=== PATIENT | male | born 1940 | race Caucasian/White ===

== ENCOUNTER → 2016-07-11 | Day surgery (SDC) | payer OTHER, MEDICARE ==
[2016-07-06 10:03] VITALS: BMI 44.0
[~2016-07-11] VITALS: Ht 190.5 cm; Wt 159.1 kg
[~2016-07-11] MED LIST: ASPCH81X PO; BROM0.07; DIFL0.0519; FURO-85 PO; GATI0.5S OP; GEMF600T3 PO; GLIP-197 PO; INSDGI SC; INSU100I2 SC; KETAMINE HCL INJ 50 MG/ML 10 ML VIAL ONE; LEVO50TA PO; LIDOCAINE HCL 2% 2 ML VIAL (20MG/ML) ONE; LISI5TAB PO; METO25TA3 PO; MIDAZOLAM HCL 1 MG/ML 2ML VIAL ONE; MULT1TAB18 PO; PROPOFOL IV EMULSION 10 MG/ML 20 ML VIAL IV ONE; SODIUM CHLORIDE 0.9% 500ML 500 ML IV ONE; TAMS0.4C38 PO
[2016-07-11 08:57] VITALS: Ht 190.5 cm; Wt 159.1 kg
[2016-07-11 09:09] VITALS: TEMP 37.1
--- NOTE | 2016-07-11 09:25 | Endo History and Physical ---
History & Physical Date of Service: July 11, 2016. Chief Complaint: HX OF POLYPS Referring Physician: DR ALANIS History of Present Illness History of multiple polyps (10) Past Medical History Diabetes, Anxiety, High Cholesterol, Hypertension, Thyroid Disease, Depression Past Surgical History Hx Cardiac Surgery: No Hx Internal Defibrillator: No Hx Pacemaker: No Hx Abdominal Surgery: No Hx of Implantable Prosthesis: No Hx Post-Op Nausea and Vomiting: No Hx Cancer Surgery: No Hx Thoracic Surgery: No Hx Orthopedic: No Hx Urinary Tract Surgery: No Family History None Social History Smoking Status: Former Smoker Hx Substance Use: No Hx Alcohol Use: No Allergies Coded Allergies: No Known Allergies (Unverified , 07/11/16) Current Medications Reported Home Medications Medications Dose Route/Sig Max Daily Dose Days Date Category Lantus (Insulin Glargine) 100 Unit/Ml Inj 18 Units SC HS 07/06/16 Reported Toprol-Xl (Metoprolol Succinate) 25 Mg Tabcr 0.5 Tab PO QAM 07/06/16 Reported Glipizide Er (Glipizide) 5 Mg Tab 1 Tab PO QPM 07/06/16 Reported Glipizide Er (Glipizide) 5 Mg Tab 2 Tabs PO QAM 07/06/16 Reported Lasix (Furosemide) 20 Mg Tab 20 Mg PO QAM 07/06/16 Reported Flomax (Tamsulosin Hcl) 0.4 Mg Cap 0.4 Mg PO QPM 07/06/16 Reported Humalog Kwikpen (Insulin Lispro (Human)) 100 Unit/Ml Inj 13 Units SC TIDM 07/06/16 Reported Lopid (Gemfibrozil) 600 Mg Tab 600 Mg PO BID 07/06/16 Reported Prinivil (Lisinopril) 5 Mg Tab 5 Mg PO QAM 07/06/16 Reported One Daily For Men 50+ Adv (Multiple Vitamins W/ Minerals) 1 Tab Tab 1 Tab PO QAM 06/02/13 Reported Synthroid (Levothyroxine Sodium) 50 Mcg Tab 50 Mcg PO QAM 06/02/13 Reported Aspirin Chewable (Aspirin) 81 Mg Chew 81 Mg PO HS 06/02/13 Reported Vital Signs Weight (Kilograms): 159.09 Height (Feet): 6 Height (Inches): 3 Date Time Temp Pulse Resp B/P Pulse Ox O2 Delivery O2 Flow Rate FiO2 07/11/16 09:09 37.1 93 20 202/83 95 Room Air Physical Exam General Appearance: WD/WN, no apparent distress, + obese Respiratory/Chest: Auscultation: breath sounds normal, no wheezing Cardiovascular: Heart Auscultation: RRR, no murmurs Abdomen: Inspection & Palpation: soft, no tenderness, guarding & rebound Assessment and Plan Colonoscopy today.
--- NOTE | 2016-07-11 10:04 | GI REPORT ---
Procedure Date: 07/11/2016 9:23 AM Procedure: Colonoscopy Indications: High risk colon cancer surveillance: Personal history of multiple (10) adenomas Medicines: Monitored Anesthesia Care Complications: No immediate complications. Estimated blood loss: None. Estimated Blood Loss: Estimated blood loss: none. Procedure: Pre-Anesthesia Assessment: - Prior to the procedure, a History and Physical was performed, and patient medications, allergies and sensitivities were reviewed. The patient's tolerance of previous anesthesia was reviewed. - ASA Grade Assessment: III - A patient with severe systemic disease. After I obtained informed consent, the scope was passed under direct vision. Throughout the procedure, the patient's blood pressure, pulse, and oxygen saturations were monitored continuously. The scope was introduced through the anus and advanced to the cecum, identified by appendiceal orifice and ileocecal valve. The colonoscopy was performed with ease. The patient tolerated the procedure well. The quality of the bowel preparation was adequate to identify polyps. The bowel preparation used was split dose MIralax. Findings: A 5 mm polyp was found in the transverse colon. The polyp was sessile. The polyp was removed with a cold snare. Resection and retrieval were complete. A 6 mm polyp was found in the descending colon. The polyp was sessile. The polyp was removed with a hot snare. Resection and retrieval were complete. A 2 mm polyp was found in the sigmoid colon. The polyp was sessile. The polyp was removed with a cold snare. Resection and retrieval were complete. Multiple diverticula were found in the sigmoid colon. Verification of patient identification for the specimens was done by the physician and nurse using the patient's name, date and medical record number. Impression: - One 5 mm polyp in the transverse colon, removed with a cold snare. Resected and retrieved. - One 6 mm polyp in the descending colon, removed with a hot snare. Resected and retrieved. - One 2 mm polyp in the sigmoid colon, removed with a cold snare. Resected and retrieved. - Diverticulosis in the sigmoid colon. Recommendation: - Continue present medications. - Repeat colonoscopy in 3 years for surveillance based on pathology results. - Discharge patient to home (with escort). Chuck Hernandez M.D. Chuck Hernandez MD 07/11/2016 10:04:31 AM This report has been signed electronically. Note Initiated On: 07/11/2016 9:23 AM I attest to the content of the Intraoperative Record and orders documented therein, exceptions below
--- NOTE | 2016-07-11 10:06 | Discharge Instructions ---
Endoscopy Patient Instructions Date / Procedure(s) Performed July 11, 2016. Colonoscopy Allergy Information Coded Allergies: No Known Allergies (Unverified , 07/11/16) Discharge Date / Findings July 11, 2016. Polyps (3), diverticulosis Medication Instructions Restart Stopped Medication(s): Restart all medications today. Provider Instructions Activity Restrictions - No exercising or heavy lifting for 24 hours. - Do not drink alcohol the day of the procedure. - Do not drive a car or operate machinery until the day after the procedure. - Do not make any important decisions or sign important papers in 24 hours after the procedure. Following Day: - Return to full activity which may include returning to work/school. Diet Start your diet with liquids and light foods (jello, soup, juice, toast). Then eat your usual diet if not nauseated. Treatment For Common After Affects For mild abdominal pain, bloating, or excessive gas: - Rest - Eat lightly - Lie on right side Follow-Up Information Follow-up with DR ALANIS as scheduled Anesthesia Information What You Should Know You have had a procedure that required some medicine to reduce anxiety and discomfort. This treatment is called moderate sedation. After receiving the treatment, you may be sleepy, but you will be able to breathe on your own. The effects of the treatment may last for several hours. Follow these instructions along with Activity/Diet recommendations noted above: * Do NOT do anything where dizziness or clumsiness would be dangerous. * Rest quietly at home today, then you can be up and about tomorrow. * Have a responsible person stay with you the rest of today. * You may have had an I.V. today. If so, you may take the dressing off later today. Recommendations Call your doctor if: * Trouble breathing * Continuous vomiting for more than 24 hours * Temperature above 101 degrees * Severe abdominal pain or bloating * Pain not relieved by pain medicine ordered * There is increased drainage or redness from any incision * A large amount of rectal bleeding greater than 2-3 tablespoons. (If you had a polyp/s removed or have hemorrhoids, a small amount of blood - from the rectum is to be expected.) * You have any unanswered questions or concerns. IN THE EVENT OF A SERIOUS EMERGENCY, GO TO THE NEAREST EMERGENCY ROOM Your discharge instructions were prepared by provider Chuck Hernandez. Patient Instructions Signature Page John Harris Patient (or Guardian) Signature/Date: I have read and understand the instructions given to me by my caregivers. Caregiver/RN/Doctor Signature/Date: The above-named patient and/or guardian has received patient instructions on this date. + Original Patient Signature Page (only) stays with chart. Please make copy for patient.
--- NOTE | 2016-07-11 10:19 | Anesthesiology Progress Note ---
Anesthesia Post Op Note Date & Time July 11, 2016 at 10:18 Vital Signs Pain Intensity: 0 Vital Signs Past 12 Hours Date Time Temp Pulse Resp B/P Pulse Ox O2 Delivery O2 Flow Rate FiO2 07/11/16 10:09 78 20 137/62 96 Room Air 07/11/16 09:09 37.1 93 20 202/83 95 Room Air Notes Mental Status: alert / awake / arousable, participated in evaluation Pt Amnestic to Procedure: Yes Nausea / Vomiting: adequately controlled Pain: adequately controlled Airway Patency, RR, SpO2: stable & adequate BP & HR: stable & adequate Hydration State: stable & adequate Anesthetic Complications: no major complications apparent
[2016-07-11 10:39] VITALS: BP 127/73; PULSE 77; O2SAT 96
== END | disposition home or self-care (01) ==
LOC: C.GI 08:47
PROVIDERS: ATTEND Internal Medicine Gastroenterology
DX: Z12.11 Encounter for screening for malignant neoplasm of colon (principal); Z86.010 Personal history of colon polyps; E11.9 Type 2 diabetes mellitus without complications; D12.3 Benign neoplasm of transverse colon; D12.4 Benign neoplasm of descending colon; D12.5 Benign neoplasm of sigmoid colon; K57.30 Diverticulosis of large intestine without perforation or abscess without bleeding; I10 Essential (primary) hypertension; E78.00 Pure hypercholesterolemia, unspecified; F32.9 Major depressive disorder, single episode, unspecified; Z87.891 Personal history of nicotine dependence; Z68.41 Body mass index [BMI] 40.0-44.9, adult; E66.9 Obesity, unspecified; Z90.89 Acquired absence of other organs; Z79.4 Long term (current) use of insulin

== ENCOUNTER → 2016-09-25 | Day surgery (SDC) | payer OTHER, MEDICARE ==
[2016-09-04 15:41] VITALS: Ht 190.5 cm; Wt 159.1 kg
[~2016-09-25] VITALS: Ht 190.5 cm; Wt 159.1 kg
[~2016-09-25] MED LIST changes: +500ML BSS 0.3ML EPI 1:1000PF IRRIG ONE; +ACETAMINOPHEN 325 MG TAB PO PRN; +AMVISC PLAIN 0.8ML SYRINGE INT OCU ONE; +AMVISC PLUS 0.8ML SYRINGE INT OCU ONE; +ATROPINE SULFATE 0.1 MG/ML 5ML SYR IV PRN; +BSS FLUSH ONE; +EpHEDrine SULFATE INJ 50 MG/ML AMP IV PRN; +EpINEphrine INJ 1MG/ML AMP 1 MG/ML AMP ONE; +FENTANYL CITRATE INJ 50 MCG/1 ML 2 ML VIAL IV PRN; +FLUMAZENIL 0.1 MG/1 ML 10 ML VIAL IV PRN; +HYDROmorphone INJ 2 MG/ML SYR/VIAL IV PRN; -KETAMINE HCL INJ 50 MG/ML 10 ML VIAL ONE; +LABETALOL HCL IV 5 MG/ML 20ML IV PRN; +LACTATED RINGER'S 1000ML 500 ML IV SCH; +LIDOCAINE 3.5% OPH GEL PER APPLICATION CHARGE ONE; +LIDOCAINE HCL 1% MPF 2 ML VIAL ONE; -LIDOCAINE HCL 2% 2 ML VIAL (20MG/ML) ONE; +MEPERIDINE HCL 25 MG/ML CARP IV PRN; +NALOXONE HCL 0.4 MG/1 ML VIAL/CARP IV PRN; +OCUCOAT 1 ML SOLN IO ONE; +ONDANSETRON INJ 2 MG/ML 2 ML VIAL IV PRN; +PHENYLEPHRINE 100MCG/ML 5ML SYR IV PRN; +POVIDONE-IODINE OP SOLN 30 ML BTL ONE; +PROPARACAINE 0.5% OP SOLN PER DROP CHARGE OPL SCH; -PROPOFOL IV EMULSION 10 MG/ML 20 ML VIAL IV ONE; -SODIUM CHLORIDE 0.9% 500ML 500 ML IV ONE; +TOBRAMYCIN/DEXAMETHASONE OPH OINT PER APPLN CHARGE ONE
[2016-09-25] MEDS: PHENYLEPHRINE HCL 2.5% OP SOLN PER DROP CHARGE OPL SCH ×2 (06:57→07:07)
[2016-09-25] MEDS: TROPICAMIDE 1% OP SOLN PER DROP CHARGE OPL SCH ×2 (06:58→07:08)
[2016-09-25] MEDS: CYCLOPENTOLATE HCL 1% OP SOLN PER DROP CHARGE OPL SCH ×2 (07:00→07:08)
[2016-09-25] MEDS: KETOROLAC 0.5% OP SOLN PER DROP CHARGE OPL SCH ×2 (07:03→07:09)
--- NOTE | 2016-09-25 07:03 | History & Physical Bridge - SC ---
H&P Re-Evaluation Bridge Note: I have examined the patient, reviewed the History & Physical and in the interval since the performance of the History & Physical I have noted the following changes of clinical significance: No changes noted
[2016-09-25] MEDS: GATIFLOXACIN OP SOLN PER DROP CHARGE OPL SCH ×2 (07:04→07:11)
--- NOTE | 2016-09-25 07:52 | Discharge Instructions-SurgCtr ---
Discharge Instructions Date of Service Sep 25, 2016. Visit Reason for Visit: Left Cataract Discharge Discharge Diagnosis / Problem: cataract Discharge Goals Goal(s): Improve function Activity Recommendations Activity Limitations: per Instructions/Follow-up section Anesthesia . Post Anesthesia Instructions: If you have had General Anesthesia or IV Sedation: * Do not drive today. * Resume driving when surgeon permits. * Do not make important decisions or sign legal documents today. * Call surgeon for: 1. Temperature elevations greater than 101 degrees F. 2. Uncontrollable pain. 3. Excessive bleeding. 4. Persistent nausea and vomiting. 5. Medication intolerance (nausea, vomiting or rash). * For nausea and vomiting use only clear liquids such as: tea, soda, bouillon until nausea subsides, then gradually increase diet as tolerated. * If you have any concerns or questions, call your surgeon's office. If physician is unavailable and it is an emergency, call 911 or go to the nearest emergency room. . Instructions / Follow-Up Instructions / Follow-Up ACTIVITY RECOMMENDATIONS: * No strenuous lifting, jogging or running for 4 days * No swimming or yard work for 1 week. * Limited bending is permitted, such as putting on shoes. RETURN TO SCHOOL/WORK: No work until seen by physician in office. MEDICATIONS: Resume previous medications unless instructed otherwise by your surgeon. This includes eye drops for glaucoma. Zymaxid/Gatifloxacin (roper cap) - one drop every 2 hours until bedtime Nevanac/Ilevro/Prolensa/Ketorolac (trivedi cap) - one drop every 4 hours until bedtime Prednisolone/Durezol (white/pink cap, SHAKE WELL) - one drop every 2 hours until bedtime Starting tomorrow - all 3 drops every 4 hours until seen in the office Optive drops - as needed for discomfort SPECIAL CARE INSTRUCTIONS: * Wear eyeshield when sleeping, for four nights. * You may wear your own glasses or sunglasses while awake. * You may read or watch TV * You may shower and wash your face, but be gentle around the eye and pat dry. * Blurry vision and mild irritation are normal. * Call office if pain is more severe or vision becomes dark at . FOLLOW UP VISIT: Follow-up with Dr Sr tomorrow. Diet Recommendations Home Diet: resume previous diet Procedures Procedures Performed: Left Cataract Phacoemulsification With Intraocular Lens Implant; Toric Lens Pending Studies Studies pending at discharge: no Medical Emergencies . Who to Call and When: Medical Emergencies: If at any time you feel your situation is an emergency, please call 911 immediately. . Non-Emergent Contact Non-Emergency issues call your: Safety Attendant . . "Provider Documentation" section prepared by Carlton Sr. .
[2016-09-25 07:53] VITALS: TEMP 36.9
--- NOTE | 2016-09-25 07:54 | [facility] Operative Report ---
Operative Report Date of Service Sep 25, 2016. Operative Report 1. PREOPERATIVE DIAGNOSIS: Cataract of the left eye. 2. POSTOPERATIVE DIAGNOSIS: Same. 3. PROCEDURE: Phacoemulsification with intraocular lens implantation of the left eye. SURGEON: Dr. Carlton Sr. ANESTHESIA: Topical Lidocaine gel, 1% Non- Preserved intracameral Lidocaine, and monitored intravenous sedation. INDICATIONS FOR THE PROCEDURE: The patient is a 76 - year-old male with a history of cataract of the left eye causing significant visual impairment. The details of the proposed procedure were explained to the patient who asked appropriate questions and following discussion of all risks, benefits and alternatives agreed to have the procedure done. Patient had corneal astigmatism and therefore elected to have a toric lens placed. 4. OPERATION AND FINDINGS: DESCRIPTION OF PROCEDURE: After informed consent was obtained, patient was placed in an upright position and the cornea was marked at 83 degrees using the Jongla corneal marking tool. The the patient was brought to the Operating Room at the [facility]. The patient was placed in a supine position and then the left eye was prepped and draped in the usual sterile fashion for intraocular surgery. A drop of topical Lidocaine gel was placed in the operative eye. A wire lid speculum was then placed in the fornices. A corneal paracentesis was then created temporally. The Non-Preserved Lidocaine was then instilled into the anterior chamber. The anterior chamber was then pressurized with viscoelastic. A 2.0 mm clear corneal incision was then created temporally. A cystotome was inserted into the anterior chamber and used to create a tear in the anterior lens capsule. This capsular tear was then used to create a small flap and the flap was dragged in a counterclockwise direction in order to create a continuous curvilinear capsulorrhexis. Hydrodissection was accomplished with balanced salt solution. Phacoemulsification of the lens nucleus was then performed in a standard divide- and-conquer technique. The phaco time was 19 seconds with an average power of 8 %. The remaining cortical material was removed using irrigation aspiration. The capsular bag was then filled with viscoelastic. A Alson [id number] +18.0 diopters lens was then loaded into the injector and injected into the capsular bag. The lens was aligned with the previously made corneal [place]. The remaining viscoelastic was removed with the irrigation aspiration handpiece. The wound was hydrated and then checked and found to be watertight. The intraocular pressure was checked and found to be adequate. The wire lid speculum was removed and the patient's face was cleaned and dried. TobraDex ointment was placed in the inferior fornix. The patient was discharged to the Recovery Room having tolerated the procedure well. There were no complications. The patient will be seen tomorrow in the office for follow-up. I attest to the content of the Intraoperative Record and any orders documented therein. Any exceptions are noted below.
--- NOTE | 2016-09-25 08:03 | Anesthesia Progress Nt - [facility] ---
Anesthesia Post Op Note Date & Time Sep 25, 2016 at 08:03 Vital Signs Pain Intensity: 0 Vital Signs Past 12 Hours Date Time Temp Pulse Resp B/P (MAP) Pulse Ox O2 Delivery O2 Flow Rate FiO2 09/25/16 07:53 36.9 60 16 126/67 (86) 97 Room Air 09/25/16 06:46 36.6 64 16 124/74 (91) 96 Room Air Notes Mental Status: alert / awake / arousable, participated in evaluation Pt Amnestic to Procedure: Yes Nausea / Vomiting: adequately controlled Pain: adequately controlled Airway Patency, RR, SpO2: stable & adequate BP & HR: stable & adequate Hydration State: stable & adequate Anesthetic Complications: no major complications apparent
[2016-09-25 08:18] VITALS: BP 128/75; PULSE 66; O2SAT 97
== END | disposition home or self-care (01) ==
LOC: X.SURG 06:27
PROVIDERS: ATTEND Ophthalmology
DX: H26.9 Unspecified cataract (principal); E11.9 Type 2 diabetes mellitus without complications; K21.9 Gastro-esophageal reflux disease without esophagitis; I10 Essential (primary) hypertension; E03.9 Hypothyroidism, unspecified; E66.01 Morbid (severe) obesity due to excess calories; K57.30 Diverticulosis of large intestine without perforation or abscess without bleeding; Z79.4 Long term (current) use of insulin

== ENCOUNTER → 2016-10-16 | Day surgery (SDC) | payer OTHER, MEDICARE ==
[2016-10-11 15:18] VITALS: Ht 190.5 cm; Wt 159.1 kg
[~2016-10-16] VITALS: Ht 190.5 cm; Wt 159.1 kg
[~2016-10-16] MED LIST changes: -AMVISC PLAIN 0.8ML SYRINGE INT OCU ONE; -BROM0.07; -DIFL0.0519; -FENTANYL CITRATE INJ 50 MCG/1 ML 2 ML VIAL IV PRN; -FLUMAZENIL 0.1 MG/1 ML 10 ML VIAL IV PRN; -GATI0.5S OP; -HYDROmorphone INJ 2 MG/ML SYR/VIAL IV PRN; -LABETALOL HCL IV 5 MG/ML 20ML IV PRN; -MEPERIDINE HCL 25 MG/ML CARP IV PRN; -NALOXONE HCL 0.4 MG/1 ML VIAL/CARP IV PRN; -PHENYLEPHRINE 100MCG/ML 5ML SYR IV PRN; -PROPARACAINE 0.5% OP SOLN PER DROP CHARGE OPL SCH; +PROPARACAINE 0.5% OP SOLN PER DROP CHARGE OPR SCH
[2016-10-16] MEDS: PHENYLEPHRINE HCL 2.5% OP SOLN PER DROP CHARGE OPR SCH ×2 (11:22→11:28)
[2016-10-16] MEDS: TROPICAMIDE 1% OP SOLN PER DROP CHARGE OPR SCH ×2 (11:23→11:29)
[2016-10-16] MEDS: CYCLOPENTOLATE HCL 1% OP SOLN PER DROP CHARGE OPR SCH ×2 (11:24→11:30)
[2016-10-16] MEDS: KETOROLAC 0.5% OP SOLN PER DROP CHARGE OPR SCH ×2 (11:25→11:31)
[2016-10-16] MEDS: GATIFLOXACIN OP SOLN PER DROP CHARGE OPR SCH ×2 (11:26→11:36)
--- NOTE | 2016-10-16 12:22 | [facility] Operative Report ---
Operative Report Date of Service Oct 16, 2016. Operative Report 1. PREOPERATIVE DIAGNOSIS: Cataract of the right eye. 2. POSTOPERATIVE DIAGNOSIS: Same. 3. PROCEDURE: Phacoemulsification with intraocular lens implantation of the right eye. SURGEON: Dr. Carlton Sr. ANESTHESIA: Topical Lidocaine gel, 1% Non- Preserved intracameral Lidocaine, and monitored intravenous sedation. INDICATIONS FOR THE PROCEDURE: The patient is a 76 - year-old male with a history of cataract of the right eye causing significant visual impairment. The details of the proposed procedure were explained to the patient who asked appropriate questions and following discussion of all risks, benefits and alternatives agreed to have the procedure done. 4. OPERATION AND FINDINGS: DESCRIPTION OF PROCEDURE: After informed consent was obtained, the patient was brought to the Operating Room at the [facility]. The patient was placed in a supine position and then the right eye was prepped and draped in the usual sterile fashion for intraocular surgery. A drop of topical Lidocaine gel was placed in the operative eye. A wire lid speculum was then placed in the fornices. A corneal paracentesis was then created temporally. The Non-Preserved Lidocaine was then instilled into the anterior chamber. The anterior chamber was then pressurized with viscoelastic. A 2.0 mm clear corneal incision was then created temporally. A cystotome was inserted into the anterior chamber and used to create a tear in the anterior lens capsule. This capsular tear was then used to create a small flap and the flap was dragged in a counterclockwise direction in order to create a continuous curvilinear capsulorrhexis. Hydrodissection was accomplished with balanced salt solution. Phacoemulsification of the lens nucleus was then performed in a standard [id number] technique. The phaco time was 27 seconds with an average power of 13 %. The remaining cortical material was removed using irrigation aspiration. The capsular bag was then filled with viscoelastic. A Yang [id number] +18.0 diopters lens was then loaded into the injector and injected into the capsular bag. The remaining viscoelastic was removed with the irrigation aspiration handpiece. The wound was hydrated and then checked and found to be watertight. The intraocular pressure was checked and found to be adequate. The wire lid speculum was removed and the patient's face was cleaned and dried. TobraDex ointment was placed in the inferior fornix. The patient was discharged to the Recovery Room having tolerated the procedure well. There were no complications. The patient will be seen tomorrow in the office for follow-up. I attest to the content of the Intraoperative Record and any orders documented therein. Any exceptions are noted below.
--- NOTE | 2016-10-16 12:22 | Discharge Instructions-SurgCtr ---
Discharge Instructions Date of Service Oct 16, 2016. Visit Reason for Visit: Cataract Right Eye Discharge Discharge Diagnosis / Problem: cataract Discharge Goals Goal(s): Improve function Activity Recommendations Activity Limitations: per Instructions/Follow-up section Anesthesia . Post Anesthesia Instructions: If you have had General Anesthesia or IV Sedation: * Do not drive today. * Resume driving when surgeon permits. * Do not make important decisions or sign legal documents today. * Call surgeon for: 1. Temperature elevations greater than 101 degrees F. 2. Uncontrollable pain. 3. Excessive bleeding. 4. Persistent nausea and vomiting. 5. Medication intolerance (nausea, vomiting or rash). * For nausea and vomiting use only clear liquids such as: tea, soda, bouillon until nausea subsides, then gradually increase diet as tolerated. * If you have any concerns or questions, call your surgeon's office. If physician is unavailable and it is an emergency, call 911 or go to the nearest emergency room. . Instructions / Follow-Up Instructions / Follow-Up ACTIVITY RECOMMENDATIONS: * No strenuous lifting, jogging or running for 4 days * No swimming or yard work for 1 week. * Limited bending is permitted, such as putting on shoes. RETURN TO SCHOOL/WORK: No work until seen by physician in office. MEDICATIONS: Resume previous medications unless instructed otherwise by your surgeon. This includes eye drops for glaucoma. Zymaxid/Gatifloxacin (roper cap) - one drop every 2 hours until bedtime Nevanac/Ilevro/Prolensa/Ketorolac (trivedi cap) - one drop every 4 hours until bedtime Prednisolone/Durezol (white/pink cap, SHAKE WELL) - one drop every 2 hours until bedtime Starting tomorrow - all 3 drops every 4 hours until seen in the office Optive drops - as needed for discomfort SPECIAL CARE INSTRUCTIONS: * Wear eyeshield when sleeping, for four nights. * You may wear your own glasses or sunglasses while awake. * You may read or watch TV * You may shower and wash your face, but be gentle around the eye and pat dry. * Blurry vision and mild irritation are normal. * Call office if pain is more severe or vision becomes dark at . FOLLOW UP VISIT: Follow-up with Dr Sr tomorrow. Diet Recommendations Home Diet: resume previous diet Procedures Procedures Performed: Right Cataract Phacoemulsification With Intraocular Lens Implant Pending Studies Studies pending at discharge: no Medical Emergencies . Who to Call and When: Medical Emergencies: If at any time you feel your situation is an emergency, please call 911 immediately. . Non-Emergent Contact Non-Emergency issues call your: Saxophone Assembler . . "Provider Documentation" section prepared by Carlton Sr. .
[2016-10-16 12:26] VITALS: TEMP 36.5
--- NOTE | 2016-10-16 12:31 | Anesthesia Progress Nt - [facility] ---
Anesthesia Post Op Note Date & Time Oct 16, 2016 at 12:30 Vital Signs Pain Intensity: 0 Vital Signs Past 12 Hours Date Time Temp Pulse Resp B/P (MAP) Pulse Ox O2 Delivery O2 Flow Rate FiO2 10/16/16 12:26 36.5 59 22 142/66 (91) 96 Room Air 10/16/16 11:06 36.5 59 20 146/81 (102) 96 Room Air Notes Mental Status: alert / awake / arousable, participated in evaluation Pt Amnestic to Procedure: Yes Nausea / Vomiting: adequately controlled Pain: adequately controlled Airway Patency, RR, SpO2: stable & adequate BP & HR: stable & adequate Hydration State: stable & adequate Anesthetic Complications: no major complications apparent
[2016-10-16 12:45] VITALS: BP 145/62; PULSE 54; O2SAT 97
== END | disposition home or self-care (01) ==
LOC: X.SURG 10:18
PROVIDERS: ATTEND Ophthalmology
DX: E11.36 Type 2 diabetes mellitus with diabetic cataract (principal); I10 Essential (primary) hypertension; E78.2 Mixed hyperlipidemia; K21.9 Gastro-esophageal reflux disease without esophagitis; E03.9 Hypothyroidism, unspecified; G47.33 Obstructive sleep apnea (adult) (pediatric); E66.01 Morbid (severe) obesity due to excess calories; Z87.891 Personal history of nicotine dependence; Z79.4 Long term (current) use of insulin; Z79.82 Long term (current) use of aspirin; Z79.899 Other long term (current) drug therapy

== ENCOUNTER 2021-06-03 13:32 | Inpatient (IN) ==
--- NOTE | 2021-06-03 14:34 | Emergency Department Note ---
History of Present Illness General Chief complaint: Back Injury/Pain Time Seen by Provider: 06/03/21 14:14 Source: patient, family (I did talk to his daughter on the phone as well and she has healthcare power of door and arrival attendant), RN notes reviewed and old records reviewed Mode of arrival: EMS Limitations: no limitations History of Present Illness Maximum Pain Intensity: 6 This patient is a 81-year-old male who comes in after having significant pain and weakness as well as inability to care for self. He fell was seen here on 22 May. He went to [facility]. At that time he had a negative CT of his lumbar spine. He had fallen when he was trying to help his off the floor. He was discharged from [facility] on and says that since he is been home he has been unable to get out of his chair. His daughter came by and he had blisters on his legs and she debrided them. The patient has pain with movement that he says radiates down both legs. He says his back is killing him. Denies any change in bowel or bladder function he claims to be eating okay denies any significant headache he has had no fall since he left. Denies chest pain or shortness of breath. I did talk to his daughter on the phone as well. She tells me that the lower extremity swelling is been going on for some time but is gotten worse he finished antibiotics for some redness in his right plascencia just prior to falling on the . He does take Lasix on Saturday and Saturday. No definite fever at home. His blood sugars been running low at times. He is been more tangential and verbal at times. He had been living with his but she has been placed in [facility]. Home Medications Medication Instructions Recorded Confirmed Type aspirin 81 mg tablet,delayed 81 mg PO HS 12/04/18 06/03/21 History release (Adult Aspirin Regimen) gabapentin 300 mg capsule 300 mg PO BID 12/04/18 06/03/21 History gemfibrozil 600 mg tablet 600 mg PO BID 12/04/18 06/03/21 History glipizide 5 mg tablet 5 mg PO .DAILY@NOON tab 12/04/18 06/03/21 History insulin glargine 100 unit/mL (3 12 units SQ HS ml 12/04/18 06/03/21 History mL) subcutaneous pen (Lantus Solostar U-100 Insulin) levothyroxine 50 mcg capsule 50 mcg PO DAILYBB 12/04/18 06/03/21 History lisinopril 5 mg tablet 5 mg PO QDD 12/04/18 06/03/21 History vit C 250 mg-vit E 90 mg-zinc 40 1 tab PO BID 12/18/18 06/03/21 History mg-copper 1 [id number] capsule (PreserVision AREDS-2) metoprolol succinate 25 mg 25 mg PO HS 04/09/19 06/03/21 History tablet,extended release 24 hr finasteride 5 mg tablet 5 mg PO DAILY #90 tab 08/23/20 06/03/21 Rx tamsulosin 0.4 mg capsule 0.4 mg PO DAILY #90 cap 08/23/20 06/03/21 Rx venlafaxine 150 mg 150 mg PO .DAILY@NOON 05/22/21 06/03/21 History capsule,extended release 24 hr furosemide 20 mg tablet 20 mg PO 3XWK 06/03/21 06/03/21 History oxycodone 5 mg tablet 10 mg PO Q6H PRN 06/03/21 06/03/21 History Allergies Allergy/AdvReac Type Severity Reaction Status Date / Time No Known Allergies Allergy Verified 06/03/21 15:44 Past Med/Surg History Medical History (Updated 06/03/21 @ 18:56 by Zachary Lara MD) Arthritis Depression Diabetes mellitus, type 2 IDDM Dysuria Hearing disorder right ear hearing loss History of kidney stones Hyperlipidemia Hypertension Hypothyroidism Macular degeneration, age related Morbid obesity Sleep apnea does not use CPAP Spinal stenosis of lumbar region Surgical History Hx of colonoscopy Hx of non-cataract eye surgery Hx of right cataract extraction Hx of tonsillectomy Family History Son Family history of diabetes mellitus Social History Smoking Status: Former smoker Tobacco Type: Cigarettes Second Hand Exposure: No; Hx Alcohol Use: No Hx Substance Use: No Preferred Language: Dominican Communication Ability: Effective Beliefs That Will Affect Care: None Current Living Situation: Spouse Current Living Situation Comment: HAS DEEMENTIA AND HE CARE FOR HER Feels Safe at Home: No Assistive Devices: Glasses Review of Systems A total of 10 systems reviewed and were otherwise negative Physical Exam Vital Signs Vital Signs - 24 hr 06/03/21 13:40 06/03/21 14:28 06/03/21 15:02 Temperature 36.7 C Temperature Source Oral Pulse Rate 78 Pulse Rate from SpO2 Sensor 82 Pulse Rhythm Regular Pulse Strength Normal Respiratory Rate 22 18 Respiratory Effort / Characteristics Non-Labored Respiratory Depth Normal Respiratory Pattern Regular Blood Pressure 169/79 H 157/85 H Blood Pressure Mean 109 109 Blood Pressure Position Semi-fowlers Pulse Oximetry 98 94 95 Oxygen Delivery Method Room Air Room Air Sepsis Recent Fever Within 48 Hours No Sepsis New/Unexplained Change in Mental Status N/A Sepsis Action Taken by Nursing No Action Required 06/03/21 15:57 06/03/21 17:34 06/03/21 18:01 Temperature Temperature Source Pulse Rate 81 84 83 Pulse Rate from SpO2 Sensor Pulse Rhythm Pulse Strength Respiratory Rate 20 20 20 Respiratory Effort / Characteristics Respiratory Depth Respiratory Pattern Blood Pressure 180/56 H 175/66 H 156/94 H Blood Pressure Mean 97 102 114 Blood Pressure Position Pulse Oximetry 93 97 96 Oxygen Delivery Method Sepsis Recent Fever Within 48 Hours Sepsis New/Unexplained Change in Mental Status Sepsis Action Taken by Nursing General: Well developed well nourished older male who is alert on x3 and answers most questions appropriately and in no acute distress with any movement and he has significant pain in his breathing comfortably on room air. Normal speech HEENT: Normal cephalic atraumatic. Pupils are equal round and reactive to light. Sclera anicteric. Extraocular movements are intact. Oropharynx is pink with moist mucous membranes. No swelling of the mouth lips or tongue. Neck: Supple with a midline trachea. No meningeal signs or stiffness, no JVD or bruits. No Stridor. Chest: Clear to auscultation bilaterally. No wheezes or rhonchi. No increased work of breathing. Heart: Regular rate and rhythm without murmurs or gallops. Abdomen: Soft nontender, nondistended without rebound guarding or rigidity. Extremities: Does have mild bilateral lower extremity edema. There is some redness of his right plascencia where there is some been blisters that have been debrided no pus or purulence. Has a moderate size pannus. He has yeast seen in the skin folds between the abdomen and groin. Spine/Back. Non tender to palpation. No CVA tenderness Skin: Good turgor without rashes. Neurologic exam: Cranial nerves two through 12 are intact. Able to wiggle his toes bilaterally but also moving his legs and seems weak bilaterally. There is a lot of pain as well which may be limiting his movement. Course Administered Medications Sodium Chloride (Nss 1000ml) 1,000 mls @ 100 mls/hr IV .Q10H WILBER Stop: 07/03/21 18:14 Last Admin: 06/03/21 20:19 Dose: 100 mls/hr Documented by: [id number] Discontinued Medications Sodium Chloride (Nss 1000ml) 500 mls @ 999 mls/hr IV .Q31M ONE Stop: 06/03/21 15:33 Last Infusion: 06/03/21 16:08 Dose: 0 mls/hr Documented by: [id number] Admin: 06/03/21 15:19 Dose: 999 mls/hr Documented by: [id number] Morphine Sulfate (Morphine Sulfate 2 Mg/Ml Carp) 2 mg IV NOW STA Stop: 06/03/21 15:21 Last Admin: 06/03/21 15:38 Dose: 2 mg Documented by: [id number] Ondansetron HCl (Ondansetron Inj 2 Mg/Ml 2 Ml Vial) 4 mg IV NOW STA Stop: 06/03/21 15:21 Last Admin: 06/03/21 15:37 Dose: 4 mg Documented by: [id number] Medical Decision Making Differential Diagnosis Sepsis, dehydration, lumbar disc disease, fracture, neurologic process, UTI cellulitis Medical Records Attestation: I reviewed the patient's medical records. Home Medications Current Medication List: was personally reviewed by me Laboratory Data Attestation: I reviewed the patient's lab results. Result diagrams: 06/03/21 13:56 06/03/21 13:56 Lab Results 06/03/21 06/03/21 06/03/21 Range/Units 13:56 13:56 13:56 WBC 10.55 (4.8-10.8) K/uL RBC 3.23 L (4.7-6.1) M/uL Hgb 10.1 L (14.0-18.0) g/dL Hct 30.3 L (42-52) % MCV 93.8 (80-100) fL MCH 31.3 (25-34) pg MCHC 33.3 (32-36) g/dL RDW Std Deviation 52.6 H (36.4-46.3) fL RDW Coeff of [place] 15.3 H (11.5-14.5) % Plt Count 337 (130-400) K/uL MPV 10.0 (7.4-10.4) fL Immature Gran % (Auto) 0.1 % Neut % (Auto) 85.4 % Lymph % (Auto) 4.5 % Cobb % (Auto) 8.9 % Eos % (Auto) 0.8 % Baso % (Auto) 0.3 % Neut # (Auto) 9.02 H (1.4-6.5) K/uL Lymph # (Auto) 0.47 L (1.2-3.4) K/uL Cobb # (Auto) 0.94 H (0.11-0.59) K/uL Eos # (Auto) 0.08 (0-0.5) K/uL Baso # (Auto) 0.03 (0-0.2) K/uL Immature Gran # (Auto) 0.01 (0.00-0.02) K/uL PT 12.9 H (9.0-12.0) Seconds INR 1.2 H (0.9-1.1) APTT 31.1 H (21.0-31.0) Seconds PTT Ratio 1.1 Sodium 144 (136-145) mmol/L Potassium 4.0 (3.5-5.1) mmol/L Chloride 110 H (98-107) mmol/L Carbon Dioxide 24 (21-32) mmol/L Anion Gap 10 (3-11) BUN 57 H (6-23) mg/dl Creatinine 2.06 H (0.6-1.4) mg/dl Est Cr Clr Drug Dosing 41.5 ml/min Est GFR ( Amer) 33.5 ml/min Est GFR (Non-Af Amer) 28.9 ml/min BUN/Creatinine Ratio 27.7 H (10-20) Glucose 102 H (70-99(Fasting)) mg/dl Lactate (0.4-2.0) mmol/L Calcium 9.0 (8.5-10.1) mg/dl Magnesium 2.5 H (1.7-2.4) mg/dl Total Bilirubin 0.5 (0.2-1.0) mg/dl AST 58 H (13-39) U/L ALT 20 (7-52) U/L Alkaline Phosphatase 180 H (34-104) U/L Total Creatine Kinase 977 H (30-223) U/L Troponin I 0.03 (0-0.04) ng/ml Total Protein 7.1 (6.0-8.3) gm/dl Albumin 3.5 (3.4-5.0) gm/dl Globulin 3.6 (2.5-4.0) gm/dl Albumin/Globulin Ratio 1.0 (0.9-2) Urine Color Urine Appearance (Clear) Urine pH (4.5-7.5) Ur Specific [place] (1.000-1.030) Urine Protein (Negative) Urine Glucose (UA) (Negative) Urine Ketones (Negative) Urine Blood (Negative) Urine Nitrite (Negative) Urine Bilirubin (Negative) Urine Urobilinogen (Negative) Ur Leukocyte Esterase (Negative) Urine WBC (Auto) (0-5) /hpf Urine RBC (Auto) (0-4) /hpf U Hyaline Cast (Auto) (0-5) /lpf U Epithel Cells (Auto) (0-5) /lpf Urine Bacteria (Auto) (Negative) 06/03/21 06/03/21 Range/Units 14:37 15:47 WBC (4.8-10.8) K/uL RBC (4.7-6.1) M/uL Hgb (14.0-18.0) g/dL Hct (42-52) % MCV (80-100) fL MCH (25-34) pg MCHC (32-36) g/dL RDW Std Deviation (36.4-46.3) fL RDW Coeff of [place] (11.5-14.5) % Plt Count (130-400) K/uL MPV (7.4-10.4) fL Immature Gran % (Auto) % Neut % (Auto) % Lymph % (Auto) % Cobb % (Auto) % Eos % (Auto) % Baso % (Auto) % Neut # (Auto) (1.4-6.5) K/uL Lymph # (Auto) (1.2-3.4) K/uL Cobb # (Auto) (0.11-0.59) K/uL Eos # (Auto) (0-0.5) K/uL Baso # (Auto) (0-0.2) K/uL Immature Gran # (Auto) (0.00-0.02) K/uL PT (9.0-12.0) Seconds INR (0.9-1.1) APTT (21.0-31.0) Seconds PTT Ratio Sodium (136-145) mmol/L Potassium (3.5-5.1) mmol/L Chloride (98-107) mmol/L Carbon Dioxide (21-32) mmol/L Anion Gap (3-11) BUN (6-23) mg/dl Creatinine (0.6-1.4) mg/dl Est Cr Clr Drug Dosing ml/min Est GFR ( Amer) ml/min Est GFR (Non-Af Amer) ml/min BUN/Creatinine Ratio (10-20) Glucose (70-99(Fasting)) mg/dl Lactate 0.9 (0.4-2.0) mmol/L Calcium (8.5-10.1) mg/dl Magnesium (1.7-2.4) mg/dl Total Bilirubin (0.2-1.0) mg/dl AST (13-39) U/L ALT (7-52) U/L Alkaline Phosphatase (34-104) U/L Total Creatine Kinase (30-223) U/L Troponin I (0-0.04) ng/ml Total Protein (6.0-8.3) gm/dl Albumin (3.4-5.0) gm/dl Globulin (2.5-4.0) gm/dl Albumin/Globulin Ratio (0.9-2) Urine Color Yellow Urine Appearance Clear (Clear) Urine pH 5.0 (4.5-7.5) Ur Specific [place] 1.018 (1.000-1.030) Urine Protein 1+ H (Negative) Urine Glucose (UA) Negative (Negative) Urine Ketones Negative (Negative) Urine Blood 1+ H (Negative) Urine Nitrite Negative (Negative) Urine Bilirubin Negative (Negative) Urine Urobilinogen Negative (Negative) Ur Leukocyte Esterase Trace H (Negative) Urine WBC (Auto) 1-5 (0-5) /hpf Urine RBC (Auto) 0-4 (0-4) /hpf U Hyaline Cast (Auto) 1-5 (0-5) /lpf U Epithel Cells (Auto) 10-20 H (0-5) /lpf Urine Bacteria (Auto) Negative (Negative) Imaging Data Attestation: I personally reviewed and interpreted this imaging study as follows: My Impression: Chest x-raypoor respiratory effort which revolve results in some vascular crowding but no focal infiltrate or pneumothorax seen. It would be difficult to rule out a mild degree of CHF Radiologist's Impression: Chest X-Ray 06/03/21 14:28 XR chest 1V portable HISTORY: SEPSIS COMPARISON: Chest 05/22/2021. FINDINGS: There are low lung volumes. No pneumothorax. No pleural effusions. The heart remains mildly enlarged. There is mild central pulmonary vascular congestion without overt edema. This remains unchanged. No new focal lung consolidations to suggest pneumonia. A few small linear density at the lung bases favor subsegmental atelectasis. Incidental note is made of a small right azygos lobe. IMPRESSION: No change in the cardiomegaly with mild pulmonary vascular congestion. ACT 112: Negative or not required by law. Electronically signed by: Obdulio Augustin M.D. 06/03/2021 4:48 PM ECG Data Attestation: I personally reviewed and interpreted this ECG as follows: Indication: + weakness Rate (beats per minute): 77 Rhythm: + normal sinus ECG Intervals/blocks: + Normal QRS, + Normal QT and + Normal [place] ECG [place]: + Normal ECG ST segments: + Normal ST segments ECG Findings: no PACs or no PVCs Comparison ECG Date: from (12/25/18) Change: no significant change MDM Narrative This patient comes in as described above he is brought in by ambulance. He has been having ongoing issues with his back he has been unable to function at home he is weak and unable to get out of a chair despite receiving rehab for this. denies any additional fall appears stable vital signs are stable initially his mouth does look dry and I think he probably is dehydrated he is significantly painful with any movement and difficult evaluate he may have weakness in his legs as well but there is a lot of pain in the background. I initially ordered a sepsis type work-up and asked him about pain medication he declines any until we talk to his daughter. He was given morphine 2 mg IV and Zofran 4 mg IV due to significant pain. He has no white count or fever to suggest sepsis. Lactic acid also normal. His BUN and creatinine are up compared to baseline because of dehydration. His CK is also mildly mildly elevated. He was treated with IV hydration for this is possibly is a mild degree of rhabdo. Potassium was not elevated at 4. His Covid test was negative. EKG shows no acute ischemic changes or ectopy. I do think he needs to be admitted for further treatment and evaluation and pain management. He obviously cannot be at home at present. Chest x-ray was unremarkable. His O2 sat did drop briefly after having some pain medications but he tolerated this well and it came back up. I do think he needs to be admitted for further evaluation of his weakness back pain and dehydration. [facility] will [facility] them for this measures. Continuous cardiac monitoring: Orders placed in EMR for continuous cardiac monitoring. Upon my interpretation the patient was noted to be in normal sinus rhythm with a rate of 83 Impression & Plan Acute dehydration, Lab test negative for COVID-19 virus, Low back pain, Weakness, Acute renal insufficiency, Bilateral edema of lower extremity Discharge Plan Visit Data Chief Complaint: Back Injury/Pain ED Provider: Lorenzo Painting Discharge Problem: Acute dehydration, Lab test negative for COVID-19 virus, Low back pain, Weakness, Acute renal insufficiency, Bilateral edema of lower extremity Patient Disposition: Admitted As Inpatient Discharge Instructions Interventions: ED Discharge Assessment Last Done: 06/03/21 19:34 Discharge Problem: Low back pain Qualifiers: Chronicity: unspecified Back pain laterality: bilateral Sciatica presence: with sciatica Sciatica laterality: bilateral sciatica Qualified Code(s): M54.42 - Lumbago with sciatica, left side
[2021-06-03 14:46] LABS: Basophils # (auto) 0.03 K/uL (0-0.2); Basophils % (auto) 0.3 %; Eosinophils # (auto) 0.08 K/uL (0-0.5); Eosinophils % (auto) 0.8 %; Hematocrit (blood only) 30.3 % (42-52); Hemoglobin 10.1 g/dL (14.0-18.0); Immature Granulocytes # (auto) 0.01 K/uL (0.00-0.02); Immature Granulocytes % (auto) 0.1 %; Lymphocytes # (auto) 0.47 K/uL (1.2-3.4); Lymphocytes % (auto) 4.5 %; Mean Corpuscular Hemoglobin 31.3 pg (25-34); Mean Corpuscular Hgb Conc 33.3 g/dL (32-36); Mean Corpuscular Volume 93.8 fL (80-100); Monocytes # (auto) 0.94 K/uL (0.11-0.59); Monocytes % (auto) 8.9 %; Neutrophils # (auto) 9.02 K/uL (1.4-6.5); Neutrophils % (auto) 85.4 %; Platelet Count 337 K/uL (130-400); RDW Coefficient of Variation 15.3 % (11.5-14.5); RDW Standard Deviation 52.6 fL (36.4-46.3); Red Blood Count 3.23 M/uL (4.7-6.1); White Blood Count 10.55 K/uL (4.8-10.8)
[2021-06-03 14:57] LABS: INR 1.2 (0.9-1.1); Partial Thromboplastin Ratio 1.1; Partial Thromboplastin Time 31.1 Seconds (21.0-31.0); Prothrombin Time 12.9 Seconds (9.0-12.0)
[2021-06-03] MEDS ORDERED: SODIUM CHLORIDE 0.9% 1000ML 500 ML IV ONE (15:03)
[2021-06-03] MEDS ORDERED: ONDANSETRON INJ 2 MG/ML 2 ML VIAL IV STA (15:20)
[2021-06-03] MEDS ORDERED: MoRPHine SULFATE 2 MG/ML CARP IV STA (15:20)
[2021-06-03 15:33] LABS: Albumin Level 3.5 gm/dl (3.4-5.0); BUN Creatinine Ratio 27.7 (10-20); Bilirubin,Total 0.5 mg/dl (0.2-1.0); Creatinine Clr Calc Pharmacy 41.5 ml/min; Est GFR (African American) 33.5 ml/min; Est GFR (Non-African American) 28.9 ml/min; Globulin 3.6 gm/dl (2.5-4.0); Magnesium 2.5 mg/dl (1.7-2.4); Total Protein 7.1 gm/dl (6.0-8.3); Troponin I 0.03 ng/ml (0-0.04)
--- NOTE | 2021-06-03 16:50 | XRay Report ---
XR chest 1V portable HISTORY: SEPSIS COMPARISON: Chest 05/22/2021. FINDINGS: There are low lung volumes. No pneumothorax. No pleural effusions. The heart remains mildly enlarged. There is mild central pulmonary vascular congestion without overt edema. This remains unch anged. No new focal lung consolidations to suggest pneumonia. A few small linear density at the lung bases favor subsegmental atelectasis. Incidental note is made of a small right azygos lobe. IMPRESSION: No change in the cardiomegaly with mild pulmonary vascular congestion. ACT 112: Negative or not required by law. Electronically signed by: Obdulio Augustin M.D. 06/03/2021 4:48 PM
--- NOTE | 2021-06-03 16:55 | History & Physical Report ---
Date of Service June 03, 2021 Assessment & Plan (1) HERMELINDO (acute kidney injury): (2) Elevated CK: (3) Diabetes: Plan: HERMELINDO- Cr now 2.06, baseline of 1.1-1.3. Likely prerenal. Continue ivf, avoid nephrotoxic, recheck in am. Hold lisinopril and lasix Elevated CK- mild, continue IVF, recheck in am. Not on statin Acute on chronic back pain- Recent CT lumbar spine was unremarkable. Continue pain management- tylenol, lidocaine patch, gabapentin, oxy prn. PT eval. Cons ider MRI L spine and/or back surgery evaluation if does not improve or develops additional neurologic symptoms. Currently not indicated and her daughter (retired MA[employer]SEMBLER) agrees. Avoid too much narcs as his oxygen saturation dips with it- continuous pulse oximetry. Can't give NSAIDs due to HERMELINDO. Possible mild RLE cellulitis- erythematous, tender, mild warmth with bulla and epithelial loss. Will start on doxy and monitor for improvement. WOCN eval. Elevated LFTs- mild, monitor with scheduled tylenol DM-2- hold glipizide. Continue lantus, SSI HTN- hold lisinopril d/t HERMELINDO. continue toprol Hypothyroid- continue synthroid BPH- on proscar, flomax DVT prophylaxis- sc lovenox Code status- Full code Update- Updated daughter at bedside History of Present Illness Chief Complaint: back pain, weakness Primary Care Provider: Tru Callahan MD 81 year old male who presented to the ED from home with back pain and weakness. Patient was here in the ED on 05/22 for back pain which developed after he fell down while trying to help his go to the bathroom. His lumbar CT was negative and he was discharged to [facility] from where he was discharged 2 days back. He arrived home 4 pm. He then had worsening back pain along with weakness and basically sitting on the couch. He was intermittently confused likely from the pain medications. Brought to ED as unable to take care of at home. No new falls. Has back with bilateral sciatica. No numbness, weakness, tingling of extremities. No perineal paresthesia or bowel bladder incontinence. No fever or chills. No other issues. In the ED, he was afebrile and hemodynamically stable. Given iv morphine and pain relatively controlled. Looks dry. No other issues. Allergies Allergy/AdvReac Type Severity Reaction Status Date / Time No Known Allergies Allergy Verified 06/03/21 15:44 Home Medications Medication Instructions Recorded Confirmed Type aspirin 81 mg tablet,delayed 81 mg PO HS 12/04/18 06/03/21 History release (Adult Aspirin Regimen) gabapentin 300 mg capsule 300 mg PO BID 12/04/18 06/03/21 History gemfibrozil 600 mg tablet 600 mg PO BID 12/04/18 06/03/21 History glipizide 5 mg tablet 5 mg PO .DAILY@NOON tab 12/04/18 06/03/21 History insulin glargine 100 unit/mL (3 12 units SQ HS ml 12/04/18 06/03/21 History mL) subcutaneous pen (Lantus Solostar U-100 Insulin) levothyroxine 50 mcg capsule 50 mcg PO DAILYBB 12/04/18 06/03/21 History lisinopril 5 mg tablet 5 mg PO QDD 12/04/18 06/03/21 History vit C 250 mg-vit E 90 mg-zinc 40 1 tab PO BID 12/18/18 06/03/21 History mg-copper 1 [id number] capsule (PreserVision AREDS-2) metoprolol succinate 25 mg 25 mg PO HS 04/09/19 06/03/21 History tablet,extended release 24 hr finasteride 5 mg tablet 5 mg PO DAILY #90 tab 08/23/20 06/03/21 Rx tamsulosin 0.4 mg capsule 0.4 mg PO DAILY #90 cap 08/23/20 06/03/21 Rx venlafaxine 150 mg 150 mg PO .DAILY@NOON 05/22/21 06/03/21 History capsule,extended release 24 hr furosemide 20 mg tablet 20 mg PO [id number] 06/03/21 06/03/21 History oxycodone 5 mg tablet 10 mg PO Q6H PRN 06/03/21 06/03/21 History Past Med/Surg History Medical History (Updated 06/03/21 @ 18:56 by Zachary Lara MD) Arthritis Depression Diabetes mellitus, type 2 IDDM Dysuria Hearing disorder right ear hearing loss History of kidney stones Hyperlipidemia Hypertension Hypothyroidism Macular degeneration, age related Morbid obesity Sleep apnea does not use CPAP Spinal stenosis of lumbar region Surgical History Hx of colonoscopy Hx of non-cataract eye surgery Hx of right cataract extraction Hx of tonsillectomy Family History Son Family history of diabetes mellitus Social History Smoking Status: Former smoker Tobacco Type: Cigarettes Second Hand Exposure: No; Hx Alcohol Use: No Hx Substance Use: No Preferred Language: Malagasy Communication Ability: Effective Beliefs That Will Affect Care: None Current Living Situation: Spouse Current Living Situation Comment: HAS DEEMENTIA AND HE CARE FOR HER Feels Safe at Home: No Assistive Devices: Glasses Physical Exam Physical Exam: General: Elderly male, lying comfortably in bed, not in acute distress, on room air HEENT: EOMI, MARY, dry oral mucosa Chest: Clear breath sounds bilaterally, no wheezes or crackles CVS: Regular rate and rhythm, normal heart sounds, no murmur Abdomen: Soft, non tender, not distended, normal bowel sounds Neuro: Awake, alert, orientedx3, conversing well, non focal Extremities: No cyanosis, clubbing or edema, RLE with erythema and epithelial loss bilaterally with some bulla on left leg, tender to touch Results & Data Results & Data ([facility]) Vital Signs (Past 12 Hours) Vital Signs Temp Pulse Resp BP Pulse Ox 06/03/21 15:02 18 157/85 H 95 06/03/21 14:28 94 06/03/21 13:40 36.7 C 78 22 169/79 H 98 Laboratory Results Short CBC 06/03/21 Range/Units 13:56 WBC 10.55 (4.8-10.8) K/uL Hgb 10.1 L (14.0-18.0) g/dL Hct 30.3 L (42-52) % Plt Count 337 (130-400) K/uL BMP 06/03/21 13:56 Sodium 144 Potassium 4.0 Chloride 110 H Carbon Dioxide 24 BUN 57 H Creatinine 2.06 H Glucose 102 H Calcium 9.0 Cardiac Enzymes 06/03/21 Range/Units 13:56 Total Creatine Kinase 977 H (30-223) U/L Troponin I 0.03 (0-0.04) ng/ml Liver Function 06/03/21 Range/Units 13:56 Total Bilirubin 0.5 (0.2-1.0) mg/dl AST 58 H (13-39) U/L ALT 20 (7-52) U/L Alkaline Phosphatase 180 H (34-104) U/L Albumin 3.5 (3.4-5.0) gm/dl Urine 06/03/21 Range/Units 15:47 Urine Color Yellow Urine Appearance Clear (Clear) Urine pH 5.0 (4.5-7.5) Ur Specific [place] 1.018 (1.000-1.030) Urine Protein 1+ H (Negative) Urine Glucose (UA) Negative (Negative)
[2021-06-03 17:14] LABS: Appearance Urine Clear (Clear); Bacteria Urine Automated Negative (Negative); Bilirubin Urine Negative (Negative); Blood Urine 1+ (Negative); Color Urine Yellow; Glucose Urine UA Negative (Negative); Ketones Urine Negative (Negative); Leukocyte Esterase Urine Trace (Negative); Nitrite Urine Negative (Negative); Protein Urine 1+ (Negative); RBC Urine Automated 0-4 /hpf (0-4); Specific Gravity Urine 1.018 (1.000-1.030); Urobilinogen Urine Negative (Negative)
[2021-06-03] MEDS ORDERED: SODIUM CHLORIDE 0.9% 1000ML 1,000 ML IV SCH (18:15)
[2021-06-03] MEDS ORDERED: GLUCAGON FOR INJ 1 MG VIAL SQ PRN (20:04)
[2021-06-03] MEDS ORDERED: oxyCODONE HCL IR 5 MG TAB (IMMEDIATE RELEASE) PO PRN (20:04)
[2021-06-03] MEDS ORDERED: GLUCOSE 10 TABS/TUBE PO PRN (20:04)
[2021-06-03] MEDS ORDERED: CARBOHYDRATES FOR HYPOGLYCEMIA PO PRN (20:04)
[2021-06-03] MEDS ORDERED: GLUCOSE 40% GEL 15 GM TUBE PO PRN (20:04)
[2021-06-03] MEDS ORDERED: DEXTROSE 50% 50 ML SYRINGE IV PRN (20:04)
[2021-06-03] MEDS: ENOXAPARIN INJ 40 MG/0.4 ML SYR SQ SCH (21:14)
[2021-06-03] MEDS: LIDOCAINE 5% 1 PATCH TD SCH (21:15)
[2021-06-03] MEDS: INSULIN GLARGINE SOLOSTAR 100 UNITS/ML 3 ML PEN SQ SCH (21:16)
[2021-06-03] MEDS: INSULIN ASPART PER UNIT SC SCH (21:17)
[2021-06-03] MEDS: DOXYCYCLINE HYCLATE 100 MG CAP PO SCH (21:18)
[2021-06-03] MEDS: gemfibroziL 600 MG TAB PO SCH (21:18)
[2021-06-03] MEDS: ASPIRIN 81 MG ECTAB PO SCH (21:18)
[2021-06-03] MEDS: GABAPENTIN 300 MG CAP PO SCH (21:18)
[2021-06-03] MEDS: METOPROLOL SUCC 25MG EXT REL TAB PO SCH (21:19)
[2021-06-03] MEDS: CYCLOBENZAPRINE HCL 5 MG TAB PO PRN (21:19)
[2021-06-03] MEDS: ACETAMINOPHEN 325 MG TAB PO SCH (21:24)
[2021-06-04 00:48] LABS: HCO3 ABG 24 mmol/L (19-24); PCO2 ABG 46 mmHg (35-46); PO2 ABG 82 mmHg (80-95); pH ABG 7.34 (7.35-7.45)
[2021-06-04 01:15] LABS: Allen Test POS (Pos)
[2021-06-04] MEDS ORDERED: ALBUMIN 25% 12.5 GM/50 ML VIAL IV ONE (01:22)
[2021-06-04] MEDS ORDERED: FUROSEMIDE INJ 20 MG/2 ML VIAL IV ONE (01:22)
[2021-06-04] MEDS: MICONAZOLE NITRATE POWDER 43 GM EXT SCH ×2 (01:38→20:43)
[2021-06-04] MEDS: MoRPHine SULFATE 2 MG/ML CARP IV PRN ×2 (02:06→15:31)
[2021-06-04] MEDS: LEVOTHYROXINE SODIUM 50 MCG TABLET PO SCH (05:48)
[2021-06-04 06:10] LABS: Basophils # (auto) 0.02 K/uL (0-0.2); Basophils % (auto) 0.2 %; Eosinophils # (auto) 0.19 K/uL (0-0.5); Eosinophils % (auto) 2.1 %; Hematocrit (blood only) 28.9 % (42-52); Hemoglobin 9.5 g/dL (14.0-18.0); Immature Granulocytes # (auto) 0.02 K/uL (0.00-0.02); Immature Granulocytes % (auto) 0.2 %; Lymphocytes % (auto) 9.9 %; Mean Corpuscular Hemoglobin 30.9 pg (25-34); Mean Corpuscular Hgb Conc 32.9 g/dL (32-36); Mean Corpuscular Volume 94.1 fL (80-100); Mean Platelet Volume 9.5 fL (7.4-10.4); Monocytes # (auto) 0.61 K/uL (0.11-0.59); Monocytes % (auto) 6.7 %; Neutrophils # (auto) 7.33 K/uL (1.4-6.5); Neutrophils % (auto) 80.9 %; Platelet Count 287 K/uL (130-400); RDW Coefficient of Variation 15.5 % (11.5-14.5); Red Blood Count 3.07 M/uL (4.7-6.1); White Blood Count 9.07 K/uL (4.8-10.8)
[2021-06-04 06:31] LABS: BUN Creatinine Ratio 28.9 (10-20); C Reactive Protein 3.7 mg/dl (0-0.5); Calcium 8.5 mg/dl (8.5-10.1); Creatinine Clr Calc Pharmacy 45.3 ml/min; Est GFR (African American) 37.7 ml/min; Est GFR (Non-African American) 32.5 ml/min; Phosphorus 4.3 mg/dl (2.5-4.9); Potassium 3.9 mmol/L (3.5-5.1)
--- NOTE | 2021-06-04 07:39 | XRay Report ---
SINGLE VIEW CHEST CLINICAL HISTORY: Hypoxia FINDINGS: An AP, portable, upright chest radiograph is compared to study dated 06/03/2021. The examinat ion is degraded by portable technique and patient rotation. The heart is enlarged noting atheroscler otic calcification of the thoracic aorta. There is pulmonary vascular congestion. There are low lung volumes. Atelectasis is noted at the lung bases. No airspace consolidation typical for pneumonia or l arge pleural effusion is identified. No pneumothorax is seen. The skeletal structures are osteopenic. The bony thorax is grossly intact. IMPRESSION: 1. Cardiomegaly with pulmonary vascular congestion. 2. Low lung volumes. ACT 112: Negative or not required by law. Electronically signed by: Bradley Cox M.D. 06/04/2021 7:38 AM
[2021-06-04] MEDS: INSULIN ASPART PER UNIT SC SCH ×4 (08:34→20:38)
[2021-06-04] MEDS: ENOXAPARIN INJ 40 MG/0.4 ML SYR SQ SCH (08:35)
[2021-06-04] MEDS: gemfibroziL 600 MG TAB PO SCH ×2 (08:40→20:40)
[2021-06-04] MEDS: GABAPENTIN 300 MG CAP PO SCH ×2 (08:40→20:40)
[2021-06-04] MEDS: VENLAFAXINE HCL XR 150 MG CAPXR PO SCH (08:40)
[2021-06-04] MEDS: DOXYCYCLINE HYCLATE 100 MG CAP PO SCH ×2 (08:40→20:41)
[2021-06-04] MEDS: TAMSULOSIN HCL 0.4 MG CAP PO SCH (08:40)
[2021-06-04] MEDS: FINASTERIDE 5 MG TAB PO SCH (08:40)
[2021-06-04] MEDS: LIDOCAINE 5% 1 PATCH TD SCH (08:43)
[2021-06-04] MEDS: ACETAMINOPHEN 325 MG TAB PO SCH ×4 (08:54→20:42)
[2021-06-04] MEDS: amLODIPine BESYLATE 5 MG TAB PO SCH (10:30)
--- NOTE | 2021-06-04 10:49 | Electrocardiogram Report ---
Test Reason : Blood Pressure : / mmHG Vent. Rate : 077 BPM Atrial Rate : 077 BPM P-R Int : 208 ms QRS Dur : 104 ms QT Int : 410 ms P-R-T Axes : 056 005 015 degrees QTc Int : 463 ms Normal sinus rhythm Normal ECG When compared with ECG of 25-DEC-2018 12:13, QT has lengthened Confirmed by Chang Peraza ([id number]) on 06/04/2021 10:49:19 AM Referred By: REFERRED SELF Confirmed By:Chang Peraza
[2021-06-04] MEDS ORDERED: LACTATED RINGER'S 1,000 ML IV ONE (13:11)
[2021-06-04] MEDS ORDERED: methylPREDNISolone 40 MG in SYRINGE 0 ML IV ONE (13:30)
--- NOTE | 2021-06-04 14:37 | Hospitalist Progress Note ---
Date of Service June 04, 2021 Assessment & Plan (1) HERMELINDO (acute kidney injury): (2) Elevated CK: (3) Diabetes: Plan: Acute kidney injury Likely prerenal Baseline of 1.1-1.3 Hold lisinopril, Lasix Continue gentle IV fluids Monitor renal function Avoid nephrotoxic agents as able Mildly Elevated CK Likely due to dehydration, Poor mobility CK trending down Received IV fluids Acute on chronic back pain Recent CT lumbar spine not contributory Will repeat CT Patient refused MRI due to claustrophobia Pain Control Consulted Orthopedics Given a dose of Solu-medrol PT/OT eval Avoid NSAIDs due to HERMELINDO RLE cellulitis Continue Doxycycline Elevated LFTs- mild monitor DM II hold glipizide Continue lantus, SSI Monitor BGs HTN held lisinopril due to HERMLEINDO continue Metoprolol Started on Amlodipine for BP control while off of Lisinopril Hypothyroidism continue Levothyroxine BPH on proscar, flomax DVT Px: Heparin SQ Code status Full code Admission and Anticipated Discharge Date Admission Date: June 03, 2021 Subjective Patient is seen and examined at bedside States having lower back pain radiating to bilateral lower extremities Denies any chest pain, shortness of breath, dizziness, nausea, abdominal pain Offers no other complaints Review of Systems Review of Systems: All systems reviewed & are unremarkable except as noted in Subjective Physical Exam Physical Exam: Physical Exam: Vitals signs as noted above General Appearance:Morbidly Obese, no apparent distress Head: normocephalic, Atraumatic Eyes: normal inspection, EOMI Neck: supple, Trachea midline Respiratory/Chest: Normal breath sounds, CTA, No accessory muscle use Cardiovascular: S1, S2, No murmur Abdomen/GI:Soft, Non tender, Bowel sounds present Extremities/Musculoskeletal:normal inspection, 1+ B/L LE edema, + B/L LE scabbed blisters, skin peeling Neurologic/Psych:AAOX3, grossly no focal neurological deficits Skin: normal color, warm Results & Data Results & Data ([facility]) Vital Signs (Past 12 Hours) Vital Signs Temp Pulse Resp BP Pulse Ox 06/04/21 07:45 36.8 C 73 18 183/64 H 94 Laboratory Results Short CBC 06/03/21 06/04/21 Range/Units 13:56 05:52 WBC 10.55 9.07 (4.8-10.8) K/uL Hgb 10.1 L 9.5 L (14.0-18.0) g/dL Hct 30.3 L 28.9 L (42-52) % Plt Count 337 287 (130-400) K/uL BMP 06/03/21 06/04/21 13:56 05:52 Sodium 144 146 H Potassium 4.0 3.9 Chloride 110 H 114 H Carbon Dioxide 24 25 BUN 57 H 54 H Creatinine 2.06 H 1.87 H Glucose 102 H 76 Calcium 9.0 8.5 Cardiac Enzymes 06/03/21 06/04/21 Range/Units 13:56 05:52 Total Creatine Kinase 977 H 571 H (30-223) U/L Troponin I 0.03 (0-0.04) ng/ml Liver Function 06/03/21 Range/Units 13:56 Total Bilirubin 0.5 (0.2-1.0) mg/dl AST 58 H (13-39) U/L ALT 20 (7-52) U/L Alkaline Phosphatase 180 H (34-104) U/L Albumin 3.5 (3.4-5.0) gm/dl Urine 06/03/21 Range/Units 15:47 Urine Color Yellow Urine Appearance Clear (Clear) Urine pH 5.0 (4.5-7.5) Ur Specific [place] 1.018 (1.000-1.030) Urine Protein 1+ H (Negative) Urine Glucose (UA) Negative (Negative)
--- NOTE | 2021-06-04 15:45 | CT Scan Report ---
CT SCAN OF THE LUMBAR SPINE WITHOUT IV CONTRAST CLINICAL HISTORY: Low back pain. COMPARISON STUDY: CT of the lumbar spine dated 05/22/2021. TECHNIQUE: CT scan of the lumbar spine is performed from the lower thoracic spine to sacrum. Images a re reviewed in the axial, sagittal, and coronal planes. IV contrast was not administered for this exa mination. A dose lowering technique was utilized adhering to the principles of ALARA. CT DOSE: 1168.43 mGy.cm FINDINGS: The skeletal structures are osteopenic. There is an acute to subacute burst type compressio n fracture of L4 with moderate loss of height. Fracture involves both the anterior and posterior emily ex, and also extends into the right pedicle as seen on axial image #261. Fragments are retropulsed by up to 5 mm. No additional fracture is seen involving the lumbar spine. Vertebral body height is othe rwise maintained. The transverse and spinous processes are intact. Anterior and lateral marginal oste ophytes are seen throughout. No lytic or blastic lesion is identified. There is mild multilevel degen erative disc space narrowing with multilevel vacuum phenomenon. The visualized sacrum and bony pelvis appear intact. Degenerative change is noted in the sacroiliac joints. Paravertebral edema is noted a t L4. There is fatty atrophy of the paraspinous musculature. The abdominal aorta is normal in caliber noting advanced atherosclerotic calcification. There is a 2.5 cm indeterminant right renal lesion se en on image #115. Simple cyst in the left kidney measure up to 2.4 cm. IMPRESSION: 1. There is an acute to subacute burst type compression fracture of L4 with moderate loss of height a nd retropulsed fragments. 2. Fracture extends into the right pedicle of L4. 3. No additional acute fracture is seen involving the lumbar spine. 4. Osteopenia and spondylotic change as above. 5. There is a 2.5 cm indeterminant right renal lesion which does not meet criteria for a simple cyst. Although this could represent a complex cyst, nonemergent follow-up with urology is recommended as i s a contrast enhanced renal protocol CT for further assessment and to exclude underlying neoplasm. ACT 112: Negative or not required by law. Electronically signed by: Bradley Cox M.D. 06/04/2021 3:43 PM
[2021-06-04] MEDS ORDERED: MoRPHine SULFATE 2 MG/ML CARP IV PRN (16:43)
--- NOTE | 2021-06-04 19:33 | Urology Consultation ---
Date of Consultation June 04, 2021 Assessment & Plan (1) Renal lesion: Patient has been admitted on the hospitalist service primarily secondary to his back issues related to his recent fall. The renal lesion appears to have been found incidentally on lumbar spine CT scan. Concerning type patient's right renal lesion rg with the patient that he may require additional dedicated imaging of his kidneys to further delineate what this could potentially be. At the time of my interview with the patient he was greatly reluctant to undergo further imaging at this time. We will plan on discussing this with him further once his acute issues have been addressed further. History of Present Illness Reason for Consultation: Right renal lesion Attending Physician: Ja Zimmerman MD History of Present Illness This is an 81-year-old male who presented to [facility] emergency department on 06/03/2021 secondary to back pain and some generalized weakness. He noted that the patient had a prior emergency department visit in April of this year secondary to back pain which occurred after he fell down at home. During the [facility] emergency department visit he did have a CT scan of the lumbar spine which was negative for fractures and the patient went to [facility] rehab. Upon discharge from [facility] rehab the patient noted that he had some worsening back pain and some generalized weakness. He noted that the back pain was worse when sitting on the couch. There were no reported addition al falls. Denied any numbness or tingling of his extremities. He denied any urinary incontinence. He denies any fever shakes or chills. As he was having a great deal of difficulty caring for himself at home he was brought back to the emergency department for further care. Since admission to the hospital the patient has had labs and imaging which I independently reviewed. He has had a chest x-ray on 2 occasions that did not show any evidence of pneumonia. A CT scan of the lumbar spine was performed that showed patient had an acute burst type compression fracture of the L4 vertebrae. There is also a 2.5 cm right renal lesion. This lesion did not meet the criteria for a simple cyst. Patient did have a prior CT scan of the lumbar spine in April of this year. On this study the right kidney was not readily visualized and therefore this cyst was not able to be identified. Labs include a CBC her white blood cell count and platelet count were normal. His hemoglobin and hematocrit were 9.5 and 28.9. Chemistry profile showed his sodium was 146. Potassium was 3.9. BUN and creatinine were 54 and 1.8. Covid test was performed was noted to be negative. Did question patient on symptoms related to his right renal lesion that was noted on the above-noted CT scan. Patient does report that he has had approximately 10 pound weight loss over the past week or so. He notes that his weight loss was unintentional. He denied any previous dysuria. He denied any previous hematuria. He does report back pain. To the best of his knowledge he was unaware of this renal lesion. At the time of my interview the patient was resting comfortably in bed and he was in no distress. Allergies Allergy/AdvReac Type Severity Reaction Status Date / Time No Known Allergies Allergy Verified 06/03/21 15:44 Home Medications Medication Instructions Recorded Confirmed Type aspirin 81 mg tablet,delayed 81 mg PO HS 12/04/18 06/03/21 History release (Adult Aspirin Regimen) gabapentin 300 mg capsule 300 mg PO BID 12/04/18 06/03/21 History gemfibrozil 600 mg tablet 600 mg PO BID 12/04/18 06/03/21 History glipizide 5 mg tablet 5 mg PO .DAILY@NOON tab 12/04/18 06/03/21 History insulin glargine 100 unit/mL (3 12 units SQ HS ml 12/04/18 06/03/21 History mL) subcutaneous pen (Lantus Solostar U-100 Insulin) levothyroxine 50 mcg capsule 50 mcg PO DAILYBB 12/04/18 06/03/21 History lisinopril 5 mg tablet 5 mg PO QDD 12/04/18 06/03/21 History vit C 250 mg-vit E 90 mg-zinc 40 1 tab PO BID 12/18/18 06/03/21 History mg-copper 1 [id number] capsule (PreserVision AREDS-2) metoprolol succinate 25 mg 25 mg PO HS 04/09/19 06/03/21 History tablet,extended release 24 hr finasteride 5 mg tablet 5 mg PO DAILY #90 tab 08/23/20 06/03/21 Rx tamsulosin 0.4 mg capsule 0.4 mg PO DAILY #90 cap 08/23/20 06/03/21 Rx venlafaxine 150 mg 150 mg PO .DAILY@NOON 05/22/21 06/03/21 History capsule,extended release 24 hr furosemide 20 mg tablet 20 mg PO 3XWK 06/03/21 06/03/21 History oxycodone 5 mg tablet 10 mg PO Q6H PRN 06/03/21 06/03/21 History Patient History Medical History (Updated 06/04/21 @ 19:38 by Og Jung PA-C) Arthritis Depression Diabetes mellitus, type 2 IDDM Dysuria Hearing disorder right ear hearing loss History of kidney stones Hyperlipidemia Hypertension Hypothyroidism Macular degeneration, age related Morbid obesity Sleep apnea does not use CPAP Spinal stenosis of lumbar region Surgical History Hx of colonoscopy Hx of non-cataract eye surgery Hx of right cataract extraction Hx of tonsillectomy Family History Son Family history of diabetes mellitus Social History Smoking Status: Never smoker Tobacco Type: Cigarettes Second Hand Exposure: No; Hx Alcohol Use: No Hx Substance Use: No Preferred Language: Macedonian Communication Ability: Effective 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: No Beliefs That Will Affect Care: None marital status: Current Living Situation: Alone Current Living Situation Comment: HAS DEEMENTIA AND HE CARE FOR HER Feels Safe at Home: Yes Safety Concerns: Feels Safe At This Time Assistive Devices: Wheelchair Review of Systems Constitutional: no fever and no chills Eyes: no diplopia Ear, Nose, Mouth, Throat: no ear pain Respiratory: no cough and no dyspnea Cardiovascular: no chest pain Gastrointestinal: no nausea and no vomiting Genitourinary: no dysuria, no hematuria or no flank pain Musculoskeletal: + back pain Integumentary: no rash Neurologic: no localized weakness Physical Exam Constitutional: well developed and well nourished; no acute distress Eyes: no conjunctival abnormality ENMT: Ears: no hearing impairment Neck: trachea midline Respiratory: normal respiratory effort; no respiratory distress and no labored breathing Cardiovascular: Rate/Rhythm: regular rate and regular rhythm Gastrointestinal (Abdomen): Soft, nontender, nondistended Musculoskeletal: No calf tenderness Skin: no rashes Neurologic: moves all extremities Psychiatric: A+Ox3, euthymic affect Results & Data ([place]) Vital Signs (Past 12 Hours) Vital Signs Temp Pulse Resp BP Pulse Ox 06/04/21 07:45 36.8 C 73 18 183/64 H 94 PG Care Time/CCT Total # of Minutes Spent Total Time Spent with Patient: Total time spent is greater than 50% in coordination of care (as documented) at patient's floor/unit and/or counseling patient: Coding Level of Care Code 48126 Inpt Consult Level 5 Diagnoses Renal lesion N28.9
[2021-06-04] MEDS: INSULIN GLARGINE SOLOSTAR 100 UNITS/ML 3 ML PEN SQ SCH (20:39)
[2021-06-04] MEDS: METOPROLOL SUCC 25MG EXT REL TAB PO SCH (20:41)
[2021-06-04] MEDS: ASPIRIN 81 MG ECTAB PO SCH (20:41)
[2021-06-04] MEDS: HEPARIN SOD 5,000 UNIT/0.5 ML VIAL SQ SCH ×2 (20:42→20:47)
[2021-06-05] MEDS: HEPARIN SOD 5,000 UNIT/0.5 ML VIAL SQ SCH ×3 (05:40→20:52)
[2021-06-05] MEDS: LEVOTHYROXINE SODIUM 50 MCG TABLET PO SCH (05:40)
[2021-06-05 07:17] LABS: Hematocrit (blood only) 26.9 % (42-52); Mean Corpuscular Hemoglobin 30.9 pg (25-34); Mean Corpuscular Hgb Conc 33.5 g/dL (32-36); Mean Corpuscular Volume 92.4 fL (80-100); Mean Platelet Volume 9.5 fL (7.4-10.4); Platelet Count 276 K/uL (130-400); RDW Coefficient of Variation 15.1 % (11.5-14.5); RDW Standard Deviation 51.6 fL (36.4-46.3); Red Blood Count 2.91 M/uL (4.7-6.1); White Blood Count 10.09 K/uL (4.8-10.8)
[2021-06-05 07:29] LABS: BUN Creatinine Ratio 28.6 (10-20); Calcium 8.5 mg/dl (8.5-10.1); Creatinine Clr Calc Pharmacy 41.1 ml/min; Est GFR (African American) 33.5 ml/min; Est GFR (Non-African American) 28.9 ml/min; Potassium 4.2 mmol/L (3.5-5.1)
[2021-06-05] MEDS: TAMSULOSIN HCL 0.4 MG CAP PO SCH (07:44)
[2021-06-05] MEDS: ACETAMINOPHEN 325 MG TAB PO SCH ×4 (07:44→20:40)
[2021-06-05] MEDS: DOXYCYCLINE HYCLATE 100 MG CAP PO SCH ×2 (07:45→20:40)
[2021-06-05] MEDS: gemfibroziL 600 MG TAB PO SCH ×2 (07:45→20:40)
[2021-06-05] MEDS: amLODIPine BESYLATE 5 MG TAB PO SCH (07:45)
[2021-06-05] MEDS: VENLAFAXINE HCL XR 150 MG CAPXR PO SCH (07:45)
[2021-06-05] MEDS: FINASTERIDE 5 MG TAB PO SCH (07:45)
[2021-06-05] MEDS: GABAPENTIN 300 MG CAP PO SCH ×2 (07:45→20:40)
[2021-06-05] MEDS: LIDOCAINE 5% 1 PATCH TD SCH (07:46)
[2021-06-05] MEDS: MICONAZOLE NITRATE POWDER 43 GM EXT SCH ×2 (07:46→20:41)
[2021-06-05] MEDS: INSULIN ASPART PER UNIT SC SCH ×4 (08:31→20:42)
--- NOTE | 2021-06-05 11:25 | Ultrasound Report ---
ULTRASOUND KIDNEYS AND BLADDER CLINICAL HISTORY: Acute renal insufficiency. COMPARISON STUDY: Lumbar spine CT dated 06/04/2021. TECHNIQUE: Real-time, grayscale, and color flow sonography of the kidneys and bladder is performed. I mages are reviewed in the transverse and longitudinal planes. FINDINGS: Kidneys: The kidneys demonstrate mild cortical atrophy. Echotexture is normal. The right kidney measu res 11.6 x 5.9 x 5.1 cm and the left kidney measures 12.4 x 5.3 x 5.5 cm. There is no hydronephrosis . No shadowing renal calculi are identified. A 2.7 cm partially exophytic cyst arises from the left l ower pole. A 2.6 cm cyst is noted in the lower pole of the left kidney. There is no sonographic evide nce of solid Mass lesion. No perinephric fluid is identified. Bladder: The bladder is partially distended. The wall appears mildly thickened and trabeculated sugge sting chronic outlet obstruction. Bilateral ureteral jets were seen. IMPRESSION: 1. The kidneys demonstrate mild cortical atrophy and are without hydronephrosis. 2. There are bilateral renal cysts, which includes the indeterminant right renal lesion seen on [facility]'s lumbar spine CT. 3. There is no sonographic evidence of solid renal mass lesion. 4. The appearance of the bladder suggests the sequelae of chronic outlet obstruction. ACT 112: Negative or not required by law. Electronically signed by: Bradley Cox M.D. 06/05/2021 11:24 AM
--- NOTE | 2021-06-05 12:41 | Orthopedic Consultation ---
Date of Consultation June 05, 2021 Assessment & Plan (1) Lumbar burst fracture: Assessment L4 burst fracture with neural compression. Plan I had a lengthy discussion today with the patient and his daughter reviewing his CAT scan findings as well as clinical presentation. He clearly has evidence of fragments within the canal with neuro compression and compromise. I am recommending a lumbar decompression and fusion L3-S1. This would most likely include a kyphoplasty of L4. Risk benefits pros cons alternatives were outlined in detail. At this time we will make him n.p.o. after midnight and plan for possible surgery tomorrow. History of Present Illness Reason for Consultation: L4 burst fracture Attending Physician: Ja Zimmerman MD History of Present Illness This is a 81-year-old male presents status post fall with significant back and bilateral leg pain. Describes significant leg weakness and is unable to ambulate. He describes pain across lumbosacral junction with radiation down the lower extremities prickly with attempts to stand and ambulate. He is relatively comfortable lying supine in bed. He notes inability to raise his legs off of the bed. He describes as feeling of not knowing where his legs are. Allergies Allergy/AdvReac Type Severity Reaction Status Date / Time No Known Allergies Allergy Verified 06/03/21 15:44 Home Medications Medication Instructions Recorded Confirmed Type aspirin 81 mg tablet,delayed 81 mg PO HS 12/04/18 06/03/21 History release (Adult Aspirin Regimen) gabapentin 300 mg capsule 300 mg PO BID 12/04/18 06/03/21 History gemfibrozil 600 mg tablet 600 mg PO BID 12/04/18 06/03/21 History glipizide 5 mg tablet 5 mg PO .DAILY@NOON tab 12/04/18 06/03/21 History insulin glargine 100 unit/mL (3 12 units SQ HS ml 12/04/18 06/03/21 History mL) subcutaneous pen (Lantus Solostar U-100 Insulin) levothyroxine 50 mcg capsule 50 mcg PO DAILYBB 12/04/18 06/03/21 History lisinopril 5 mg tablet 5 mg PO QDD 12/04/18 06/03/21 History vit C 250 mg-vit E 90 mg-zinc 40 1 tab PO BID 12/18/18 06/03/21 History mg-copper 1 [id number]-[id number] capsule (PreserVision AREDS-2) metoprolol succinate 25 mg 25 mg PO HS 04/09/19 06/03/21 History tablet,extended release 24 hr finasteride 5 mg tablet 5 mg PO DAILY #90 tab 08/23/20 06/03/21 Rx tamsulosin 0.4 mg capsule 0.4 mg PO DAILY #90 cap 08/23/20 06/03/21 Rx venlafaxine 150 mg 150 mg PO .DAILY@NOON 05/22/21 06/03/21 History capsule,extended release 24 hr furosemide 20 mg tablet 20 mg PO 3XWK 06/03/21 06/03/21 History oxycodone 5 mg tablet 10 mg PO Q6H PRN 06/03/21 06/03/21 History Patient History Medical History (Updated 06/05/21 @ 12:40 by Felix Castellanos DO) Arthritis Depression Diabetes mellitus, type 2 IDDM Dysuria Hearing disorder right ear hearing loss History of kidney stones Hyperlipidemia Hypertension Hypothyroidism Macular degeneration, age related Morbid obesity Sleep apnea does not use CPAP Spinal stenosis of lumbar region Surgical History Hx of colonoscopy Hx of non-cataract eye surgery Hx of right cataract extraction Hx of tonsillectomy Family History Son Family history of diabetes mellitus Social History Smoking Status: Never smoker Tobacco Type: Cigarettes Second Hand Exposure: No; Hx Alcohol Use: No Hx Substance Use: No Preferred Language: Amharic Communication Ability: Effective Christmas Tree Grader Required: No Beliefs That Will Affect Care: None marital status: Current Living Situation: Alone Current Living Situation Comment: HAS DEEMENTIA AND HE CARE FOR HER Feels Safe at Home: Yes Safety Concerns: Feels Safe At This Time Assistive Devices: Wheelchair Physical Exam Physical Exam: On exam he is alert and oriented and appropriate with testing. He is breakaway weakness to the bilateral quadriceps plantar flexion dorsiflexion. Sensory is somewhat diminished. Results & Data ([facility]) Vital Signs (Past 12 Hours) Vital Signs Temp Pulse Pulse Resp BP Pulse Ox Pulse Ox 06/05/21 07:05 36.4 C L 59 L 18 142/60 H 97 06/05/21 04:00 64 94
--- NOTE | 2021-06-05 15:26 | Hospitalist Progress Note ---
Date of Service June 05, 2021 Assessment & Plan (1) HERMELINDO (acute kidney injury): (2) Elevated CK: (3) Diabetes: Plan: Acute kidney injury Likely prerenal Baseline of 1.1-1.3 Hold lisinopril, Lasix Received gentle IV fluids Monitor renal function Avoid nephrotoxic agents as able Nephrology Consulted Cr:2.0 Today Mildly Elevated CK Likely due to dehydration, Poor mobility CK trending down Received IV fluids Lumbar (L4) burst fracture with neurocompression CT lumbar spine:There is an acute to subacute burst type compression fracture of L4 with moderate loss of height and retropulsed fragments. Fracture extends into the right pedicle of L4. Patient refused MRI due to claustrophobia Pain Control Appreciate Orthopedics Input PT/OT eval when appropriate Avoid NSAIDs due to HERMELINDO Needs kyphoplasty, NPO midnight Nocturnal Hypoxia H/O ALMA Non complaint with CPAP Obesity Hypoventilation likely contributing as well Has Nocturnal Oximetry Study Use 3L supplemental Oxygen at bedtime Right Renal Lesion Incidental finding on CT CT showed :2.5 cm indeterminant right renal lesion which does not meet criteria for a simple cyst. Although this could represent a complex cyst Patient currently not interested in further imaging as per Urology Appreciate Urology Input RLE cellulitis Blood Cx: Negative to date Continue Doxycycline Elevated LFTs- mild monitor DM II hold glipizide Continue lantus, SSI Monitor BGs HTN held lisinopril due to HERMELINDO continue Metoprolol Started on Amlodipine for BP control while off of Lisinopril Hypothyroidism continue Levothyroxine BPH on Proscar, Flomax DVT Px: Heparin SQ Code status Full code Admission and Anticipated Discharge Date Admission Date: June 03, 2021 Subjective Patient is seen and examined at bedside Reports persistent lower back pain Discussed with Orthopedics today Denies any chest pain, shortness of breath, dizziness, nausea, abdominal pain Offers no other complaints Review of Systems Review of Systems: All systems reviewed & are unremarkable except as noted in Subjective Physical Exam Physical Exam: Physical Exam: Vitals signs as noted above General Appearance:Morbidly Obese, no apparent distress Head: normocephalic, Atraumatic Eyes: normal inspection, EOMI Neck: supple, Trachea midline Respiratory/Chest: Normal breath sounds, CTA, No accessory muscle use Cardiovascular: S1, S2, No murmur Abdomen/GI:Soft, Non tender, Bowel sounds present Extremities/Musculoskeletal:normal inspection, 1+ B/L LE edema, + B/L LE scabbed blisters, skin peeling Neurologic/Psych:AAOX3, grossly no focal neurological deficits Skin: normal color, warm Results & Data Results & Data ([facility]) Vital Signs (Past 12 Hours) Vital Signs Temp Pulse Pulse Resp BP Pulse Ox Pulse Ox 06/05/21 14:56 36.5 C 65 14 112/44 L 97 06/05/21 07:05 36.4 C L 59 L 18 142/60 H 97 06/05/21 04:00 64 94 Laboratory Results Short CBC 06/05/21 Range/Units 06:55 WBC 10.09 (4.8-10.8) K/uL Hgb 9.0 L (14.0-18.0) g/dL Hct 26.9 L (42-52) % Plt Count 276 (130-400) K/uL BMP 06/05/21 06:55 Sodium 144 Potassium 4.2 Chloride 112 H Carbon Dioxide 25 BUN 59 H Creatinine 2.06 H Glucose 136 H Calcium 8.5
--- NOTE | 2021-06-05 20:16 | Nephrology Consultation ---
Date of Consultation June 05, 2021 Assessment & Plan (1) Volume overload: new hypoxia needing 02nc; relatively new edema past 4-6 wks needing start of diuretics mid april >lasix 10 mg IV now and consider uptitrating >>>last TTE was 2013 >> low threshold for TTE (2) Acute on chronic renal failure: since 09/2020, creatinine has run 1.2-1.3. Then in April 2021 has been more in 1.3-1.5 range until the very end of April (during his stay at rehab [facility]) when it started a rapid uptick to peak at 2.5 on 06/01. His creatinine was 2.1 on 06/03 presentation and has remained in this range ever since. chemistries ok; mild volume overload persists and cause is unclear. consider nephrotic syndrome, consider cardiorenal syndrome -hold acei -avoid nsaids -lasix 10 mg now x 1 -prot/creat ratio ordered -daily bmp (3) Lumbar burst fracture: for OR; tentatively in AM (4) Renal lesion: for OP f/u and imaging w/ urology History of Present Illness Reason for Consultation: HEREMLINDO Requesting Physician: Dr Zimmerman Attending Physician: Ja Zimmerman MD History of Present Illness 81 y/o M whom I'm asked to see for HERMELINDO was admitted 06/03 with HERMELINDO after presenting with rapidly worsened back pain, weakness, and failure to thrive. He was found to have an L4 burst fracture. He is for proposed lumbar decompression and fusion L3-S1 in AM. PMH includes DM on insulin, ALMA not on cpap, HTN, hypothyroid, obesity, stones, chronic low back pain. On 05/22 he was seen in [facility] ER after a fall at home trying to help his demented get up. He was admitted to [facility] for rehab directly from ER; was d/c home on 06/01. His daughter noted that he had worsening confusion, was too weak to get off of couch, and could no longer ambulate let alone do steps. Pt has had worsening creatinine recently, in conjunction with leg swelling and acute illness. since 09/2020, creatinine has run 1.2-1.3. Then in April 2021 has been more in 1.3-1.5 range until the very end of April (during his stay at rehab hospital) when it started a rapid uptick to peak at 2.5 on 06/01. His creatinine was 2.1 on 06/03 presentation and has remained in this range ever sin ce. He started having worsening BLE edema in April to the point of his legs seeping per mid April PCP note; he was started on lasix for this. When he left [facility], he was d/c home on 20 mg lasix MWF. His edema has improved markedly since arrival to [facility] w/o aggressive diuresis. He has ongoing and severe back pain and BLE hyperesthesias, though he states these are improved from prior. Not sob, no n/v. has salgado/denies urineary concerns prior to admission other than being too weak to use urinal. Noted also on admission imaging to have R renal lesion and OP urology eval is planned; urology did evaluated him here as well. Allergies Allergy/AdvReac Type Severity Reaction Status Date / Time No Known Allergies Allergy Verified 06/03/21 15:44 Home Medications Medication Instructions Recorded Confirmed Type aspirin 81 mg tablet,delayed 81 mg PO HS 12/04/18 06/03/21 History release (Adult Aspirin Regimen) gabapentin 300 mg capsule 300 mg PO BID 12/04/18 06/03/21 History gemfibrozil 600 mg tablet 600 mg PO BID 12/04/18 06/03/21 History glipizide 5 mg tablet 5 mg PO .DAILY@NOON tab 12/04/18 06/03/21 History insulin glargine 100 unit/mL (3 12 units SQ HS ml 12/04/18 06/03/21 History mL) subcutaneous pen (Lantus Solostar U-100 Insulin) levothyroxine 50 mcg capsule 50 mcg PO DAILYBB 12/04/18 06/03/21 History lisinopril 5 mg tablet 5 mg PO QDD 12/04/18 06/03/21 History vit C 250 mg-vit E 90 mg-zinc 40 1 tab PO BID 12/18/18 06/03/21 History mg-copper 1 [id number] capsule (PreserVision AREDS-2) metoprolol succinate 25 mg 25 mg PO HS 04/09/19 06/03/21 History tablet,extended release 24 hr finasteride 5 mg tablet 5 mg PO DAILY #90 tab 08/23/20 06/03/21 Rx tamsulosin 0.4 mg capsule 0.4 mg PO DAILY #90 cap 08/23/20 06/03/21 Rx venlafaxine 150 mg 150 mg PO .DAILY@NOON 05/22/21 06/03/21 History capsule,extended release 24 hr furosemide 20 mg tablet 20 mg PO 3XWK 06/03/21 06/03/21 History oxycodone 5 mg tablet 10 mg PO Q6H PRN 06/03/21 06/03/21 History Patient History Medical History (Updated 06/05/21 @ 20:45 by Nikki George MD, PhD) Arthritis Depression Diabetes mellitus, type 2 IDDM Dysuria Hearing disorder right ear hearing loss History of kidney stones Hyperlipidemia Hypertension Hypothyroidism Macular degeneration, age related Morbid obesity Sleep apnea does not use CPAP Spinal stenosis of lumbar region Surgical History Hx of colonoscopy Hx of non-cataract eye surgery Hx of right cataract extraction Hx of tonsillectomy Family History Son Family history of diabetes mellitus Social History Smoking Status: Never smoker Tobacco Type: Cigarettes Second Hand Exposure: No; Hx Alcohol Use: No Hx Substance Use: No Preferred Language: Serbian Communication Ability: Effective Facilities Maintenance Engineer Required: No Beliefs That Will Affect Care: None marital status: Current Living Situation: Alone Current Living Situation Comment: HAS DEEMENTIA AND HE CARE FOR HER Feels Safe at Home: Yes Safety Concerns: Feels Safe At This Time Assistive Devices: Wheelchair Review of Systems Review of Systems: All systems reviewed & are unremarkable except as noted in HPI & below Physical Exam Constitutional: well developed, well nourished, + morbidly obese and cooperative; no acute distress Eyes: EOM intact bilaterally ENMT: Ears: no external ear abnormality Nose: no external nose abnormality Mouth: + dry oral mucous membranes Neck: no nuchal rigidity Respiratory: normal respiratory effort Auscultation: + diminished lung sounds Cardiovascular: Rate/Rhythm: regular rate and regular rhythm Extremities: + edema Gastrointestinal (Abdomen): Inspection/Auscultation: normal bowel sounds Percussion/Palpation: abdomen soft; abdomen nontender Musculoskeletal: Extremities: + abnormal strength (BLE weakness) Skin: no rashes, warm and dry Neurologic: ibrahim, fluent speech, no tremor Psychiatric: Orientation: oriented x 3 Results & Data ([facility]) Vital Signs (Past 12 Hours) Vital Signs Temp Pulse Resp BP Pulse Ox 06/05/21 14:56 36.5 C 65 14 112/44 L 97 Laboratory Results 06/05/21 06:55 06/05/21 06:55 UA reviewed Diagnostic Findings renal u/s Kidneys: The kidneys demonstrate mild cortical atrophy. Echotexture is normal. The right kidney measures 11.6 x 5.9 x 5.1 cm and the left kidney measures 12.4 x 5.3 x 5.5 cm. There is no hydronephrosis. No shadowing renal calculi are identified. A 2.7 cm partially exophytic cyst arises from the left lower pole. A 2.6 cm cyst is noted in the lower pole of the left kidney. There is no sonographic evidence of solid Mass lesion. No perinephric fluid is identified. Bladder: The bladder is partially distended. The wall appears mildly thickened and trabeculated suggesting chronic outlet obstruction. Bilateral ureteral jets were seen. IMPRESSION: 1. The kidneys demonstrate mild cortical atrophy and are without hydronephrosis. 2. There are bilateral renal cysts, which includes the indeterminant right renal lesion seen on yesterday's lumbar spine CT. 3. There is no sonographic evidence of solid renal mass lesion. 4. The appearance of the bladder suggests the sequelae of chronic outlet obstruction. cxr 06/04 1. Cardiomegaly with pulmonary vascular congestion. 2. Low lung volumes.
[2021-06-05] MEDS: ASPIRIN 81 MG ECTAB PO SCH (20:40)
[2021-06-05] MEDS: METOPROLOL SUCC 25MG EXT REL TAB PO SCH (20:40)
[2021-06-05] MEDS: INSULIN GLARGINE SOLOSTAR 100 UNITS/ML 3 ML PEN SQ SCH (20:42)
[2021-06-05] MEDS ORDERED: FUROSEMIDE INJ 20 MG/2 ML VIAL IV ONE (20:55)
[2021-06-05 21:57] LABS: Creatinine Urine Random 108.8 mg/dl; Protein Creatinine Ratio Urine 0.2 (0-0.2); Total Protein Urine Random 19.7 mg/dl (0-11.9)
[2021-06-06] MEDS: LEVOTHYROXINE SODIUM 50 MCG TABLET PO SCH (05:34)
[2021-06-06] MEDS: HEPARIN SOD 5,000 UNIT/0.5 ML VIAL SQ SCH ×2 (05:34→19:08)
[2021-06-06 05:45] LABS: Hematocrit (blood only) 27.1 % (42-52); Hemoglobin 8.9 g/dL (14.0-18.0)
[2021-06-06 06:01] LABS: BUN Creatinine Ratio 29.5 (10-20); Calcium 8.4 mg/dl (8.5-10.1); Creatinine Clr Calc Pharmacy 37.3 ml/min; Est GFR (African American) 29.8 ml/min; Est GFR (Non-African American) 25.7 ml/min; Potassium 4.3 mmol/L (3.5-5.1)
[2021-06-06] MEDS: INSULIN ASPART PER UNIT SC SCH ×4 (07:26→21:12)
[2021-06-06] MEDS ORDERED: Nursing to Pharmacy Communication SCH ×3 (07:30→19:30)
[2021-06-06] MEDS: FINASTERIDE 5 MG TAB PO SCH (08:44)
[2021-06-06] MEDS: TAMSULOSIN HCL 0.4 MG CAP PO SCH (08:44)
[2021-06-06] MEDS: DOXYCYCLINE HYCLATE 100 MG CAP PO SCH ×2 (08:44→21:04)
[2021-06-06] MEDS: GABAPENTIN 300 MG CAP PO SCH ×2 (08:44→21:04)
[2021-06-06] MEDS: CYCLOBENZAPRINE HCL 5 MG TAB PO PRN (08:45)
[2021-06-06] MEDS: amLODIPine BESYLATE 5 MG TAB PO SCH (08:45)
[2021-06-06] MEDS: ACETAMINOPHEN 325 MG TAB PO SCH ×4 (08:45→21:03)
[2021-06-06] MEDS: LIDOCAINE 5% 1 PATCH TD SCH (08:48)
[2021-06-06] MEDS: MICONAZOLE NITRATE POWDER 43 GM EXT SCH ×2 (08:50→21:17)
[2021-06-06] MEDS: VENLAFAXINE HCL XR 150 MG CAPXR PO SCH (09:45)
[2021-06-06] MEDS: gemfibroziL 600 MG TAB PO SCH ×2 (09:45→21:05)
--- NOTE | 2021-06-06 11:47 | Anesthesiology Consultation ---
Date of Service June 06, 2021 Assessment & Plan (1) Encounter for pre-operative examination: Chart Review Chart Review: Acceptable Risk for Surgery History Surgery Operation Date: 06/06/21 12:25 Proposed Procedures p L3-S1 Posterior Fusion Instrumentation with - Felix Castellanos DO s L4 Kyphoplasty - Felix Castellanos DO Height/Weight Height: 6 ft 3 in Weight: 140.1 kg Allergies Allergy/AdvReac Type Severity Reaction Status Date / Time No Known Allergies Allergy Verified 06/03/21 15:44 Medications Home Medications Medication Instructions Recorded Confirmed Last Taken aspirin 81 mg tablet,delayed 81 mg PO HS 12/04/18 06/03/21 05/21/21 release (Adult Aspirin Regimen) gabapentin 300 mg capsule 300 mg PO BID 12/04/18 06/03/21 05/21/21 gemfibrozil 600 mg tablet 600 mg PO BID 12/04/18 06/03/21 05/21/21 glipizide 5 mg tablet 5 mg PO .DAILY@NOON tab 12/04/18 06/03/21 05/21/21 insulin glargine 100 unit/mL (3 12 units SQ HS ml 12/04/18 06/03/21 05/21/21 mL) subcutaneous pen (Lantus Solostar U-100 Insulin) levothyroxine 50 mcg capsule 50 mcg PO DAILYBB 12/04/18 06/03/21 05/21/21 lisinopril 5 mg tablet 5 mg PO QDD 12/04/18 06/03/21 05/21/21 vit C 250 mg-vit E 90 mg-zinc 40 1 tab PO BID 12/18/18 06/03/21 05/21/21 mg-copper 1 [id number] capsule (PreserVision AREDS-2) metoprolol succinate 25 mg 25 mg PO HS 04/09/19 06/03/21 05/21/21 tablet,extended release 24 hr finasteride 5 mg tablet 5 mg PO DAILY #90 tab 08/23/20 06/03/21 05/21/21 tamsulosin 0.4 mg capsule 0.4 mg PO DAILY #90 cap 08/23/20 06/03/21 05/21/21 venlafaxine 150 mg 150 mg PO .DAILY@NOON 05/22/21 06/03/21 05/21/21 capsule,extended release 24 hr furosemide 20 mg tablet 20 mg PO 3XWK 06/03/21 06/03/21 Unknown oxycodone 5 mg tablet 10 mg PO Q6H PRN 06/03/21 06/03/21 Unknown Active Medications Generic Name Dose Route Start Last Admin Trade Name Freq PRN Reason Stop Dose Admin Acetaminophen 650 mg 06/03/21 21:00 06/06/21 08:45 Acetaminophen 325 Mg Tab PO 07/03/21 20:59 650 mg QID WILBER Administration Amlodipine Besylate 2.5 mg 06/04/21 09:00 06/06/21 08:45 Amlodipine Besylate 5 Mg Tab PO 07/04/21 08:59 Not Given QAM WILBER Aspirin 81 mg 06/03/21 21:00 06/05/21 20:40 Aspirin 81 Mg Ectab PO 07/03/21 20:59 81 mg HS WILBER Administration Cyclobenzaprine HCl 5 mg 06/03/21 20:04 06/06/21 08:45 Cyclobenzaprine Hcl 5 Mg Tab PO 07/03/21 20:03 5 mg BID PRN Administration spasm Doxycycline Hyclate 100 mg 06/03/21 21:00 06/06/21 08:44 Doxycycline Hyclate 100 Mg Cap PO 06/10/21 20:59 100 mg BID WILBER Administration Finasteride 5 mg 06/04/21 09:00 06/06/21 08:44 Finasteride 5 Mg Tab PO 07/04/21 08:59 5 mg DAILY WILBER Administration Gabapentin 300 mg 06/03/21 21:00 06/06/21 08:44 Gabapentin 300 Mg Cap PO 07/03/21 20:59 300 mg BID WILBER Administration Gemfibrozil 600 mg 06/03/21 21:00 06/06/21 09:45 Gemfibrozil 600 Mg Tab PO 07/03/21 20:59 600 mg BID WILBER Administration Heparin Sodium (Porcine) 5,000 units 06/04/21 21:00 06/06/21 05:34 Heparin Sod 5,000 Unit/0.5 Ml Vial SQ 07/04/21 20:59 5,000 units Q8 WILBER Administration Insulin Glargine 10 units 06/03/21 21:00 06/05/21 20:42 Insulin Glargine Solostar 100 Units/Ml 3 Ml Pen SQ 07/03/21 20:59 10 units HS WILBER Administration Levothyroxine Sodium 50 mcg 06/04/21 06:30 06/06/21 05:34 Levothyroxine Sodium 50 Mcg Tablet PO 07/04/21 06:29 50 mcg DAILYBB WILBER Administration Lidocaine 1 patch 06/03/21 20:04 06/06/21 08:48 Lidocaine 5% 1 Patch TD 07/03/21 20:03 Not Given QAM WILBER Metoprolol Succinate 25 mg 06/03/21 21:00 06/05/21 20:40 Metoprolol Succ 25mg Ext Rel Tab PO 07/03/21 20:59 25 mg HS WILBER Administration Miconazole Nitrate 1 appln 06/04/21 00:30 06/06/21 08:50 Miconazole Nitrate Powder 43 Gm EXT 07/04/21 00:29 1 appln BID WILBER Administration Miscellaneous 1 ea 06/03/21 21:00 06/05/21 20:41 Remove Lidoderm Patch N/A 07/03/21 20:59 1 ea DAILY@2100 WILBER Administration Oxycodone HCl 5 mg 06/03/21 20:04 06/05/21 12:01 Oxycodone Hcl Ir 5 Mg Tab (Immediate Release) PO 06/17/21 20:03 5 mg Q6H PRN Administration Pain Tamsulosin HCl 0.4 mg 06/04/21 09:00 06/06/21 08:44 Tamsulosin Hcl 0.4 Mg Cap PO 07/04/21 08:59 0.4 mg DAILY WILBER Administration Venlafaxine HCl 150 mg 06/04/21 09:00 06/06/21 09:45 Venlafaxine Hcl Xr 150 Mg Capxr PO 07/04/21 08:59 150 mg DAILY WILBER Administration NPO Date Last Intake of Fluids: 06/06/21 Time Last Intake of Fluids: 09:30 Last Intake of Fluids Comment: Small sips approved by for PO medications Date Last Intake of Solids: 06/05/21 Time Last Intake of Solids: 18:00 Past Medical History Medical History (Updated 06/06/21 @ 11:46 by Sarmad Hill MD) Acute on chronic renal failure Arthritis Depression Diabetes mellitus, type 2 IDDM Dysuria Hearing disorder right ear hearing loss History of kidney stones Hyperlipidemia Hypertension Hypothyroidism Macular degeneration, age related Morbid obesity Sleep apnea does not use CPAP Spinal stenosis of lumbar region Vertigo Past Family History Family History Son Family history of diabetes mellitus Past Surgical History Surgical History Hx of colonoscopy Hx of non-cataract eye surgery Hx of right cataract extraction Hx of tonsillectomy Social History Smoking Status: Never smoker Hx Alcohol Use: No Hx Substance Use: No Physical Exam Vital Signs Last Vital Signs Temp 36.5 C 06/06/21 07:36 Pulse 64 06/06/21 07:36 Resp 16 06/06/21 07:36 BP 155/66 H 06/06/21 07:36 Pulse Ox 98 06/06/21 07:36 Testing Laboratory Results 06/06/21 05:26 06/06/21 05:26 PT 12.9 Seconds (9.0-12.0) H 06/03/21 13:56 INR 1.2 (0.9-1.1) H 06/03/21 13:56 APTT 31.1 Seconds (21.0-31.0) H 06/03/21 13:56 Urine Color Yellow 06/03/21 15:47 Urine Appearance Clear (Clear) 06/03/21 15:47 Urine pH 5.0 (4.5-7.5) 06/03/21 15:47 Ur Specific [place] 1.018 (1.000-1.030) 06/03/21 15:47 Urine Protein 1+ (Negative) H 06/03/21 15:47 Urine Glucose (UA) Negative (Negative) 06/03/21 15:47 Urine Ketones Negative (Negative) 06/03/21 15:47 Urine Nitrite Negative (Negative) 06/03/21 15:47 Ur Leukocyte Esterase Trace (Negative) H 06/03/21 15:47 Urine WBC (Auto) 1-5 /hpf (0-5) 06/03/21 15:47 Urine RBC (Auto) 0-4 /hpf (0-4) 06/03/21 15:47 U Hyaline Cast (Auto) 1-5 /lpf (0-5) 06/03/21 15:47 U Epithel Cells (Auto) 10-20 /lpf (0-5) H 06/03/21 15:47 Urine Bacteria (Auto) Negative (Negative) 06/03/21 15:47 Blood Type O Positive 06/03/21 14:38 Antibody Screen NEGATIVE 06/03/21 14:38 06/03/21 14:37 Aerobic Blood Culture - Preliminary Blood No growth in Aerobic bottle after 48 hours. Anaerobic Blood Culture - Preliminary No growth in Anaerobic bottle after 48 hours. 06/03/21 14:37 Aerobic Blood Culture - Preliminary Blood No growth in Aerobic bottle after 48 hours. Anaerobic Blood Culture - Preliminary No growth in Anaerobic bottle after 48 hours. 06/06/21 07:25 POC Glucose 144 H Electrocardiogram Date: 06/03/21 Findings: + NSR @ (77) Chest X-Ray Date: 06/04/21 Findings: + cardiomegaly and + pulmonary vascular congestion
[2021-06-06] MEDS ORDERED: ROCURONIUM BROMIDE 10 MG/ML 5 ML VIAL IV ONE ×4 (12:28→14:44)
[2021-06-06] MEDS ORDERED: LIDOCAINE 2% 2 ML VIAL/AMP(20MG/ML) INFIL ONE (12:28)
[2021-06-06] MEDS ORDERED: PROPOFOL IV EMULSION 10 MG/ML 20 ML VIAL IV ONE (12:28)
[2021-06-06] MEDS ORDERED: ONDANSETRON INJ 2 MG/ML 2 ML VIAL ONE (12:28)
[2021-06-06] MEDS ORDERED: fentaNYL citrate 100 MCG/2 ML VIAL ONE (12:28)
[2021-06-06] MEDS ORDERED: DEXAMETHASONE SOD INJ 4 MG/ML VIAL ONE ×2 (12:28→14:44)
--- NOTE | 2021-06-06 12:30 | History & Physical Bridge Note ---
Date of Service June 06, 2021 History & Physical Bridge Note I have examined the patient, reviewed the History & Physical and in the interval since the performance of the History & Physical I have noted the following changes of clinical significance: no changes noted Decompression fusion L3-S1 with kyphoplasty L4
[2021-06-06] MEDS ORDERED: ATROPINE SULFATE 0.1 MG/ML 10ML SYR IV PRN (12:53)
[2021-06-06] MEDS ORDERED: ONDANSETRON INJ 2 MG/ML 2 ML VIAL IV PRN ×2 (12:53→18:40)
[2021-06-06] MEDS ORDERED: ceFAZolin 3000MG/72.5 ML BAG IV ONE (12:55)
[2021-06-06] MEDS ORDERED: BUPIVACAINE 0.5 % 5 MG/1 ML MPF 30ML VIAL ONE (12:57)
[2021-06-06] MEDS ORDERED: EPINEPHrine INJ 1 MG/ML AMP ONE (12:57)
[2021-06-06] MEDS ORDERED: ceFAZolin 330 MG/ML 1 GM VIAL ONE (13:32)
--- NOTE | 2021-06-06 13:33 | Nephrology Progress Note ---
Date of Service June 06, 2021 Assessment & Plan (1) Volume overload: Plan: new hypoxia needing 02nc; relatively new edema past 4-6 wks needing start of diuretics mid april >had lasix yesterday; no further dose today; will observe but do give repeat dose if resp status worsening >>>last TTE was 2013 >> low threshold for TTE; primary service aware (2) Acute on chronic renal failure: Plan: since 09/2020, creatinine has run 1.2-1.3. Then in April 2021 has been more in 1.3-1.5 range until the very end of April (during his stay at rehab hospital) when it started a rapid uptick to peak at 2.5 on 06/01. His creatinine was 2.1 on 06/03 presentation and has remained in this range ever since, with slight uptick today. chemistries ok; mild volume overload persists and cause is unclear. no evidence of NS; consider cardiorenal syndrome -hold acei -avoid nsaids -prot/creat ratio ordered -daily bmp (3) Lumbar burst fracture: Plan: for OR; tentatively this PM (4) Renal lesion: Plan: for OP f/u and imaging w/ urology Admission and Anticipated Discharge Date Admission Date: June 03, 2021 Subjective pain 3 or 4 on eval late morning today; no n/v, no sob; edema continues improved Review of Systems Review of Systems: All systems reviewed & are unremarkable except as noted in Subjective Physical Exam Constitutional: well developed, well nourished, + morbidly obese and cooperative; no acute distress Eyes: EOM intact bilaterally ENMT: Ears: no external ear abnormality Nose: no external nose abnormality Mouth: + dry oral mucous membranes Neck: no nuchal rigidity Respiratory: normal respiratory effort Auscultation: + diminished lung sounds Cardiovascular: Rate/Rhythm: regular rate and regular rhythm Extremities: + edema (at most trace) Gastrointestinal (Abdomen): Inspection/Auscultation: normal bowel sounds Percussion/Palpation: abdomen soft; abdomen nontender Musculoskeletal: Extremities: + abnormal strength (BLE weakness) Skin: no rashes, warm and dry Trauma: + evidence of skin trauma (BLE shins wrapped) Neurologic: ibrahim, fluent speech, no tremor Psychiatric: Orientation: oriented x 3 Results & Data ([facility]) Vital Signs (Past 12 Hours) Vital Signs Temp Pulse Pulse Resp BP Pulse Ox 06/06/21 12:19 37.1 C 75 20 126/47 L 99 06/06/21 07:36 36.5 C 64 16 155/66 H 98 Laboratory Results 06/06/21 05:26 06/06/21 05:26
[2021-06-06] MEDS ORDERED: THROMBIN FOR SOLN 20000 UNIT KIT ONE (14:00)
[2021-06-06] MEDS ORDERED: FLOSEAL HEMOSTATIC MATRIX 10ML TOP ONE (14:38)
[2021-06-06] MEDS ORDERED: SODIUM CHLORIDE 0.9% 250 ML IV PRN (14:52)
[2021-06-06] MEDS ORDERED: SUGAMMADEX SODIUM 200 MG/2 ML VIAL IV ONE (14:53)
--- NOTE | 2021-06-06 15:42 | Hospitalist Progress Note ---
Date of Service June 06, 2021 Assessment & Plan (1) HERMELINDO (acute kidney injury): (2) Elevated CK: (3) Diabetes: Plan: Acute kidney injury Likely prerenal Baseline of 1.1-1.3 Hold lisinopril, Lasix Received gentle IV fluids Monitor renal function Avoid nephrotoxic agents as able Appreciate Nephrology Input Cr:2.27 Today Mildly Elevated CK Likely due to dehydration, Poor mobility CK trended down Received IV fluids Lumbar (L4) burst fracture with neurocompression CT lumbar spine:There is an acute to subacute burst type compression fracture of L4 with moderate loss of height and retropulsed fragments. Fracture extends into the right pedicle of L4. Patient refused MRI due to claustrophobia Pain Control Appreciate Orthopedics Input PT/OT eval when appropriate Avoid NSAIDs due to HERMELINDO Planned for kyphoplasty today Volume overload Nocturnal Hypoxia H/O ALMA Non complaint with CPAP Obesity Hypoventilation likely contributing as well Has Nocturnal Oximetry Study Use 3L supplemental Oxygen at bedtime Check ECHO Diuretics as per Nephrology Right Renal Lesion Incidental finding on CT CT showed :2.5 cm indeterminant right renal lesion which does not meet criteria for a simple cyst. Although this could represent a complex cyst Patient currently not interested in further imaging as per Urology Appreciate Urology Input RLE cellulitis Blood Cx: Negative to date Continue Doxycycline Elevated LFTs- mild monitor DM II hold glipizide Continue lantus, SSI Monitor BGs HTN held lisinopril due to HERMELINDO continue Metoprolol Started on Amlodipine for BP control while off of Lisinopril Hypothyroidism continue Levothyroxine BPH on Proscar, Flomax DVT Px: Heparin SQ Code status Full code Admission and Anticipated Discharge Date Admission Date: June 03, 2021 Subjective Patient is seen and examined at bedside Denies any significant back pain this morning Renal function slowly worsening Discussed with nephrology today Echo pending Denies any chest pain, shortness of breath, dizziness, nausea, abdominal pain Offers no other complaints Review of Systems Review of Systems: All systems reviewed & are unremarkable except as noted in Subjective Physical Exam Physical Exam: Physical Exam: Vitals signs as noted above General Appearance:Morbidly Obese, no apparent distress Head: normocephalic, Atraumatic Eyes: normal inspection, EOMI Neck: supple, Trachea midline Respiratory/Chest: Normal breath sounds, CTA, No accessory muscle use Cardiovascular: S1, S2, No murmur Abdomen/GI:Soft, Non tender, Bowel sounds present Extremities/Musculoskeletal:normal inspection, 1+ B/L LE edema, + B/L LE scabbed blisters, skin peeling Neurologic/Psych:AAOX3, grossly no focal neurological deficits Skin: normal color, warm Results & Data Results & Data ([facility]) Vital Signs (Past 12 Hours) Vital Signs Temp Pulse Pulse Resp BP Pulse Ox 06/06/21 12:19 37.1 C 75 20 126/47 L 99 06/06/21 07:36 36.5 C 64 16 155/66 H 98 Laboratory Results Short CBC 06/06/21 Range/Units 05:26 Hgb 8.9 L (14.0-18.0) g/dL Hct 27.1 L (42-52) % BMP 06/06/21 05:26 Sodium 144 Potassium 4.3 Chloride 112 H Carbon Dioxide 26 BUN 67 H Creatinine 2.27 H Glucose 111 H Calcium 8.4 L
--- NOTE | 2021-06-06 16:11 | Operative Report ---
Post Operative Report Pre & Post Diagnosis Operation Date: 06/06/21 12:25 Pre-Op Diagnosis: L4 Burst Fracture with Neural Compression Post-Op Diagnosis: L4 Burst Fracture with Neural Compression I identified the patient and participated in the time-out.: Yes Procedure Operation Date: 06/06/21 12:25 Actual Procedures #1 lumbar decompression with bilateral medial facetectomies and foraminotomies L3-L4 L4-L5 L5-S1. #2 posterior spinal fusion L3-S1. #3 placement posterior segmental instrumentation L3-S1 including a cross-link. #4 interbody fusion L5- S1. #5 placement of Spira cage 13 x 26 mm at L5-S1. #6 kyphoplasty of L4 vertebral body. #7 placement locally harvested morselized autograft in the posterior gutters. #8 placement infuse collagen sponge, and master graft in the posterior lateral gutters and I factor in the body space. Surgeon Felix Castellanos, Polysom Tech Joyce Lackey Estimated Blood Loss 1,000 Findings See Below Patient is 6 feet 3 inches tall weighing over 140 kg with a BMI in excess of 38. This combined with an EBL of greater than 1000 cc. Significant technical difficulty getting at least 50% increased operative time. Specimens None Indications This is an 81-year-old male who presents with compression fracture of L3. In light of severe pain and neural compression he is here for urgent decompression fusion. Description of Procedure Patient was met with identified informed consent obtained. Patient was then taken to the operative suite underwent ablation placed in a prone position adjustable chest padded bolsters. All bony prominences well-padded eyes inspected to ensure no external pressure placed upon the. This point lumbar spine was prepped and draped no sterile fashion. Sharp dissection with the assistance of Bovie cautery was performed down to and exposing the lamina and transverse processes of L3-L4-L5 and the sacral ala bilaterally. From caudal to cephalad fashion complete laminectomy L5 L4 and L3 was performed including bilateral medial facetectomies and foraminotomies addressing severe spinal stenosis. Pedicle screws then placed in L3 L5 and S1 levels bilaterally with assistance of fluoroscopy and the proper sized fernando placed. Then placed 2 Kyphon working cannulas by way of a transpedicular approach into the L4 vertebral body. Balloons were then inserted and subsequently inflated. They were removed and approximately 5 cc of Kyphon cement injected with fluoroscopic visualization w ithin the L4 vertebral body fracture. Demonstrated excellent interdigitation. After this complete I performed a complete discectomy of L5-S1 through a transfemoral approach on the right. Endplates were then curetted to subcortical being bone and a 13 x 26 mm titanium cage filled with I factor tapped in position. The rods were then locked in 5 position bilaterally. This included a cross-link. Transverse processes of L3 L4-5 and sacral ala burred to subcortically bone. Infuse collagen sponge master graft lobe autograft was placed in posterior gutters. 15 round STEPHANIE drain inserted. Incision was then closed with 1 Vicryl the fascia 2-0 Vicryl subcutaneously and 4 Monocryl for final skin closure. Steri-Strips dressings placed. Patient waken taken to PACU stable condition. Please note spinal cord monitoring was utilized at the procedure no changes noted. Lastly Joyce Lackey was present at the entire surgery involved in patient positioning complex portions of the surgery and final skin closure. I attest to the content of the Intraoperative Record and any orders documented therein. Any exceptions are noted below.
--- NOTE | 2021-06-06 16:32 | Fluoroscopy Report ---
FL lumbar spine 2-3V CLINICAL HISTORY: L3-S1 DFI L4 KYPHOPLASTY TECHNIQUE: 4 views were obtained with the C-arm in the OR with the above procedure. Total fluoroscopy time was 30.9 seconds. Total skin dose was 271.86 mGy. Comparison: Comparison is made to CT lumbar spine 06/04/2021 FINDINGS/IMPRESSION: Intraoperative images were obtained of L3-S1 discectomy and fusion with L4 kypho plasty. Please correlate with intraoperative fluoroscopy and operative report. ACT 112: Negative or not required by law. Electronically signed by: Vitaly Crowder M.D. 06/06/2021 4:31 PM
[2021-06-06] MEDS: HYDROmorphone INJ 1 MG/ML SYRINGE IV PRN ×5 (16:49→17:50)
[2021-06-06 17:37] LABS: Hematocrit (blood only) 29.9 % (42-52); Hemoglobin 9.6 g/dL (14.0-18.0); Mean Corpuscular Hemoglobin 30.9 pg (25-34); Mean Corpuscular Volume 96.1 fL (80-100); Mean Platelet Volume 10.1 fL (7.4-10.4); Platelet Count 307 K/uL (130-400); RDW Coefficient of Variation 15.2 % (11.5-14.5); RDW Standard Deviation 52.9 fL (36.4-46.3); Red Blood Count 3.11 M/uL (4.7-6.1); White Blood Count 10.68 K/uL (4.8-10.8)
[2021-06-06 17:42] LABS: Mean Corpuscular Hgb Conc 32.1 g/dL (32-36)
--- NOTE | 2021-06-06 18:05 | Anesthesiology Progress Note ---
Date of Service June 06, 2021 Anesthesia Post Procedure Vital Signs Vital Signs: Temp Pulse Pulse Pulse Resp BP Pulse Ox 06/06/21 17:55 77 24 116/45 L 98 06/06/21 17:45 80 25 H 113/47 L 93 06/06/21 17:35 77 22 128/46 L 94 06/06/21 17:25 78 20 124/51 L 94 06/06/21 17:15 71 18 114/44 L 100 06/06/21 17:05 74 19 129/41 L 100 06/06/21 16:55 76 19 85/54 L 98 06/06/21 16:45 36.1 C L 79 27 H 113/38 L 88 L 06/06/21 12:19 37.1 C 75 20 126/47 L 99 06/06/21 07:36 36.5 C 64 16 155/66 H 98 06/05/21 22:34 36.6 C 65 20 149/61 H 97 Pain Intensity Back: Pain Intensity: 3 Bilateral Lower Generalized: Pain Intensity: 3 Transfer of Care Handoff Completed per policy Notes Mental Status: alert / awake / arousable Patient Amnestic to Procedure: Yes Nausea / Vomiting: adequately controlled Pain: adequately controlled Airway Patency, RR, SpO2: stable & adequate BP & HR: stable & adequate Hydration State: stable & adequate Anesthetic Complications: no major complications apparent and Pt Satisfied with anesthetic care Notes: The patient was signed out to me in PACU by Dr. Rios. The patient had received one unit of PRBC in the OR. Preop hgb was 8.9. Postop hgb is 9.6. His vital signs are stable. He will have continuous pulse oximetry overnight.
[2021-06-06] MEDS ORDERED: ACETAMINOPHEN 500 MG TAB PO PRN (18:40)
[2021-06-06] MEDS ORDERED: LORazepam 0.5 MG TAB PO PRN (18:40)
[2021-06-06] MEDS ORDERED: PROMETHAZINE HCL 12.5 MG in SODIUM CHLORIDE 0.9% 50 ML IV PRN (18:40)
[2021-06-06] MEDS ORDERED: ONDANSETRON 4 MG OD TAB PO PRN (18:40)
[2021-06-06] MEDS ORDERED: DO NOT ADMINISTER FLU VACCINE PRN (18:40)
[2021-06-06] MEDS ORDERED: HYDROmorphone INJ 0.5 MG/0.5 ML SYR IV PRN (18:40)
[2021-06-06] MEDS ORDERED: ACETAMINOPHEN 1,000 MG/100 ML VIAL IV PRN (18:40)
[2021-06-06] MEDS ORDERED: FAMOTIDINE 20 MG TAB PO PRN (18:40)
[2021-06-06] MEDS ORDERED: METOCLOPRAMIDE HCL INJ 5 MG/ML 2 ML VIAL IV PRN (18:40)
[2021-06-06] MEDS ORDERED: bisacodyL 10 MG SUPP PR PRN (18:40)
[2021-06-06] MEDS ORDERED: NALOXONE HCL 0.4 MG/1 ML VIAL/CARP IV PRN (18:40)
[2021-06-06] MEDS ORDERED: DO NOT ADMINISTER PNEUMOCOCCAL VACCINE PRN (18:40)
[2021-06-06] MEDS ORDERED: LORazepam 2 MG/1 ML VIAL IV PRN (18:40)
[2021-06-06] MEDS ORDERED: hydrOXYzine HCl 25 MG TAB PO PRN (18:40)
[2021-06-06] MEDS ORDERED: ALUMINUM/MAGNESIUM SUSP 30 ML UDC PO PRN (18:40)
[2021-06-06] MEDS: SODIUM CHLORIDE 0.9% 1000ML 1,000 ML IV SCH (21:02)
[2021-06-06] MEDS: ASPIRIN 81 MG ECTAB PO SCH (21:04)
[2021-06-06] MEDS: INSULIN GLARGINE SOLOSTAR 100 UNITS/ML 3 ML PEN SQ SCH (21:09)
[2021-06-06] MEDS: DOCUSATE SODIUM/SENNA 50/8.6MG TAB PO SCH (21:13)
[2021-06-06] MEDS: METOPROLOL SUCC 25MG EXT REL TAB PO SCH (21:16)
[2021-06-06] MEDS: ceFAZolin 2000MG 2,000 MG/15 ML SYR IV SCH (21:19)
[2021-06-07] MEDS: SODIUM CHLORIDE 0.9% 1000ML 1,000 ML IV SCH (01:16)
[2021-06-07] MEDS: LEVOTHYROXINE SODIUM 50 MCG TABLET PO SCH (05:37)
[2021-06-07] MEDS: ceFAZolin 2000MG 2,000 MG/15 ML SYR IV SCH (05:37)
[2021-06-07] MEDS: POLYETHYLENE (MIRALAX) 17 GM PACK PO SCH ×3 (05:37→17:34)
[2021-06-07 07:15] LABS: Hematocrit (blood only) 27.1 % (42-52); Hemoglobin 8.8 g/dL (14.0-18.0); Immature Granulocytes # (auto) 0.03 K/uL (0.00-0.02); Immature Granulocytes % (auto) 0.3 %; Lymphocytes # (auto) 0.78 K/uL (1.2-3.4); Lymphocytes % (auto) 6.9 %; Mean Corpuscular Hemoglobin 31.1 pg (25-34); Mean Corpuscular Hgb Conc 32.5 g/dL (32-36); Mean Corpuscular Volume 95.8 fL (80-100); Mean Platelet Volume 10.1 fL (7.4-10.4); Monocytes # (auto) 0.52 K/uL (0.11-0.59); Monocytes % (auto) 4.6 %; Neutrophils # (auto) 9.95 K/uL (1.4-6.5); Neutrophils % (auto) 88.2 %; Platelet Count 336 K/uL (130-400); RDW Coefficient of Variation 15.6 % (11.5-14.5); RDW Standard Deviation 54.5 fL (36.4-46.3); Red Blood Count 2.83 M/uL (4.7-6.1); White Blood Count 11.28 K/uL (4.8-10.8)
[2021-06-07 07:23] LABS: BUN Creatinine Ratio 29.6 (10-20); Creatinine Clr Calc Pharmacy 36.3 ml/min; Est GFR (African American) 28.9 ml/min; Est GFR (Non-African American) 24.9 ml/min; Potassium 4.6 mmol/L (3.5-5.1)
[2021-06-07] MEDS: HYDROmorphone INJ 1 MG/ML SYRINGE IV PRN ×2 (07:25→12:28)
[2021-06-07] MEDS: TAMSULOSIN HCL 0.4 MG CAP PO SCH (07:27)
[2021-06-07] MEDS: DOXYCYCLINE HYCLATE 100 MG CAP PO SCH ×2 (07:27→20:34)
[2021-06-07] MEDS: GABAPENTIN 300 MG CAP PO SCH ×2 (07:27→20:34)
[2021-06-07] MEDS: amLODIPine BESYLATE 5 MG TAB PO SCH (07:27)
[2021-06-07] MEDS: ACETAMINOPHEN 325 MG TAB PO SCH ×4 (07:27→20:34)
[2021-06-07] MEDS: FINASTERIDE 5 MG TAB PO SCH (07:27)
[2021-06-07] MEDS: LIDOCAINE 5% 1 PATCH TD SCH (07:28)
[2021-06-07] MEDS: VENLAFAXINE HCL XR 150 MG CAPXR PO SCH (07:28)
[2021-06-07] MEDS: MICONAZOLE NITRATE POWDER 43 GM EXT SCH ×2 (07:29→20:46)
[2021-06-07] MEDS: gemfibroziL 600 MG TAB PO SCH ×2 (07:30→20:35)
[2021-06-07] MEDS: INSULIN ASPART PER UNIT SC SCH ×4 (08:33→20:37)
--- NOTE | 2021-06-07 11:03 | Orthopedic Progress Note ---
Date of Service June 07, 2021 Assessment & Plan (1) Lumbar burst fracture: Plan: At this time I would hope that we can begin bed to chair transfers. He is still quite weak. He is most likely to require rehab. We will hopefully progress steadily throughout his hospital stay. Admission and Anticipated Discharge Date Admission Date: June 03, 2021 Subjective Patient struggling with back pain. Feels his leg pain has improved. Still noting significant weakness. Physical Exam Physical Exam: Patient is in bed. He is reasonable plantar flexion dorsiflexion. He is uncomfortable as we move him in bed secondary to back pain. Results & Data ([facility]) Vital Signs (Past 12 Hours) Vital Signs Temp Pulse Resp BP Pulse Ox 06/07/21 07:45 36.5 C 61 16 127/64 96 06/07/21 03:44 36.3 C L 66 19 129/61 100
--- NOTE | 2021-06-07 13:56 | Hospitalist Progress Note ---
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 Fracture extends into the right pedicle of L4. S/p lumbosacral fusion POD#1 Pain Control. Stop ativan for now Appreciate Orthopedics Input PT/OT eval when appropriate Avoid NSAIDs due to HERMELINDO Acute on chronic anemia Post op anemia Hb was 8.9 preop. EBL was 1000cc Got 1 PRBC on 06/06/21. Post transfusion Hb 9.6 Hb is 8.8 today Monitor Volume overload Nocturnal Hypoxia H/O ALMA Non complaint with CPAP Obesity Hypoventilation likely contributing as well Use 3L supplemental Oxygen at bedtime Echo reviewed Does not appear to be significantly volume overloaded today. Will defer diuretics to outdoor studies professor Right Renal Lesion Incidental finding on CT CT showed :2.5 cm indeterminant right renal lesion which does not meet criteria for a simple cyst. Although this could represent a complex cyst Patient currently not interested in further imaging as per Urology Appreciate Urology Input RLE cellulitis Blood Cx: Negative to date Continue Doxycycline Elevated LFTs- mild Recheck tomorrow DM II Hold glipizide Continue lantus, SSI Monitor BGs HTN Lisinopril on hold due to HERMELINDO Continue Metoprolol Was started on Amlodipine for BP control while off of Lisinopril Hypothyroidism Continue Levothyroxine BPH on Proscar, Flomax DVT Px: Pharm agent on hold for now due to recent surgery Code status Full code Patient will likely need rehab Admission and Anticipated Discharge Date Admission Date: June 03, 2021 Subjective Patient seen and examined. Patient drowsy but arousable. RN reported that she had just given some pain medicines. Patient reports back pain and weakness. Reports some pain in the knees. Denies any chest pain, shortness of breath. Detailed review of systems limited due to drowsiness Physical Exam Constitutional: + well hydrated; no acute distress Drowsy Eyes: PERRL, conjunctivae normal, anicteric sclerae ENMT: external ear and nose normal, oropharynx normal Respiratory: Not in respiratory distress, on oxymask, diminished breath sounds Cardiovascular: Rate/Rhythm: regular rate and regular rhythm S1 S2 Gastrointestinal (Abdomen): normal bowel sounds, soft, nontender, no hepatosplenomegaly Musculoskeletal: Dressing over legs, trace pedal edema Neurologic: PERRL, EOMI, accommodation nl, no face palsy, no dysarthria Drowsy but arousable Results & Data Results & Data ([facility]) Vital Signs (Past 12 Hours) Vital Signs Temp Pulse Resp BP Pulse Ox 06/07/21 12:10 36.5 C 69 14 131/63 94 06/07/21 07:45 36.5 C 61 16 127/64 96 06/07/21 03:44 36.3 C L 66 19 129/61 100 Laboratory Results Abnormal lab results 06/06/21 06/06/21 06/06/21 Range/Units 15:06 16:46 17:06 WBC (4.8-10.8) K/uL RBC 3.11 L (4.7-6.1) M/uL Hgb 9.6 L (14.0-18.0) g/dL Hct 29.9 L (42-52) % RDW Std Deviation 52.9 H (36.4-46.3) fL RDW Coeff of Sumaya 15.2 H (11.5-14.5) % Neut # (Auto) (1.4-6.5) K/uL Lymph # (Auto) (1.2-3.4) K/uL Immature Gran # (Auto) (0.00-0.02) K/uL Chloride (98-107) mmol/L BUN (6-23) mg/dl Creatinine (0.6-1.4) mg/dl BUN/Creatinine Ratio (10-20) Glucose (70-99(Fasting)) mg/dl POC Glucose 214 H (70-99) mg/dl Calcium (8.5-10.1) mg/dl Crossmatch See Detail 06/06/21 06/07/21 06/07/21 Range/Units 20:31 06:32 06:32 WBC 11.28 H (4.8-10.8) K/uL RBC 2.83 L (4.7-6.1) M/uL Hgb 8.8 L (14.0-18.0) g/dL Hct 27.1 L (42-52) % RDW Std Deviation 54.5 H (36.4-46.3) fL RDW Coeff of Sumaya 15.6 H (11.5-14.5) % Neut # (Auto) 9.95 H (1.4-6.5) K/uL Lymph # (Auto) 0.78 L (1.2-3.4) K/uL Immature Gran # (Auto) 0.03 H (0.00-0.02) K/uL Chloride 113 H (98-107) mmol/L BUN 69 H (6-23) mg/dl Creatinine 2.33 H (0.6-1.4) mg/dl BUN/Creatinine Ratio 29.6 H (10-20) Glucose 175 H (70-99(Fasting)) mg/dl POC Glucose 271 H (70-99) mg/dl Calcium 8.0 L (8.5-10.1) mg/dl Crossmatch 06/07/21 06/07/21 Range/Units 08:07 12:07 WBC (4.8-10.8) K/uL RBC (4.7-6.1) M/uL Hgb (14.0-18.0) g/dL Hct (42-52) % RDW Std Deviation (36.4-46.3) fL RDW Coeff of Sumaya (11.5-14.5) % Neut # (Auto) (1.4-6.5) K/uL Lymph # (Auto) (1.2-3.4) K/uL Immature Gran # (Auto) (0.00-0.02) K/uL Chloride (98-107) mmol/L BUN (6-23) mg/dl Creatinine (0.6-1.4) mg/dl BUN/Creatinine Ratio (10-20) Glucose (70-99(Fasting)) mg/dl POC Glucose 194 H 164 H (70-99) mg/dl Calcium (8.5-10.1) mg/dl Crossmatch
--- NOTE | 2021-06-07 17:08 | Nephrology Progress Note ---
Date of Service June 07, 2021 Assessment & Plan (1) Volume overload: Plan: new hypoxia needing 02nc; relatively new edema past 4-6 wks needing start of diuretics mid april > For now Lasix only as needed if resp status worsening >>>last TTE was 2014 >> low threshold for TTE (2) Acute on chronic renal failure: Plan: since 09/2020, creatinine has run 1.2-1.3. Then in April 2021 has been more in 1.3-1.5 range until the very end of April (during his stay at rehab hospital) when it started a rapid uptick to peak at 2.5 on 06/01. His creatinine was 2.1 on 06/03 presentation and has remained in this range ever since, with slight uptick today. chemistries ok; mild volume overload persists and cause is unclear. no evidence of NS (200 mg proteinuria); consider cardiorenal syndrome -hold acei -avoid nsaids -daily bmp (3) Lumbar burst fracture: Plan: Status post OR June 06 (4) Renal lesion: Plan: for OP f/u and imaging w/ urology Admission and Anticipated Discharge Date Admission Date: June 03, 2021 Subjective 1 L EBL with procedure yesterday. As of this morning 340 mL out of the drain. Concerned that he "cannot move" edema improving further, not particularly short of breath, passing flatus. Acknowledges fatigue Review of Systems Review of Systems: All systems reviewed & are unremarkable except as noted in Subjective Physical Exam Constitutional: well developed, well nourished, + morbidly obese and cooperative; no acute distress Eyes: EOM intact bilaterally ENMT: Ears: no external ear abnormality Nose: no external nose abnormality Mouth: + dry oral mucous membranes Neck: no nuchal rigidity Respiratory: normal respiratory effort Auscultation: + diminished lung sounds Cardiovascular: Rate/Rhythm: regular rate and regular rhythm Extremities: + edema (at most trace) Gastrointestinal (Abdomen): Inspection/Auscultation: normal bowel sounds Percussion/Palpation: abdomen soft; abdomen nontender Musculoskeletal: Extremities: + abnormal strength (BLE weakness) Skin: no rashes, warm and dry Trauma: + evidence of skin trauma (BLE shins wrapped) Neurologic: Moves all extremities including all digits, fluent speech, no tremor Psychiatric: Orientation: oriented x 3 Results & Data ([facility]) Vital Signs (Past 12 Hours) Vital Signs Temp Pulse Resp BP Pulse Ox 06/07/21 15:04 36.7 C 68 16 123/52 L 97 06/07/21 12:10 36.5 C 69 14 131/63 94 06/07/21 07:45 36.5 C 61 16 127/64 96 Laboratory Results 06/07/21 06:32 06/07/21 06:32
[2021-06-07] MEDS: INSULIN GLARGINE SOLOSTAR 100 UNITS/ML 3 ML PEN SQ SCH (20:35)
[2021-06-07] MEDS: ASPIRIN 81 MG ECTAB PO SCH (20:35)
[2021-06-07] MEDS: DOCUSATE SODIUM/SENNA 50/8.6MG TAB PO SCH (20:43)
[2021-06-07] MEDS: METOPROLOL SUCC 25MG EXT REL TAB PO SCH (20:46)
[2021-06-08] MEDS: POLYETHYLENE (MIRALAX) 17 GM PACK PO SCH ×4 (00:23→17:31)
[2021-06-08] MEDS: oxyCODONE HCL IR 5 MG TAB (IMMEDIATE RELEASE) PO PRN ×2 (03:34→22:58)
[2021-06-08] MEDS: LEVOTHYROXINE SODIUM 50 MCG TABLET PO SCH (05:47)
[2021-06-08] MEDS: CYCLOBENZAPRINE HCL 5 MG TAB PO PRN (05:47)
[2021-06-08] MEDS: MICONAZOLE NITRATE POWDER 43 GM EXT SCH ×2 (07:37→20:34)
[2021-06-08] MEDS: gemfibroziL 600 MG TAB PO SCH ×2 (07:37→20:22)
[2021-06-08] MEDS: LIDOCAINE 5% 1 PATCH TD SCH (07:37)
[2021-06-08] MEDS: GABAPENTIN 300 MG CAP PO SCH ×2 (07:38→20:21)
[2021-06-08] MEDS: amLODIPine BESYLATE 5 MG TAB PO SCH (07:38)
[2021-06-08] MEDS: VENLAFAXINE HCL XR 150 MG CAPXR PO SCH (07:39)
[2021-06-08] MEDS: ACETAMINOPHEN 325 MG TAB PO SCH ×4 (07:39→20:20)
[2021-06-08] MEDS: DOXYCYCLINE HYCLATE 100 MG CAP PO SCH ×2 (07:39→20:22)
[2021-06-08] MEDS: TAMSULOSIN HCL 0.4 MG CAP PO SCH (07:39)
[2021-06-08] MEDS: FINASTERIDE 5 MG TAB PO SCH (07:39)
[2021-06-08 08:05] LABS: Hematocrit (blood only) 26.2 % (42-52); Hemoglobin 8.6 g/dL (14.0-18.0); Mean Corpuscular Hemoglobin 31.2 pg (25-34); Mean Corpuscular Hgb Conc 32.8 g/dL (32-36); Mean Corpuscular Volume 94.9 fL (80-100); Mean Platelet Volume 9.8 fL (7.4-10.4); Platelet Count 276 K/uL (130-400); RDW Standard Deviation 54.9 fL (36.4-46.3); Red Blood Count 2.76 M/uL (4.7-6.1); White Blood Count 11.23 K/uL (4.8-10.8)
[2021-06-08 08:27] LABS: Albumin Level 2.8 gm/dl (3.4-5.0); BUN Creatinine Ratio 36.7 (10-20); Bilirubin,Total 0.3 mg/dl (0.2-1.0); Calcium 8.3 mg/dl (8.5-10.1); Creatinine Clr Calc Pharmacy 44.9 ml/min; Est GFR (African American) 37.4 ml/min; Est GFR (Non-African American) 32.3 ml/min; Globulin 2.9 gm/dl (2.5-4.0); Potassium 4.3 mmol/L (3.5-5.1); Total Protein 5.7 gm/dl (6.0-8.3)
[2021-06-08] MEDS: INSULIN ASPART PER UNIT SC SCH ×4 (08:50→20:39)
--- NOTE | 2021-06-08 09:46 | Orthopedic Progress Note ---
Date of Service June 08, 2021 Assessment & Plan (1) Lumbar burst fracture: Plan: This time patient's most likely oversedated secondary to medication trying to control his pain. We will hopefully wean from this requirement over the next day and reattempt bed to chair with an ultimate goal of physical therapy and rehab over the next several days. Admission and Anticipated Discharge Date Admission Date: June 03, 2021 Subjective Patient is sedated. He is arousable but quickly falls back asleep. Physical Exam Physical Exam: He is not able to cooperate with exam but does have spontaneous active motion of the bilateral lower extremities. Results & Data ([facility]) Vital Signs (Past 12 Hours) Vital Signs Temp Pulse Resp BP Pulse Ox 06/08/21 07:28 37 C 92 H 18 171/68 H 94
[2021-06-08] MEDS: DEXTROSE 5% 500 ML IV SCH ×2 (12:42→18:37)
--- NOTE | 2021-06-08 13:21 | Hospitalist Progress Note ---
Date of Service June 08, 2021 Assessment & Plan (1) HERMELINDO (acute kidney injury): (2) Elevated CK: (3) Diabetes: Plan: Acute on chronic renal failure Baseline of 1.1-1.3 Continue to hold lisinopril Cr is 1.88 today. 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 Fracture extends into the right pedicle of L4. S/p lumbosacral fusion POD#2 Pain Control. Discussed with RN to use opioids as needed. Dose reduced as patient seem to be quite sensitive Appreciate Orthopedics Input PT/OT eval when appropriate Avoid NSAIDs due to HERMELINDO Acute on chronic anemia Post op anemia Hb was 8.9 preop. EBL was 1000cc Got 1 PRBC on 06/06/21. Post transfusion Hb 9.6 Hb is 8.6 today Monitor Volume overload Nocturnal Hypoxia H/O ALMA Non complaint with CPAP Obesity Hypoventilation likely contributing as well Use 3L supplemental Oxygen at bedtime Echo reviewed Does not appear to be significantly volume overloaded today. Solar Energy Sales Specialist recs appreciated. Continue to hold diuretic for now Right Renal Lesion Incidental finding on CT CT showed :2.5 cm indeterminant right renal lesion which does not meet criteria for a simple cyst. Although this could represent a complex cyst Patient currently not interested in further imaging as per Urology Appreciate Urology Input RLE cellulitis Blood Cx: Negative to date Continue Doxycycline Elevated LFTs- mild Mildly improved Will get Abd USS once stable DM II Hold glipizide Continue lantus, SSI Monitor BGs HTN Lisinopril on hold due to HERMELINDO Continue Metoprolol Was started on Amlodipine for BP control while off of Lisinopril Hypothyroidism Continue Levothyroxine BPH on Proscar, Flomax DVT Px: Pharm agent on hold for now due to recent surgery Code status Full code Patient will likely need rehab Admission and Anticipated Discharge Date Admission Date: June 03, 2021 Subjective Patient seen and examined. Patient was drowsy but arousable Patient reports back pain and weakness. Denies any chest pain, shortness of breath, cough Denied abd pain,nausea, vomiting Not sure if he had a BM yet Physical Exam Constitutional: + well hydrated; no acute distress Eyes: PERRL, conjunctivae normal, anicteric sclerae ENMT: external ear and nose normal, oropharynx normal Respiratory: Normal respiratory rate, diminished breath sound Cardiovascular: Rate/Rhythm: regular rate and regular rhythm S1 S2 Gastrointestinal (Abdomen): normal bowel sounds, soft, nontender, no hepatosplenomegaly Musculoskeletal: Clean dressing over legs Wound on medial aspect of right leg (12x 6.5cm) with mild erythema Wound on medial aspect of left leg (8x5cm) Neurologic: PERRL, EOMI, accommodation nl, no face palsy, no dysarthria Genitourinary: Burnette in situ Results & Data Results & Data ([facility]) Vital Signs (Past 12 Hours) Vital Signs Temp Pulse Resp BP Pulse Ox 06/08/21 07:28 37 C 92 H 18 171/68 H 94 Laboratory Results Abnormal lab results 06/06/21 06/07/21 06/07/21 Range/Units 15:06 16:59 20:33 WBC (4.8-10.8) K/uL RBC (4.7-6.1) M/uL Hgb (14.0-18.0) g/dL Hct (42-52) % RDW Std Deviation (36.4-46.3) fL RDW Coeff of Sumaya (11.5-14.5) % Sodium (136-145) mmol/L Chloride (98-107) mmol/L BUN (6-23) mg/dl Creatinine (0.6-1.4) mg/dl BUN/Creatinine Ratio (10-20) Glucose (70-99(Fasting)) mg/dl POC Glucose 294 H 146 H (70-99) mg/dl Calcium (8.5-10.1) mg/dl AST (13-39) U/L Alkaline Phosphatase (34-104) U/L Total Protein (6.0-8.3) gm/dl Albumin (3.4-5.0) gm/dl Crossmatch See Detail 06/08/21 06/08/21 06/08/21 Range/Units 07:40 07:40 08:16 WBC 11.23 H (4.8-10.8) K/uL RBC 2.76 L (4.7-6.1) M/uL Hgb 8.6 L (14.0-18.0) g/dL Hct 26.2 L (42-52) % RDW Std Deviation 54.9 H (36.4-46.3) fL RDW Coeff of Sumaya 16.0 H (11.5-14.5) % Sodium 146 H (136-145) mmol/L Chloride 116 H (98-107) mmol/L BUN 69 H (6-23) mg/dl Creatinine 1.88 H D (0.6-1.4) mg/dl BUN/Creatinine Ratio 36.7 H (10-20) Glucose 185 H (70-99(Fasting)) mg/dl POC Glucose 199 H (70-99) mg/dl Calcium 8.3 L (8.5-10.1) mg/dl AST 50 H (13-39) U/L Alkaline Phosphatase 158 H (34-104) U/L Total Protein 5.7 L (6.0-8.3) gm/dl Albumin 2.8 L (3.4-5.0) gm/dl Crossmatch 06/08/21 Range/Units 12:07 WBC (4.8-10.8) K/uL RBC (4.7-6.1) M/uL Hgb (14.0-18.0) g/dL Hct (42-52) % RDW Std Deviation (36.4-46.3) fL RDW Coeff of Sumaya (11.5-14.5) % Sodium (136-145) mmol/L Chloride (98-107) mmol/L BUN (6-23) mg/dl Creatinine (0.6-1.4) mg/dl BUN/Creatinine Ratio (10-20) Glucose (70-99(Fasting)) mg/dl POC Glucose 220 H (70-99) mg/dl Calcium (8.5-10.1) mg/dl AST (13-39) U/L Alkaline Phosphatase (34-104) U/L Total Protein (6.0-8.3) gm/dl Albumin (3.4-5.0) gm/dl Crossmatch
--- NOTE | 2021-06-08 19:50 | Nephrology Progress Note ---
Date of Service June 08, 2021 Assessment & Plan (1) Volume overload: Plan: new hypoxia needing 02nc; relatively new edema past 4-6 wks needing start of diuretics mid april > For now Lasix only as needed if resp status worsening >>>last TTE was 2014 >> low threshold for TTE He is auto diuresing at this point and would continue to hold Lasix at this time (2) Acute on chronic renal failure: Plan: since 09/2020, creatinine has run 1.2-1.3. Then in April 2021 has been more in 1.3-1.5 range until the very end of April (during his stay at rehab hospital) when it started a rapid uptick to peak at 2.5 on 06/01. His creatinine was 2.1 on 06/03 presentation and has remained in this range ever since, with slight improvement today. chemistries ok; mild volume overload persists and cause is unclear. no evidence of NS (200 mg proteinuria); consider cardiorenal syndrome -hold acei -avoid nsaids -daily bmp (3) Lumbar burst fracture: Plan: Status post OR June 06 (4) Renal lesion: Plan: for OP f/u and imaging w/ urology if he agrees to this Admission and Anticipated Discharge Date Admission Date: June 03, 2021 Subjective No interval events. Struggling to find good pain control. Minimal participation in review of systems though he does awaken briefly Review of Systems Review of Systems: All systems reviewed & are unremarkable except as noted in Subjective Physical Exam Constitutional: well developed, well nourished, + morbidly obese and + lethargic; no acute distress Eyes: EOM intact bilaterally ENMT: Ears: no external ear abnormality Nose: no external nose abnormality Mouth: + dry oral mucous membranes Neck: no nuchal rigidity Respiratory: normal respiratory effort Auscultation: + diminished lung sounds Cardiovascular: Rate/Rhythm: regular rate and regular rhythm Extremities: no edema Gastrointestinal (Abdomen): Inspection/Auscultation: normal bowel sounds Percussion/Palpation: abdomen soft; abdomen nontender Musculoskeletal: Extremities: + abnormal strength (BLE weakness) Skin: no rashes, warm and dry Trauma: + evidence of skin trauma (BLE shins wrapped) Genitourinary: Burnette ample urine Results & Data ([facility]) Vital Signs (Past 12 Hours) Vital Signs Temp Pulse Resp BP Pulse Ox 06/08/21 15:55 36.7 C 79 16 151/64 H 98 Laboratory Results 06/08/21 07:40 06/08/21 07:40
[2021-06-08] MEDS: METOPROLOL SUCC 25MG EXT REL TAB PO SCH (20:20)
[2021-06-08] MEDS: ASPIRIN 81 MG ECTAB PO SCH (20:21)
[2021-06-08] MEDS: DOCUSATE SODIUM/SENNA 50/8.6MG TAB PO SCH (20:27)
[2021-06-08] MEDS: INSULIN GLARGINE SOLOSTAR 100 UNITS/ML 3 ML PEN SQ SCH (20:35)
[2021-06-09] MEDS: DEXTROSE 5% 500 ML IV SCH ×5 (01:01→22:48)
[2021-06-09] MEDS: LEVOTHYROXINE SODIUM 50 MCG TABLET PO SCH (05:13)
[2021-06-09] MEDS: oxyCODONE HCL IR 5 MG TAB (IMMEDIATE RELEASE) PO PRN ×3 (05:13→17:52)
[2021-06-09] MEDS: POLYETHYLENE (MIRALAX) 17 GM PACK PO SCH ×2 (05:14)
[2021-06-09 07:45] LABS: Hematocrit (blood only) 25.7 % (42-52); Hemoglobin 8.4 g/dL (14.0-18.0); Mean Corpuscular Hemoglobin 30.9 pg (25-34); Mean Corpuscular Hgb Conc 32.7 g/dL (32-36); Mean Corpuscular Volume 94.5 fL (80-100); Mean Platelet Volume 9.9 fL (7.4-10.4); Platelet Count 278 K/uL (130-400); RDW Coefficient of Variation 15.9 % (11.5-14.5); Red Blood Count 2.72 M/uL (4.7-6.1); White Blood Count 12.36 K/uL (4.8-10.8)
[2021-06-09 08:12] LABS: Albumin Level 2.7 gm/dl (3.4-5.0); BUN Creatinine Ratio 38.9 (10-20); Bilirubin,Total 0.3 mg/dl (0.2-1.0); Calcium 8.2 mg/dl (8.5-10.1); Creatinine Clr Calc Pharmacy 58.7 ml/min; Est GFR (African American) 51.7 ml/min; Est GFR (Non-African American) 44.6 ml/min; Globulin 2.8 gm/dl (2.5-4.0); Potassium 4.1 mmol/L (3.5-5.1); Total Protein 5.5 gm/dl (6.0-8.3)
[2021-06-09] MEDS: FINASTERIDE 5 MG TAB PO SCH (08:43)
[2021-06-09] MEDS: amLODIPine BESYLATE 5 MG TAB PO SCH (08:43)
[2021-06-09] MEDS: gemfibroziL 600 MG TAB PO SCH ×2 (08:43→20:35)
[2021-06-09] MEDS: DOXYCYCLINE HYCLATE 100 MG CAP PO SCH ×2 (08:43→20:34)
[2021-06-09] MEDS: VENLAFAXINE HCL XR 150 MG CAPXR PO SCH (08:43)
[2021-06-09] MEDS: ACETAMINOPHEN 325 MG TAB PO SCH ×4 (08:43→20:33)
[2021-06-09] MEDS: TAMSULOSIN HCL 0.4 MG CAP PO SCH (08:43)
[2021-06-09] MEDS: GABAPENTIN 300 MG CAP PO SCH ×2 (08:43→20:34)
[2021-06-09] MEDS: LIDOCAINE 5% 1 PATCH TD SCH (08:44)
[2021-06-09] MEDS: MICONAZOLE NITRATE POWDER 43 GM EXT SCH ×2 (08:44→20:36)
[2021-06-09] MEDS ORDERED: PHARMACY GLYCEMIC MGMT CONSULT PRN (08:52)
[2021-06-09] MEDS: INSULIN ASPART PER UNIT SC SCH ×4 (09:00→20:46)
--- NOTE | 2021-06-09 09:12 | Orthopedic Progress Note ---
Date of Service June 09, 2021 Assessment & Plan (1) Lumbar burst fracture: Plan: At this time would like him to continue to attempt to sitting up at the side of the bed and possibly transfer to a chair. Secondary to his body habitus and surgery required he is quite limited. Hopefully we can get him to progress over the course of the next few days and to rehab. Admission and Anticipated Discharge Date Admission Date: June 03, 2021 Subjective Patient complaining of considerable back pain. Does not have leg pain but continues to note weakness. He struggling significantly with any attempts at mobilization. Physical Exam Physical Exam: On exam he appears to be neurologically intact lower extremities. He is sitting up in bed. He is obviously uncomfortable. Results & Data ([facility]) Vital Signs (Past 12 Hours) Vital Signs Temp Pulse Resp BP Pulse Ox 06/09/21 08:27 36.5 C 78 16 161/63 H 92 06/09/21 01:13 74 147/67 H 06/08/21 22:37 36.4 C L 73 174/67 H 97
[2021-06-09] MEDS ORDERED: INSULIN GLARGINE SOLOSTAR 100 UNITS/ML 3 ML PEN SQ ONE (09:30)
--- NOTE | 2021-06-09 13:37 | Hospitalist Progress Note ---
Date of Service June 09, 2021 Assessment & Plan (1) HERMELINDO (acute kidney injury): (2) Elevated CK: (3) Diabetes: Plan: Acute on chronic renal failure Baseline of 1.1-1.3 Continue to hold lisinopril Cr is 1.44 today. Improving Monitor renal function Avoid nephrotoxic agents as able Discussed with second time worker who recommend increasing IVF D5 to 100/h for now considering patient's poor oral intake Mildly Elevated CK CK trended down Lumbar (L4) burst fracture with neurocompression CT lumbar spine:There is an acute to subacute burst type compression fracture of L4 with moderate loss of height and retropulsed fragments. Fracture extends into the right pedicle of L4. S/p lumbosacral fusion POD#3 Pain Control. Appreciate Orthopedics Input Discussed with patient need to eat and increase activity for better fpc outcome Continue PT/OT Avoid NSAIDs due to HERMELINDO Acute on chronic anemia Post op anemia Hb was 8.9 preop. EBL was 1000cc Got 1 PRBC on 06/06/21. Post transfusion Hb 9.6 Hb is 8.4 today Monitor Volume overload Nocturnal Hypoxia H/O ALMA Non complaint with CPAP Obesity Hypoventilation likely contributing as well Use 3L supplemental Oxygen at bedtime Echo reviewed Does not appear to be significantly volume overloaded today. Surgical First Assistant recs appreciated. Continue to hold diuretic Right Renal Lesion Incidental finding on CT CT showed :2.5 cm indeterminant right renal lesion which does not meet criteria for a simple cyst. Although this could represent a complex cyst Patient currently not interested in further imaging as per Urology Appreciate Urology Input RLE cellulitis Blood Cx: Negative to date Continue Doxycycline Elevated LFTs- mild Mildly improved Will get Abd USS once stable DM II Hold glipizide Continue lantus, SSI Monitor BGs HTN Lisinopril on hold due to HERMELINDO Continue Metoprolol Was started on Amlodipine for BP control while off of Lisinopril Hypothyroidism Continue Levothyroxine BPH on Proscar, Flomax DVT Px: Pharm agent on hold for now due to recent surgery Code status Full code Patient will likely need rehab Admission and Anticipated Discharge Date Admission Date: June 03, 2021 Subjective Patient seen and examined. Patient reports back pain with activity and weakness. Denies any chest pain, shortness of breath, cough Denied abd pain,nausea, vomiting Reports poor appetite No fevers Denied chills Physical Exam Constitutional: + well hydrated; no acute distress Eyes: PERRL, conjunctivae normal, anicteric sclerae ENMT: external ear and nose normal, oropharynx normal Respiratory: normal respiratory effort, lungs clear to auscultation Cardiovascular: Rate/Rhythm: regular rate and regular rhythm S1 S2 Gastrointestinal (Abdomen): normal bowel sounds, soft, nontender, no hepatosplenomegaly Musculoskeletal: Surgical site drain insitu with serosanguinous drain Neurologic: PERRL, EOMI, accommodation nl, no face palsy, no dysarthria Results & Data Results & Data ([facility]) Vital Signs (Past 12 Hours) Vital Signs Temp Pulse Resp BP Pulse Ox 06/09/21 08:27 36.5 C 78 16 161/63 H 92 Laboratory Results Abnormal lab results 06/06/21 06/08/21 06/08/21 Range/Units 15:06 17:11 20:29 WBC (4.8-10.8) K/uL RBC (4.7-6.1) M/uL Hgb (14.0-18.0) g/dL Hct (42-52) % RDW Std Deviation (36.4-46.3) fL RDW Coeff of Sumaya (11.5-14.5) % Sodium (136-145) mmol/L Chloride (98-107) mmol/L BUN (6-23) mg/dl Creatinine (0.6-1.4) mg/dl BUN/Creatinine Ratio (10-20) Glucose (70-99(Fasting)) mg/dl POC Glucose 219 H 216 H (70-99) mg/dl Calcium (8.5-10.1) mg/dl AST (13-39) U/L Alkaline Phosphatase (34-104) U/L Total Protein (6.0-8.3) gm/dl Albumin (3.4-5.0) gm/dl Crossmatch See Detail 06/09/21 06/09/21 06/09/21 Range/Units 07:06 07:06 08:00 WBC 12.36 H (4.8-10.8) K/uL RBC 2.72 L (4.7-6.1) M/uL Hgb 8.4 L (14.0-18.0) g/dL Hct 25.7 L (42-52) % RDW Std Deviation 55.0 H (36.4-46.3) fL RDW Coeff of Sumaya 15.9 H (11.5-14.5) % Sodium 146 H (136-145) mmol/L Chloride 116 H (98-107) mmol/L BUN 56 H (6-23) mg/dl Creatinine 1.44 H D (0.6-1.4) mg/dl BUN/Creatinine Ratio 38.9 H (10-20) Glucose 217 H (70-99(Fasting)) mg/dl POC Glucose 249 H (70-99) mg/dl Calcium 8.2 L (8.5-10.1) mg/dl AST 51 H (13-39) U/L Alkaline Phosphatase 157 H (34-104) U/L Total Protein 5.5 L (6.0-8.3) gm/dl Albumin 2.7 L (3.4-5.0) gm/dl Crossmatch 06/09/21 Range/Units 11:55 WBC (4.8-10.8) K/uL RBC (4.7-6.1) M/uL Hgb (14.0-18.0) g/dL Hct (42-52) % RDW Std Deviation (36.4-46.3) fL RDW Coeff of [place]aya (11.5-14.5) % Sodium (136-145) mmol/L Chloride (98-107) mmol/L BUN (6-23) mg/dl Creatinine (0.6-1.4) mg/dl BUN/Creatinine Ratio (10-20) Glucose (70-99(Fasting)) mg/dl POC Glucose 224 H (70-99) mg/dl Calcium (8.5-10.1) mg/dl AST (13-39) U/L Alkaline Phosphatase (34-104) U/L Total Protein (6.0-8.3) gm/dl Albumin (3.4-5.0) gm/dl Crossmatch
--- NOTE | 2021-06-09 14:07 | Pharmacy Report ---
Pharmacy Glycemic Short Note 2 - Date of Service June 09, 2021 - Glycemic Short BSG Results (Last 24 hours): 06/08/21 06/08/21 06/09/21 17:11 20:29 07:06 Glucose 217 H POC Glucose 219 H 216 H 06/09/21 06/09/21 08:00 11:55 Glucose POC Glucose 249 H 224 H OUTPATIENT ANTIDIABETIC REGIMEN: * Lantus 12 units SQ qHS + glipizide 5 mg daily at noon - per med rec * A1c pending ASSESSMENT: * John is a T2DM admitted with HERMELINDO, Lumbar (L4) burst fracture with neurocompression, RLE cellulitis * He received 17 units of insulin yesterday with all BSGs significantly above goal * Fasting BSG of 249 mg/dL. Of note, this is not a true fasting per patient has D5 running at 100 mls/hr (provides 20 gram dextrose every 4 hours), however fasting BSG trending upward even before fluids were added. * Will tighten both basal and bolus insulin. Add checks at 00 and 04 due to dextrose fluids. PLAN FOR INPATIENT GLYCEMIC CONTROL: * Hold outpatient oral diabetes medications * Basal insulin * Lantus 15 units SQ this morning * Lantus 10 units SQ HS * Bolus insulin * NovoLog per scale ACHS or Q6hrs while NPO * Goal Range: Low 120 mg/dL - High 150 mg/dL * Correction Factor: 15 mg/dL/unit * Nutritional / Prandial insulin per carb ratio of 1 unit per 7 grams CHO consumed
[2021-06-09] MEDS: ASPIRIN 81 MG ECTAB PO SCH (20:33)
[2021-06-09] MEDS: DOCUSATE SODIUM/SENNA 50/8.6MG TAB PO SCH (20:33)
[2021-06-09] MEDS: METOPROLOL SUCC 25MG EXT REL TAB PO SCH (20:35)
[2021-06-09] MEDS: INSULIN GLARGINE SOLOSTAR 100 UNITS/ML 3 ML PEN SQ SCH (20:47)
--- NOTE | 2021-06-09 20:57 | Nephrology Progress Note ---
Date of Service June 09, 2021 Assessment & Plan (1) Volume overload: Plan: new hypoxia needing 02nc; relatively new edema past 4-6 wks needing start of diuretics mid april > For now Lasix only as needed if resp status worsening >>>last TTE was 2014 >> low threshold for TTE He is auto diuresing at this point and would continue to hold Lasix at this time (2) Acute on chronic renal failure: Plan: since 09/2020, creatinine has run 1.2-1.3. Then in April 2021 has been more in 1.3-1.5 range until the very end of April (during his stay at rehab hospital) when it started a rapid uptick to peak at 2.5 on 06/01. His creatinine was 2.1 on 06/03 presentation and has remained in this range ever since, with slight improvement today. chemistries ok; mild volume overload persists and cause is unclear. no evidence of NS (200 mg proteinuria); consider cardiorenal syndrome - Scr almost back to baseline , however his sodium has crept up and he is hypochloremic, Increase D5W to 100 mls/hr - BP - elevated, increase amlodipine to 10 mg . -hold acei -avoid nsaids -daily bmp (3) Lumbar burst fracture: Plan: Status post OR June 06 (4) Renal lesion: Plan: for OP f/u and imaging w/ urology if he agrees to this Admission and Anticipated Discharge Date Admission Date: June 03, 2021 Subjective Comfortable,no distress. Denies any chest pain, shortness of breath, cough Review of Systems Review of Systems: All systems reviewed & are unremarkable except as noted in HPI & below Results & Data ([facility]) Vital Signs (Past 12 Hours) Vital Signs Temp Pulse Resp BP Pulse Ox Pulse Ox 06/09/21 20:25 36.4 C L 85 18 166/67 H 95 95 06/09/21 16:03 36.9 C 83 18 179/64 H 93 Laboratory Results 06/09/21 07:06 06/09/21 07:06
[2021-06-10] MEDS: INSULIN ASPART PER UNIT SC SCH ×6 (00:09→21:07)
[2021-06-10] MEDS: MAGNESIUM HYDROXIDE SUSP 30 ML UDC PO PRN (02:56)
[2021-06-10] MEDS: DEXTROSE 5% 500 ML IV SCH ×3 (03:37→13:57)
[2021-06-10] MEDS: LEVOTHYROXINE SODIUM 50 MCG TABLET PO SCH (05:31)
[2021-06-10 07:57] LABS: Hematocrit (blood only) 25.6 % (42-52); Hemoglobin 8.4 g/dL (14.0-18.0); Mean Corpuscular Hemoglobin 31.2 pg (25-34); Mean Corpuscular Hgb Conc 32.8 g/dL (32-36); Mean Corpuscular Volume 95.2 fL (80-100); Platelet Count 285 K/uL (130-400); RDW Coefficient of Variation 16.1 % (11.5-14.5); RDW Standard Deviation 56.5 fL (36.4-46.3); Red Blood Count 2.69 M/uL (4.7-6.1); White Blood Count 12.56 K/uL (4.8-10.8)
[2021-06-10 08:16] LABS: BUN Creatinine Ratio 34.6 (10-20); Est GFR (African American) 58.5 ml/min; Est GFR (Non-African American) 50.5 ml/min; Potassium 3.7 mmol/L (3.5-5.1)
[2021-06-10] MEDS: ACETAMINOPHEN 325 MG TAB PO SCH (08:24)
[2021-06-10] MEDS: amLODIPine BESYLATE 5 MG TAB PO SCH (08:24)
[2021-06-10] MEDS: DOXYCYCLINE HYCLATE 100 MG CAP PO SCH (08:25)
[2021-06-10] MEDS: GABAPENTIN 300 MG CAP PO SCH ×2 (08:26→20:59)
[2021-06-10] MEDS: FINASTERIDE 5 MG TAB PO SCH (08:26)
[2021-06-10] MEDS: TAMSULOSIN HCL 0.4 MG CAP PO SCH (08:27)
[2021-06-10] MEDS: VENLAFAXINE HCL XR 150 MG CAPXR PO SCH (08:27)
[2021-06-10] MEDS: gemfibroziL 600 MG TAB PO SCH ×2 (08:27→21:00)
[2021-06-10] MEDS: LIDOCAINE 5% 1 PATCH TD SCH (08:28)
[2021-06-10] MEDS: MICONAZOLE NITRATE POWDER 43 GM EXT SCH ×2 (08:29→21:02)
[2021-06-10] MEDS ORDERED: INSULIN GLARGINE SOLOSTAR 100 UNITS/ML 3 ML PEN SQ ONE (09:00)
[2021-06-10] MEDS ORDERED: INSULIN GLARGINE SOLOSTAR 100 UNITS/ML 3 ML PEN SQ SCH (09:00)
[2021-06-10 09:36] LABS: Estimated Average Glucose 123 mg/dl; Hemoglobin A1C 5.9 % (4.5-5.6)
--- NOTE | 2021-06-10 11:31 | Orthopedic Progress Note ---
Date of Service June 10, 2021 Assessment & Plan (1) Lumbar burst fracture: Plan: At this time we will continue to encourage attempts at bed to chair with assistance. Hopefully we can begin transfers in the next few days with attempts at weightbearing and ultimately rehab placement. We will maintain the drain another 24 to 48 hours. Admission and Anticipated Discharge Date Admission Date: June 03, 2021 Subjective Patient is sleeping. I made multiple attempts to check on the patient. Every time patient was sleeping I was hesitant to awaken him as I know he has been struggling for rest and markedly uncomfortable. Results & Data ([facility]) Vital Signs (Past 12 Hours) Vital Signs Temp Pulse Resp BP Pulse Ox 06/10/21 07:42 36.3 C L 75 18 146/63 H 96
[2021-06-10] MEDS: oxyCODONE HCL IR 5 MG TAB (IMMEDIATE RELEASE) PO PRN (12:49)
--- NOTE | 2021-06-10 13:09 | Hospitalist Progress Note ---
Date of Service June 10, 2021 Assessment & Plan (1) HERMELINDO (acute kidney injury): (2) Elevated CK: (3) Diabetes: Plan: Acute on chronic renal failure Baseline of 1.1-1.3 Continue to hold lisinopril Cr is 1.3 today. Monitor renal function Avoid nephrotoxic agents as able Encouraged to increase oral intake On D5 Mildly Elevated CK CK trended down Lumbar (L4) burst fracture with neurocompression CT lumbar spine:There is an acute to subacute burst type compression fracture of L4 with moderate loss of height and retropulsed fragments. Fracture extends into the right pedicle of L4. S/p lumbosacral fusion POD#4 Pain Control. Appreciate Orthopedics Input Patient is improving slowly. Encourage to increase activity OOB Remove salgado in AM Acute on chronic anemia Post op anemia Hb was 8.9 preop. EBL was 1000cc Got 1 PRBC on 06/06/21. Post transfusion Hb 9.6 Hb is 8.4 today Monitor Volume overload Nocturnal Hypoxia H/O ALMA Non complaint with CPAP Obesity Hypoventilation likely contributing as well Use 3L supplemental Oxygen at bedtime Echo reviewed Does not appear to be significantly volume overloaded today. Puzzle Assembler recs appreciated. Continue to hold diuretic Right Renal Lesion Incidental finding on CT CT showed :2.5 cm indeterminant right renal lesion which does not meet criteria for a simple cyst. Although this could represent a complex cyst Patient currently not interested in further imaging as per Urology Appreciate Urology Input RLE cellulitis Blood Cx: Negative to date Complete Doxycycline today Elevated LFTs- mild Mildly improved Will get Abd USS once stable DM II Hold glipizide Continue lantus, SSI Monitor BGs HTN Lisinopril on hold due to HERMELINDO Continue Metoprolol Was started on Amlodipine for BP control while off of Lisinopril increase amlodipine to 5mg daily Hypothyroidism Continue Levothyroxine BPH on Proscar, Flomax DVT Px: Pharm agent on hold for now due to recent surgery Code status Full code Patient will likely need rehab Admission and Anticipated Discharge Date Admission Date: June 03, 2021 Subjective Patient seen and examined. Patient reports back pain with activity and weakness. Reports relief with pain meds Denies any chest pain, shortness of breath, cough Denied abd pain,nausea, vomiting Still has poor appetite No fevers or chills Physical Exam Constitutional: + well hydrated; no acute distress Eyes: PERRL, conjunctivae normal, anicteric sclerae ENMT: external ear and nose normal, oropharynx normal Respiratory: normal respiratory effort, lungs clear to auscultation Cardiovascular: Rate/Rhythm: regular rate and regular rhythm S1 S2 Gastrointestinal (Abdomen): normal bowel sounds, soft, nontender, no hepatosplenomegaly Musculoskeletal: Clean dressing over legs Drain in situ Neurologic: PERRL, EOMI, accommodation nl, no face palsy, no dysarthria Genitourinary: Salgado Results & Data Results & Data ([facility]) Vital Signs (Past 12 Hours) Vital Signs Temp Pulse Resp BP Pulse Ox 06/10/21 07:42 36.3 C L 75 18 146/63 H 96 Laboratory Results Abnormal lab results 06/09/21 06/09/21 06/10/21 Range/Units 17:03 20:25 00:07 WBC (4.8-10.8) K/uL RBC (4.7-6.1) M/uL Hgb (14.0-18.0) g/dL Hct (42-52) % RDW Std Deviation (36.4-46.3) fL RDW Coeff of Sumaya (11.5-14.5) % Chloride (98-107) mmol/L BUN (6-23) mg/dl BUN/Creatinine Ratio (10-20) Glucose (70-99(Fasting)) mg/dl POC Glucose 289 H 122 H 116 H (70-99) mg/dl Hemoglobin A1c (4.5-5.6) % Calcium (8.5-10.1) mg/dl 06/10/21 06/10/21 06/10/21 Range/Units 03:29 07:06 07:06 WBC 12.56 H (4.8-10.8) K/uL RBC 2.69 L (4.7-6.1) M/uL Hgb 8.4 L (14.0-18.0) g/dL Hct 25.6 L (42-52) % RDW Std Deviation 56.5 H (36.4-46.3) fL RDW Coeff of Sumaya 16.1 H (11.5-14.5) % Chloride (98-107) mmol/L BUN (6-23) mg/dl BUN/Creatinine Ratio (10-20) Glucose (70-99(Fasting)) mg/dl POC Glucose 156 H (70-99) mg/dl Hemoglobin A1c 5.9 H (4.5-5.6) % Calcium (8.5-10.1) mg/dl 06/10/21 06/10/21 06/10/21 Range/Units 07:06 08:06 12:14 WBC (4.8-10.8) K/uL RBC (4.7-6.1) M/uL Hgb (14.0-18.0) g/dL Hct (42-52) % RDW Std Deviation (36.4-46.3) fL RDW Coeff of Sumaya (11.5-14.5) % Chloride 112 H (98-107) mmol/L BUN 45 H (6-23) mg/dl BUN/Creatinine Ratio 34.6 H (10-20) Glucose 159 H (70-99(Fasting)) mg/dl POC Glucose 191 H 170 H (70-99) mg/dl Hemoglobin A1c (4.5-5.6) % Calcium 8.0 L (8.5-10.1) mg/dl
[2021-06-10] MEDS: ACETAMINOPHEN 500 MG TAB PO SCH ×2 (13:51→21:03)
--- NOTE | 2021-06-10 13:57 | Nephrology Progress Note ---
Date of Service June 10, 2021 Assessment & Plan (1) Volume overload: Plan: new hypoxia needing 02nc; relatively new edema past 4-6 wks needing start of diuretics mid april > For now Lasix only as needed if resp status worsening >>>last TTE was 2014 >> low threshold for TTE He is auto diuresing at this point and would continue to hold Lasix at this time (2) Acute on chronic renal failure: Plan: since 09/2020, creatinine has run 1.2-1.3. Then in April 2021 has been more in 1.3-1.5 range until the very end of April (during his stay at rehab hospital) when it started a rapid uptick to peak at 2.5 on 06/01. His creatinine was 2.1 on 06/03 presentation and has remained in this range ever since, with slight improvement today. chemistries ok; mild volume overload persists and cause is unclear. no evidence of NS (200 mg proteinuria); consider cardiorenal syndrome - Scr almost back to baseline , however his sodium has crept up and he is hypochloremic, continue on D5W to 100 mls/hr - BP - elevated, increase amlodipine to 5 mg . -hold acei -avoid nsaids -daily bmp (3) Lumbar burst fracture: Plan: Status post OR June 06 (4) Renal lesion: Plan: for OP f/u and imaging w/ urology if he agrees to this Admission and Anticipated Discharge Date Admission Date: June 03, 2021 Subjective sleeping comfortably. NO new issues overnight. Review of Systems Review of Systems: All systems reviewed & are unremarkable except as noted in HPI & below Results & Data ([facility]) Vital Signs (Past 12 Hours) Vital Signs Temp Pulse Resp BP Pulse Ox 06/10/21 07:42 36.3 C L 75 18 146/63 H 96 Laboratory Results 06/10/21 07:06 06/10/21 07:06
[2021-06-10] MEDS: DEXTROSE 5% 1,000 ML IV SCH (18:33)
[2021-06-10] MEDS: CYCLOBENZAPRINE HCL 5 MG TAB PO PRN (21:00)
[2021-06-10] MEDS: ASPIRIN 81 MG ECTAB PO SCH (21:01)
[2021-06-10] MEDS: METOPROLOL SUCC 25MG EXT REL TAB PO SCH (21:01)
[2021-06-10] MEDS: INSULIN GLARGINE SOLOSTAR 100 UNITS/ML 3 ML PEN SQ SCH (21:12)
[2021-06-10] MEDS: DOCUSATE SODIUM/SENNA 50/8.6MG TAB PO SCH (21:28)
[2021-06-10] MEDS: SOD PHOSPHATE/SOD BIPHOSPHATE ENEMA 132 ML BTL PR PRN (23:12)
[2021-06-11] MEDS: diphenhydrAMINE Capsule 25 MG CAP PO PRN ×2 (00:12→23:10)
[2021-06-11] MEDS: oxyCODONE HCL IR 5 MG TAB (IMMEDIATE RELEASE) PO PRN ×2 (00:12→23:10)
[2021-06-11] MEDS: DEXTROSE 5% 1,000 ML IV SCH ×2 (04:08→14:27)
[2021-06-11] MEDS: ACETAMINOPHEN 500 MG TAB PO SCH ×3 (05:32→21:45)
[2021-06-11] MEDS: LEVOTHYROXINE SODIUM 50 MCG TABLET PO SCH (05:33)
[2021-06-11 07:06] LABS: Hematocrit (blood only) 23.4 % (42-52); Hemoglobin 7.7 g/dL (14.0-18.0); Mean Corpuscular Hgb Conc 32.9 g/dL (32-36); Mean Corpuscular Volume 94.4 fL (80-100); Mean Platelet Volume 9.8 fL (7.4-10.4); Platelet Count 263 K/uL (130-400); RDW Standard Deviation 55.4 fL (36.4-46.3); Red Blood Count 2.48 M/uL (4.7-6.1); White Blood Count 10.24 K/uL (4.8-10.8)
[2021-06-11 07:26] LABS: BUN Creatinine Ratio 31.5 (10-20); Calcium 7.7 mg/dl (8.5-10.1); Creatinine Clr Calc Pharmacy 68.1 ml/min; Est GFR (African American) 61.9 ml/min; Est GFR (Non-African American) 53.4 ml/min; Potassium 3.6 mmol/L (3.5-5.1)
[2021-06-11] MEDS: MICONAZOLE NITRATE POWDER 43 GM EXT SCH ×2 (08:20→20:10)
[2021-06-11] MEDS: TAMSULOSIN HCL 0.4 MG CAP PO SCH (08:20)
[2021-06-11] MEDS: GABAPENTIN 300 MG CAP PO SCH ×2 (08:21→20:09)
[2021-06-11] MEDS: FINASTERIDE 5 MG TAB PO SCH (08:21)
[2021-06-11] MEDS: LIDOCAINE 5% 1 PATCH TD SCH (08:22)
[2021-06-11] MEDS: gemfibroziL 600 MG TAB PO SCH ×2 (08:22→20:10)
[2021-06-11] MEDS: VENLAFAXINE HCL XR 150 MG CAPXR PO SCH (08:22)
[2021-06-11] MEDS: amLODIPine BESYLATE 5 MG TAB PO SCH (08:24)
[2021-06-11] MEDS ORDERED: INSULIN GLARGINE SOLOSTAR 100 UNITS/ML 3 ML PEN SQ ONE (09:00)
[2021-06-11] MEDS: INSULIN ASPART PER UNIT SC SCH ×4 (09:02→20:12)
--- NOTE | 2021-06-11 09:58 | Nephrology Progress Note ---
Date of Service June 11, 2021 Assessment & Plan (1) Volume overload: Plan: new hypoxia needing 02nc; relatively new edema past 4-6 wks needing start of diuretics mid april > For now Lasix only as needed if resp status worsening He is auto diuresing at this point and would continue to hold Lasix , can be restarted as outpatient if needed. (2) Acute on chronic renal failure: Plan: since 09/2020, creatinine has run 1.2-1.3. Then in April 2021 has been more in 1.3-1.5 range until the very end of April (during his stay at rehab hospital) when it started a rapid uptick to peak at 2.5 on 06/01. His creatinine was 2.1 on 06/03 presentation and has remained in this range ever since, with slight impr ovement today. chemistries ok; mild volume overload persists and cause is unclear. no evidence of NS (200 mg proteinuria); consider cardiorenal syndrome - Scr almost back to baseline , sodium better, decrease D5W to 50 mls/hr- for 1 day >>> stop - BP - amlodipine increased to 5 mg . - Hold acei -avoid nsaids (3) Lumbar burst fracture: Plan: Status post OR June 06 (4) Renal lesion: Plan: for OP f/u and imaging w/ urology if he agrees to this Admission and Anticipated Discharge Date Admission Date: June 03, 2021 Subjective Comfortable. no new complains Review of Systems Review of Systems: All systems reviewed & are unremarkable except as noted in Subjective Results & Data ([facility]) Vital Signs (Past 12 Hours) Vital Signs Temp Pulse Resp BP BP Pulse Ox 06/11/21 08:20 150/67 H 06/11/21 07:40 36.8 C 64 16 145/62 H 96 06/10/21 22:11 36.4 C L 80 18 168/65 H 97 Laboratory Results 06/11/21 05:54 06/11/21 05:54
--- NOTE | 2021-06-11 12:03 | Hospitalist Progress Note ---
Date of Service June 11, 2021 Assessment & Plan (1) HERMELINDO (acute kidney injury): (2) Elevated CK: (3) Diabetes: Plan: Acute on chronic renal failure Baseline of 1.1-1.3 Continue to hold lisinopril Cr is 1.2 today. Back to baseline Oral intake improving On D5. Reduce rate to 50cc/h for next day and stop Mildly Elevated CK CK trended down Lumbar (L4) burst fracture with neurocompression CT lumbar spine:There is an acute to subacute burst type compression fracture of L4 with moderate loss of height and retropulsed fragments. Fracture extends into the right pedicle of L4. S/p lumbosacral fusion POD#5 Pain Control. Appreciate Orthopedics Input Patient is improving slowly. Encourage to increase activity Remove salgado Acute on chronic anemia Post op anemia Hb was 8.9 preop. EBL was 1000cc Got 1 PRBC on 06/06/21. Post transfusion Hb 9.6 Hb is 7.7 today Recheck. Transfuse PRN Volume overload Nocturnal Hypoxia H/O ALMA Non complaint with CPAP Obesity Hypoventilation likely contributing as well Use 3L supplemental Oxygen at bedtime Echo reviewed Does not appear to be volume overloaded today. 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 Continue to hold diuretic until discharged Right Renal Lesion Incidental finding on CT CT showed :2.5 cm indeterminant right renal lesion which does not meet criteria for a simple cyst. Although this could represent a complex cyst Patient currently not interested in further imaging as per Urology Appreciate Urology Input RLE cellulitis Blood Cx: Negative to date Complete Doxycycline today Elevated LFTs- mild Mildly improved Will get Abd USS once stable DM II Hold glipizide Continue lantus, SSI Monitor BGs HTN Lisinopril on hold due to HERMELINDO Continue Metoprolol Was started on Amlodipine for BP control while off of Lisinopril Hypothyroidism Continue Levothyroxine BPH on Proscar, Flomax DVT Px: Pharm agent on hold for now due to recent surgery and anemia Code status Full code Patient will likely need rehab. Continue PT/OT Admission and Anticipated Discharge Date Admission Date: June 03, 2021 Subjective Patient seen and examined. Patient still reports back pain but improved Reports appetite is improving Was able to sit on side of bed with PT yesterday Denies any chest pain, shortness of breath, cough Denied abd pain,nausea, vomiting No fevers or chills Physical Exam Constitutional: + well hydrated; no acute distress Eyes: PERRL, conjunctivae normal, anicteric sclerae ENMT: external ear and nose normal, oropharynx normal Respiratory: normal respiratory effort, lungs clear to auscultation Cardiovascular: Rate/Rhythm: regular rate and regular rhythm S1 S2 Gastrointestinal (Abdomen): normal bowel sounds, soft, nontender, no hepatosplenomegaly Neurologic: PERRL, EOMI, accommodation nl, no face palsy, no dysarthria Psychiatric: A+Ox3, euthymic affect Results & Data Results & Data ([facility]) Vital Signs (Past 12 Hours) Vital Signs Temp Pulse Resp BP BP Pulse Ox 06/11/21 08:20 150/67 H 06/11/21 07:40 36.8 C 64 16 145/62 H 96 Laboratory Results Abnormal lab results 06/10/21 06/10/21 06/11/21 Range/Units 17:20 20:36 05:54 RBC 2.48 L (4.7-6.1) M/uL Hgb 7.7 L (14.0-18.0) g/dL Hct 23.4 L (42-52) % RDW Std Deviation 55.4 H (36.4-46.3) fL RDW Coeff of Sumaya 16.0 H (11.5-14.5) % Chloride (98-107) mmol/L BUN (6-23) mg/dl BUN/Creatinine Ratio (10-20) Glucose (70-99(Fasting)) mg/dl POC Glucose 191 H 174 H (70-99) mg/dl Calcium (8.5-10.1) mg/dl 06/11/21 06/11/21 06/11/21 Range/Units 05:54 08:09 12:15 RBC (4.7-6.1) M/uL Hgb (14.0-18.0) g/dL Hct (42-52) % RDW Std Deviation (36.4-46.3) fL RDW Coeff of Sumaya (11.5-14.5) % Chloride 109 H (98-107) mmol/L BUN 39 H (6-23) mg/dl BUN/Creatinine Ratio 31.5 H (10-20) Glucose 155 H (70-99(Fasting)) mg/dl POC Glucose 177 H 144 H (70-99) mg/dl Calcium 7.7 L (8.5-10.1) mg/dl
[2021-06-11] MEDS: ASPIRIN 81 MG ECTAB PO SCH (20:09)
[2021-06-11] MEDS: METOPROLOL SUCC 25MG EXT REL TAB PO SCH (20:10)
[2021-06-11] MEDS: CYCLOBENZAPRINE HCL 5 MG TAB PO PRN (20:11)
[2021-06-11] MEDS: INSULIN GLARGINE SOLOSTAR 100 UNITS/ML 3 ML PEN SQ SCH (20:13)
[2021-06-11] MEDS: DOCUSATE SODIUM/SENNA 50/8.6MG TAB PO SCH (21:46)
[2021-06-12] MEDS: DEXTROSE 5% 1,000 ML IV SCH ×2 (05:52→09:25)
[2021-06-12] MEDS: ACETAMINOPHEN 500 MG TAB PO SCH ×3 (06:29→20:56)
[2021-06-12] MEDS: LEVOTHYROXINE SODIUM 50 MCG TABLET PO SCH (06:29)
[2021-06-12 08:06] LABS: Hemoglobin 7.5 g/dL (14.0-18.0); Mean Corpuscular Hemoglobin 30.1 pg (25-34); Mean Corpuscular Hgb Conc 32.6 g/dL (32-36); Mean Corpuscular Volume 92.4 fL (80-100); Mean Platelet Volume 9.7 fL (7.4-10.4); Platelet Count 285 K/uL (130-400); RDW Coefficient of Variation 15.7 % (11.5-14.5); RDW Standard Deviation 53.4 fL (36.4-46.3); Red Blood Count 2.49 M/uL (4.7-6.1); White Blood Count 9.03 K/uL (4.8-10.8)
--- NOTE | 2021-06-12 08:24 | Ultrasound Report ---
ABDOMINAL ULTRASOUND, RIGHT UPPER QUADRANT HISTORY: Elevated LFT. Assess liver. COMPARISON: Renal ultrasound 06/05/2021. FINDINGS: Pancreas: The pancreatic head and tail are obscured by overlying bowel gas. The remaining portions of the pancreas are within normal limits. Liver: Not well visualized due to the patient's body habitus. 20 cm length. Gallbladder: No gallbladder wall thickening. There appear to be a few small gallstones. Negative sono graphic Fall sign. CBD: 4 mm. Right kidney: No hydronephrosis. IMPRESSION: 1. Cholelithiasis. 2. Normal caliber common bile duct. 3. Hepatomegaly. ACT 112: Negative or not required by law. Electronically signed by: Obdulio Augustin M.D. 06/12/2021 8:22 AM
[2021-06-12 08:33] LABS: Calcium 7.8 mg/dl (8.5-10.1); Creatinine Clr Calc Pharmacy 70.4 ml/min; Est GFR (African American) 64.4 ml/min; Est GFR (Non-African American) 55.6 ml/min; Potassium 4.1 mmol/L (3.5-5.1)
[2021-06-12] MEDS: LIDOCAINE 5% 1 PATCH TD SCH (08:37)
[2021-06-12] MEDS: FINASTERIDE 5 MG TAB PO SCH (08:38)
[2021-06-12] MEDS: VENLAFAXINE HCL XR 150 MG CAPXR PO SCH (08:38)
[2021-06-12] MEDS: GABAPENTIN 300 MG CAP PO SCH ×2 (08:38→20:53)
[2021-06-12] MEDS: gemfibroziL 600 MG TAB PO SCH ×2 (08:38→20:52)
[2021-06-12] MEDS: TAMSULOSIN HCL 0.4 MG CAP PO SCH (08:38)
[2021-06-12] MEDS: amLODIPine BESYLATE 5 MG TAB PO SCH (08:38)
[2021-06-12] MEDS: MICONAZOLE NITRATE POWDER 43 GM EXT SCH ×2 (08:39→20:53)
[2021-06-12] MEDS: oxyCODONE HCL IR 5 MG TAB (IMMEDIATE RELEASE) PO PRN ×2 (08:39→16:07)
[2021-06-12] MEDS: INSULIN ASPART PER UNIT SC SCH ×4 (08:40→21:46)
--- NOTE | 2021-06-12 10:31 | Nephrology Progress Note ---
Date of Service June 12, 2021 Assessment & Plan Admission and Anticipated Discharge Date Admission Date: June 03, 2021 Subjective Assessment & Plan (1) Volume overload: Plan: new hypoxia needing 02nc; relatively new edema past 4-6 wks needing start of diuretics mid april urine out dropping last few days. Start Lasix 20 daily. (2) Acute on chronic renal failure: Plan: since 09/2020, creatinine has run 1.2-1.3. Then in April 2021 has been more in 1.3-1.5 range until the very end of April (during his stay at rehab hospital) when it started a rapid uptick to peak at 2.5 on 06/01. His creatinine was 2.1 on 06/03 presentation and has remained in this range ever since, with slight improvement today. chemistries ok; mild volume overload persists and cause is unclear. no evidence of NS (200 mg proteinuria); consider cardiorenal syndrome - Scr back to baseline , sodium better, decrease D5W to 50 mls/hr- for 1 day >>> stop - BP - amlodipine increased to 5 mg . - Hold acei -avoid nsaids Add lasix 20 daily. Continue outpt 3 Renal lesion: Plan: for OP f/u and imaging w/ urology if he agrees to this Subjective Comfortable. no new complains Review of Systems Review of Systems: All systems reviewed & are unremarkable except as noted in Subjective AAo x3 Chest CTA CVS--RRR Abd Soft non tender Ext--trace edema Results & Data ([facility]) Vital Signs (Past 12 Hours) Vital Signs Temp Pulse Resp BP Pulse Ox 06/12/21 07:13 36.4 C L 68 18 154/66 H 97
[2021-06-12] MEDS: FUROSEMIDE 20 MG TAB PO SCH (11:52)
--- NOTE | 2021-06-12 12:57 | Pharmacy Report ---
Pharmacy Glycemic Short Note 2 - Date of Service June 12, 2021 - Glycemic Short BSG Results (Last 24 hours): 06/11/21 06/11/21 06/12/21 17:15 20:11 07:31 Glucose 157 H POC Glucose 171 H 134 H 06/12/21 06/12/21 07:55 12:00 Glucose POC Glucose 179 H 137 H OUTPATIENT ANTIDIABETIC REGIMEN: * Lantus 12 units SQ qHS + glipizide 5 mg daily at noon - per med rec * HbA1c 5.9% on 06/10/21 ASSESSMENT: 06/12 * D5W has stopped and BSG trended down to 137 mg/dL at lunch today * Will decrease Lantus - now will be slightly lower than home dose * Will loosen Novolog slightly to help prevent hypoglcemia with discontinuation of D5W 06/09 * John is a T2DM admitted with HERMELINDO, Lumbar (L4) burst fracture with neurocompression, RLE cellulitis * He received 17 units of insulin yesterday with all BSGs significantly above goal * Fasting BSG of 249 mg/dL. Of note, this is not a true fasting per patient has D5 running at 100 mls/hr (provides 20 gram dextrose every 4 hours), however fasting BSG trending upward even before fluids were added. * Will tighten both basal and bolus insulin. Add checks at 00 and 04 due to dextrose fluids. PLAN FOR INPATIENT GLYCEMIC CONTROL: * Hold outpatient oral diabetes medications * Basal insulin * Lantus 15 units SQ this morning * Lantus 10 units SQ HS * Bolus insulin * NovoLog per scale ACHS or Q6hrs while NPO * Goal Range: Low 120 mg/dL - High 150 mg/dL * Correction Factor: 15 mg/dL/unit * Nutritional / Prandial insulin per carb ratio of 1 unit per 7 grams CHO consumed
[2021-06-12] MEDS ORDERED: SODIUM CHLORIDE 0.9% 250 ML IV PRN (13:10)
--- NOTE | 2021-06-12 14:08 | Hospitalist Progress Note ---
Date of Service June 12, 2021 Assessment & Plan (1) HERMELINDO (acute kidney injury): (2) Elevated CK: (3) Diabetes: Plan: Acute on chronic renal failure Baseline of 1.1-1.3 Continue to hold lisinopril Cr is 1.2 today. Back to baseline Oral intake improving Mildly Elevated CK CK trended down Lumbar (L4) burst fracture with neurocompression CT lumbar spine:There is an acute to subacute burst type compression fracture of L4 with moderate loss of height and retropulsed fragments. Fracture extends into the right pedicle of L4. S/p lumbosacral fusion POD#6 Continue pain Control. Appreciate Orthopedics Input Patient is improving slowly. Encourage to increase activity Salgado has been removed. Monitor urine output Acute on chronic anemia Post op anemia Hb was 8.9 preop. EBL was 1000cc Got 1 PRBC on 06/06/21. Post transfusion Hb 9.6 Hb trended down, 7.5 today. With this and increasing weakness, Will give 1 PRBC today. Volume overload Nocturnal Hypoxia H/O ALMA Non complaint with CPAP Obesity Hypoventilation likely contributing as well Use 3L supplemental Oxygen at bedtime Echo reviewed Does not appear to be volume overloaded today. Magazine Hand recs appreciated. Lasix resumed Right Renal Lesion Incidental finding on CT CT showed :2.5 cm indeterminant right renal lesion which does not meet criteria for a simple cyst. Although this could represent a complex cyst Patient currently not interested in further imaging as per Urology Appreciate Urology Input RLE cellulitis Blood Cx: Negative to date Completed doxycycline Wound care Elevated LFTs- mild Mildly improved Will get Abd USS once stable DM II Hold glipizide Continue lantus, SSI Monitor BGs HTN Lisinopril on hold due to HERMELINDO Continue Metoprolol Was started on Amlodipine for BP control while off of Lisinopril Hypothyroidism Continue Levothyroxine BPH on Proscar, Flomax DVT Px: Pharm agent on hold for now due to recent surgery and anemia Code status Full code Patient will likely need rehab. Continue PT/OT Admission and Anticipated Discharge Date Admission Date: June 03, 2021 Subjective Patient seen and examined. Patient still reports back pain with activity Reported increased generalized weakness Denies any chest pain, shortness of breath, cough Denied abd pain,nausea, vomiting, constipation No fevers or chills Had some penile bleeding after salgado was removed yesterday. Reports some dysuria afterwards Physical Exam Constitutional: + well hydrated; no acute distress Eyes: PERRL, conjunctivae normal, anicteric sclerae ENMT: external ear and nose normal, oropharynx normal Respiratory: normal respiratory effort, lungs clear to auscultation Cardiovascular: Rate/Rhythm: regular rate and regular rhythm S1 S2 Gastrointestinal (Abdomen): normal bowel sounds, soft, nontender, no hepatosplenomegaly Musculoskeletal: pedal edema Neurologic: PERRL, EOMI, accommodation nl, no face palsy, no dysarthria Psychiatric: A+Ox3, euthymic affect Results & Data Results & Data ([facility]) Vital Signs (Past 12 Hours) Vital Signs Temp Pulse Resp BP Pulse Ox 06/12/21 07:13 36.4 C L 68 18 154/66 H 97 Laboratory Results Abnormal lab results 06/11/21 06/11/21 06/11/21 Range/Units 16:27 17:15 20:11 RBC (4.7-6.1) M/uL Hgb 7.5 L (14.0-18.0) g/dL Hct (42-52) % RDW Std Deviation (36.4-46.3) fL RDW Coeff of [place]aya (11.5-14.5) % Chloride (98-107) mmol/L BUN (6-23) mg/dl BUN/Creatinine Ratio (10-20) Glucose (70-99(Fasting)) mg/dl POC Glucose 171 H 134 H (70-99) mg/dl Calcium (8.5-10.1) mg/dl Crossmatch 06/12/21 06/12/21 06/12/21 Range/Units 07:31 07:31 07:55 RBC 2.49 L (4.7-6.1) M/uL Hgb 7.5 L (14.0-18.0) g/dL Hct 23.0 L (42-52) % RDW Std Deviation 53.4 H (36.4-46.3) fL RDW Coeff of [place] 15.7 H (11.5-14.5) % Chloride 109 H (98-107) mmol/L BUN 42 H (6-23) mg/dl BUN/Creatinine Ratio 35.0 H (10-20) Glucose 157 H (70-99(Fasting)) mg/dl POC Glucose 179 H (70-99) mg/dl Calcium 7.8 L (8.5-10.1) mg/dl Crossmatch 06/12/21 06/12/21 Range/Units 12:00 13:43 RBC (4.7-6.1) M/uL Hgb (14.0-18.0) g/dL Hct (42-52) % RDW Std Deviation (36.4-46.3) fL RDW Coeff of [place]aya (11.5-14.5) % Chloride (98-107) mmol/L BUN (6-23) mg/dl BUN/Creatinine Ratio (10-20) Glucose (70-99(Fasting)) mg/dl POC Glucose 137 H (70-99) mg/dl Calcium (8.5-10.1) mg/dl Crossmatch See Detail
--- NOTE | 2021-06-12 16:29 | Orthopedic Progress Note ---
Date of Service June 12, 2021 Assessment & Plan (1) Lumbar burst fracture: Plan: At this time patient is making slow but steady gains. Is able to sit up much longer duration today. We will continue to encourage him to undergo his sitting and standing and hopefully transition to rehab in the next few days. Admission and Anticipated Discharge Date Admission Date: June 03, 2021 Subjective Patient continues complain of back pain with any motion but overall feels it is improved Physical Exam Physical Exam: Patient is personally seen in bed. He is somnolent. He does however cooperate with exam. There is reasonable plantar flexion dorsiflexion bilaterally. Results & Data ([facility]) Vital Signs (Past 12 Hours) Vital Signs Temp Pulse Pulse Resp BP BP BP 06/12/21 15:57 36.5 C 78 14 138/70 06/12/21 15:42 36.5 C 79 16 122/63 06/12/21 15:25 36.7 C 74 16 122/65 06/12/21 14:51 36.6 C 78 18 115/61 06/12/21 07:13 36.4 C L 68 18 154/66 H Pulse Ox 06/12/21 15:57 95 06/12/21 15:42 97 06/12/21 15:25 96 06/12/21 14:51 97 06/12/21 07:13 97
[2021-06-12] MEDS: diphenhydrAMINE Capsule 25 MG CAP PO PRN (20:52)
[2021-06-12] MEDS: ASPIRIN 81 MG ECTAB PO SCH (20:52)
[2021-06-12] MEDS: METOPROLOL SUCC 25MG EXT REL TAB PO SCH (20:52)
[2021-06-12] MEDS: DOCUSATE SODIUM/SENNA 50/8.6MG TAB PO SCH (20:56)
[2021-06-12] MEDS: INSULIN GLARGINE SOLOSTAR 100 UNITS/ML 3 ML PEN SQ SCH (21:46)
[2021-06-13] MEDS: oxyCODONE HCL IR 5 MG TAB (IMMEDIATE RELEASE) PO PRN ×3 (00:43→20:11)
[2021-06-13] MEDS: ACETAMINOPHEN 500 MG TAB PO SCH ×3 (05:37→21:30)
[2021-06-13] MEDS: LEVOTHYROXINE SODIUM 50 MCG TABLET PO SCH (05:37)
[2021-06-13 06:39] LABS: Hematocrit (blood only) 23.3 % (42-52); Hemoglobin 7.7 g/dL (14.0-18.0); Mean Corpuscular Hemoglobin 30.9 pg (25-34); Mean Corpuscular Volume 93.6 fL (80-100); Mean Platelet Volume 9.9 fL (7.4-10.4); Platelet Count 289 K/uL (130-400); RDW Coefficient of Variation 15.9 % (11.5-14.5); RDW Standard Deviation 53.9 fL (36.4-46.3); Red Blood Count 2.49 M/uL (4.7-6.1); White Blood Count 9.75 K/uL (4.8-10.8)
[2021-06-13 07:06] LABS: BUN Creatinine Ratio 36.2 (10-20); Calcium 7.9 mg/dl (8.5-10.1); Est GFR (African American) 58.5 ml/min; Est GFR (Non-African American) 50.5 ml/min; Potassium 4.1 mmol/L (3.5-5.1)
[2021-06-13] MEDS: amLODIPine BESYLATE 5 MG TAB PO SCH (09:26)
[2021-06-13] MEDS: FINASTERIDE 5 MG TAB PO SCH (09:26)
[2021-06-13] MEDS: gemfibroziL 600 MG TAB PO SCH ×2 (09:27→20:08)
[2021-06-13] MEDS: FUROSEMIDE 20 MG TAB PO SCH (09:27)
[2021-06-13] MEDS: GABAPENTIN 300 MG CAP PO SCH ×2 (09:27→20:07)
[2021-06-13] MEDS: VENLAFAXINE HCL XR 150 MG CAPXR PO SCH (09:28)
[2021-06-13] MEDS: TAMSULOSIN HCL 0.4 MG CAP PO SCH (09:28)
[2021-06-13] MEDS: MICONAZOLE NITRATE POWDER 43 GM EXT SCH ×2 (09:28→20:08)
[2021-06-13] MEDS: INSULIN ASPART PER UNIT SC SCH ×4 (09:39→20:52)
--- NOTE | 2021-06-13 10:48 | Hospitalist Progress Note ---
Date of Service June 13, 2021 Assessment & Plan (1) HERMELINDO (acute kidney injury): (2) Elevated CK: (3) Diabetes: Plan: Acute on chronic renal failure Baseline of 1.1-1.3 Continue to hold lisinopril Cr is 1.2 today. Back to baseline Oral intake improving Mildly Elevated CK CK trended down Lumbar (L4) burst fracture with neurocompression CT lumbar spine:There is an acute to subacute burst type compression fracture of L4 with moderate loss of height and retropulsed fragments. Fracture extends into the right pedicle of L4. S/p lumbosacral fusion POD#7 Continue pain Control. Appreciate Orthopedics Input Patient is improving but very slowly. Reports depression.He reports lot of frustration with slow recovery He does have h/o depression on venlafaxine Provided counselling Will get Psych c/s Acute on chronic anemia Post op anemia Hb was 8.9 preop. EBL was 1000cc Got 1 PRBC on 06/06/21. Post transfusion Hb 9.6 Hb trended down, 7.5 yesterday. Got 1 PRBC Hb is 7.7 today. No obvious blood loss today. Monitor closely. Volume overload Nocturnal Hypoxia H/O ALMA Non complaint with CPAP Obesity Hypoventilation likely contributing as well Use 3L supplemental Oxygen at bedtime Echo reviewed Manager Cargo recs appreciated. Lasix resumed yesterday Right Renal Lesion Incidental finding on CT CT showed :2.5 cm indeterminant right renal lesion which does not meet criteria for a simple cyst. Although this could represent a complex cyst Patient currently not interested in further imaging as per Urology Appreciate Urology Input RLE cellulitis Blood Cx: Negative to date Completed doxycycline Wound care Elevated LFTs- mild Mildly improved Abd USS noted cholelithiasis, normal CBD, hepatomegaly DM II Hold glipizide Continue lantus, SSI Monitor BGs HTN Lisinopril on hold due to HERMELINDO Continue Metoprolol Was started on Amlodipine for BP control while off of Lisinopril Hypothyroidism Continue Levothyroxine BPH on Proscar, Flomax DVT Px: Pharm agent on hold for now due to recent surgery and anemia Code status Full code Patient will likely need rehab. Continue PT/OT Admission and Anticipated Discharge Date Admission Date: June 03, 2021 Subjective Patient seen and examined. Patient still reports back pain with activity or movement Still reports weakness Denies any chest pain, shortness of breath, cough Denied abd pain,nausea, vomiting, constipation Poor appetite, mildly improved No fevers or chills Reports feeling depressed. Denied suicidal ideation Physical Exam Constitutional: + well hydrated; no acute distress Eyes: PERRL, conjunctivae normal, anicteric sclerae ENMT: external ear and nose normal, oropharynx normal Respiratory: normal respiratory effort, lungs clear to auscultation Cardiovascular: Rate/Rhythm: regular rate and regular rhythm S1 S2 Gastrointestinal (Abdomen): normal bowel sounds, soft, nontender, no hepatosplenomegaly Musculoskeletal: Trace pedal edema Dressing over leg wounds Neurologic: PERRL, EOMI, accommodation nl, no face palsy, no dysarthria Psychiatric: AOx3, flat affect Results & Data Results & Data ([facility]) Vital Signs (Past 12 Hours) Vital Signs Temp Pulse Resp BP Pulse Ox 06/13/21 07:24 36.5 C 74 16 152/68 H 95 Laboratory Results Abnormal lab results 06/12/21 06/12/21 06/12/21 Range/Units 13:43 16:55 20:38 RBC (4.7-6.1) M/uL Hgb (14.0-18.0) g/dL Hct (42-52) % RDW Std Deviation (36.4-46.3) fL RDW Coeff of [place] (11.5-14.5) % Chloride (98-107) mmol/L BUN (6-23) mg/dl BUN/Creatinine Ratio (10-20) Glucose (70-99(Fasting)) mg/dl POC Glucose 125 H 101 H (70-99) mg/dl Calcium (8.5-10.1) mg/dl Crossmatch See Detail 06/13/21 06/13/21 06/13/21 Range/Units 05:49 05:49 08:06 RBC 2.49 L (4.7-6.1) M/uL Hgb 7.7 L (14.0-18.0) g/dL Hct 23.3 L (42-52) % RDW Std Deviation 53.9 H (36.4-46.3) fL RDW Coeff of [place] 15.9 H (11.5-14.5) % Chloride 110 H (98-107) mmol/L BUN 47 H (6-23) mg/dl BUN/Creatinine Ratio 36.2 H (10-20) Glucose 148 H (70-99(Fasting)) mg/dl POC Glucose 188 H (70-99) mg/dl Calcium 7.9 L (8.5-10.1) mg/dl Crossmatch 06/13/21 Range/Units 12:54 RBC (4.7-6.1) M/uL Hgb (14.0-18.0) g/dL Hct (42-52) % RDW Std Deviation (36.4-46.3) fL RDW Coeff of [place] (11.5-14.5) % Chloride (98-107) mmol/L BUN (6-23) mg/dl BUN/Creatinine Ratio (10-20) Glucose (70-99(Fasting)) mg/dl POC Glucose 202 H (70-99) mg/dl Calcium (8.5-10.1) mg/dl Crossmatch
[2021-06-13] MEDS: LIDOCAINE 5% 1 PATCH TD SCH (10:53)
--- NOTE | 2021-06-13 13:16 | Pharmacy Report ---
Pharmacy Glycemic Short Note 2 - Date of Service June 13, 2021 - Glycemic Short BSG Results (Last 24 hours): 06/12/21 06/12/21 06/13/21 16:55 20:38 05:49 Glucose 148 H POC Glucose 125 H 101 H 06/13/21 06/13/21 08:06 12:54 Glucose POC Glucose 188 H 202 H OUTPATIENT ANTIDIABETIC REGIMEN: * Lantus 12 units SQ qHS + glipizide 5 mg daily at noon - per med rec * HbA1c 5.9% on 06/10/21 ASSESSMENT: 06/13 * Pt refused Lantus last night, unknown why, except that he was euglycemic. * BSGs climbing today d/t lack of basal insulin, continue for tonight as ordered for patient if he is willing to take 06/12 * D5W has stopped and BSG trended down to 137 mg/dL at lunch today * Will decrease Lantus - now will be slightly lower than home dose * Will loosen Novolog slightly to help prevent hypoglycemia with discontinuation of D5W 06/09 * John is a T2DM admitted with HERMELINDO, Lumbar (L4) burst fracture with neurocompression, RLE cellulitis * He received 17 units of insulin yesterday with all BSGs significantly above goal * Fasting BSG of 249 mg/dL. Of note, this is not a true fasting per patient has D5 running at 100 mls/hr (provides 20 gram dextrose every 4 hours), however fasting BSG trending upward even before fluids were added. * Will tighten both basal and bolus insulin. Add checks at 00 and 04 due to dextrose fluids. PLAN FOR INPATIENT GLYCEMIC CONTROL: * Hold outpatient oral diabetes medications * Basal insulin * Lantus 10 units SQ HS * Bolus insulin * NovoLog per scale ACHS or Q6hrs while NPO * Goal Range: Low 120 mg/dL - High 150 mg/dL - higher goal range for patient's age and co-morbidities * Correction Factor: 20 mg/dL/unit * Nutritional / Prandial insulin per carb ratio of 1 unit per 7 grams CHO consumed
--- NOTE | 2021-06-13 15:21 | Psychiatric Consultation ---
Date of Consultation June 13, 2021 Impression / Recommendations Impression This is a 81 yo with a history of depression, anxiety admitted medically for L4 burst fracture and neurocompression . Diagnostically consistent with adjustment disorder with mixed anxiety and depressed mood in the context of multiple recent psychosocial and medical stressors including moving his into a intermediate facility for memory care, caregiver burnout, and recent medical issues including acute pain from L4 burst fracture. Acute risk of self-harm is low given denial of SI (previous statements made due to distress from acute physical pain), multiple strong reasons for living and no history of prior attempts, risk is slightly increased due to pain but as this improves his risk will go down. Most significant modifiable risk factor is ongoing medical care and then subacute rehab to help him regain independence, mobility and reduce pain. Sodium is normal and no evidence of prolonged QTc. (1) Adjustment disorder with mixed anxiety and depressed mood: (2) Lumbar burst fracture: -Continue Effexor XR 150mg qd -Consider addition of Vistaril 25mg q6H prn for anxiety; if started discontinue benadryl to reduce QTc prolongation risk and anticholinergic effects -Encourage ongoing efforts to optimize pain management -Psych liason to continue providing support through check-ins Risk Factors Assessment Do You Have Access To A Gun?: No Psych History Identifying Data 81 yo man with history of depression, anxiety, ALMA, T2DM, hypothyroidism, HTN and chronic back pain admitted medically for L4 burst compression fracture. Psychiatry was consulted for depression and risk assessment. Chief Complaint "I'm pretty much a big baby with pain". History of Present Illness Cosme is accompanied by his daughter, Doretha, and notes that his physical and mental health has been "going downhill" over the last few months due to multiple stressors. He took care of his , who has advanced dementia, in their home for the last 8 yrs but recently it became too much so she is now in a intermediate and he feels guilt about this as "she never wanted to have to go there". Adjusting to being without her at home has also been a stressor. He's also been dealing with more medical issues and notes that he doesn't do well with pain. Doretha notes that he was recently at [facility] and it appears for those 10 days he was not given his Effexor XR 150mg qd which is also likely impacting his mood. He notes many reasons for living incluidng his cat Eugenio who he adores as well as his and his daughter "she's the apple of my eye". He notes he did have brief SI in the context of severe pain when he is being repositioned by nursing to use the commode or bed llanos and that he said "I'd rather than deal with this pain again". Reviewed that he no longer feels suicidal but is frustrated with his pain. He agrees with continuing the Effexor and is open to trying Vistaril to help with anxiety about the pain with movement if his medical team agrees with this. Past Psychiatric History Outpatient Services: none Previous Psych Admissions: n/a Do You Have Access To A Gun?: No History of Previous Suicide Attempt: No Allergies Allergy/AdvReac Type Severity Reaction Status Date / Time No Known Allergies Allergy Verified 06/06/21 12:16 Home Medications Medication Instructions Recorded Confirmed Type aspirin 81 mg tablet,delayed 81 mg PO HS 12/04/18 06/03/21 History release (Adult Aspirin Regimen) gabapentin 300 mg capsule 300 mg PO BID 12/04/18 06/03/21 History gemfibrozil 600 mg tablet 600 mg PO BID 12/04/18 06/03/21 History glipizide 5 mg tablet 5 mg PO .DAILY@NOON tab 12/04/18 06/03/21 History insulin glargine 100 unit/mL (3 12 units SQ HS ml 12/04/18 06/03/21 History mL) subcutaneous pen (Lantus Solostar U-100 Insulin) levothyroxine 50 mcg capsule 50 mcg PO DAILYBB 12/04/18 06/03/21 History lisinopril 5 mg tablet 5 mg PO QDD 12/04/18 06/03/21 History vit C 250 mg-vit E 90 mg-zinc 40 1 tab PO BID 12/18/18 06/03/21 History mg-copper 1 [id number] capsule (PreserVision AREDS-2) metoprolol succinate 25 mg 25 mg PO HS 04/09/19 06/03/21 History tablet,extended release 24 hr finasteride 5 mg tablet 5 mg PO DAILY #90 tab 08/23/20 06/03/21 Rx tamsulosin 0.4 mg capsule 0.4 mg PO DAILY #90 cap 08/23/20 06/03/21 Rx venlafaxine 150 mg 150 mg PO .DAILY@NOON 05/22/21 06/03/21 History capsule,extended release 24 hr furosemide 20 mg tablet 20 mg PO 3XWK 06/03/21 06/03/21 History oxycodone 5 mg tablet 10 mg PO Q6H PRN 06/03/21 06/03/21 History Family History mother and son with hx of depression Substance Abuse History denies Personal History Living Arrangements: Home Employment Status: Retired Marital Status: Number Of Children: 2 Beliefs That Will Affect Care: None Patient History Medical History Acute on chronic renal failure Arthritis Depression Diabetes mellitus, type 2 IDDM Dysuria Hearing disorder right ear hearing loss History of kidney stones Hyperlipidemia Hypertension Hypothyroidism Macular degeneration, age related Morbid obesity Sleep apnea does not use CPAP Spinal stenosis of lumbar region Vertigo Surgical History Hx of colonoscopy Hx of non-cataract eye surgery Hx of right cataract extraction Hx of tonsillectomy Family History Son Family history of diabetes mellitus Social History Smoking Status: Never smoker Tobacco Type: Cigarettes Second Hand Exposure: No; Hx Alcohol Use: No Hx Substance Use: No Preferred Language: Upper Sorbian Communication Ability: Effective International Marketing Specialist Required: No Beliefs That Will Affect Care: None marital status: Current Living Situation: Alone Current Living Situation Comment: HAS DEEMENTIA AND HE CARE FOR HER Feels Safe at Home: Yes Safety Concerns: Feels Safe At This Time Assistive Devices: Wheelchair Physical Exam Psychiatric: Orientation: alert and oriented x 3 Apperance: appropriately dressed and appropriately groomed Eye Contact: good eye contact Motor Behavior: no abnormal motor movements Speech: normal rate/rhythm/volume of speech Affect: + constricted affect Mood: + depressed mood and + anxious mood Thought Process: goal directed thought process Thought Content: reality based without delusions Suicidal Thoughts: denies suicidal thoughts (had some passive SI during positioning earlier due to pain ) Homicidal Thoughts: denies homicidal thoughts Hallucinations: no auditory hallucinations and no visual hallucinations Cognition: recent memory grossly intact, remote memory grossly intact, attention grossly intact and language grossly intact Estimated Intelligence: consistent with education level Insight: + fair insight Judgement: + fair judgement Vital Signs (Past 24 Hours): Last Vital Signs Temp 36.5 C 06/13/21 07:24 Pulse 74 06/13/21 07:24 Resp 16 06/13/21 07:24 BP 152/68 H 06/13/21 07:24 Pulse Ox 95 06/13/21 07:24 Review of Systems All systems reviewed & are unremarkable except as noted in HPI & below Results & Data (PSY) Laboratory Results nml Na+ Diagnostic Findings EKG 06/03/21 QTc 463 ms Medications Administered Acetaminophen (Acetaminophen 500 Mg Tab) 1,000 mg PO Q8 [facility] Stop: 07/10/21 13:59 Last Admin: 06/13/21 14:19 Dose: 1,000 mg Documented by: [id number] Admin: 06/13/21 05:37 Dose: 1,000 mg Documented by: [id number] Admin: 06/12/21 20:56 Dose: 1,000 mg Documented by: [id number] Admin: 06/12/21 15:15 Dose: 1,000 mg Documented by: [id number] Admin: 06/12/21 06:29 Dose: 1,000 mg Documented by: [id number] Admin: 06/11/21 21:45 Dose: 1,000 mg Documented by: [id number] Admin: 06/11/21 13:54 Dose: 1,000 mg Documented by: [id number] Admin: 06/11/21 05:32 Dose: 1,000 mg Documented by: [id number] Admin: 06/10/21 21:03 Dose: 1,000 mg Documented by: [id number] Admin: 06/10/21 13:51 Dose: 1,000 mg Documented by: [id number] Amlodipine Besylate (Amlodipine Besylate 5 Mg Tab) 5 mg PO QAM WIL[facility] Stop: 07/11/21 08:59 Last Admin: 06/13/21 09:26 Dose: 5 mg Documented by: [id number] Admin: 06/12/21 08:38 Dose: 5 mg Documented by: [id number] Admin: 06/11/21 08:24 Dose: 5 mg Documented by: [id number] Aspirin (Aspirin 81 Mg Ectab) 81 mg PO HS WILBER Stop: 07/03/21 20:59 Last Admin: 06/12/21 20:52 Dose: 81 mg Documented by: [id number] Admin: 06/11/21 20:09 Dose: 81 mg Documented by: [id number] Admin: 06/10/21 21:01 Dose: 81 mg Documented by: [id number] Admin: 06/09/21 20:33 Dose: 81 mg Documented by: [id number] Admin: 06/08/21 20:21 Dose: 81 mg Documented by: [id number] Admin: 06/07/21 20:35 Dose: 81 mg Documented by: [id number] Admin: 06/06/21 21:04 Dose: 81 mg Documented by: [id number] Admin: 06/05/21 20:40 Dose: 81 mg Documented by: [id number] Admin: 06/04/21 20:41 Dose: 81 mg Documented by: [id number] Admin: 06/03/21 21:18 Dose: 81 mg Documented by: [id number] Cyclobenzaprine HCl (Cyclobenzaprine Hcl 5 Mg Tab) 5 mg PO BID PRN PRN Reason: spasm Stop: 07/03/21 20:03 Last Admin: 06/11/21 20:11 Dose: 5 mg Documented by: [id number] Admin: 06/10/21 21:00 Dose: 5 mg Documented by: [id number] Admin: 06/08/21 05:47 Dose: 5 mg Documented by: [id number] Admin: 06/06/21 08:45 Dose: 5 mg Documented by: [id number] Admin: 06/03/21 21:19 Dose: 5 mg Documented by: [id number] Diphenhydramine HCl (Diphenhydramine Capsule 25 Mg Cap) 25 mg PO Q6H PRN PRN Reason: Allergic Rhinitis/Insomnia Stop: 07/06/21 18:39 Last Admin: 06/12/21 20:52 Dose: 25 mg Documented by: [id number] Admin: 06/11/21 23:10 Dose: 25 mg Documented by: [id number] Admin: 06/11/21 00:12 Dose: 25 mg Documented by: [id number] Finasteride (Finasteride 5 Mg Tab) 5 mg PO DAILY WILBER Stop: 07/04/21 08:59 Last Admin: 06/13/21 09:26 Dose: 5 mg Documented by: [id number] Admin: 06/12/21 08:38 Dose: 5 mg Documented by: [id number] Admin: 06/11/21 08:21 Dose: 5 mg Documented by: [id number] Admin: 06/10/21 08:26 Dose: 5 mg Documented by: [id number] Admin: 06/09/21 08:43 Dose: 5 mg Documented by: [id number] Admin: 06/08/21 07:39 Dose: 5 mg Documented by: [id number] Admin: 06/07/21 07:27 Dose: 5 mg Documented by: [id number] Admin: 06/06/21 08:44 Dose: 5 mg Documented by: [id number] Admin: 06/05/21 07:45 Dose: 5 mg Documented by: [id number] Admin: 06/04/21 08:40 Dose: 5 mg Documented by: [id number] Furosemide (Furosemide 20 Mg Tab) 20 mg PO QAM WILBER Stop: 07/12/21 10:44 Last Admin: 06/13/21 09:27 Dose: 20 mg Documented by: [id number] Admin: 06/12/21 11:52 Dose: 20 mg Documented by: [id number] Gabapentin (Gabapentin 300 Mg Cap) 300 mg PO BID WILBER Stop: 07/03/21 20:59 Last Admin: 06/13/21 09:27 Dose: 300 mg Documented by: [id number] Admin: 06/12/21 20:53 Dose: 300 mg Documented by: [id number] Admin: 06/12/21 08:38 Dose: 300 mg Documented by: [id number] Admin: 06/11/21 20:09 Dose: 300 mg Documented by: [id number] Admin: 06/11/21 08:21 Dose: 300 mg Documented by: [id number] Admin: 06/10/21 20:59 Dose: 300 mg Documented by: [id number] Admin: 06/10/21 08:26 Dose: 300 mg Documented by: [id number] Admin: 06/09/21 20:34 Dose: 300 mg Documented by: [id number] Admin: 06/09/21 08:43 Dose: 300 mg Documented by: [id number] Admin: 06/08/21 20:21 Dose: 300 mg Documented by: [id number] Admin: 06/08/21 07:38 Dose: 300 mg Documented by: [id number] Admin: 06/07/21 20:34 Dose: 300 mg Documented by: [id number] Admin: 06/07/21 07:27 Dose: 300 mg Documented by: [id number] Admin: 06/06/21 21:04 Dose: 300 mg Documented by: [id number] Admin: 06/06/21 08:44 Dose: 300 mg Documented by: [id number] Admin: 06/05/21 20:40 Dose: 300 mg Documented by: [id number] Admin: 06/05/21 07:45 Dose: 300 mg Documented by: [id number] Admin: 06/04/21 20:40 Dose: 300 mg Documented by: [id number] Admin: 06/04/21 08:40 Dose: 300 mg Documented by: [id number] Admin: 06/03/21 21:18 Dose: 300 mg Documented by: [id number] Gemfibrozil (Gemfibrozil 600 Mg Tab) 600 mg PO BID WILBER Stop: 07/03/21 20:59 Last Admin: 06/13/21 09:27 Dose: 600 mg Documented by: [id number] Admin: 06/12/21 20:52 Dose: 600 mg Documented by: [id number] Admin: 06/12/21 08:38 Dose: 600 mg Documented by: [id number] Admin: 06/11/21 20:10 Dose: 600 mg Documented by: [id number] Admin: 06/11/21 08:22 Dose: 600 mg Documented by: [id number] Admin: 06/10/21 21:00 Dose: 600 mg Documented by: [id number] Admin: 06/10/21 08:27 Dose: 600 mg Documented by: [id number] Admin: 06/09/21 20:35 Dose: 600 mg Documented by: [id number] Admin: 06/09/21 08:43 Dose: 600 mg Documented by: [id number] Admin: 06/08/21 20:22 Dose: 600 mg Documented by: [id number] Admin: 06/08/21 07:37 Dose: 600 mg Documented by: [id number] Admin: 06/07/21 20:35 Dose: 600 mg Documented by: [id number] Admin: 06/07/21 07:30 Dose: 600 mg Documented by: [id number] Admin: 06/06/21 21:05 Dose: 600 mg Documented by: [id number] Admin: 06/06/21 09:45 Dose: 600 mg Documented by: [id number] Admin: 06/05/21 20:40 Dose: 600 mg Documented by: [id number] Admin: 06/05/21 07:45 Dose: 600 mg Documented by: [id number] Admin: 06/04/21 20:40 Dose: 600 mg Documented by: [id number] Admin: 06/04/21 08:40 Dose: 600 mg Documented by: [id number] Admin: 06/03/21 21:18 Dose: 600 mg Documented by: [id number] Insulin Aspart (Insulin Aspart Per Unit) 0 units SC ACHS WIL[facility] Stop: 07/06/21 11:59 Last Admin: 06/13/21 12:57 Dose: 3 units Documented by: [id number] Cosigned by: [id number] Admin: 06/13/21 09:39 Dose: 2 units Documented by: [id number] Cosigned by: [id number] Admin: 06/12/21 21:46 Dose: Not Given Documented by: [id number] Cosigned by: [id number] Admin: 06/12/21 17:30 Dose: 5 units Documented by: [id number] Cosigned by: [id number] Admin: 06/12/21 12:23 Dose: 5 units Documented by: [id number] Cosigned by: [id number] Admin: 06/12/21 08:40 Dose: 10 units Documented by: [id number] Cosigned by: [id number] Admin: 06/11/21 20:12 Dose: Not Given Documented by: [id number] Cosigned by: [id number] Admin: 06/11/21 17:46 Dose: 8 units Documented by: [id number] Cosigned by: [id number] Admin: 06/11/21 13:06 Dose: 1 units Documented by: [id number] Cosigned by: [id number] Admin: 06/11/21 09:02 Dose: 6 units Documented by: [id number] Cosigned by: [id number] Admin: 06/10/21 21:07 Dose: 2 units Documented by: [id number] Cosigned by: [id number] Admin: 06/10/21 17:51 Dose: 4 units Documented by: [id number] Cosigned by: [id number] Admin: 06/10/21 13:10 Dose: 2 units Documented by: [id number] Cosigned by: [id number] Admin: 06/10/21 09:27 Dose: 5 units Documented by: [id number] Cosigned by: [id number] Admin: 06/09/21 20:46 Dose: Not Given Documented by: [id number] Cosigned by: [id number] Admin: 06/09/21 17:47 Dose: 13 units Documented by: [id number] Cosigned by: [id number] Admin: 06/09/21 13:16 Dose: 4 units Documented by: [id number] Cosigned by: [id number] Admin: 06/09/21 09:00 Dose: 4 units Documented by: [id number] Cosigned by: [id number] Admin: 06/08/21 20:39 Dose: 2 units Documented by: [id number] Cosigned by: [id number] Admin: 06/08/21 17:34 Dose: 2 units Documented by: [id number] Cosigned by: [id number] Admin: 06/08/21 13:09 Dose: 2 units Documented by: [id number] Cosigned by: [id number] Admin: 06/08/21 08:50 Dose: 1 units Documented by: [id number] Cosigned by: [id number] Admin: 06/07/21 20:37 Dose: Not Given Documented by: [id number] Cosigned by: [id number] Admin: 06/07/21 17:59 Dose: 5 units Documented by: [id number] Cosigned by: [id number] Admin: 06/07/21 12:27 Dose: 1 units Documented by: [id number] Cosigned by: [id number] Admin: 06/07/21 08:33 Dose: 2 units Documented by: [id number] Cosigned by: [id number] Admin: 06/06/21 21:12 Dose: 4 units Documented by: [id number] Cosigned by: [id number] Insulin Glargine (Insulin Glargine Solostar 100 Units/Ml 3 Ml Pen) 10 units SQ HS [facility] Stop: 07/10/21 20:59 Last Admin: 06/12/21 21:46 Dose: Not Given Documented by: [id number] Admin: 06/11/21 20:13 Dose: 10 units Documented by: [id number] Cosigned by: [id number] Admin: 06/10/21 21:12 Dose: 10 units Documented by: [id number] Cosigned by: [id number] Levothyroxine Sodium (Levothyroxine Sodium 50 Mcg Tablet) 50 mcg PO DAILYBB [facility] Stop: 07/04/21 06:29 Last Admin: 06/13/21 05:37 Dose: 50 mcg Documented by: [id number] Admin: 06/12/21 06:29 Dose: 50 mcg Documented by: [id number] Admin: 06/11/21 05:33 Dose: 50 mcg Documented by: [id number] Admin: 06/10/21 05:31 Dose: 50 mcg Documented by: [id number] Admin: 06/09/21 05:13 Dose: 50 mcg Documented by: [id number] Admin: 06/08/21 05:47 Dose: 50 mcg Documented by: [id number] Admin: 06/07/21 05:37 Dose: 50 mcg Documented by: [id number] Admin: 06/06/21 05:34 Dose: 50 mcg Documented by: [id number] Admin: 06/05/21 05:40 Dose: 50 mcg Documented by: [id number] Admin: 06/04/21 05:48 Dose: 50 mcg Documented by: [id number] [facility]idocaine ([facility]ocaine 5% 1 Patch) [facility] Stop: 07/03/21 20:03 Last Admin: 06/13/21 10:53 Dose: 1 patch Documented by: [id number] Admin: 06/12/21 08:37 Dose: Not Given Documented by: [id number] Admin: 06/11/21 08:22 Dose: Not Given Documented by: [id number] Admin: 06/10/21 08:28 Dose: Not Given Documented by: [id number] Admin: 06/09/21 08:44 Dose: Not Given Documented by: [id number] Admin: 06/08/21 07:37 Dose: Not Given Documented by: [id number] Admin: 06/07/21 07:28 Dose: Not Given Documented by: [id number] Admin: 06/06/21 08:48 Dose: Not Given Documented by: [id number] Admin: 06/05/21 07:46 Dose: 1 patch Documented by: [id number] Admin: 06/04/21 08:43 Dose: 1 patch Documented by: [id number] Admin: 06/03/21 21:15 Dose: 1 patch Documented by: [id number] Magnesium Hydroxide (Magnesium Hydroxide Susp 30 Ml Udc) 30 ml PO Q24H PRN PRN Reason: Constipation Stop: 07/06/21 18:39 Last Admin: 06/10/21 02:56 Dose: 30 ml Documented by: [id number] Metoprolol Succinate (Metoprolol Succ 25mg Ext Rel Tab) 25 mg PO [facility] Stop: 07/03/21 20:59 Last Admin: 06/12/21 20:52 Dose: 25 mg Documented by: [id number] Admin: 06/11/21 20:10 Dose: 25 mg Documented by: [id number] Admin: 06/10/21 21:01 Dose: 25 mg Documented by: [id number] Admin: 06/09/21 20:35 Dose: 25 mg Documented by: [id number] Admin: 06/08/21 20:20 Dose: 25 mg Documented by: [id number] Admin: 06/07/21 20:46 Dose: 25 mg Documented by: [id number] Admin: 06/06/21 21:16 Dose: 25 mg Documented by: [id number] Admin: 06/05/21 20:40 Dose: 25 mg Documented by: [id number] Admin: 06/04/21 20:41 Dose: 25 mg Documented by: [id number] Admin: 06/03/21 21:19 Dose: 25 mg Documented by: [id number] Miconazole Nitrate (Miconazole Nitrate Powder 43 Gm) 1 appln EXT BID [facility] Stop: 07/04/21 00:29 Last Admin: 06/13/21 09:28 Dose: 1 appln Documented by: [id number] Admin: 06/12/21 20:53 Dose: 1 appln Documented by: [id number] Admin: 06/12/21 08:39 Dose: 1 appln Documented by: [id number] Admin: 06/11/21 20:10 Dose: 1 appln Documented by: [id number] Admin: 06/11/21 08:20 Dose: 1 appln Documented by: [id number] Admin: 06/10/21 21:02 Dose: 1 appln Documented by: [id number] Admin: 06/10/21 08:29 Dose: 1 appln Documented by: [id number] Admin: 06/09/21 20:36 Dose: 1 appln Documented by: [id number] Admin: 06/09/21 08:44 Dose: 1 appln Documented by: [id number] Admin: 06/08/21 20:34 Dose: 1 appln Documented by: [id number] Admin: 06/08/21 07:37 Dose: 1 appln Documented by: [id number] Admin: 06/07/21 20:46 Dose: 1 appln Documented by: [id number] Admin: 06/07/21 07:29 Dose: 1 appln Documented by: [id number] Admin: 06/06/21 21:17 Dose: 1 appln Documented by: [id number] Admin: 06/06/21 08:50 Dose: 1 appln Documented by: [id number] Admin: 06/05/21 20:41 Dose: 1 appln Documented by: [id number] Admin: 06/05/21 07:46 Dose: 1 appln Documented by: [id number] Admin: 06/04/21 20:43 Dose: 1 appln Documented by: [id number] Admin: 06/04/21 01:38 Dose: 1 appln Documented by: [id number] Miscellaneous (Remove Lidoderm Patch) 1 ea N/A DAILY@2100 [facility] Stop: 07/03/21 20:59 Last Admin: 06/12/21 20:53 Dose: Not Given Documented by: [id number] Admin: 06/11/21 20:13 Dose: Not Given Documented by: [id number] Admin: 06/10/21 21:02 Dose: Not Given Documented by: [id number] Admin: 06/09/21 20:35 Dose: Not Given Documented by: [id number] Admin: 06/08/21 20:41 Dose: 1 ea Documented by: [id number] Admin: 06/07/21 20:46 Dose: 1 ea Documented by: [id number] Admin: 06/06/21 21:17 Dose: 1 ea Documented by: [id number] Admin: 06/05/21 20:41 Dose: 1 ea Documented by: [id number] Admin: 06/04/21 20:42 Dose: 1 ea Documented by: [id number] Admin: 06/03/21 21:20 Dose: Not Given Documented by: [id number] Oxycodone HCl (Oxycodone Hcl Ir 5 Mg Tab (Immediate Release)) 5 - 10 mg PO Q4H PRN PRN Reason: Pain & Pre PT Stop: 06/20/21 18:39 Last Admin: 06/13/21 09:28 Dose: 5 mg Documented by: [id number] Admin: 06/13/21 00:43 Dose: 10 mg Documented by: [id number] Admin: 06/12/21 16:07 Dose: 10 mg Documented by: [id number] Admin: 06/12/21 08:39 Dose: 10 mg Documented by: [id number] Admin: 06/11/21 23:10 Dose: 10 mg Documented by: [id number] Admin: 06/11/21 00:12 Dose: 10 mg Documented by: [id number] Admin: 06/10/21 12:49 Dose: 5 mg Documented by: [id number] Admin: 06/09/21 17:52 Dose: 10 mg Documented by: [id number] Admin: 06/09/21 13:08 Dose: 10 mg Documented by: [id number] Admin: 06/09/21 05:13 Dose: 10 mg Documented by: [id number] Admin: 06/08/21 22:58 Dose: 10 mg Documented by: [id number] Admin: 06/08/21 03:34 Dose: 5 mg Documented by: [id number] Senna/Docusate Sodium (Docusate Sodium/Senna 50/8.6mg Tab) 2 tab PO HS [facility]IL[facility] Stop: 07/06/21 20:59 Last Admin: 06/12/21 20:56 Dose: 2 tab Documented by: [id number] Admin: 06/11/21 21:46 Dose: 2 tab Documented by: [id number] Admin: 06/10/21 21:28 Dose: Not Given Documented by: [id number] Admin: 06/09/21 20:33 Dose: Not Given Documented by: [id number] Admin: 06/08/21 20:27 Dose: Not Given Documented by: [id number] Admin: 06/07/21 20:43 Dose: 2 tab Documented by: [id number] Admin: 06/06/21 21:13 Dose: 2 tab Documented by: [id number] Sodium Biphosphate/Sodium Phosphate (Sod Phosphate/Sod Biphosphate Enema 132 Ml Btl) 132 ml GA ONE PRN PRN Reason: Constipation Stop: 07/06/21 18:39 Last Admin: 06/10/21 23:12 Dose: 132 ml Documented by: [id number] Tamsulosin HCl (Tamsulosin Hcl 0.4 Mg Cap) 0.4 mg PO DAILY WIL[facility] Stop: 07/04/21 08:59 Last Admin: 06/13/21 09:28 Dose: 0.4 mg Documented by: [id number] Admin: 06/12/21 08:38 Dose: 0.4 mg Documented by: [id number] Admin: 06/11/21 08:20 Dose: 0.4 mg Documented by: [id number] Admin: 06/10/21 08:27 Dose: 0.4 mg Documented by: [id number] Admin: 06/09/21 08:43 Dose: 0.4 mg Documented by: [id number] Admin: 06/08/21 07:39 Dose: 0.4 mg Documented by: [id number] Admin: 06/07/21 07:27 Dose: 0.4 mg Documented by: [id number] Admin: 06/06/21 08:44 Dose: 0.4 mg Documented by: [id number] Admin: 06/05/21 07:44 Dose: 0.4 mg Documented by: [id number] Admin: 06/04/21 08:40 Dose: 0.4 mg Documented by: [id number] Venlafaxine HCl (Venlafaxine Hcl Xr 150 Mg Capxr) 150 mg PO DAILY [facility] Stop: 07/04/21 08:59 Last Admin: 06/13/21 09:28 Dose: 150 mg Documented by: [id number] Admin: 06/12/21 08:38 Dose: 150 mg Documented by: [id number] Admin: 06/11/21 08:22 Dose: 150 mg Documented by: [id number] Admin: 06/10/21 08:27 Dose: 150 mg Documented by: [id number] Admin: 06/09/21 08:43 Dose: 150 mg Documented by: [id number] Admin: 06/08/21 07:39 Dose: 150 mg Documented by: [id number] Admin: 06/07/21 07:28 Dose: 150 mg Documented by: [id number] Admin: 06/06/21 09:45 Dose: 150 mg Documented by: [id number] Admin: 06/05/21 07:45 Dose: 150 mg Documented by: [id number] Admin: 06/04/21 08:40 Dose: 150 mg Documented by: [id number] Coding Level of Care Code 99289 Inpt Consult Level 3 Diagnoses Adjustment disorder with mixed anxiety and depressed mood F43.23 Lumbar burst fracture S32.001A
[2021-06-13] MEDS: ASPIRIN 81 MG ECTAB PO SCH (20:06)
[2021-06-13] MEDS: DOCUSATE SODIUM/SENNA 50/8.6MG TAB PO SCH (20:11)
[2021-06-13] MEDS: hydrOXYzine HCl 25 MG TAB PO PRN (20:12)
[2021-06-13] MEDS: METOPROLOL SUCC 25MG EXT REL TAB PO SCH (20:14)
[2021-06-13] MEDS: INSULIN GLARGINE SOLOSTAR 100 UNITS/ML 3 ML PEN SQ SCH (20:53)
[2021-06-14] MEDS: LEVOTHYROXINE SODIUM 50 MCG TABLET PO SCH (06:04)
[2021-06-14] MEDS: ACETAMINOPHEN 500 MG TAB PO SCH ×3 (06:04→21:23)
[2021-06-14 07:14] LABS: Hemoglobin 6.9 g/dL (14.0-18.0); Mean Corpuscular Hemoglobin 30.7 pg (25-34); Mean Corpuscular Hgb Conc 32.9 g/dL (32-36); Mean Corpuscular Volume 93.3 fL (80-100); Mean Platelet Volume 9.7 fL (7.4-10.4); Nucleated RBC # (auto) 0.05 K/uL (0-0); Nucleated RBC % (auto) 0.4 %; Platelet Count 282 K/uL (130-400); RDW Coefficient of Variation 16.2 % (11.5-14.5); RDW Standard Deviation 54.7 fL (36.4-46.3); Red Blood Count 2.25 M/uL (4.7-6.1); White Blood Count 12.41 K/uL (4.8-10.8)
[2021-06-14 07:21] LABS: BUN Creatinine Ratio 42.4 (10-20); Creatinine Clr Calc Pharmacy 67.6 ml/min; Est GFR (African American) 61.3 ml/min; Est GFR (Non-African American) 52.9 ml/min; Potassium 4.2 mmol/L (3.5-5.1)
[2021-06-14] MEDS ORDERED: SODIUM CHLORIDE 0.9% 250 ML IV PRN (07:58)
[2021-06-14] MEDS: VENLAFAXINE HCL XR 150 MG CAPXR PO SCH (09:22)
[2021-06-14] MEDS: amLODIPine BESYLATE 5 MG TAB PO SCH (09:22)
[2021-06-14] MEDS: gemfibroziL 600 MG TAB PO SCH ×2 (09:22→20:00)
[2021-06-14] MEDS: FINASTERIDE 5 MG TAB PO SCH (09:22)
[2021-06-14] MEDS: GABAPENTIN 300 MG CAP PO SCH ×3 (09:22→20:00)
[2021-06-14] MEDS: FUROSEMIDE 20 MG TAB PO SCH (09:23)
[2021-06-14] MEDS: TAMSULOSIN HCL 0.4 MG CAP PO SCH (09:23)
[2021-06-14] MEDS: LIDOCAINE 5% 1 PATCH TD SCH (09:23)
[2021-06-14] MEDS: MICONAZOLE NITRATE POWDER 43 GM EXT SCH ×2 (09:24→20:08)
[2021-06-14] MEDS: INSULIN ASPART PER UNIT SC SCH ×4 (09:25→21:22)
[2021-06-14] MEDS: oxyCODONE HCL IR 5 MG TAB (IMMEDIATE RELEASE) PO PRN (10:39)
--- NOTE | 2021-06-14 17:59 | Hospitalist Progress Note ---
Date of Service June 14, 2021 Assessment & Plan (1) HERMELINDO (acute kidney injury): (2) Elevated CK: (3) Diabetes: Plan: HERMELINDO on CKD III Baseline of 1.1-1.3 hold lisinopril Received and includes Avoid NSAIDs Cr back to baseline Appreciate nephrology input Continue renal function monitoring while on Lasix Mildly Elevated CK CK trended down Received IV fluids Lumbar (L4) burst fracture with neurocompression CT lumbar spine:There is an acute to subacute burst type compression fracture of L4 with moderate loss of height and retropulsed fragments. Fracture extends into the right pedicle of L4. S/p lumbosacral fusion on 06/06/21 Postoperative acute blood loss anemia Continue pain Control Appreciate Orthopedics Input Slowly improving Will need rehab placement Adjustment disorder with mixed anxiety and depressed mood Continue Effexor 150 mg daily Vistaril 25 mg every 6 hours as needed for anxiety Appreciate psychiatry input Acute on chronic anemia Post op anemia S/P PRBC transfusion Monitor CBC Volume overload Nocturnal Hypoxia H/O ALMA Non complaint with CPAP Obesity Hypoventilation likely contributing as well Use 3L supplemental Oxygen at bedtime Echo reviewed Cardiovascular Invasive Specialist recs appreciated. Lasix resumed Right Renal Lesion Incidental finding on CT CT showed :2.5 cm indeterminant right renal lesion which does not meet criteria for a simple cyst. Although this could represent a complex cyst Patient currently not interested in further imaging as per Urology Appreciate Urology Input RLE cellulitis Blood Cx: Negative to date Completed doxycycline course Wound care Elevated LFTs- mild Mildly improved Abd USS noted cholelithiasis, normal CBD, hepatomegaly DM II Hold glipizide Continue lantus, SSI Monitor BGs HTN Lisinopril on hold due to HERMELINDO Continue Metoprolol Was started on Amlodipine for BP control while off of Lisinopril Hypothyroidism Continue Levothyroxine BPH on Proscar, Flomax DVT Px: Pharm agent on hold for now due to recent surgery and anemia SCDs for now Code status Full code Will Need Rehab placement Admission and Anticipated Discharge Date Admission Date: June 03, 2021 Subjective Patient is seen and examined at bedside States having back pain at surgical site Also reports having nausea and frontal headache Denies any chest pain, dyspnea, dizziness Offers no other complaints Review of Systems Review of Systems: All systems reviewed & are unremarkable except as noted in Subjective Physical Exam Physical Exam: Physical Exam: Vitals signs as noted above General Appearance:Morbidly Obese, no apparent distress Head: normocephalic, Atraumatic Eyes: normal inspection, EOMI Neck: supple, Trachea midline Respiratory/Chest: Normal breath sounds, CTA, No accessory muscle use Cardiovascular: S1, S2, No murmur Abdomen/GI:Soft, Non tender, Bowel sounds present Extremities/Musculoskeletal:normal inspection, 1+ B/L LE edema, Leg wounds in dressing Neurologic/Psych:AAOX3, grossly no focal neurological deficits Skin: normal color, warm Results & Data Results & Data ([facility]) Vital Signs (Past 12 Hours) Vital Signs Temp Pulse Pulse Resp BP BP Pulse Ox 06/14/21 15:05 36.6 C 75 16 121/64 97 06/14/21 12:28 36.6 C 66 16 139/69 95 06/14/21 12:04 36.6 C 70 16 148/71 H 94 06/14/21 11:05 36.3 C L 71 16 134/67 96 06/14/21 11:02 36.3 C L 71 16 134/47 L 96 06/14/21 10:05 36.4 C L 65 18 129/65 96 06/14/21 09:35 36.5 C 73 16 142/63 H 95 06/14/21 09:19 36.4 C L 74 16 143/69 H 93 06/14/21 09:05 36.4 C L 76 18 137/67 93 06/14/21 07:38 36.6 C 74 16 117/70 97 Laboratory Results Short CBC 06/14/21 Range/Units 06:27 WBC 12.41 H (4.8-10.8) K/uL Hgb 6.9 L* (14.0-18.0) g/dL Hct 21.0 L (42-52) % Plt Count 282 (130-400) K/uL BMP 06/14/21 06:27 Sodium 141 Potassium 4.2 Chloride 111 H Carbon Dioxide 25 BUN 53 H Creatinine 1.25 Glucose 187 H Calcium 8.0 L
[2021-06-14] MEDS: ASPIRIN 81 MG ECTAB PO SCH (20:00)
[2021-06-14] MEDS: METOPROLOL SUCC 25MG EXT REL TAB PO SCH (20:01)
[2021-06-14] MEDS ORDERED: INSULIN GLARGINE SOLOSTAR 100 UNITS/ML 3 ML PEN SQ SCH (21:00)
[2021-06-14] MEDS: DOCUSATE SODIUM/SENNA 50/8.6MG TAB PO SCH (21:22)
[2021-06-15] MEDS: LEVOTHYROXINE SODIUM 50 MCG TABLET PO SCH (05:50)
[2021-06-15] MEDS: ACETAMINOPHEN 500 MG TAB PO SCH ×3 (05:50→22:06)
[2021-06-15 07:06] LABS: Hematocrit (blood only) 19.3 % (42-52); Hemoglobin 6.3 g/dL (14.0-18.0); Mean Corpuscular Hemoglobin 30.6 pg (25-34); Mean Corpuscular Hgb Conc 32.6 g/dL (32-36); Mean Corpuscular Volume 93.7 fL (80-100); Mean Platelet Volume 9.8 fL (7.4-10.4); Nucleated RBC # (auto) 0.08 K/uL (0-0); Nucleated RBC % (auto) 0.6 %; Platelet Count 265 K/uL (130-400); RDW Coefficient of Variation 16.4 % (11.5-14.5); RDW Standard Deviation 54.4 fL (36.4-46.3); Red Blood Count 2.06 M/uL (4.7-6.1); White Blood Count 15.04 K/uL (4.8-10.8)
[2021-06-15 07:24] LABS: BUN Creatinine Ratio 40.9 (10-20); Calcium 7.8 mg/dl (8.5-10.1); Creatinine Clr Calc Pharmacy 61.7 ml/min; Est GFR (African American) 54.9 ml/min; Est GFR (Non-African American) 47.4 ml/min; Potassium 4.1 mmol/L (3.5-5.1)
[2021-06-15] MEDS ORDERED: SODIUM CHLORIDE 0.9% 250 ML IV PRN (07:25)
[2021-06-15] MEDS: VENLAFAXINE HCL XR 150 MG CAPXR PO SCH (08:31)
[2021-06-15] MEDS: TAMSULOSIN HCL 0.4 MG CAP PO SCH (08:31)
[2021-06-15] MEDS: FINASTERIDE 5 MG TAB PO SCH (08:31)
[2021-06-15] MEDS: INSULIN ASPART PER UNIT SC SCH ×4 (08:31→21:18)
[2021-06-15] MEDS: FUROSEMIDE 20 MG TAB PO SCH (08:31)
[2021-06-15] MEDS: amLODIPine BESYLATE 5 MG TAB PO SCH (08:31)
[2021-06-15] MEDS: gemfibroziL 600 MG TAB PO SCH ×2 (08:31→21:21)
[2021-06-15] MEDS: GABAPENTIN 300 MG CAP PO SCH ×3 (08:31→21:20)
[2021-06-15] MEDS: LIDOCAINE 5% 1 PATCH TD SCH ×2 (08:32→08:46)
[2021-06-15] MEDS: MICONAZOLE NITRATE POWDER 43 GM EXT SCH ×2 (08:33→21:31)
[2021-06-15] MEDS ORDERED: INSULIN GLARGINE SOLOSTAR 100 UNITS/ML 3 ML PEN SQ ONE (09:00)
[2021-06-15] MEDS ORDERED: FUROSEMIDE INJ 20 MG/2 ML VIAL IV ONE ×2 (09:00→15:30)
[2021-06-15] MEDS: HYDROmorphone INJ 0.5 MG/0.5 ML SYR IV PRN (09:55)
[2021-06-15] MEDS: oxyCODONE HCL IR 5 MG TAB (IMMEDIATE RELEASE) PO PRN ×2 (12:32→21:20)
--- NOTE | 2021-06-15 15:09 | Pharmacy Report ---
Pharmacy Glycemic Short Note 2 - Date of Service June 15, 2021 - Glycemic Short BSG Results (Last 24 hours): 06/14/21 06/14/21 06/15/21 17:15 20:41 06:34 Glucose 199 H POC Glucose 226 H 167 H 06/15/21 06/15/21 08:03 11:54 Glucose POC Glucose 218 H 221 H OUTPATIENT ANTIDIABETIC REGIMEN: * Lantus 12 units SQ qHS + glipizide 5 mg daily at noon - per med rec * HbA1c 5.9% on 06/10/21 ASSESSMENT: 06/15/21 * Patient's BSGs yesterday were [phone] mg/dL. BSGs today are 218-221 mg/dL. * Patient received 38 units of insulin yesterday (12 units of basal and 26 units of bolus). * Today's fasting is elevated compared to yesterday so gave 5 units of Lantus this morning (40% of yesterday's dose) then have scale for this evening. * Continue Novolog as patient's appetite decreased today. 06/13 * Pt refused Lantus last night, unknown why, except that he was euglycemic. * BSGs climbing today d/t lack of basal insulin, continue for tonight as ordered for patient if he is willing to take 06/12 * D5W has stopped and BSG trended down to 137 mg/dL at lunch today * Will decrease Lantus - now will be slightly lower than home dose * Will loosen Novolog slightly to help prevent hypoglycemia with discontinuation of D5W 06/09 * John is a T2DM admitted with HERMELINDO, Lumbar (L4) burst fracture with neurocompression, RLE cellulitis * He received 17 units of insulin yesterday with all BSGs significantly above goal * Fasting BSG of 249 mg/dL. Of note, this is not a true fasting per patient has D5 running at 100 mls/hr (provides 20 gram dextrose every 4 hours), however fasting BSG trending upward even before fluids were added. * Will tighten both basal and bolus insulin. Add checks at 00 and 04 due to dextrose fluids. PLAN FOR INPATIENT GLYCEMIC CONTROL: * Hold outpatient oral diabetes medications * Basal insulin * Lantus 5 units SQ x 1 then 10-12 units HS * Bolus insulin * NovoLog per scale ACHS or Q6hrs while NPO * Goal Range: Low 120 mg/dL - High 150 mg/dL - higher goal range for patient's age and co-morbidities * Correction Factor: 20 mg/dL/unit * Nutritional / Prandial insulin per carb ratio of 1 unit per 5 grams CHO consumed
[2021-06-15 15:53] LABS: Hemoglobin 7.9 g/dL (14.0-18.0)
--- NOTE | 2021-06-15 18:19 | Hospitalist Progress Note ---
Date of Service June 15, 2021 Assessment & Plan (1) HERMELINDO (acute kidney injury): (2) Elevated CK: (3) Diabetes: Plan: HERMELINDO on CKD III Baseline of 1.1-1.3 hold lisinopril Received and includes Avoid NSAIDs Cr back to baseline Appreciate nephrology input Continue renal function monitoring while on Lasix Mildly Elevated CK CK trended down Received IV fluids Lumbar (L4) burst fracture with neurocompression CT lumbar spine:There is an acute to subacute burst type compression fracture of L4 with moderate loss of height and retropulsed fragments. Fracture extends into the right pedicle of L4. S/p lumbosacral fusion on 06/06/21 Postoperative acute blood loss anemia Continue pain Control Appreciate Orthopedics Input Slowly improving Will need rehab placement Suspected Melena Check FOBT Hold Aspirin Consider PPI and GI eval if needed Patient refused CT scan ABD USD pending Monitor CBC Adjustment disorder with mixed anxiety and depressed mood Continue Effexor 150 mg daily Vistaril 25 mg every 6 hours as needed for anxiety Appreciate psychiatry input Acute on chronic anemia Post op anemia S/P PRBC multiple transfusion Monitor CBC Hb 6.3>7.9 Volume overload Nocturnal Hypoxia H/O ALMA Non complaint with CPAP Obesity Hypoventilation likely contributing as well Use 3L supplemental Oxygen at bedtime Echo reviewed Shirring Machine Operator recs appreciated. Lasix resumed Right Renal Lesion Incidental finding on CT CT showed :2.5 cm indeterminant right renal lesion which does not meet criteria for a simple cyst. Although this could represent a complex cyst Patient currently not interested in further imaging as per Urology Appreciate Urology Input RLE cellulitis Blood Cx: Negative to date Completed doxycycline course Wound care Elevated LFTs- mild Mildly improved Abd USS noted cholelithiasis, normal CBD, hepatomegaly DM II Hold glipizide Continue lantus, SSI Monitor BGs HTN Lisinopril on hold due to HERMELINDO Continue Metoprolol Was started on Amlodipine for BP control while off of Lisinopril Hypothyroidism Continue Levothyroxine BPH on Proscar, Flomax DVT Px: Pharm agent on hold for now due to recent surgery and anemia SCDs for now Code status Full code Will Need Rehab placement Admission and Anticipated Discharge Date Admission Date: June 03, 2021 Subjective Patient is seen and examined at bedside Patient had dark stools as per RN Patient continues to have persistent back pain Also reports mild abdominal discomfort Discussed with patient's daughter over the phone Patient refused CT scan Denies any chest pain, dyspnea, dizziness Review of Systems Review of Systems: All systems reviewed & are unremarkable except as noted in Subjective Physical Exam Physical Exam: Physical Exam: Vitals signs as noted above General Appearance:Morbidly Obese, no apparent distress Head: normocephalic, Atraumatic Eyes: normal inspection, EOMI Neck: supple, Trachea midline Respiratory/Chest: Normal breath sounds, CTA, No accessory muscle use Cardiovascular: S1, S2, No murmur Abdomen/GI:Soft, Non tender, Bowel sounds present Extremities/Musculoskeletal:normal inspection, 1+ B/L LE edema, Leg wounds in dressing Neurologic/Psych:AAOX3, grossly no focal neurological deficits Skin: normal color, warm Results & Data Results & Data ([facility]) Vital Signs (Past 12 Hours) Vital Signs Temp Pulse Pulse Resp BP BP Pulse Ox 06/15/21 14:17 36.6 C 94 H 16 152/72 H 93 06/15/21 13:30 36.5 C 87 140/77 94 06/15/21 12:07 36.6 C 85 16 129/49 L 97 06/15/21 12:05 36.7 C 85 16 111/63 98 06/15/21 11:22 36.4 C L 91 H 16 130/70 95 06/15/21 11:18 36.6 C 83 18 91/56 L 99 06/15/21 11:03 36.5 C 84 18 124/71 98 06/15/21 10:45 36.6 C 85 16 148/71 H 94 06/15/21 10:32 36.5 C 80 16 148/69 H 92 06/15/21 09:30 36.6 C 83 16 110/57 L 99 06/15/21 09:00 36.2 C L 85 16 160/72 H 96 06/15/21 08:30 36.9 C 84 16 185/75 H 94 06/15/21 08:15 36.4 C L 76 16 160/73 H 94 06/15/21 07:50 36.5 C 76 18 156/70 H 06/15/21 07:30 36.6 C 75 16 156/76 H 95 Laboratory Results Short CBC 06/15/21 06/15/21 Range/Units 06:34 15:45 WBC 15.04 H (4.8-10.8) K/uL Hgb 6.3 L* 7.9 L (14.0-18.0) g/dL Hct 19.3 L* 24.0 L (42-52) % Plt Count 265 (130-400) K/uL BMP 06/15/21 06:34 Sodium 141 Potassium 4.1 Chloride 111 H Carbon Dioxide 25 BUN 56 H Creatinine 1.37 Glucose 199 H Calcium 7.8 L
[2021-06-15] MEDS: INSULIN GLARGINE SOLOSTAR 100 UNITS/ML 3 ML PEN SQ SCH (21:18)
[2021-06-15] MEDS: METOPROLOL SUCC 25MG EXT REL TAB PO SCH (21:21)
[2021-06-15] MEDS: DOCUSATE SODIUM/SENNA 50/8.6MG TAB PO SCH (21:21)
[2021-06-16] MEDS: ACETAMINOPHEN 500 MG TAB PO SCH ×3 (06:07→21:08)
[2021-06-16] MEDS: oxyCODONE HCL IR 5 MG TAB (IMMEDIATE RELEASE) PO PRN ×2 (06:07→12:53)
[2021-06-16] MEDS: LEVOTHYROXINE SODIUM 50 MCG TABLET PO SCH (06:08)
[2021-06-16 06:39] LABS: Hematocrit (blood only) 22.7 % (42-52); Hemoglobin 7.5 g/dL (14.0-18.0); Mean Corpuscular Hemoglobin 30.6 pg (25-34); Mean Corpuscular Volume 92.7 fL (80-100); Mean Platelet Volume 9.5 fL (7.4-10.4); Nucleated RBC # (auto) 0.13 K/uL (0-0); Nucleated RBC % (auto) 0.7 %; Platelet Count 258 K/uL (130-400); RDW Coefficient of Variation 16.5 % (11.5-14.5); RDW Standard Deviation 53.2 fL (36.4-46.3); Red Blood Count 2.45 M/uL (4.7-6.1); White Blood Count 16.88 K/uL (4.8-10.8)
[2021-06-16 07:19] LABS: BUN Creatinine Ratio 45.2 (10-20); Creatinine Clr Calc Pharmacy 57.9 ml/min; Est GFR (African American) 50.8 ml/min; Est GFR (Non-African American) 43.9 ml/min
--- NOTE | 2021-06-16 07:53 | Ultrasound Report ---
ULTRASOUND ASCITES CHECK CLINICAL HISTORY: Assess for abdominal ascites/fluid/hemorrhage. COMPARISON STUDY: Abdominal ultrasound dated 06/11/2021. FINDINGS: Real-time grayscale sonography of all 4 quadrants of the abdomen is performed to assess for free fluid. No free fluid is seen in the abdomen or pelvis. IMPRESSION: No free fluid is identified in the abdomen or pelvis. Electronically signed by: Bradley Cox M.D. 06/16/2021 7:52 AM
[2021-06-16] MEDS: amLODIPine BESYLATE 5 MG TAB PO SCH (08:34)
[2021-06-16] MEDS: TAMSULOSIN HCL 0.4 MG CAP PO SCH (08:34)
[2021-06-16] MEDS: VENLAFAXINE HCL XR 150 MG CAPXR PO SCH (08:34)
[2021-06-16] MEDS: GABAPENTIN 300 MG CAP PO SCH ×3 (08:35→20:05)
[2021-06-16] MEDS: FINASTERIDE 5 MG TAB PO SCH (08:35)
[2021-06-16] MEDS: gemfibroziL 600 MG TAB PO SCH ×2 (08:36→20:07)
[2021-06-16] MEDS: FUROSEMIDE 20 MG TAB PO SCH (08:36)
[2021-06-16] MEDS: LIDOCAINE 5% 1 PATCH TD SCH (08:37)
[2021-06-16] MEDS: MICONAZOLE NITRATE POWDER 43 GM EXT SCH ×2 (08:37→20:08)
[2021-06-16] MEDS ORDERED: INSULIN GLARGINE SOLOSTAR 100 UNITS/ML 3 ML PEN SC ONE (09:00)
[2021-06-16] MEDS: INSULIN ASPART PER UNIT SC SCH ×4 (09:24→21:04)
--- NOTE | 2021-06-16 10:33 | Nephrology Progress Note ---
Date of Service June 16, 2021 Assessment & Plan Admission and Anticipated Discharge Date Admission Date: June 03, 2021 Subjective Assessment & Plan (1) Volume overload: Plan: new hypoxia needing 02nc; relatively new edema past 4-6 wks needing start of diuretics mid april Continue Lasix 20 daily. (2) Acute on chronic renal failure: Plan: since 09/2020, creatinine has run 1.2-1.3. Then in April 2021 has been more in 1.3-1.5 range until the very end of April (during his stay at rehab hospital) when it started a rapid uptick to peak at 2.5 on 06/01. His creatinine was 2.1 on 06/03 presentation. - Scrslightly higher now likely related with sig drop in hgb last few days. - Hold acei -avoid nsaids 3 Renal lesion: Plan: for OP f/u and imaging w/ urology if he agrees to this Subjective Comfortable. no new complains Review of Systems Review of Systems: All systems reviewed & are unremarkable except as noted in Subjective AAo x3 Chest CTA CVS--RRR Abd Soft non tender Ext--trace edema Results & Data ([facility]) Vital Signs (Past 12 Hours) Vital Signs Temp Pulse Resp BP Pulse Ox 06/16/21 07:47 36.4 C L 68 14 138/65 90 06/15/21 23:14 36.7 C 75 18 124/52 L 96
--- NOTE | 2021-06-16 11:22 | Pharmacy Report ---
Pharmacy Glycemic Short Note 2 - Date of Service June 16, 2021 - Glycemic Short BSG Results (Last 24 hours): 06/15/21 06/15/21 06/15/21 11:54 16:58 20:50 Glucose POC Glucose 221 H 239 H 205 H 06/16/21 06/16/21 06:18 08:05 Glucose 198 H POC Glucose 225 H OUTPATIENT ANTIDIABETIC REGIMEN: * Lantus 12 units SQ qHS + glipizide 5 mg daily at noon - per med rec * HbA1c 5.9% on 06/10/21 ASSESSMENT: 06/16/21 * Patient's BSGs yesterday were [phone] mg/dL. Fasting today is 225 mg/dL. * Patient received 32 units of insulin (17 units of basal and 16 units of bolus). Patient did not eat yesterday. * Basal insulin increased aggressively yesterday by 40%. Since fasting even higher today, will give 10 units of Lantus this morning. Plan for 10-20% increase in basal based upon BSGs. * Tighten CF as BSGs trended up yesterday. 06/15/21 * Patient's BSGs yesterday were [phone] mg/dL. BSGs today are 218-221 mg/dL. * Patient received 38 units of insulin yesterday (12 units of basal and 26 units of bolus). * Today's fasting is elevated compared to yesterday so gave 5 units of Lantus this morning (40% of yesterday's dose) then have scale for this evening. * Continue Novolog as patient's appetite decreased today. 06/13 * Pt refused Lantus last night, unknown why, except that he was euglycemic. * BSGs climbing today d/t lack of basal insulin, continue for tonight as ordered for patient if he is willing to take 06/12 * D5W has stopped and BSG trended down to 137 mg/dL at lunch today * Will decrease Lantus - now will be slightly lower than home dose * Will loosen Novolog slightly to help prevent hypoglycemia with discontinuation of D5W 06/09 * John is a T2DM admitted with HERMELINDO, Lumbar (L4) burst fracture with neurocompression, RLE cellulitis * He received 17 units of insulin yesterday with all BSGs significantly above goal * Fasting BSG of 249 mg/dL. Of note, this is not a true fasting per patient has D5 running at 100 mls/hr (provides 20 gram dextrose every 4 hours), however fasting BSG trending upward even before fluids were added. * Will tighten both basal and bolus insulin. Add checks at 00 and 04 due to dextrose fluids. PLAN FOR INPATIENT GLYCEMIC CONTROL: * Hold outpatient oral diabetes medications * Basal insulin * Lantus 10 units SQ x 1 then 10-12 units HS * Bolus insulin * NovoLog per scale ACHS or Q6hrs while NPO * Goal Range: Low 110 mg/dL - High 140 mg/dL - higher goal range for patient's age and co-morbidities * Correction Factor: 15 mg/dL/unit * Nutritional / Prandial insulin per carb ratio of 1 unit per 5 grams CHO consumed
--- NOTE | 2021-06-16 12:12 | Orthopedic Progress Note ---
Date of Service June 16, 2021 Assessment & Plan (1) Lumbar burst fracture: Plan: I have encouraged the patient to continue to plan to undergo attempts to sitting up for long as possible with the goals of transition to the chair. He understands agrees. Admission and Anticipated Discharge Date Admission Date: June 03, 2021 Subjective Patient states his back pain is improving. He feels he is gaining more function in his legs. Physical Exam Physical Exam: On exam he sitting up in bed. Appears comfortable. He is demonstrating increased strength testing lower extremities. Results & Data ([facility]) Vital Signs (Past 12 Hours) Vital Signs Temp Pulse Resp BP Pulse Ox 06/16/21 07:47 36.4 C L 68 14 138/65 90
--- NOTE | 2021-06-16 16:37 | Hospitalist Progress Note ---
Date of Service June 16, 2021 Assessment & Plan (1) HERMELINDO (acute kidney injury): (2) Elevated CK: (3) Diabetes: Plan: HERMELINDO on CKD III Baseline of 1.1-1.3 hold lisinopril Received and includes Avoid NSAIDs Appreciate nephrology input Cr slightly up today Monitor Mildly Elevated CK CK trended down Received IV fluids Lumbar (L4) burst fracture with neurocompression CT lumbar spine:There is an acute to subacute burst type compression fracture of L4 with moderate loss of height and retropulsed fragments. Fracture extends into the right pedicle of L4. S/p lumbosacral fusion on 06/06/21 Postoperative acute blood loss anemia Continue pain Control Appreciate Orthopedics Input Slowly improving Will need rehab placement Suspected Melena Check FOBT Hold Aspirin Consider PPI and GI eval if needed Patient refused CT scan initially ABD USD: No free fluid is identified in the abdomen or pelvis. Monitor CBC May need CT if Hb drops Adjustment disorder with mixed anxiety and depressed mood Continue Effexor 150 mg daily Vistaril 25 mg every 6 hours as needed for anxiety Appreciate psychiatry input Acute on chronic anemia Post op anemia S/P PRBC multiple transfusion Monitor CBC Hb 6.3>7.9>7.5 Volume overload Nocturnal Hypoxia H/O ALMA Non complaint with CPAP Obesity Hypoventilation likely contributing as well Use 3L supplemental Oxygen at bedtime Echo reviewed Product Safety Tester recs appreciated. Lasix resumed Right Renal Lesion Incidental finding on CT CT showed :2.5 cm indeterminant right renal lesion which does not meet criteria for a simple cyst. Although this could represent a complex cyst Patient currently not interested in further imaging as per Urology Appreciate Urology Input RLE cellulitis Blood Cx: Negative to date Completed doxycycline course Wound care Elevated LFTs- mild Mildly improved Abd USS noted cholelithiasis, normal CBD, hepatomegaly DM II Hold glipizide Continue lantus, SSI Monitor BGs HTN Lisinopril on hold due to HERMELINDO Continue Metoprolol Was started on Amlodipine for BP control while off of Lisinopril Hypothyroidism Continue Levothyroxine BPH on Proscar, Flomax DVT Px: Pharm agent on hold for now due to recent surgery and anemia SCDs for now Code status Full code Will Need Rehab placement Admission and Anticipated Discharge Date Admission Date: June 03, 2021 Subjective Patient is seen and examined at bedside No melena today Back Pain better today Had PT earlier today Denies any chest pain, dyspnea, dizziness Hb stable Review of Systems Review of Systems: All systems reviewed & are unremarkable except as noted in Subjective Physical Exam Physical Exam: Physical Exam: Vitals signs as noted above General Appearance:Morbidly Obese, no apparent distress Head: normocephalic, Atraumatic Eyes: normal inspection, EOMI Neck: supple, Trachea midline Respiratory/Chest: Normal breath sounds, CTA, No accessory muscle use Cardiovascular: S1, S2, No murmur Abdomen/GI:Soft, Non tender, Bowel sounds present Extremities/Musculoskeletal:normal inspection, 1+ B/L LE edema, Leg wounds in dressing Neurologic/Psych:AAOX3, grossly no focal neurological deficits Skin: normal color, warm Results & Data Results & Data ([facility]) Vital Signs (Past 12 Hours) Vital Signs Temp Pulse Resp BP Pulse Ox 06/16/21 15:44 36.4 C L 73 14 126/63 93 06/16/21 07:47 36.4 C L 68 14 138/65 90 Laboratory Results Short CBC 06/16/21 Range/Units 06:18 WBC 16.88 H (4.8-10.8) K/uL Hgb 7.5 L (14.0-18.0) g/dL Hct 22.7 L (42-52) % Plt Count 258 (130-400) K/uL BMP 06/16/21 06:18 Sodium 144 Potassium 4.0 Chloride 112 H Carbon Dioxide 27 BUN 66 H Creatinine 1.46 H Glucose 198 H Calcium 8.0 L
[2021-06-16] MEDS: DOCUSATE SODIUM/SENNA 50/8.6MG TAB PO SCH (20:05)
[2021-06-16] MEDS: METOPROLOL SUCC 25MG EXT REL TAB PO SCH (20:08)
[2021-06-16] MEDS: INSULIN GLARGINE SOLOSTAR 100 UNITS/ML 3 ML PEN SQ SCH (21:04)
[2021-06-17] MEDS: LEVOTHYROXINE SODIUM 50 MCG TABLET PO SCH (05:46)
[2021-06-17] MEDS: ACETAMINOPHEN 500 MG TAB PO SCH ×3 (05:46→21:37)
[2021-06-17 06:23] LABS: BUN Creatinine Ratio 42.5 (10-20); Creatinine Clr Calc Pharmacy 52.8 ml/min; Est GFR (African American) 45.5 ml/min; Est GFR (Non-African American) 39.3 ml/min; Potassium 4.4 mmol/L (3.5-5.1)
[2021-06-17 06:33] LABS: Hematocrit (blood only) 20.7 % (42-52); Mean Corpuscular Hemoglobin 32.9 pg (25-34); Mean Corpuscular Hgb Conc 33.8 g/dL (32-36); Mean Corpuscular Volume 97.2 fL (80-100); Mean Platelet Volume 9.8 fL (7.4-10.4); Nucleated RBC # (auto) 0.11 K/uL (0-0); Nucleated RBC % (auto) 0.7 %; Platelet Count 256 K/uL (130-400); RDW Coefficient of Variation 17.3 % (11.5-14.5); Red Blood Count 2.13 M/uL (4.7-6.1); White Blood Count 16.59 K/uL (4.8-10.8)
[2021-06-17] MEDS ORDERED: SODIUM CHLORIDE 0.9% 250 ML IV PRN (06:41)
[2021-06-17] MEDS ORDERED: INSULIN GLARGINE SOLOSTAR 100 UNITS/ML 3 ML PEN SQ ONE (09:00)
[2021-06-17] MEDS: INSULIN ASPART PER UNIT SC SCH ×4 (09:13→23:44)
[2021-06-17] MEDS: gemfibroziL 600 MG TAB PO SCH ×2 (09:15→21:36)
[2021-06-17] MEDS: CYCLOBENZAPRINE HCL 5 MG TAB PO PRN (09:15)
[2021-06-17] MEDS: FINASTERIDE 5 MG TAB PO SCH (09:15)
[2021-06-17] MEDS: GABAPENTIN 300 MG CAP PO SCH ×3 (09:15→21:37)
[2021-06-17] MEDS: TAMSULOSIN HCL 0.4 MG CAP PO SCH (09:15)
[2021-06-17] MEDS: VENLAFAXINE HCL XR 150 MG CAPXR PO SCH (09:15)
[2021-06-17] MEDS: LIDOCAINE 5% 1 PATCH TD SCH (09:16)
[2021-06-17] MEDS: amLODIPine BESYLATE 5 MG TAB PO SCH (09:16)
[2021-06-17] MEDS: MICONAZOLE NITRATE POWDER 43 GM EXT SCH ×2 (09:17→21:38)
[2021-06-17] MEDS: oxyCODONE HCL IR 5 MG TAB (IMMEDIATE RELEASE) PO PRN (12:47)
[2021-06-17] MEDS: MAGNESIUM HYDROXIDE SUSP 30 ML UDC PO PRN (12:47)
--- NOTE | 2021-06-17 12:54 | CT Scan Report ---
LUMBAR SPINE CT CT DOSE: 5152.67 mGy.cm HISTORY: post op, right leg weakness TECHNIQUE: Multiaxial CT images of the lumbar spine were performed and reformatted in the sagittal an d coronal plane without the use of contrast. A dose lowering technique was utilized adhering to the principles of ALARA. COMPARISON: CT lumbar spine 06/04/2021. FINDINGS: The patient is status post kyphoplasty of the L4 burst fracture. No change in the moderate loss of height at the L4 level. There is also interval posterior decompression and fusion from L3 thr ough S1 with pedicle screws and rods. The hardware appears intact. An L5-S1 disc spacers in place. No fractures identified within the sacrum. A small amount of the cement extends into the right paravert ebral soft tissues at the L4 level. No change in the 5 mm retropulsed fragment at the L4 level. Centr al canal narrowing at this level has improved status post decompression. Fluid/edema and a small focu s of gas at the laminectomy sites which is expected given the recent postoperative change. No paraver tebral hematoma identified. IMPRESSION: 1. Status post L4 kyphoplasty. No change in the moderate loss of height at L4 or 5 mm retropulsed fra gment. 2. Improvement in the central canal narrowing at the L4 level status post decompression and fusion fr om L3 through S1. 3. Small amount of gas and fluid/edema at the laminectomy sites which is expected given the recent po stoperative change. ACT 112: Negative or not required by law. Electronically signed by: Obdulio Augustin M.D. 06/17/2021 12:52 PM
--- NOTE | 2021-06-17 12:54 | CT Scan Report ---
CT OF THE ABDOMEN AND PELVIS WITHOUT CONTRAST CLINICAL HISTORY: Anemia, r/o blood loss COMPARISON STUDY: Abdominal ultrasound June 15, 2021. TECHNIQUE: Axial images of the abdomen and pelvis were obtained without IV contrast. Images were revi ewed in the axial, sagittal, and coronal planes. Automated exposure control was utilized for the mary dy. A dose lowering technique was utilized adhering to the principles of ALARA. FINDINGS: Trace right pleural effusion is noted. Subpleural opacity reflects atelectasis. Evaluation of the abdomen and pelvis compromised given lack of contrast and body wall contacting the gantry with resultant artifact. Unenhanced images of liver, adrenal glands and pancreas are unremarkable. There are gallstones within the gallbladder. There is no pericholecystic infiltration. Bilateral renal lesi ons were shown to reflect cysts on prior renal ultrasound. No evidence for a bowel obstruction. Retro peritoneal collaterals are present. No hemoperitoneum is present. No retroperitoneal hematoma is iden tified. No lymphadenopathy is present. There is no ascites. Postoperative findings within the lumbosa cral spine are better depicted on the lumbar spine CT which will be reported separately. L4 fracture status post kyphoplasty is also better shown on that examination. Spleen is mildly enlarged. IMPRESSION: 1. No retroperitoneal hematoma. No hemoperitoneum. 2. No bowel obstruction. 3. Cholelithiasis. 4. Postoperative findings within the lumbosacral spine which are better depicted on the lumbar spine CT. Please see that report for further discussion. 5. Trace right pleural effusion. Subpleural opacity which reflects atelectasis. ACT 112: Negative or not required by law. Electronically signed by: Mello Mccarthy M.D. 06/17/2021 12:53 PM
[2021-06-17 14:22] LABS: Hematocrit (blood only) 21.5 % (42-52); Hemoglobin 7.2 g/dL (14.0-18.0)
--- NOTE | 2021-06-17 14:46 | Hospitalist Progress Note ---
Date of Service June 17, 2021 Assessment & Plan (1) HERMELINDO (acute kidney injury): (2) Elevated CK: (3) Diabetes: Plan: HERMELINDO on CKD III Baseline of 1.1-1.3 hold lisinopril Received and includes Avoid NSAIDs Appreciate nephrology input Cr 1.6 today Hold diuretics today Mildly Elevated CK CK trended down Received IV fluids Lumbar (L4) burst fracture with neurocompression CT lumbar spine:There is an acute to subacute burst type compression fracture of L4 with moderate loss of height and retropulsed fragments. Fracture extends into the right pedicle of L4. S/p lumbosacral fusion on 06/06/21 Postoperative acute blood loss anemia Continue pain Control Appreciate Orthopedics Input Slowly improving Will need rehab placement Suspected Melena Hold Aspirin Consider PPI and GI eval if needed Patient refused CT scan initially ABD USD: No free fluid is identified in the abdomen or pelvis. Monitor CBC Repeat Imaging showed no signs of hematoma Check FOBT Adjustment disorder with mixed anxiety and depressed mood Continue Effexor 150 mg daily Vistaril 25 mg every 6 hours as needed for anxiety Appreciate psychiatry input Acute on chronic anemia Post op anemia S/P PRBC multiple transfusion Monitor CBC Hb 6.3>7.9>7.2 Volume overload Nocturnal Hypoxia H/O ALMA Non complaint with CPAP Obesity Hypoventilation likely contributing as well Use 3L supplemental Oxygen at bedtime Echo reviewed [employer] Manager recs appreciated. Resume Lasix once renal function improves Right Renal Lesion Incidental finding on CT CT showed :2.5 cm indeterminant right renal lesion which does not meet criteria for a simple cyst. Although this could represent a complex cyst Patient currently not interested in further imaging as per Urology Appreciate Urology Input RLE cellulitis Blood Cx: Negative to date Completed doxycycline course Wound care Elevated LFTs- mild Mildly improved Abd USS noted cholelithiasis, normal CBD, hepatomegaly DM II Hold glipizide Continue lantus, SSI Monitor BGs HTN Lisinopril on hold due to HERMELINDO Continue Metoprolol Was started on Amlodipine for BP control while off of Lisinopril Hypothyroidism Continue Levothyroxine BPH on Proscar, Flomax DVT Px: Pharm agent on hold for now due to recent surgery and anemia SCDs for now Code status Full code Will Need Rehab placement Admission and Anticipated Discharge Date Admission Date: June 03, 2021 Subjective Patient is seen and examined at bedside Received 1 unit PRBC today Back pain is controlled Repeat imaging showed no signs of bleeding States feeling tired and mild dizziness Had No BM today Denies any chest pain, dyspnea, nausea, vomiting, abd pain Review of Systems Review of Systems: All systems reviewed & are unremarkable except as noted in Subjective Physical Exam Physical Exam: Physical Exam: Vitals signs as noted above General Appearance:Morbidly Obese, no apparent distress Head: normocephalic, Atraumatic Eyes: normal inspection, EOMI Neck: supple, Trachea midline Respiratory/Chest: Normal breath sounds, CTA, No accessory muscle use Cardiovascular: S1, S2, No murmur Abdomen/GI:Soft, Non tender, Bowel sounds present Extremities/Musculoskeletal:normal inspection, 1+ B/L LE edema, Leg wounds in dressing Neurologic/Psych:AAOX3, grossly no focal neurological deficits Skin: normal color, warm Results & Data Results & Data ([facility]) Vital Signs (Past 12 Hours) Vital Signs Temp Pulse Pulse Resp BP BP Pulse Ox 06/17/21 10:32 36.6 C 62 16 134/61 91 06/17/21 09:32 36.6 C 65 16 132/62 90 06/17/21 09:02 36.7 C 65 16 159/62 H 65 L 06/17/21 08:47 36.6 C 62 16 162/66 H 96 06/17/21 08:29 36.5 C 67 20 130/54 L 06/17/21 07:36 36.6 C 64 16 128/63 94 Laboratory Results Short CBC 06/17/21 06/17/21 Range/Units 05:37 14:07 WBC 16.59 H (4.8-10.8) K/uL Hgb 7.0 L 7.2 L (14.0-18.0) g/dL Hct 20.7 L* 21.5 L (42-52) % Plt Count 256 (130-400) K/uL BMP 06/17/21 05:37 Sodium 143 Potassium 4.4 Chloride 111 H Carbon Dioxide 26 BUN 68 H Creatinine 1.60 H Glucose 151 H Calcium 8.0 L
[2021-06-17] MEDS: DOCUSATE SODIUM/SENNA 50/8.6MG TAB PO SCH (21:36)
[2021-06-17] MEDS: METOPROLOL SUCC 25MG EXT REL TAB PO SCH (21:37)
[2021-06-17] MEDS: INSULIN GLARGINE SOLOSTAR 100 UNITS/ML 3 ML PEN SQ SCH (23:45)
[2021-06-18] MEDS: LEVOTHYROXINE SODIUM 50 MCG TABLET PO SCH (05:44)
[2021-06-18] MEDS: ACETAMINOPHEN 500 MG TAB PO SCH ×3 (05:45→21:51)
[2021-06-18 06:05] LABS: BUN Creatinine Ratio 40.9 (10-20); Creatinine Clr Calc Pharmacy 61.7 ml/min; Est GFR (African American) 54.9 ml/min; Est GFR (Non-African American) 47.4 ml/min; Potassium 4.3 mmol/L (3.5-5.1)
[2021-06-18 06:39] LABS: Hemoglobin 7.3 g/dL (14.0-18.0); Mean Corpuscular Hemoglobin 31.7 pg (25-34); Mean Corpuscular Hgb Conc 33.2 g/dL (32-36); Mean Corpuscular Volume 95.7 fL (80-100); Mean Platelet Volume 9.9 fL (7.4-10.4); Nucleated RBC # (auto) 0.06 K/uL (0-0); Nucleated RBC % (auto) 0.5 %; Platelet Count 229 K/uL (130-400); RDW Coefficient of Variation 17.8 % (11.5-14.5); RDW Standard Deviation 56.3 fL (36.4-46.3)
[2021-06-18] MEDS ORDERED: INSULIN GLARGINE SOLOSTAR 100 UNITS/ML 3 ML PEN SQ SCH ×2 (09:00)
[2021-06-18] MEDS: LIDOCAINE 5% 1 PATCH TD SCH (09:43)
[2021-06-18] MEDS: MICONAZOLE NITRATE POWDER 43 GM EXT SCH ×2 (09:45→21:51)
[2021-06-18] MEDS: oxyCODONE HCL IR 5 MG TAB (IMMEDIATE RELEASE) PO PRN (09:56)
[2021-06-18] MEDS: INSULIN GLARGINE SOLOSTAR 100 UNITS/ML 3 ML PEN SQ SCH (09:56)
[2021-06-18] MEDS: INSULIN ASPART PER UNIT SC SCH ×4 (09:57→21:07)
[2021-06-18] MEDS: gemfibroziL 600 MG TAB PO SCH ×2 (10:04→21:52)
[2021-06-18] MEDS: TAMSULOSIN HCL 0.4 MG CAP PO SCH (10:04)
[2021-06-18] MEDS: FUROSEMIDE 20 MG TAB PO SCH (10:04)
[2021-06-18] MEDS: VENLAFAXINE HCL XR 150 MG CAPXR PO SCH (10:05)
[2021-06-18] MEDS: amLODIPine BESYLATE 5 MG TAB PO SCH (10:05)
[2021-06-18] MEDS: FINASTERIDE 5 MG TAB PO SCH (10:05)
[2021-06-18] MEDS: CYCLOBENZAPRINE HCL 5 MG TAB PO PRN (10:05)
[2021-06-18] MEDS: GABAPENTIN 300 MG CAP PO SCH ×3 (10:06→21:52)
--- NOTE | 2021-06-18 14:03 | Pharmacy Report ---
Pharmacy Glycemic Short Note 2 - Date of Service June 18, 2021 - Glycemic Short BSG Results (Last 24 hours): 06/17/21 06/17/21 06/18/21 16:56 20:57 05:18 Glucose 146 H POC Glucose 119 H 79 06/18/21 06/18/21 08:04 12:01 Glucose POC Glucose 173 H 140 H OUTPATIENT ANTIDIABETIC REGIMEN: * Lantus 12 units SQ qHS + glipizide 5 mg daily at noon - per med rec * HbA1c 5.9% on 06/10/21 ASSESSMENT: 06/18/21 * Patient's BSGs yesterday were [phone] mg/dL. Fasting today is 173 mg/dL. * Patient received 51 units of insulin yesterday (10 units of basal and 41 units of bolus). PM Lantus held for unknown reason. * Since patient is deficient by 10 units, give 20 units this morning of Lantus and start 20 units daily. * Loosen CF/CR since BSGs trended downwards yesterday. 06/16/21 * Patient's BSGs yesterday were [phone] mg/dL. Fasting today is 225 mg/dL. * Patient received 32 units of insulin (17 units of basal and 16 units of bolus). Patient did not eat yesterday. * Basal insulin increased aggressively yesterday by 40%. Since fasting even higher today, will give 10 units of Lantus this morning. Plan for 10-20% increase in basal based upon BSGs. * Tighten CF as BSGs trended up yesterday. 06/15/21 * Patient's BSGs yesterday were [phone] mg/dL. BSGs today are 218-221 mg/dL. * Patient received 38 units of insulin yesterday (12 units of basal and 26 units of bolus). * Today's fasting is elevated compared to yesterday so gave 5 units of Lantus this morning (40% of yesterday's dose) then have scale for this evening. * Continue Novolog as patient's appetite decreased today. 06/13 * Pt refused Lantus last night, unknown why, except that he was euglycemic. * BSGs climbing today d/t lack of basal insulin, continue for tonight as ordered for patient if he is willing to take 4/18 * D5W has stopped and BSG trended down to 137 mg/dL at lunch today * Will decrease Lantus - now will be slightly lower than home dose * Will loosen Novolog slightly to help prevent hypoglycemia with discontinuation of D5W 06/09 * John is a T2DM admitted with HERMELINDO, Lumbar (L4) burst fracture with neurocompression, RLE cellulitis * He received 17 units of insulin yesterday with all BSGs significantly above goal * Fasting BSG of 249 mg/dL. Of note, this is not a true fasting per patient has D5 running at 100 mls/hr (provides 20 gram dextrose every 4 hours), however fasting BSG trending upward even before fluids were added. * Will tighten both basal and bolus insulin. Add checks at 00 and 04 due to dextrose fluids. PLAN FOR INPATIENT GLYCEMIC CONTROL: * Hold outpatient oral diabetes medications * Basal insulin * Lantus 20 units daily * Bolus insulin * NovoLog per scale ACHS or Q6hrs while NPO * Goal Range: Low 110 mg/dL - High 140 mg/dL - * Correction Factor: 18 mg/dL/unit * Nutritional / Prandial insulin per carb ratio of 1 unit per 5 grams CHO consumed
--- NOTE | 2021-06-18 14:20 | Nephrology Progress Note ---
Date of Service June 18, 2021 Assessment & Plan (1) Volume overload: Plan: new hypoxia needing 02nc earlier this admission, though has been on RA for several days now; relatively new edema past 4-6 wks prior to admissionneeding start of diuretics mid april > vol status acceptable now though crackles on exam noted -low threshold for CXR if resp status worsens > continue lasix 20 mg daily, started 06/12 (2) Acute on chronic renal failure: Plan: since 09/2020, creatinine has run 1.2-1.3. Then in April 2021 has been more in 1.3-1.5 range until the very end of April (during his stay at rehab hospital) when it started a rapid uptick to peak at 2.5 on 06/01. His creatinine was 2.1 on 06/03 presentation and has slowly trended down to hit baseline only today. chemistries ok; mild volume overload persists and cause is unclear. no evidence of NS (200 mg proteinuria); consider cardiorenal syndrome - BP - amlodipine increased to 5 mg; also on lasix, BB > cont same . - Hold acei -avoid nsaids (3) Lumbar burst fracture: Plan: Status post OR June 06 (4) Renal lesion: Plan: for OP f/u and imaging w/ urology if he agrees to this Admission and Anticipated Discharge Date Admission Date: June 03, 2021 Subjective pt c/o marked fatigue and generalized weakness, particularly legs. he states he feels he has "needles in my back". denies sob, cough, wheeze. denies chest pain. incisional pain about 4-5/10 Review of Systems Review of Systems: All systems reviewed & are unremarkable except as noted in Subjective Physical Exam Constitutional: well developed, well nourished, + obese and + lethargic (slightly - nearly doses multiple times); no acute distress Eyes: EOM intact bilaterally ENMT: Ears: no external ear abnormality Nose: no external nose abnormality Mouth: + dry oral mucous membranes Neck: no nuchal rigidity Respiratory: normal respiratory effort Auscultation: + diminished lung sounds and + crackles (bibasilar) Cardiovascular: Rate/Rhythm: regular rate and regular rhythm Extremities: no edema Gastrointestinal (Abdomen): Inspection/Auscultation: normal bowel sounds Percussion/Palpation: abdomen soft; abdomen nontender Musculoskeletal: Extremities: + abnormal strength (BLE weakness) Skin: no rashes, warm and dry Trauma: + evidence of skin trauma (BLE shins bandaged) Neurologic: ibrahim, fluent speech, generalized weakness Psychiatric: Orientation: oriented x 3 Results & Data ([facility]) Vital Signs (Past 12 Hours) Vital Signs Temp Pulse Resp BP Pulse Ox 06/18/21 07:38 36.6 C 67 16 123/63 95 Laboratory Results 06/18/21 05:18 06/18/21 05:18
--- NOTE | 2021-06-18 15:05 | XRay Report ---
XR chest 1V portable HISTORY: lung crackles, weakness> ck volume status COMPARISON: Chest 06/04/2021. FINDINGS: There are low lung volumes, unchanged. The heart remains mildly enlarged. There is mild alia tral pulmonary vascular congestion without overt edema. This is improved the interval. Small linear d ensity at the right medial lung base favors subsegmental atelectasis or scarring. Otherwise, no new f ocal lung consolidations identified. No definite pneumothorax. No pleural effusions. IMPRESSION: Mild pulmonary vascular congestion has improved. Stable cardiomegaly. ACT 112: Negative or not required by law. Electronically signed by: Obdulio Augustin M.D. 06/18/2021 3:03 PM
--- NOTE | 2021-06-18 15:53 | Hospitalist Progress Note ---
Date of Service June 18, 2021 Assessment & Plan (1) HERMELINDO (acute kidney injury): (2) Elevated CK: (3) Diabetes: Plan: HERMELINDO on CKD III Baseline of 1.1-1.3 hold lisinopril Received and includes Avoid NSAIDs Appreciate nephrology input Cr 1.3 today Mildly Elevated CK CK trended down Received IV fluids Lumbar (L4) burst fracture with neurocompression CT lumbar spine:There is an acute to subacute burst type compression fracture of L4 with moderate loss of height and retropulsed fragments. Fracture extends into the right pedicle of L4. S/p lumbosacral fusion on 06/06/21 Postoperative acute blood loss anemia Continue pain Control Appreciate Orthopedics Input Slowly improving Needs rehab placement Suspected Melena Hold Aspirin Consider PPI and GI eval if needed Patient refused CT scan initially ABD USD: No free fluid is identified in the abdomen or pelvis. Monitor CBC Repeat Imaging showed no signs of hematoma Check FOBT--pending Adjustment disorder with mixed anxiety and depressed mood Continue Effexor 150 mg daily Vistaril 25 mg every 6 hours as needed for anxiety Appreciate psychiatry input Acute on chronic anemia Post op anemia S/P PRBC multiple transfusion Monitor CBC Hb 6.3>7.9>7.2>7.3 Volume overload Nocturnal Hypoxia H/O ALMA Non complaint with CPAP Obesity Hypoventilation likely contributing as well Use 3L supplemental Oxygen at bedtime Echo reviewed Cytology Teacher recs appreciated. Resume Lasix today CXR today showed improved pulmonary vascular congestion Right Renal Lesion Incidental finding on CT CT showed :2.5 cm indeterminant right renal lesion which does not meet criteria for a simple cyst. Although this could represent a complex cyst Patient currently not interested in further imaging as per Urology Appreciate Urology Input RLE cellulitis Blood Cx: Negative to date Completed doxycycline course Wound care Elevated LFTs- mild Mildly improved Abd USS noted cholelithiasis, normal CBD, hepatomegaly DM II Hold glipizide Continue lantus, SSI Monitor BGs HTN Lisinopril on hold due to HERMELINDO Continue Metoprolol Was started on Amlodipine for BP control while off of Lisinopril Hypothyroidism Continue Levothyroxine BPH on Proscar, Flomax DVT Px: Pharm agent on hold for now due to recent surgery and anemia SCDs for now Code status Full code Will Need Rehab placement Admission and Anticipated Discharge Date Admission Date: June 03, 2021 Subjective Patient is seen and examined at bedside No new complaints Back pain is controlled CXR today showed improved pulmonary vascular congestion Denies any chest pain, dyspnea, nausea, vomiting, abd pain Hb Stable today Review of Systems Review of Systems: All systems reviewed & are unremarkable except as noted in Subjective Physical Exam Physical Exam: Physical Exam: Vitals signs as noted above General Appearance:Morbidly Obese, no apparent distress Head: normocephalic, Atraumatic Eyes: normal inspection, EOMI Neck: supple, Trachea midline Respiratory/Chest: Normal breath sounds, CTA, No accessory muscle use Cardiovascular: S1, S2, No murmur Abdomen/GI:Soft, Non tender, Bowel sounds present Extremities/Musculoskeletal:normal inspection, 1+ B/L LE edema, Leg wounds in dressing Neurologic/Psych:AAOX3, grossly no focal neurological deficits Skin: normal color, warm Results & Data Results & Data ([facility]) Vital Signs (Past 12 Hours) Vital Signs Temp Pulse Resp BP Pulse Ox 06/18/21 14:27 36.6 C 78 16 123/62 93 06/18/21 07:38 36.6 C 67 16 123/63 95 Laboratory Results Short CBC 06/18/21 Range/Units 05:18 WBC 12.00 H (4.8-10.8) K/uL Hgb 7.3 L (14.0-18.0) g/dL Hct 22.0 L (42-52) % Plt Count 229 (130-400) K/uL BMP 06/18/21 05:18 Sodium 144 Potassium 4.3 Chloride 111 H Carbon Dioxide 29 BUN 56 H Creatinine 1.37 Glucose 146 H Calcium 8.0 L
[2021-06-18] MEDS: DOCUSATE SODIUM/SENNA 50/8.6MG TAB PO SCH (21:51)
[2021-06-18] MEDS: METOPROLOL SUCC 25MG EXT REL TAB PO SCH (21:52)
[2021-06-19] MEDS: LEVOTHYROXINE SODIUM 50 MCG TABLET PO SCH (05:05)
[2021-06-19] MEDS: ACETAMINOPHEN 500 MG TAB PO SCH ×3 (05:05→21:32)
[2021-06-19 07:25] LABS: Hematocrit (blood only) 22.8 % (42-52); Hemoglobin 7.2 g/dL (14.0-18.0)
[2021-06-19] MEDS: HYDROmorphone INJ 0.5 MG/0.5 ML SYR IV PRN (07:37)
[2021-06-19] MEDS: hydrOXYzine HCl 25 MG TAB PO PRN (07:37)
[2021-06-19 07:43] LABS: BUN Creatinine Ratio 32.5 (10-20); Calcium 8.3 mg/dl (8.5-10.1); Creatinine Clr Calc Pharmacy 70.4 ml/min; Est GFR (African American) 64.4 ml/min; Est GFR (Non-African American) 55.6 ml/min; Potassium 4.1 mmol/L (3.5-5.1)
[2021-06-19] MEDS: FUROSEMIDE 20 MG TAB PO SCH (08:54)
[2021-06-19] MEDS: GABAPENTIN 300 MG CAP PO SCH ×3 (08:54→21:31)
[2021-06-19] MEDS: CYCLOBENZAPRINE HCL 5 MG TAB PO PRN (08:54)
[2021-06-19] MEDS: gemfibroziL 600 MG TAB PO SCH ×2 (08:54→21:31)
[2021-06-19] MEDS: TAMSULOSIN HCL 0.4 MG CAP PO SCH (08:54)
[2021-06-19] MEDS: VENLAFAXINE HCL XR 150 MG CAPXR PO SCH (08:54)
[2021-06-19] MEDS: FINASTERIDE 5 MG TAB PO SCH (08:54)
[2021-06-19] MEDS: amLODIPine BESYLATE 5 MG TAB PO SCH (08:54)
[2021-06-19] MEDS: MICONAZOLE NITRATE POWDER 43 GM EXT SCH ×2 (08:55→21:32)
[2021-06-19] MEDS: LIDOCAINE 5% 1 PATCH TD SCH (08:55)
[2021-06-19] MEDS: INSULIN ASPART PER UNIT SC SCH ×4 (08:59→21:00)
[2021-06-19] MEDS: INSULIN GLARGINE SOLOSTAR 100 UNITS/ML 3 ML PEN SQ SCH (09:07)
--- NOTE | 2021-06-19 09:22 | Nephrology Progress Note ---
Date of Service June 19, 2021 Assessment & Plan (1) Anemia: Plan: ongoing, significant anemia despite 5 units pRBC this admissoin hgb lowest was 6.3 and today 7.2; discussed w/ primary service > agree w/ ordering iron studies; may need further work up. other blood lines ok >iron stores very low > will start iron load venofer 200 mg today x 1 >ordered retic count for AM; other anemia w/u per primary service as indicated (2) Volume overload: Plan: new hypoxia needing 02nc earlier this admission, though has been on RA for several days now; relatively new edema past 4-6 wks prior to admission needing start of diuretics mid april > vol status acceptable now and lung crackles resolved, repeat CXR 06/18 clear > continue lasix 20 mg daily, started 06/12 (3) Acute on chronic renal failure: Plan: since 09/2020, creatinine has run 1.2-1.3. Then in April 2021 has been more in 1.3-1.5 range until the very end of April (during his stay at rehab hospital) when it started a rapid uptick to peak at 2.5 on 06/01. His creatinine was 2.1 on 06/03 presentation and has slowly trended down to hit baseline only today. chemistries ok; mild volume overload persists and cause is unclear. no evidence of NS (200 mg proteinuria); consider cardiorenal syndrome - BP - amlodipine increased to 5 mg; also on lasix, BB > cont same . - Hold acei -avoid nsaids (4) Lumbar burst fracture: Plan: Status post OR June 06 (5) Renal lesion: Plan: for OP f/u and imaging w/ urology if he agrees to this Admission and Anticipated Discharge Date Admission Date: June 03, 2021 Subjective marked pain w/ position changes and transfers on going; hgb remains on lower side; no sob or voiding sx Review of Systems Review of Systems: All systems reviewed & are unremarkable except as noted in Subjective Physical Exam Constitutional: well developed, well nourished and + obese; no acute distress Eyes: EOM intact bilaterally ENMT: Ears: no external ear abnormality Nose: no external nose abnormality Mouth: + dry oral mucous membranes Neck: no nuchal rigidity Respiratory: normal respiratory effort Auscultation: lungs clear to auscultation bilaterally and + diminished lung sounds Cardiovascular: Rate/Rhythm: regular rate and regular rhythm Extremities: no edema Gastrointestinal (Abdomen): Inspection/Auscultation: normal bowel sounds Percussion/Palpation: abdomen soft; abdomen nontender Musculoskeletal: Extremities: + abnormal strength (BLE weakness) Skin: no rashes, warm and dry Trauma: + evidence of skin trauma (BLE shins bandaged) Neurologic: ibrahim, fluent speech, no tremor Psychiatric: Orientation: oriented x 3 Results & Data ([facility]) Vital Signs (Past 12 Hours) Vital Signs Temp Pulse Resp BP Pulse Ox 06/19/21 07:43 36.6 C 71 16 132/55 L 100 06/19/21 01:05 37 C 58 L 22 168/64 H 99 Laboratory Results 06/19/21 07:11 06/19/21 07:11
[2021-06-19] MEDS: oxyCODONE HCL IR 5 MG TAB (IMMEDIATE RELEASE) PO PRN (09:34)
[2021-06-19 11:31] LABS: Folate (Folic Acid) 7.66 ng/ml (>5.38)
[2021-06-19] MEDS: POLYETHYLENE (MIRALAX) 17 GM PACK PO SCH (13:09)
[2021-06-19 13:37] LABS: Iron 37 mcg/dl (35-175); Total Iron Binding Cap Calc 255 mcg/dl (250-450); Transferrin (FE) Percent Satur 15 % (20-50); Unsaturated Iron Binding Cap 218 mcg/dl (155-355)
--- NOTE | 2021-06-19 16:51 | Hospitalist Progress Note ---
Date of Service June 19, 2021 Assessment & Plan (1) HERMELINDO (acute kidney injury): (2) Elevated CK: (3) Diabetes: Plan: HERMELINDO on CKD III Baseline of 1.1-1.3 hold lisinopril Received and includes Avoid NSAIDs Appreciate nephrology input Cr 1.2 today Mildly Elevated CK CK trended down Received IV fluids Lumbar (L4) burst fracture with neurocompression CT lumbar spine:There is an acute to subacute burst type compression fracture of L4 with moderate loss of height and retropulsed fragments. Fracture extends into the right pedicle of L4. S/p lumbosacral fusion on 06/06/21 Postoperative acute blood loss anemia Continue pain Control Appreciate Orthopedics Input Slowly improving Needs rehab placement Suspected Melena Hold Aspirin Consider PPI and GI eval if needed Patient refused CT scan initially ABD USD: No free fluid is identified in the abdomen or pelvis. Monitor CBC Repeat Imaging showed no signs of hematoma Check FOBT--pending Anemia work up ordered Hb stable today Adjustment disorder with mixed anxiety and depressed mood Continue Effexor 150 mg daily Vistaril 25 mg every 6 hours as needed for anxiety Appreciate psychiatry input Acute on chronic anemia Post op anemia S/P PRBC multiple transfusion Monitor CBC Hb 6.3>7.9>7.2 Volume overload Nocturnal Hypoxia H/O ALMA Non complaint with CPAP Obesity Hypoventilation likely contributing as well Use 3L supplemental Oxygen at bedtime Echo reviewed P[employer] Finishing Supervisor recs appreciated. Resume Lasix today CXR today showed improved pulmonary vascular congestion Right Renal Lesion Incidental finding on CT CT showed :2.5 cm indeterminant right renal lesion which does not meet criteria for a simple cyst. Although this could represent a complex cyst Patient currently not interested in further imaging as per Urology Appreciate Urology Input Constipation Continue Bowel regimen Enema PRN Minimize Narcotic use RLE cellulitis Blood Cx: Negative to date Completed doxycycline course Wound care Elevated LFTs- mild Mildly improved Abd USS noted cholelithiasis, normal CBD, hepatomegaly DM II Hold glipizide Continue lantus, SSI Monitor BGs HTN Lisinopril on hold due to HERMELINDO Continue Metoprolol Was started on Amlodipine for BP control while off of Lisinopril Hypothyroidism Continue Levothyroxine BPH on Proscar, Flomax DVT Px: Pharm agent on hold for now due to recent surgery and anemia SCDs for now Code status Full code Will Need Rehab placement Admission and Anticipated Discharge Date Admission Date: June 03, 2021 Subjective Patient is seen and examined at bedside Back pain worsens with movement Feels constipated Discussed with Nephrology today Denies any chest pain, dyspnea, nausea, vomiting, abd pain Hb Stable Review of Systems Review of Systems: All systems reviewed & are unremarkable except as noted in Subjective Physical Exam Physical Exam: Physical Exam: Vitals signs as noted above General Appearance:Morbidly Obese, no apparent distress Head: normocephalic, Atraumatic Eyes: normal inspection, EOMI Neck: supple, Trachea midline Respiratory/Chest: Normal breath sounds, CTA, No accessory muscle use Cardiovascular: S1, S2, No murmur Abdomen/GI:Soft, Non tender, Bowel sounds present Extremities/Musculoskeletal:normal inspection, 1+ B/L LE edema, Leg wounds in dressing Neurologic/Psych:AAOX3, grossly no focal neurological deficits Skin: normal color, warm Results & Data Results & Data ([facility]) Vital Signs (Past 12 Hours) Vital Signs Temp Pulse Resp BP Pulse Ox 06/19/21 07:43 36.6 C 71 16 132/55 L 100 Laboratory Results Short CBC 06/19/21 Range/Units 07:11 Hgb 7.2 L (14.0-18.0) g/dL Hct 22.8 L (42-52) % BMP 06/19/21 07:11 Sodium 143 Potassium 4.1 Chloride 110 H Carbon Dioxide 29 BUN 39 H Creatinine 1.20 Glucose 151 H Calcium 8.3 L
[2021-06-19] MEDS ORDERED: IRON SUCROSE 200 MG in 0.9 % SODIUM CHLORIDE 100 ML IV ONE (17:30)
[2021-06-19] MEDS: SOD PHOSPHATE/SOD BIPHOSPHATE ENEMA 132 ML BTL PR PRN (17:38)
[2021-06-19] MEDS: METOPROLOL SUCC 25MG EXT REL TAB PO SCH (21:32)
[2021-06-19] MEDS: DOCUSATE SODIUM/SENNA 50/8.6MG TAB PO SCH (21:32)
[2021-06-20] MEDS: oxyCODONE HCL IR 5 MG TAB (IMMEDIATE RELEASE) PO PRN ×3 (05:48→17:43)
[2021-06-20] MEDS: LEVOTHYROXINE SODIUM 50 MCG TABLET PO SCH (05:48)
[2021-06-20] MEDS: ACETAMINOPHEN 500 MG TAB PO SCH ×3 (05:48→22:06)
[2021-06-20 06:59] LABS: INR 1.3 (0.9-1.1); Prothrombin Time 13.5 Seconds (9.0-12.0)
[2021-06-20 07:04] LABS: Hematocrit (blood only) 22.6 % (42-52); Hemoglobin 7.2 g/dL (14.0-18.0); Reticulocyte % 9.2 % (0.5-2.0); Reticulocytes # 0.21 10^6/uL (0.02-0.10)
[2021-06-20 07:23] LABS: Albumin Level 2.4 gm/dl (3.4-5.0); Bilirubin Direct 0.1 mg/dl (0-0.2); Bilirubin,Total 0.4 mg/dl (0.2-1.0)
[2021-06-20 07:35] LABS: Ferritin 82.4 ng/ml (8-388)
[2021-06-20] MEDS: MICONAZOLE NITRATE POWDER 43 GM EXT SCH ×2 (08:27→20:25)
[2021-06-20] MEDS: LIDOCAINE 5% 1 PATCH TD SCH (08:27)
[2021-06-20] MEDS: TAMSULOSIN HCL 0.4 MG CAP PO SCH (08:27)
[2021-06-20] MEDS: VENLAFAXINE HCL XR 150 MG CAPXR PO SCH (08:27)
[2021-06-20] MEDS: FUROSEMIDE 20 MG TAB PO SCH (08:27)
[2021-06-20] MEDS: gemfibroziL 600 MG TAB PO SCH ×2 (08:28→20:24)
[2021-06-20] MEDS: GABAPENTIN 300 MG CAP PO SCH ×3 (08:28→20:24)
[2021-06-20] MEDS: FINASTERIDE 5 MG TAB PO SCH (08:28)
[2021-06-20] MEDS: amLODIPine BESYLATE 5 MG TAB PO SCH (08:28)
[2021-06-20] MEDS: INSULIN GLARGINE SOLOSTAR 100 UNITS/ML 3 ML PEN SQ SCH (08:28)
[2021-06-20] MEDS: POLYETHYLENE (MIRALAX) 17 GM PACK PO SCH (08:30)
[2021-06-20] MEDS: INSULIN ASPART PER UNIT SC SCH ×4 (08:31→22:36)
[2021-06-20] MEDS ORDERED: INSULIN GLARGINE SOLOSTAR 100 UNITS/ML 3 ML PEN SQ SCH (09:00)
--- NOTE | 2021-06-20 11:03 | Gastrointestinal Consultation ---
Date of Consultation June 20, 2021 Assessment & Plan (1) Anemia: (2) Heme positive stool: Pt is a 81 yo male w hx of CKD III and recent back surgery seen for normocytic anemia, heme positive stools w/o jessica s/s of GI bleeding. Last BM noted to be black/brown in colon, hard stools. He reports having constipation, likely related to anesthesia, narcotic uses and decreased mobility. No retroperitoneal hematoma on CT. Hx of colonoscopy last done in 2016, w prior finding of adenomatous colon polyps and diverticulosis. Suspect anemia related to chronic disease and surgery. - Monitor blood ct and transfuse prn - PPI daily - Defer repeat endoscopic eval, though would consider EGD if he has hematemesis/melena. With his current deconditioned status, and decreased mobility after his back surgery, he's unlikely able to prep adequately for colonoscopy. Consider outpt EGD and colonoscopy evals in 8 week's time - Pls recall GI prn Supervising Physician Co-Signing Physician Notes PE - tall male laying on his back in no acute distress, HEENT - perrla, abd obese soft Labs reviewed Has been in the hospital sometime after back surgery Normocytic anemia in the setting of ckdz without over blood loss Last colonoscopy done in 2013 when he was at the age of 73. Suspect his anemia given it is normocytic without overt blood loss noted or rise in his bun (he has ckdz) is not from an acute gi bleed. No plans for inpatient scopes and he was reluctant to have them done given no current signs of active gi bleeding. Could consider outpatient egd/colon in 8 weeks time if he is agreeable as likely he will have some improved mobility by that time after recent back surgery. History of Present Illness Reason for Consultation: Anemia, Heme positive stools Requesting Physician: Dr. Ja Zimmerman Attending Physician: Dr. Mere Bazan History of Present Illness Pt is a 81 yo male, admitted for back pain, weakness after a fall, found to have burst compression fracture, s/p lumbosacral fusion on 06/06/2021. GI consulted as it's noted that pt has normocytic anemic, w Hgb ranging from 6 to 7 from 06/11, required blood transfusions. Prior to admission, Hgb is between 9-10. Iron profile, B12, FA normal. He has hx of CKD III. Does take ASA 81mg at home but denies any anticoagulants. He denies any symptoms of CP, SOB currently. Also no abd pain, n/v. CT w/o signs of retroperitoneal hematoma. Notes that he is having issues w constipation, hard to pass stools. He is on Miralax and Senokot daily. He stays mostly in bed, and rarely sits up in the chair after surgery and on narcotics. He denies seeing any rectal bleeding, stools described as black/brown, dry and hard per RN charting. Stools are heme positive. He had hx of 3 colonoscopies in 2011, 2013, 2013, + adenomatous colon polyps, div erticulosis. No hx of EGD in the past. Allergies Allergy/AdvReac Type Severity Reaction Status Date / Time No Known Allergies Allergy Verified 06/06/21 12:16 Home Medications Medication Instructions Recorded Confirmed Type aspirin 81 mg tablet,delayed 81 mg PO HS 12/04/18 06/03/21 History release (Adult Aspirin Regimen) gabapentin 300 mg capsule 300 mg PO BID 12/04/18 06/03/21 History gemfibrozil 600 mg tablet 600 mg PO BID 12/04/18 06/03/21 History glipizide 5 mg tablet 5 mg PO .DAILY@NOON tab 12/04/18 06/03/21 History insulin glargine 100 unit/mL (3 12 units SQ HS ml 12/04/18 06/03/21 History mL) subcutaneous pen (Lantus Solostar U-100 Insulin) levothyroxine 50 mcg capsule 50 mcg PO DAILYBB 12/04/18 06/03/21 History lisinopril 5 mg tablet 5 mg PO QDD 12/04/18 06/03/21 History vit C 250 mg-vit E 90 mg-zinc 40 1 tab PO BID 12/18/18 06/03/21 History mg-copper 1 [id number] capsule (PreserVision AREDS-2) metoprolol succinate 25 mg 25 mg PO HS 04/09/19 06/03/21 History tablet,extended release 24 hr finasteride 5 mg tablet 5 mg PO DAILY #90 tab 08/23/20 06/03/21 Rx tamsulosin 0.4 mg capsule 0.4 mg PO DAILY #90 cap 08/23/20 06/03/21 Rx venlafaxine 150 mg 150 mg PO .DAILY@NOON 05/22/21 06/03/21 History capsule,extended release 24 hr furosemide 20 mg tablet 20 mg PO 3XWK 06/03/21 06/03/21 History oxycodone 5 mg tablet 10 mg PO Q6H PRN 06/03/21 06/03/21 History Patient History Medical History Acute on chronic renal failure Arthritis Depression Diabetes mellitus, type 2 IDDM Dysuria Hearing disorder right ear hearing loss History of kidney stones Hyperlipidemia Hypertension Hypothyroidism Macular degeneration, age related Morbid obesity Sleep apnea does not use CPAP Spinal stenosis of lumbar region Vertigo Surgical History Hx of colonoscopy Hx of non-cataract eye surgery Hx of right cataract extraction Hx of tonsillectomy Family History Son Family history of diabetes mellitus Social History Smoking Status: Never smoker Tobacco Type: Cigarettes Second Hand Exposure: No; Hx Alcohol Use: No Hx Substance Use: No Preferred Language: Welsh Communication Ability: Effective 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: No Beliefs That Will Affect Care: None marital status: Current Living Situation: Alone Current Living Situation Comment: HAS DEEMENTIA AND HE CARE FOR HER Feels Safe at Home: Yes Safety Concerns: Feels Safe At This Time Assistive Devices: Wheelchair Review of Systems Review of Systems: All systems reviewed & are unremarkable except as noted in HPI & below Physical Exam Constitutional: WD/WN, vitals as above well groomed, cooperative and comfortable Eyes: PERRL, conjunctivae normal, anicteric sclerae ENMT: external ear and nose normal, oropharynx normal Respiratory: normal respiratory effort, lungs clear to auscultation Cardiovascular: RRR, no murmur, no edema Gastrointestinal (Abdomen): normal bowel sounds, soft, nontender, no hepatosplenomegaly Skin: no rashes, warm and dry no jaundice Psychiatric: A+Ox3, euthymic affect Lymphatic: no lymphedema Results & Data ([facility]) Vital Signs (Past 12 Hours) Vital Signs Temp Pulse Resp BP Pulse Ox 06/20/21 07:41 36.5 C 62 16 128/63 93
--- NOTE | 2021-06-20 12:28 | Pharmacy Report ---
Pharmacy Glycemic Short Note 2 - Date of Service June 20, 2021 - Glycemic Short BSG Results (Last 24 hours): 06/19/21 06/19/21 06/20/21 17:05 20:43 08:08 POC Glucose 182 H 102 H 162 H 06/20/21 12:02 POC Glucose 154 H OUTPATIENT ANTIDIABETIC REGIMEN: * Lantus 12 units SQ qHS + glipizide 5 mg daily at noon - per med rec * HbA1c 5.9% on 06/10/21 ASSESSMENT: 06/20/21 * BSGs remain relatively well-controlled, 167, 124, 182, and 102 mg/dL yesterday, fasting BSG of 162 mg/dL this morning * Received 55 units of insulin yesterday (20 units of lantus and 35 units of Novolog) * Will increase basal insulin today (~20%), continue current Novolog parameters 06/18/21 * Patient's BSGs yesterday were [phone] mg/dL. Fasting today is 173 mg/dL. * Patient received 51 units of insulin yesterday (10 units of basal and 41 units of bolus). PM Lantus held for unknown reason. * Since patient is deficient by 10 units, give 20 units this morning of Lantus and start 20 units daily. * Loosen CF/CR since BSGs trended downwards yesterday. 06/16/21 * Patient's BSGs yesterday were [phone] mg/dL. Fasting today is 225 mg/dL. * Patient received 32 units of insulin (17 units of basal and 16 units of bolus). Patient did not eat yesterday. * Basal insulin increased aggressively yesterday by 40%. Since fasting even higher today, will give 10 units of Lantus this morning. Plan for 10-20% increase in basal based upon BSGs. * Tighten CF as BSGs trended up yesterday. 06/09 * John is a T2DM admitted with HERMELINDO, Lumbar (L4) burst fracture with neurocompression, RLE cellulitis * He received 17 units of insulin yesterday with all BSGs significantly above goal * Fasting BSG of 249 mg/dL. Of note, this is not a true fasting per patient has D5 running at 100 mls/hr (provides 20 gram dextrose every 4 hours), however fasting BSG trending upward even before fluids were added. * Will tighten both basal and bolus insulin. Add checks at 00 and 04 due to dextrose fluids. PLAN FOR INPATIENT GLYCEMIC CONTROL: * Hold outpatient oral diabetes medications * Basal insulin - increase * Lantus 24 units daily * Bolus insulin - continue * NovoLog per scale ACHS or Q6hrs while NPO * Goal Range: Low 110 mg/dL - High 140 mg/dL - * Correction Factor: 18 mg/dL/unit * Nutritional / Prandial insulin per carb ratio of 1 unit per 5 grams CHO consumed
--- NOTE | 2021-06-20 12:29 | Hospitalist Progress Note ---
Date of Service June 20, 2021 Assessment & Plan (1) HERMELINDO (acute kidney injury): (2) Elevated CK: (3) Diabetes: Plan: HERMELINDO on CKD III Baseline of 1.1-1.3 hold lisinopril Received and includes Avoid NSAIDs Appreciate nephrology input Cr 1.2 today Mildly Elevated CK CK trended down Received IV fluids Lumbar (L4) burst fracture with neurocompression CT lumbar spine:There is an acute to subacute burst type compression fracture of L4 with moderate loss of height and retropulsed fragments. Fracture extends into the right pedicle of L4. S/p lumbosacral fusion on 06/06/21 Postoperative acute blood loss anemia, EBL 1000ml Continue pain Control Appreciate Orthopedics Input Slowly improving Needs rehab placement Suspected Melena Hold Aspirin GI Eval ordered Start PPI OP endoscopy/cscope in 8 weeks unless active bleeding ABD USD: No free fluid is identified in the abdomen or pelvis CT a/p: no RP hematoma CT L spine: No evidence of hematoma Monitor CBC Repeat Imaging showed no signs of hematoma Check FOBT--positive Anemia work up ordered - iron 37, TIBC 255, Tsat 15%, ferritin 82.4, b12 high, folate wnl, retic elevated received IV venofer 06/19 Hb stable today , 7.2 try to avoid daily phlebotomy as much as possible Adjustment disorder with mixed anxiety and depressed mood Continue Effexor 150 mg daily Vistaril 25 mg every 6 hours as needed for anxiety Appreciate psychiatry input Acute on chronic anemia Post op anemia S/P PRBC multiple transfusion Monitor CBC Hb 6.3>7.9>7.2 Volume overload Nocturnal Hypoxia H/O ALMA Non complaint with CPAP Obesity Hypoventilation likely contributing as well Use 3L supplemental Oxygen at bedtime Echo reviewed Forging Engineer recs appreciated. Resume Lasix today CXR today showed improved pulmonary vascular congestion Right Renal Lesion Incidental finding on CT CT showed :2.5 cm indeterminant right renal lesion which does not meet criteria for a simple cyst. Although this could represent a complex cyst Patient currently not interested in further imaging as per Urology Appreciate Urology Input Constipation Continue Bowel regimen Enema PRN Minimize Narcotic use RLE cellulitis Blood Cx: Negative to date Completed doxycycline course Wound care Elevated LFTs- mild Mildly improved Abd USS noted cholelithiasis, normal CBD, hepatomegaly DM II Hold glipizide Continue lantus, SSI Monitor BGs HTN Lisinopril on hold due to HERMELINDO Continue Metoprolol Was started on Amlodipine for BP control while off of Lisinopril Hypothyroidism Continue Levothyroxine BPH on Proscar, Flomax DVT Px: Pharm agent on hold for now due to recent surgery and anemia SCDs for now Code status Full code Will Need Rehab placement Admission and Anticipated Discharge Date Admission Date: June 03, 2021 Supervising Physician Co-Signing Physician Notes Patient is seen and examined at bedside. Overall feels well given able to ambulate few steps with PT earlier today. Back pain is controlled. No acute bleeding issues. Hemoglobin stable. On exam patient is morbidly obese, no apparent distress, normocephalic atraumatic, EOMI, lungs are clear to auscultation, S1-S2, no murmur, trace bilateral lower extremity edema, abdomen soft, nondistended, nontender, normal bowel sounds, Back+ surgical site, alert, awake, oriented, grossly no focal deficits. Continue current management for Lumbar (L4) burst fracture with neurocompression. Melena--appreciate GI input, start PPI, hold aspirin. Will need colonoscopy as outpatient. Plan to discharge to rehab facility as able. Subjective Patient was seen and examined in room 318-1. Follow up Anemia. Overall he feels well this morning. He states he stood yesterday and that felt good. He denies f/c/s, chest pain sob, n/v/d. He is moving his bowels but is uncertain if black or bloody. Appetite is improving. He denies abd pain. Review of Systems Review of Systems: All systems reviewed & are unremarkable except as noted in HPI & below Physical Exam Physical Exam: Gen: Morbidly obese, WD/WN, NAD, A&O x3, pale, sitting up in bed HEENT: Normocephalic, atraumatic, conjunctivae moist, sclerae anicteric, mucous membranes moist. Lung: Clear to Auscultation bilaterally, no wheezes/rales/rhonchi Heart: Regular rate, regular rhythm, no murmurs, rubs, or gallops Abdomen: Soft, NT, ND +BS x 4 Extremities: trace b/l lower ext edema Skin: Warm, no rash, negative turgor. Results & Data Results & Data ([facility]) Vital Signs (Past 12 Hours) Vital Signs Temp Pulse Resp BP Pulse Ox 06/20/21 07:41 36.5 C 62 16 128/63 93 Laboratory Results Short CBC 06/20/21 Range/Units 06:17 Hgb 7.2 L (14.0-18.0) g/dL Hct 22.6 L (42-52) % Liver Function 06/20/21 Range/Units 06:17 Total Bilirubin 0.4 (0.2-1.0) mg/dl Direct Bilirubin 0.1 (0-0.2) mg/dl AST 20 (13-39) U/L ALT 8 (7-52) U/L Alkaline Phosphatase 272 H (34-104) U/L Albumin 2.4 L (3.4-5.0) gm/dl Medications Administered Current Inpatient Medications Acetaminophen (Acetaminophen 500 Mg Tab) 1,000 mg PO Q8 WILBER Stop: 07/10/21 13:59 Last Admin: 06/20/21 05:48 Dose: 1,000 mg Documented by: Al Hydrox/Mg Hydrox/Simethicone (Aluminum/Magnesium Susp 30 Ml Udc) 30 ml PO Q6H PRN PRN Reason: Dyspepsia Stop: 07/06/21 18:39 Amlodipine Besylate (Amlodipine Besylate 5 Mg Tab) 5 mg PO QAM WILBER Stop: 07/11/21 08:59 Last Admin: 06/20/21 08:28 Dose: 5 mg Documented by: Aspirin (Aspirin 81 Mg Ectab) 81 mg PO HS WILBER Stop: 07/03/21 20:59 Last Admin: 06/14/21 20:00 Dose: 81 mg Documented by: Bisacodyl (Bisacodyl 10 Mg Supp) 10 mg AR DAILY PRN PRN Reason: Constipation Stop: 07/06/21 18:39 Cyclobenzaprine HCl (Cyclobenzaprine Hcl 5 Mg Tab) 5 mg PO BID PRN PRN Reason: spasm Stop: 07/03/21 20:03 Last Admin: 06/19/21 08:54 Dose: 5 mg Documented by: Dextrose (Dextrose 50% 50 Ml Syringe) 25 - 50 ml IV UD PRN; Protocol PRN Reason: Hypoglycemia Protocol Stop: 07/03/21 20:03 Famotidine (Famotidine 20 Mg Tab) 20 mg PO Q12H PRN PRN Reason: Dyspepsia Stop: 07/06/21 18:39 Finasteride (Finasteride 5 Mg Tab) 5 mg PO DAILY WILBER Stop: 07/04/21 08:59 Last Admin: 06/20/21 08:28 Dose: 5 mg Documented by: Furosemide (Furosemide 20 Mg Tab) 20 mg PO QAM [facility]ILBER Stop: 07/12/21 10:44 Last Admin: 06/20/21 08:27 Dose: 20 mg Documented by: Gabapentin (Gabapentin 300 Mg Cap) 300 mg PO TID WILBER Stop: 07/13/21 20:59 Last Admin: 06/20/21 08:28 Dose: 300 mg Documented by: Gemfibrozil (Gemfibrozil 600 Mg Tab) 600 mg PO BID WILBER Stop: 07/03/21 20:59 Last Admin: 06/20/21 08:28 Dose: 600 mg Documented by: Glucagon (Glucagon For Inj 1 Mg Vial) 1 mg SQ UD PRN; Protocol PRN Reason: Hypoglycemia Protocol Stop: 07/03/21 20:03 Glucose (Glucose 10 Tabs/Tube) 4 - 8 tabs PO UD PRN; Protocol PRN Reason: Hypoglycemia Protocol Stop: 07/03/21 20:03 Glucose (Glucose 40% Gel 15 Gm Tube) 15 - 30 gm PO UD PRN; Protocol PRN Reason: Hypoglycemia Protocol Stop: 07/03/21 20:03 Hydromorphone HCl (Hydromorphone Inj 0.5 Mg/0.5 Ml Syr) 0.25 mg IV Q6H PRN PRN Reason: SEVERE Pain (Scale 7,8,9,10) Stop: 06/20/21 18:39 Last Admin: 06/19/21 07:37 Dose: 0.25 mg Documented by: Hydroxyzine HCl (Hydroxyzine Hcl 25 Mg Tab) 25 mg PO Q6H PRN PRN Reason: Anxiety Stop: 07/06/21 18:39 Last Admin: 06/19/21 07:37 Dose: 25 mg Documented by: Promethazine HCl 12.5 mg/ (Sodium Chloride) 50.5 mls @ 202 mls/hr IV Q6H PRN PRN Reason: Nausea &/or Vomiting Stop: 07/06/21 18:39 Influenza Virus Vaccine Quadrival (Do Not Administer Flu Vaccine) 1 ea N/A PRN PRN PRN Reason: Notification Stop: 07/06/21 18:39 Insulin Aspart (Insulin Aspart Per Unit) 0 units SC ACHS [facility] Stop: 07/06/21 11:59 Last Admin: 06/20/21 08:31 Dose: 12 units Documented by: Insulin Glargine (Insulin Glargine Solostar 100 Units/Ml 3 Ml Pen) 24 units SQ DAILY [facility] Stop: 07/18/21 08:59 Last Admin: 06/20/21 08:36 Dose: Not Given Documented by: Levothyroxine Sodium (Levothyroxine Sodium 50 Mcg Tablet) 50 mcg PO DAILYBB [facility] Stop: 07/04/21 06:29 Last Admin: 06/20/21 05:48 Dose: 50 mcg Documented by: Lidocaine (Lidocaine 5% 1 Patch) 1 patch TD QAM [facility] Stop: 07/03/21 20:03 Last Admin: 06/20/21 08:27 Dose: Not Given Documented by: Magnesium Hydroxide (Magnesium Hydroxide Susp 30 Ml Udc) 30 ml PO Q24H PRN PRN Reason: Constipation Stop: 07/06/21 18:39 Last Admin: 06/17/21 12:47 Dose: 30 ml Documented by: Metoclopramide HCl (Metoclopramide Hcl Inj 5 Mg/Ml 2 Ml Vial) 10 mg IV Q6H PRN PRN Reason: Nausea &/or Vomiting Stop: 07/06/21 18:39 Metoprolol Succinate (Metoprolol Succ 25mg Ext Rel Tab) 25 mg PO HS [facility] Stop: 07/03/21 20:59 Last Admin: 06/19/21 21:32 Dose: 25 mg Documented by: Miconazole Nitrate (Miconazole Nitrate Powder 43 Gm) 1 appln EXT BID [facility] Stop: 07/04/21 00:29 Last Admin: 06/20/21 08:27 Dose: 1 appln Documented by: Miscellaneous (Carbohydrates For Hypoglycemia ) 15 - 30 gm PO UD PRN PRN Reason: Hypoglycemia Protocol Stop: 07/03/21 20:03 Miscellaneous (Remove Lidoderm Patch) 1 ea N/A DAILY@2100 [facility] Stop: 07/03/21 20:59 Last Admin: 06/19/21 21:35 Dose: Not Given Documented by: Miscellaneous Information (Pharmacy Glycemic Mgmt Consult) 1 ea N/A UD PRN PRN Reason: Consult Stop: 07/09/21 08:51 Naloxone HCl (Naloxone Hcl 0.4 Mg/1 Ml Vial/Carp) 0.1 mg IV Q5M PRN PRN Reason: Oversedation/Resp depression Stop: 07/06/21 18:39 Ondansetron HCl (Ondansetron Inj 2 Mg/Ml 2 Ml Vial) 4 mg IV Q6H PRN PRN Reason: Nausea &/or Vomiting Stop: 07/06/21 18:39 Last Admin: 06/15/21 11:49 Dose: 4 mg Documented by: Ondansetron HCl (Ondansetron 4 Mg Od Tab) 4 mg PO Q6H PRN PRN Reason: Nausea Stop: 07/06/21 18:39 Oxycodone HCl (Oxycodone Hcl Ir 5 Mg Tab (Immediate Release)) 5 - 10 mg PO Q4H PRN PRN Reason: Pain & Pre PT Stop: 06/20/21 18:39 Last Admin: 06/20/21 11:19 Dose: 10 mg Documented by: Pneumococcal Polyvalent Vaccine (Do Not Administer Pneumococcal Vaccine) 1 ea N/A PRN PRN PRN Reason: Notification Stop: 07/06/21 18:39 Polyethylene Glycol (Polyethylene (Miralax) 17 Gm Pack) 17 gm PO DAILY [facility] Stop: 07/19/21 13:59 Last Admin: 06/20/21 08:30 Dose: Not Given Documented by: Senna/Docusate Sodium (Docusate Sodium/Senna 50/8.6mg Tab) 2 tab PO HS [facility] Stop: 07/14/21 20:59 Last Admin: 06/19/21 21:32 Dose: 2 tab Documented by: Sodium Biphosphate/Sodium Phosphate (Sod Phosphate/Sod Biphosphate Enema 132 Ml Btl) 132 ml AR ONE PRN PRN Reason: Constipation Stop: 07/06/21 18:39 Last Admin: 06/19/21 17:38 Dose: 132 ml Documented by: Tamsulosin HCl (Tamsulosin Hcl 0.4 Mg Cap) 0.4 mg PO DAILY [facility] Stop: 07/04/21 08:59 Last Admin: 06/20/21 08:27 Dose: 0.4 mg Documented by: Tramadol HCl (Tramadol Hcl 50 Mg Tablet) 50 - 100 mg PO Q4H PRN PRN Reason: Moderate-Severe pain & Pre PT Stop: 07/06/21 18:39 Venlafaxine HCl (Venlafaxine Hcl Xr 150 Mg Capxr) 150 mg PO DAILY [facility] Stop: 07/04/21 08:59 Last Admin: 06/20/21 08:27 Dose: 150 mg Documented by:
--- NOTE | 2021-06-20 12:59 | Nephrology Progress Note ---
Date of Service June 20, 2021 Assessment & Plan (1) Anemia: Plan: ongoing, significant iron deficiency anemia despite 5 units pRBC this admissoin hgb lowest was 6.3 and today /last 4 days at 7.2; iron stores low; FOBT+; retic count showing appropriate bone marrow response. may need further work up. other blood lines ok >iron stores very low > had iron load venofer 200 mg 06/19; will continue load > venofer 300 mg daily x 3 ordered other anemia w/u per primary service as indicated WILL SIGN OFF Pls call if ? NEPHRO DISCHARGE RECS -d/c on low dose lasix, low dose metoprolol -check bmp w/ PCP within 2 weeks of hospital discharge -HOSPITAL DISCHARGE appt with [facility] nephro group closest to his home within 4 wks of hospital d/c (2) Volume overload: Plan: new hypoxia needing 02nc earlier this admission, though has been on RA for several days now; relatively new edema past 4-6 wks prior to admission needing start of diuretics mid april > vol status acceptable now and lung crackles resolved, repeat CXR 06/18 clear > continue lasix 20 mg daily, started 06/12 (3) Acute on chronic renal failure: Plan: since 09/2020, creatinine has run 1.2-1.3. Then in April 2021 has been more in 1.3-1.5 range until the very end of April (during his stay at rehab hospital) when it started a rapid uptick to peak at 2.5 on 06/01. His creatinine was 2.1 on 06/03 presentation and has slowly trended down to hit baseline only today. chemistries ok; mild volume overload persists and cause is unclear. no evidence of NS (200 mg proteinuria); consider cardiorenal syndrome - BP - amlodipine increased to 5 mg; also on lasix, BB > cont same . - Hold acei -avoid nsaids (4) Lumbar burst fracture: Plan: Status post OR June 06 (5) Renal lesion: Plan: for OP f/u and imaging w/ urology if he agrees to this Admission and Anticipated Discharge Date Admission Date: June 03, 2021 Subjective seen on rounds at about 11 AM during PT/OT session; no sob; pain better controlled today; no new/worrisome voiding sx; ongoing leg weakness/knee yulia Review of Systems Review of Systems: All systems reviewed & are unremarkable except as noted in Subjective Physical Exam 2 Constitutional: well developed, well nourished and + obese; no acute distress Eyes: EOM intact bilaterally ENMT: Ears: no external ear abnormality Nose: no external nose abnormality Mouth: + dry oral mucous membranes Neck: no nuchal rigidity Respiratory: normal respiratory effort Auscultation: lungs clear to auscultation bilaterally and + diminished lung sounds Cardiovascular: Rate/Rhythm: regular rate and regular rhythm Extremities: no edema Gastrointestinal (Abdomen): Inspection/Auscultation: normal bowel sounds Percussion/Palpation: abdomen soft; abdomen nontender Musculoskeletal: Extremities: + abnormal strength (BLE weakness) Skin: no rashes, warm and dry Trauma: + evidence of skin trauma (BLE shins bandaged) Neurologic: ibrahim, fluent speech, some tremor with using/leaning on arms Psychiatric: Orientation: oriented x 3 Results & Data ([facility]) Vital Signs (Past 12 Hours) Vital Signs Temp Pulse Resp BP Pulse Ox 06/20/21 07:41 36.5 C 62 16 128/63 93 Laboratory Results 06/20/21 06:17 06/19/21 07:11
[2021-06-20] MEDS: PANTOprazole 40 MG TAB PO SCH (13:13)
[2021-06-20] MEDS: IRON SUCROSE 300 MG in SODIUM CHLORIDE 0.9% 250 ML IV SCH (13:16)
[2021-06-20] MEDS: METOPROLOL SUCC 25MG EXT REL TAB PO SCH (20:24)
[2021-06-20] MEDS: DOCUSATE SODIUM/SENNA 50/8.6MG TAB PO SCH (20:24)
[2021-06-21] MEDS: ACETAMINOPHEN 500 MG TAB PO SCH ×3 (05:14→22:48)
[2021-06-21] MEDS: LEVOTHYROXINE SODIUM 50 MCG TABLET PO SCH (05:14)
[2021-06-21 07:28] LABS: BUN Creatinine Ratio 20.5 (10-20); Calcium 7.9 mg/dl (8.5-10.1); Est GFR (African American) 57.4 ml/min; Est GFR (Non-African American) 49.5 ml/min; Potassium 3.8 mmol/L (3.5-5.1)
[2021-06-21 08:35] LABS: Hematocrit (blood only) 24.9 % (42-52); Hemoglobin 7.7 g/dL (14.0-18.0); Mean Corpuscular Hgb Conc 30.9 g/dL (32-36); Mean Corpuscular Volume 96.9 fL (80-100); Mean Platelet Volume 9.9 fL (7.4-10.4); Platelet Count 239 K/uL (130-400); RDW Coefficient of Variation 18.6 % (11.5-14.5); RDW Standard Deviation 65.2 fL (36.4-46.3); Red Blood Count 2.57 M/uL (4.7-6.1)
[2021-06-21] MEDS: MICONAZOLE NITRATE POWDER 43 GM EXT SCH ×2 (08:36→20:43)
[2021-06-21] MEDS: LIDOCAINE 5% 1 PATCH TD SCH (08:36)
[2021-06-21] MEDS: amLODIPine BESYLATE 5 MG TAB PO SCH (08:40)
[2021-06-21] MEDS: gemfibroziL 600 MG TAB PO SCH ×2 (08:40→20:41)
[2021-06-21] MEDS: VENLAFAXINE HCL XR 150 MG CAPXR PO SCH (08:40)
[2021-06-21] MEDS: GABAPENTIN 300 MG CAP PO SCH ×3 (08:40→20:40)
[2021-06-21] MEDS: POLYETHYLENE (MIRALAX) 17 GM PACK PO SCH (08:40)
[2021-06-21] MEDS: FINASTERIDE 5 MG TAB PO SCH (08:40)
[2021-06-21] MEDS: TAMSULOSIN HCL 0.4 MG CAP PO SCH (08:40)
[2021-06-21] MEDS: FUROSEMIDE 20 MG TAB PO SCH (08:40)
[2021-06-21] MEDS: PANTOprazole 40 MG TAB PO SCH (08:40)
[2021-06-21] MEDS: INSULIN ASPART PER UNIT SC SCH ×4 (09:02→20:49)
[2021-06-21] MEDS: INSULIN GLARGINE SOLOSTAR 100 UNITS/ML 3 ML PEN SQ SCH (09:03)
[2021-06-21] MEDS: IRON SUCROSE 300 MG in SODIUM CHLORIDE 0.9% 250 ML IV SCH (11:23)
--- NOTE | 2021-06-21 11:58 | Hospitalist Progress Note ---
Date of Service June 21, 2021 Assessment & Plan (1) HERMELINDO (acute kidney injury): (2) Elevated CK: (3) Diabetes: Plan: HERMELINDO on CKD III Baseline of 1.1-1.3 hold lisinopril Received and includes Avoid NSAIDs Appreciate nephrology input Cr 1.2 today Mildly Elevated CK CK trended down Received IV fluids Lumbar (L4) burst fracture with neurocompression CT lumbar spine:There is an acute to subacute burst type compression fracture of L4 with moderate loss of height and retropulsed fragments. Fracture extends into the right pedicle of L4. S/p lumbosacral fusion on 06/06/21 Postoperative acute blood loss anemia, EBL 1000ml Continue pain Control Appreciate Orthopedics Input Slowly improving Needs rehab placement Suspected Melena Hold Aspirin GI Eval ordered Start PPI OP endoscopy/cscope in 8 weeks unless active bleeding ABD USD: No free fluid is identified in the abdomen or pelvis CT a/p: no RP hematoma CT L spine: No evidence of hematoma Monitor CBC Repeat Imaging showed no signs of hematoma Check FOBT--positive Anemia work up ordered - iron 37, TIBC 255, Tsat 15%, ferritin 82.4, b12 high, folate wnl, retic elevated receiving IV venofer, will complete tomorrow 06/22 Hb stable today , 7.8 try to avoid daily phlebotomy as much as possible Adjustment disorder with mixed anxiety and depressed mood Continue Effexor 150 mg daily Vistaril 25 mg every 6 hours as needed for anxiety Appreciate psychiatry input Acute on chronic anemia Post op anemia S/P PRBC multiple transfusion Monitor CBC Hb 6.3>7.9>7.2 >7.7 Volume overload Nocturnal Hypoxia H/O ALMA Non complaint with CPAP Obesity Hypoventilation likely contributing as well Use 3L supplemental Oxygen at bedtime Echo reviewed Director Of Epidemiology recs appreciated. Resume Lasix today CXR today showed improved pulmonary vascular congestion Right Renal Lesion Incidental finding on CT CT showed :2.5 cm indeterminant right renal lesion which does not meet criteria for a simple cyst. Although this could represent a complex cyst Patient currently not interested in further imaging as per Urology Appreciate Urology Input Constipation Continue Bowel regimen Enema PRN Minimize Narcotic use RLE cellulitis Blood Cx: Negative to date Completed doxycycline course Wound care Elevated LFTs- mild Mildly improved Abd USS noted cholelithiasis, normal CBD, hepatomegaly DM II Hold glipizide Continue lantus, SSI Monitor BGs HTN Lisinopril on hold due to HERMELINDO Continue Metoprolol Was started on Amlodipine for BP control while off of Lisinopril Hypothyroidism Continue Levothyroxine BPH on Proscar, Flomax DVT Px: Pharm agent on hold for now due to recent surgery and anemia SCDs for now Code status Full code Will Need Rehab placement, likely medically stable to d/c after finishes IV venofer Admission and Anticipated Discharge Date Admission Date: June 03, 2021 Supervising Physician Co-Signing Physician Notes Attending Addendum: care coordinated with NILAY Leah Landry please refer to her notes for full details, I agree with her notes, assessment and plan patient seen and examined, records reviewed by myself as well Wilber Higgins MD Subjective Patient was seen and examined in room 318-1. Follow up Anemia. He has several complaints this morning regarding pain in his back and positioning in bed. He denies any f/c/s, chest pain, sob, n/v/d. Overall good appetite. He was able to stand with PT yesterday. Review of Systems Review of Systems: All systems reviewed & are unremarkable except as noted in HPI & below Physical Exam Physical Exam: Gen: Morbidly obese, WD/WN, NAD, A&O x3, pale, sitting up in bed HEENT: Normocephalic, atraumatic, conjunctivae moist, sclerae anicteric, mucous membranes moist. Lung: Clear to Auscultation bilaterally, no wheezes/rales/rhonchi Heart: Regular rate, regular rhythm, no murmurs, rubs, or gallops Abdomen: Soft, NT, ND +BS x 4 Extremities: trace b/l lower ext edema Skin: Warm, no rash, negative turgor. Results & Data Results & Data ([facility]) Vital Signs (Past 12 Hours) Vital Signs Temp Pulse Resp BP Pulse Ox 06/21/21 11:42 36.6 C 78 18 138/69 97 06/21/21 11:22 36.5 C 79 18 146/71 H 94 06/21/21 07:54 37.0 C 60 16 126/54 L 98 Laboratory Results Short CBC 06/21/21 Range/Units 06:24 WBC 7.90 (4.8-10.8) K/uL Hgb 7.7 L (14.0-18.0) g/dL Hct 24.9 L (42-52) % Plt Count 239 (130-400) K/uL BMP 06/21/21 06:24 Sodium 140 Potassium 3.8 Chloride 108 H Carbon Dioxide 27 BUN 27 H Creatinine 1.32 Glucose 136 H Calcium 7.9 L Medications Administered Current Inpatient Medications Acetaminophen (Acetaminophen 500 Mg Tab) 1,000 mg PO Q8 [facility] Stop: 07/10/21 13:59 Last Admin: 06/21/21 05:14 Dose: 1,000 mg Documented by: Al Hydrox/Mg Hydrox/Simethicone (Aluminum/Magnesium Susp 30 Ml Udc) 30 ml PO Q6H PRN PRN Reason: Dyspepsia Stop: 07/06/21 18:39 Amlodipine Besylate (Amlodipine Besylate 5 Mg Tab) 5 mg PO QAM [facility] Stop: 07/11/21 08:59 Last Admin: 06/21/21 08:40 Dose: 5 mg Documented by: Aspirin (Aspirin 81 Mg Ectab) 81 mg PO HS [facility] Stop: 07/03/21 20:59 Last Admin: 06/14/21 20:00 Dose: 81 mg Documented by: Bisacodyl (Bisacodyl 10 Mg Supp) 10 mg KS DAILY PRN PRN Reason: Constipation Stop: 07/06/21 18:39 Cyclobenzaprine HCl (Cyclobenzaprine Hcl 5 Mg Tab) 5 mg PO BID PRN PRN Reason: spasm Stop: 07/03/21 20:03 Last Admin: 06/19/21 08:54 Dose: 5 mg Documented by: Dextrose (Dextrose 50% 50 Ml Syringe) 25 - 50 ml IV UD PRN; Protocol PRN Reason: Hypoglycemia Protocol Stop: 07/03/21 20:03 Famotidine (Famotidine 20 Mg Tab) 20 mg PO Q12H PRN PRN Reason: Dyspepsia Stop: 07/06/21 18:39 Finasteride (Finasteride 5 Mg Tab) 5 mg PO DAILY [facility] Stop: 07/04/21 08:59 Last Admin: 06/21/21 08:40 Dose: 5 mg Documented by: Furosemide (Furosemide 20 Mg Tab) 20 mg PO QAM [facility] Stop: 07/12/21 10:44 Last Admin: 06/21/21 08:40 Dose: 20 mg Documented by: Gabapentin (Gabapentin 300 Mg Cap) 300 mg PO TID [facility] Stop: 07/13/21 20:59 Last Admin: 06/21/21 08:40 Dose: 300 mg Documented by: Gemfibrozil (Gemfibrozil 600 Mg Tab) 600 mg PO BID [facility] Stop: 07/03/21 20:59 Last Admin: 06/21/21 08:40 Dose: 600 mg Documented by: Glucagon (Glucagon For Inj 1 Mg Vial) 1 mg SQ UD PRN; Protocol PRN Reason: Hypoglycemia Protocol Stop: 07/03/21 20:03 Glucose (Glucose 10 Tabs/Tube) 4 - 8 tabs PO UD PRN; Protocol PRN Reason: Hypoglycemia Protocol Stop: 07/03/21 20:03 Glucose (Glucose 40% Gel 15 Gm Tube) 15 - 30 gm PO UD PRN; Protocol PRN Reason: Hypoglycemia Protocol Stop: 07/03/21 20:03 Hydroxyzine HCl (Hydroxyzine Hcl 25 Mg Tab) 25 mg PO Q6H PRN PRN Reason: Anxiety Stop: 07/06/21 18:39 Last Admin: 06/19/21 07:37 Dose: 25 mg Documented by: Promethazine HCl 12.5 mg/ (Sodium Chloride) 50.5 mls @ 202 mls/hr IV Q6H PRN PRN Reason: Nausea &/or Vomiting Stop: 07/06/21 18:39 Iron Sucrose 300 mg/ Sodium (Chloride) 265 mls @ 176.667 mls/hr IV DAILY [facility] Stop: 06/22/21 10:29 Last Admin: 06/21/21 11:23 Dose: 176.7 mls/hr Documented by: Influenza Virus Vaccine Quadrival (Do Not Administer Flu Vaccine) 1 ea N/A PRN PRN PRN Reason: Notification Stop: 07/06/21 18:39 Insulin Aspart (Insulin Aspart Per Unit) 0 units SC ACHS [facility] Stop: 07/06/21 11:59 Last Admin: 06/21/21 09:02 Dose: 10 units Documented by: Insulin Glargine (Insulin Glargine Solostar 100 Units/Ml 3 Ml Pen) 20 units SQ DAILY [facility] Stop: 07/21/21 08:59 Last Admin: 06/21/21 09:03 Dose: 20 units Documented by: Levothyroxine Sodium (Levothyroxine Sodium 50 Mcg Tablet) 50 mcg PO DAILYBB [facility] Stop: 07/04/21 06:29 Last Admin: 06/21/21 05:14 Dose: 50 mcg Documented by: Lidocaine (Lidocaine 5% 1 Patch) 1 patch TD QAM [facility] Stop: 07/03/21 20:03 Last Admin: 06/21/21 08:36 Dose: Not Given Documented by: Magnesium Hydroxide (Magnesium Hydroxide Susp 30 Ml Udc) 30 ml PO Q24H PRN PRN Reason: Constipation Stop: 07/06/21 18:39 Last Admin: 06/17/21 12:47 Dose: 30 ml Documented by: Metoclopramide HCl (Metoclopramide Hcl Inj 5 Mg/Ml 2 Ml Vial) 10 mg IV Q6H PRN PRN Reason: Nausea &/or Vomiting Stop: 07/06/21 18:39 Metoprolol Succinate (Metoprolol Succ 25mg Ext Rel Tab) 25 mg PO [facility] Stop: 07/03/21 20:59 Last Admin: 06/20/21 20:24 Dose: 25 mg Documented by: Miconazole Nitrate (Miconazole Nitrate Powder 43 Gm) 1 appln EXT BID [facility] Stop: 07/04/21 00:29 Last Admin: 06/21/21 08:36 Dose: 1 appln Documented by: Miscellaneous (Carbohydrates For Hypoglycemia ) 15 - 30 gm PO UD PRN PRN Reason: Hypoglycemia Protocol Stop: 07/03/21 20:03 Miscellaneous (Remove Lidoderm Patch) 1 ea N/A DAILY@2100 [facility] Stop: 07/03/21 20:59 Last Admin: 06/20/21 20:25 Dose: Not Given Documented by: Miscellaneous Information (Pharmacy Glycemic Mgmt Consult) 1 ea N/A UD PRN PRN Reason: Consult Stop: 07/09/21 08:51 Naloxone HCl (Naloxone Hcl 0.4 Mg/1 Ml Vial/Carp) 0.1 mg IV Q5M PRN PRN Reason: Oversedation/Resp depression Stop: 07/06/21 18:39 Ondansetron HCl (Ondansetron Inj 2 Mg/Ml 2 Ml Vial) 4 mg IV Q6H PRN PRN Reason: Nausea &/or Vomiting Stop: 07/06/21 18:39 Last Admin: 06/15/21 11:49 Dose: 4 mg Documented by: Ondansetron HCl (Ondansetron 4 Mg Od Tab) 4 mg PO Q6H PRN PRN Reason: Nausea Stop: 07/06/21 18:39 Pantoprazole Sodium (Pantoprazole 40 Mg Tab) 40 mg PO QAM [facility] Stop: 07/20/21 12:44 Last Admin: 06/21/21 08:40 Dose: 40 mg Documented by: Pneumococcal Polyvalent Vaccine (Do Not Administer Pneumococcal Vaccine) 1 ea N/A PRN PRN PRN Reason: Notification Stop: 07/06/21 18:39 Polyethylene Glycol (Polyethylene (Miralax) 17 Gm Pack) 17 gm PO DAILY [facility] Stop: 07/19/21 13:59 Last Admin: 06/21/21 08:40 Dose: Not Given Documented by: Senna/Docusate Sodium (Docusate Sodium/Senna 50/8.6mg Tab) 2 tab PO HS [facility] Stop: 07/14/21 20:59 Last Admin: 06/20/21 20:24 Dose: 2 tab Documented by: Sodium Biphosphate/Sodium Phosphate (Sod Phosphate/Sod Biphosphate Enema 132 Ml Btl) 132 ml KS ONE PRN PRN Reason: Constipation Stop: 07/06/21 18:39 Last Admin: 06/19/21 17:38 Dose: 132 ml Documented by: Tamsulosin HCl (Tamsulosin Hcl 0.4 Mg Cap) 0.4 mg PO DAILY [facility] Stop: 07/04/21 08:59 Last Admin: 06/21/21 08:40 Dose: 0.4 mg Documented by: Tramadol HCl (Tramadol Hcl 50 Mg Tablet) 50 - 100 mg PO Q4H PRN PRN Reason: Moderate-Severe pain & Pre PT Stop: 07/06/21 18:39 Venlafaxine HCl (Venlafaxine Hcl Xr 150 Mg Capxr) 150 mg PO DAILY [facility] Stop: 07/04/21 08:59 Last Admin: 06/21/21 08:40 Dose: 150 mg Documented by:
[2021-06-21] MEDS: traMADol HCL 50 MG TABLET PO PRN (16:33)
[2021-06-21] MEDS: DOCUSATE SODIUM/SENNA 50/8.6MG TAB PO SCH (20:40)
[2021-06-21] MEDS: METOPROLOL SUCC 25MG EXT REL TAB PO SCH (20:40)
[2021-06-22] MEDS: ACETAMINOPHEN 500 MG TAB PO SCH ×2 (05:42→13:41)
[2021-06-22] MEDS: LEVOTHYROXINE SODIUM 50 MCG TABLET PO SCH (05:42)
[2021-06-22 08:14] LABS: Hematocrit (blood only) 23.9 % (42-52); Hemoglobin 7.7 g/dL (14.0-18.0)
[2021-06-22] MEDS: FINASTERIDE 5 MG TAB PO SCH (08:28)
[2021-06-22] MEDS: CYCLOBENZAPRINE HCL 5 MG TAB PO PRN (08:28)
[2021-06-22] MEDS: TAMSULOSIN HCL 0.4 MG CAP PO SCH (08:28)
[2021-06-22] MEDS: PANTOprazole 40 MG TAB PO SCH (08:31)
[2021-06-22] MEDS: gemfibroziL 600 MG TAB PO SCH (08:31)
[2021-06-22] MEDS: FUROSEMIDE 20 MG TAB PO SCH (08:31)
[2021-06-22] MEDS: GABAPENTIN 300 MG CAP PO SCH ×2 (08:31→13:42)
[2021-06-22] MEDS: VENLAFAXINE HCL XR 150 MG CAPXR PO SCH (08:32)
[2021-06-22] MEDS: POLYETHYLENE (MIRALAX) 17 GM PACK PO SCH (08:32)
[2021-06-22] MEDS: LIDOCAINE 5% 1 PATCH TD SCH (08:33)
[2021-06-22] MEDS: MICONAZOLE NITRATE POWDER 43 GM EXT SCH (08:36)
[2021-06-22] MEDS: INSULIN GLARGINE SOLOSTAR 100 UNITS/ML 3 ML PEN SQ SCH (08:36)
[2021-06-22] MEDS: INSULIN ASPART PER UNIT SC SCH ×2 (08:57→12:43)
[2021-06-22] MEDS: traMADol HCL 50 MG TABLET PO PRN (10:20)
[2021-06-22] MEDS: IRON SUCROSE 300 MG in SODIUM CHLORIDE 0.9% 250 ML IV SCH (10:27)
--- NOTE | 2021-06-22 10:33 | Discharge Summary ---
Date of Service June 22, 2021 Admission HPI Per Admitting Provider 81 year old male who presented to the ED from home with back pain and weakness. Patient was here in the ED on 05/22 for back pain which developed after he fell down while trying to help his go to the bathroom. His lumbar CT was negative and he was discharged to [facility] from where he was discharged 2 days back. He arrived home 4 pm. He then had worsening back pain along with weakness and basically sitting on the couch. He was intermittently confused likely from the pain medications. Brought to ED as unable to take care of at home. No new falls. Has back with bilateral sciatica. No numbness, weakness, tingling of extremities. No perineal paresthesia or bowel bladder incontinence. No fever or chills. No other issues. In the ED, he was afebrile and hemodynamically stable. Given iv morphine and pain relatively controlled. Looks dry. No other issues. Admission Exam Per Admitting Provider General: Elderly male, lying comfortably in bed, not in acute distress, on room air HEENT: EOMI, MARY, dry oral mucosa Chest: Clear breath sounds bilaterally, no wheezes or crackles CVS: Regular rate and rhythm, normal heart sounds, no murmur Abdomen: Soft, non tender, not distended, normal bowel sounds Neuro: Awake, alert, orientedx3, conversing well, non focal Extremities: No cyanosis, clubbing or edema, RLE with erythema and epithelial loss bilaterally with some bulla on left leg, tender to touch Principal Diagnosis HERMELINDO - resolved L4 Burst Fracture s/p lumbar decompression fusion and kyphoplasty of L4 Ambulatory dysfunction Anemia 2/2 surgical blood loss, daily phlebotomy and iron deficiency, s/p transfusion PRBC x 6 units and IV venofer x 3 doses Adjustment disorder - improving Right Renal Lesion Discharge Exam Gen: Morbidly obese, WD/WN, NAD, A&O x3, pale, sitting up in bed HEENT: Normocephalic, atraumatic, conjunctivae moist, sclerae anicteric, mucous membranes moist. Lung: Clear to Auscultation bilaterally, no wheezes/rales/rhonchi Heart: Regular rate, regular rhythm, no murmurs, rubs, or gallops Abdomen: Soft, NT, ND +BS x 4 Extremities: trace b/l lower ext edema Skin: Warm, no rash, negative turgor. Discharge Data Allergies Allergy/AdvReac Type Severity Reaction Status Date / Time No Known Allergies Allergy Verified 06/06/21 12:16 Consultations 06/03/21 16:41 ED Decision to Admit Stat 06/04/21 13:08 Consult Orthopedic Surgery Routine 06/05/21 08:00 Consult Urology Routine (1) Renal lesion: Patient has been admitted on the hospitalist service primarily secondary to his back issues related to his recent fall. The renal lesion appears to have been found incidentally on lumbar spine CT scan. Concerning type patient's right renal lesion rg with the patient that he may require additional dedicated imaging of his kidneys to further delineate what this could potentially be. At the time of my interview with the patient he was greatly reluctant to undergo further imaging at this time. We will plan on discussing this with him further once his acute issues have been addressed further. 06/05/21 09:06 Consult Nephrology Routine 1) Anemia: Plan: ongoing, significant iron deficiency anemia despite 5 units pRBC this admissoin hgb lowest was 6.3 and today /last 4 days at 7.2; iron stores low; FOBT+; retic count showing appropriate bone marrow response. may need further work up. other blood lines ok >iron stores very low > had iron load venofer 200 mg 06/19; will continue load > venofer 300 mg daily x 3 ordered other anemia w/u per primary service as indicated WILL SIGN OFF Pls call if ? NEPHRO DISCHARGE RECS -d/c on low dose lasix, low dose metoprolol -check bmp w/ PCP within 2 weeks of hospital discharge -HOSPITAL DISCHARGE appt with [facility] neph[facility] group closest to his home within 4 wks of hospital d/c (2) Volume overload: Plan: new hypoxia needing 02nc earlier this admission, though has been on RA for several days now; relatively new edema past 4-6 wks prior to admission needing start of diuretics mid april > vol status acceptable now and lung crackles resolved, repeat CXR 06/18 clear > continue lasix 20 mg daily, started 06/12 (3) Acute on chronic renal failure: Plan: since 09/2020, creatinine has run 1.2-1.3. Then in April 2021 has been more in 1.3-1.5 range until the very end of April (during his stay at rehab hospital) when it started a rapid uptick to peak at 2.5 on 06/01. His creatinine was 2.1 on 06/03 presentation and has slowly trended down to hit baseline only today. chemistries ok; mild volume overload persists and cause is unclear. no evidence of NS (200 mg proteinuria); consider cardiorenal syndrome - BP - amlodipine increased to 5 mg; also on lasix, BB > cont same . - Hold acei -avoid nsaids (4) Lumbar burst fracture: Plan: Status post OR June 06 (5) Renal lesion: Plan: for OP f/u and imaging w/ urology if he agrees to this 06/13/21 10:39 Consult Psychiatry Routine Adjustment disorder with mixed anxiety and depressed mood: (2) Lumbar burst fracture: -Continue Effexor XR 150mg qd -Consider addition of Vistaril 25mg q6H prn for anxiety; if started discontinue benadryl to reduce QTc prolongation risk and anticholinergic effects -Encourage ongoing efforts to optimize pain management -Psych liason to continue providing support through check-ins 06/20/21 08:04 Consult Gastroenterology Routine (1) Anemia: (2) Heme positive stool: Pt is a 81 yo male w hx of CKD III and recent back surgery seen for normoc ytic anemia, heme positive stools w/o jessica s/s of GI bleeding. Last BM noted to be black/brown in colon, hard stools. He reports having constipation, likely related to anesthesia, narcotic uses and decreased mobility. No retroperitoneal hematoma on CT. Hx of colonoscopy last done in 2016, w prior finding of adenomatous colon polyps and diverticulosis. Suspect anemia related to chronic disease and surgery. - Monitor blood ct and transfuse prn - PPI daily - Defer repeat endoscopic eval, though would consider EGD if he has hematemesis/melena. With his current deconditioned status, and decreased mobility after his back surgery, he's unlikely able to prep adequately for colonoscopy. Consider outpt EGD and colonoscopy evals in 8 week's time - Pls recall GI prn Procedures Performed Operation Date: 06/06/21 12:25 Actual Procedures p L3-S1 Posterior Decompression Fusion (Not Applicable) - Felix Castellanos DO s L4 Kyphoplasty(Not Applicable) - Felix Castellanos, DO Ordered Studies Chest X-Ray 06/03/21 14:28 XR chest 1V portable HISTORY: SEPSIS COMPARISON: Chest 05/22/2021. FINDINGS: There are low lung volumes. No pneumothorax. No pleural effusions. The heart remains mildly enlarged. There is mild central pulmonary vascular congestion without overt edema. This remains unchanged. No new focal lung consolidations to suggest pneumonia. A few small linear density at the lung bases favor subsegmental atelectasis. Incidental note is made of a small right azygos lobe. IMPRESSION: No change in the cardiomegaly with mild pulmonary vascular congestion. ACT 112: Negative or not required by law. Electronically signed by: Obdulio Augustin M.D. 06/03/2021 4:48 PM Chest X-Ray 06/04/21 00:13 SINGLE VIEW CHEST CLINICAL HISTORY: Hypoxia FINDINGS: An AP, portable, upright chest radiograph is compared to study dated 06/03/2021. The examination is degraded by portable technique and patient rotation. The heart is enlarged noting atherosclerotic calcification of the thoracic aorta. There is pulmonary vascular congestion. There are low lung volumes. Atelectasis is noted at the lung bases. No airspace consolidation typical for pneumonia or large pleural effusion is identified. No pneumothorax is seen. The skeletal structures are osteopenic. The bony thorax is grossly intact. IMPRESSION: 1. Cardiomegaly with pulmonary vascular congestion. 2. Low lung volumes. ACT 112: Negative or not required by law. Electronically signed by: Bradley Cox M.D. 06/04/2021 7:[address] 06/04/21 14:48 CT SCAN OF THE LUMBAR SPINE WITHOUT IV CONTRAST CLINICAL HISTORY: Low back pain. COMPARISON STUDY: CT of the lumbar spine dated 05/22/2021. TECHNIQUE: CT scan of the lumbar spine is performed from the lower thoracic spine to sacrum. Images are reviewed in the axial, sagittal, and coronal planes. IV contrast was not administered for this examination. A dose lowering technique was utilized adhering to the principles of ALARA. CT DOSE: 1168.43 mGy.cm FINDINGS: The skeletal structures are osteopenic. There is an acute to subacute burst type compression fracture of L4 with moderate loss of height. Fracture involves both the anterior and posterior cortex, and also extends into the right pedicle as seen on axial image #261. Fragments are retropulsed by up to 5 mm. No additional fracture is seen involving the lumbar spine. Vertebral body height is otherwise maintained. The transverse and spinous processes are intact. Anterior and lateral marginal osteophytes are seen throughout. No lytic or blastic lesion is identified. There is mild multilevel degenerative disc space narrowing with multilevel vacuum phenomenon. The visualized sacrum and bony pelvis appear intact. Degenerative change is noted in the sacroiliac joints. Paravertebral edema is noted at L4. There is fatty atrophy of the paraspinous musculature. The abdominal aorta is normal in caliber noting advanced atherosclerotic calcification. There is a 2.5 cm indeterminant right renal lesion seen on image #115. Simple cyst in the left kidney measure up to 2.4 cm. IMPRESSION: 1. There is an acute to subacute burst type compression fracture of L4 with moderate loss of height and retropulsed fragments. 2. Fracture extends into the right pedicle of L4. 3. No additional acute fracture is seen involving the lumbar spine. 4. Osteopenia and spondylotic change as above. 5. There is a 2.5 cm indeterminant right renal lesion which does not meet criteria for a simple cyst. Although this could represent a complex cyst, nonemergent follow-up with urology is recommended as is a contrast enhanced renal protocol CT for further assessment and to exclude underlying neoplasm. ACT 112: Negative or not required by law. Electronically signed by: Bradley Cox M.D. 06/04/2021 3:43 PM Renal Ultrasound 06/05/21 09:06 ULTRASOUND KIDNEYS AND BLADDER CLINICAL HISTORY: Acute renal insufficiency. COMPARISON STUDY: Lumbar spine CT dated 06/04/2021. TECHNIQUE: Real-time, grayscale, and color flow sonography of the kidneys and bladder is performed. Images are reviewed in the transverse and longitudinal planes. FINDINGS: Kidneys: The kidneys demonstrate mild cortical atrophy. Echotexture is normal. The right kidney measures 11.6 x 5.9 x 5.1 cm and the left kidney measures 12.4 x 5.3 x 5.5 cm. There is no hydronephrosis. No shadowing renal calculi are identified. A 2.7 cm partially exophytic cyst arises from the left lower pole. A 2.6 cm cyst is noted in the lower pole of the left kidney. There is no sonographic evidence of solid Mass lesion. No perinephric fluid is identified. Bladder: The bladder is partially distended. The wall appears mildly thickened and trabeculated suggesting chronic outlet obstruction. Bilateral ureteral jets were seen. IMPRESSION: 1. The kidneys demonstrate mild cortical atrophy and are without hydronephrosis. 2. There are bilateral renal cysts, which includes the indeterminant right renal lesion seen on yesterday's lumbar spine CT. 3. There is no sonographic evidence of solid renal mass lesion. 4. The appearance of the bladder suggests the sequelae of chronic outlet obstruction. ACT 112: Negative or not required by law. Electronically signed by: Bradley Cox M.D. 06/05/2021 11:24 AM Lumbar Spine X-Ray 06/06/21 12:25 FL lumbar spine 2-3V CLINICAL HISTORY: L3-S1 DFI L4 KYPHOPLASTY TECHNIQUE: 4 views were obtained with the C-arm in the OR with the above procedure. Total fluoroscopy time was 30.9 seconds. Total skin dose was 271.86 mGy. Comparison: Comparison is made to CT lumbar spine 06/04/2021 FINDINGS/IMPRESSION: Intraoperative images were obtained of L3-S1 discectomy and fusion with L4 kyphoplasty. Please correlate with intraoperative fluoroscopy and operative report. ACT 112: Negative or not required by law. Electronically signed by: Vitaly Crowder M.D. 06/06/2021 4:31 PM Liver Ultrasound 06/11/21 16:29 ABDOMINAL ULTRASOUND, RIGHT UPPER QUADRANT HISTORY: Elevated LFT. Assess liver. COMPARISON: Renal ultrasound 06/05/2021. FINDINGS: Pancreas: The pancreatic head and tail are obscured by overlying bowel gas. The remaining portions of the pancreas are within normal limits. Liver: Not well visualized due to the patient's body habitus. 20 cm length. Gallbladder: No gallbladder wall thickening. There appear to be a few small gallstones. Negative sonographic Fall sign. CBD: 4 mm. Right kidney: No hydronephrosis. IMPRESSION: 1. Cholelithiasis. 2. Normal caliber common bile duct. 3. Hepatomegaly. ACT 112: Negative or not required by law. Electronically signed by: Obdulio Augustin M.D. 06/12/2021 8:22 AM Abdomen Ultrasound 06/15/21 14:27 ULTRASOUND ASCITES CHECK CLINICAL HISTORY: Assess for abdominal ascites/fluid/hemorrhage. COMPARISON STUDY: Abdominal ultrasound dated 06/11/2021. FINDINGS: Real-time grayscale sonography of all 4 quadrants of the abdomen is performed to assess for free fluid. No free fluid is seen in the abdomen or pelvis. IMPRESSION: No free fluid is identified in the abdomen or pelvis. Electronically signed by: Bradley Cox M.D. 06/16/2021 7:52 AM Abdomen/Pelvis CT 06/17/21 11:42 CT OF THE ABDOMEN AND PELVIS WITHOUT CONTRAST CLINICAL HISTORY: Anemia, r/o blood loss COMPARISON STUDY: Abdominal ultrasound June 15, 2021. TECHNIQUE: Axial images of the abdomen and pelvis were obtained without IV contrast. Images were reviewed in the axial, sagittal, and coronal planes. Automated exposure control was utilized for the study. A dose lowering technique was utilized adhering to the principles of ALARA. FINDINGS: Trace right pleural effusion is noted. Subpleural opacity reflects atelectasis. Evaluation of the abdomen and pelvis compromised given lack of contrast and body wall contacting the gantry with resultant artifact. Unenhanced images of liver, adrenal glands and pancreas are unremarkable. There are gallstones within the gallbladder. There is no pericholecystic infiltration. Bilateral renal lesions were shown to reflect cysts on prior renal ultrasound. No evidence for a bowel obstruction. Retroperitoneal collaterals are present. No hemoperitoneum is present. No retroperitoneal hematoma is identified. No lymphadenopathy is present. There is no ascites. Postoperative findings within the lumbosacral spine are better depicted on the lumbar spine CT which will be reported separately. L4 fracture status post kyphoplasty is also better shown on that examination. Spleen is mildly enlarged. IMPRESSION: 1. No retroperitoneal hematoma. No hemoperitoneum. 2. No bowel obstruction. 3. Cholelithiasis. 4. Postoperative findings within the lumbosacral spine which are better depicted on the lumbar spine CT. Please see that report for further discussion. 5. Trace right pleural effusion. Subpleural opacity which reflects atelectasis. ACT 112: Negative or not required by law. Electronically signed by: Mello Mccarthy M.D. 06/17/2021 12:[address] 06/17/21 11:[address] DOSE: 5152.67 mGy.cm HISTORY: post op, right leg weakness TECHNIQUE: Multiaxial CT images of the lumbar spine were performed and reformatted in the sagittal and coronal plane without the use of contrast. A dose lowering technique was utilized adhering to the principles of ALARA. COMPARISON: CT lumbar spine 06/04/2021. FINDINGS: The patient is status post kyphoplasty of the L4 burst fracture. No change in the moderate loss of height at the L4 level. There is also interval posterior decompression and fusion from L3 through S1 with pedicle screws and rods. The hardware appears intact. An L5-S1 disc spacers in place. No fractures identified within the sacrum. A small amount of the cement extends into the right paravertebral soft tissues at the L4 level. No change in the 5 mm retropulsed fragment at the L4 level. Central canal narrowing at this level has improved status post decompression. Fluid/edema and a small focus of gas at the laminectomy sites which is expected given the recent postoperative change. No paravertebral hematoma identified. IMPRESSION: 1. Status post L4 kyphoplasty. No change in the moderate loss of height at L4 or 5 mm retropulsed fragment. 2. Improvement in the central canal narrowing at the L4 level status post decompression and fusion from L3 through S1. 3. Small amount of gas and fluid/edema at the laminectomy sites which is expected given the recent postoperative change. ACT 112: Negative or not required by law. Electronically signed by: Obdulio Augustin M.D. 06/17/2021 12:52 PM Chest X-Ray 06/18/21 14:25 XR chest 1V portable HISTORY: lung crackles, weakness> ck volume status COMPARISON: Chest 06/04/2021. FINDINGS: There are low lung volumes, unchanged. The heart remains mildly enlarged. There is mild central pulmonary vascular congestion without overt edema. This is improved the interval. Small linear density at the right medial lung base favors subsegmental atelectasis or scarring. Otherwise, no new focal lung consolidations identified. No definite pneumothorax. No pleural effusions. IMPRESSION: Mild pulmonary vascular congestion has improved. Stable cardiomegaly. ACT 112: Negative or not required by law. Electronically signed by: Obdulio Augustin M.D. 06/18/2021 3:03 PM Diabetes Follow up A1c on 06/10/2021 was 5.9 Hospital Course (1) HERMELINDO (acute kidney injury): (2) Elevated CK: (3) Diabetes: This is a 81-year-old male who has significant past medical history of T2DM, HTN, HLD, ALMA, hypothyroidism, morbid obesity, GERD, BPH, CKD stage III who pr esented to the ED on 06/03/2021 from home secondary to back pain and weakness. He fell several days prior to admission helping his go to the bathroom. Initially he was seen in ED on 05/[address] was negative. He was then discharged to [facility] and then discharged home. When he arrived home his back pain became worse along with weakness. On admission he was found to have an HERMELINDO with a creatinine at 2.06 and elevated CK. Repeat lumbar spine CT revealed an acute to subacute burst type compression fracture of L4 with moderate loss of height and retropulsed fragments. Also noted was a 2.5 cm indeterminate right renal lesion which recommended further work-up. He was seen and evaluated by orthopedics and surgical intervention was warranted. On 06/06 he underwent lumbar decompression and fusion L3-S1 along with kyphoplasty of L4 vertebral body. He did have significant blood loss during procedure at 1000 mL. He further was seen and evaluated by nephrology secondary to HERMELINDO. His home dose lisinopril and Lasix were held. He received IV fluids initially as it was felt to be prerenal. His hospital course was complicated by acute blood loss anemia secondary to surgery, daily phlebotomy and iron deficiency anemia. He did require a total of 6 units PRBC transfusion. Nephrology also initiated IV Venofer x3. His iron studies revealed iron 37, TIBC 255, TSAT 15%, ferritin 82 with a normal folic acid and elevated B12 level. His hemoglobin on day of discharge was stable at 7.7. He was on aspirin prehospital and this has been held due to anemia. It is recommended to continue to hold aspirin until hemoglobin further improves and stabilizes. He also underwent GI evaluation due to a positive fecal occult blood test. It was felt to be secondary to possible constipation and he was started on pantoprazole 40 mg daily. It is recommended he undergo colonoscopy and further evaluation in 8 weeks. There was no evidence of active GI bleeding. On day of discharge patient creatinine improved to 1.2. He was restarted on lisinopril and his Lasix was increased to every day as opposed to 3 times a week due to evidence of volume overload throughout admission. On day of discharge patient was hemodynamically stable. He remains deconditioned secondary to prolonged hospitalization as well as recent lumbar surgery. He will be transferred to [facility] for further acute rehab. He is tolerating diet and moving his bowels. All questions were answered prior to discharge. Total Time Total Time Spent Total Time Spent (In Minutes): 60 minutes Discharge Plan Discharge Items Patient Disposition: Transfer Inpatient Rehab Fac Reason For Visit: HERMELINDO Discharge Diagnosis: HERMELINDO - resolved L4 Burst Fracture s/p lumbar decompression fusion and kyphoplasty of L4 Ambulatory dysfunction Anemia 2/2 surgical blood loss, daily phlebotomy and iron deficiency, s/p transfusion PRBC x 6 units and IV venofer x 3 doses Adjustment disorder - improving Right Renal Lesion Condition on Discharge: Fair Activity: Per Instructions section Bathing: Keep incision dry Driving/Machine Use: No driving until cleared by Dr. Castellanos Weightbearing: Full weightbearing Non-emergency contact: Primary Care Provider and Surgeon Call non-emergency contact if: you have any medication questions, your symptoms worsen, your pain is not controlled, your pain is worsening, your pain is unusual for you, your pain is concerning for you, you have a fever and your temperature is above 101.5 Follow-up/Referrals: Nikki George MD, PhD [Physician] - (Please f/u with nephrology at [facility] within 4 weeks of discharge) Tru Callahan MD [Primary Care Provider] - Diet: Carb Consistent or DM2 and Heart Healthy Addtl Attending Provider Instructions: MEDICATION CHANGES: Your aspirin was stopped due to anemia. Please continue to stop this medication until hemoglobin stabilizes. Lasix was increased from 3 times a week, to every day due to swelling in your legs. Pantoprazole 40 mg once daily for GI protection. Senna 2 tablets daily for constipation, hold if stool is loose. Continue all other medications as prescribed. PENDING TEST RESULTS: None RECOMMENDATIONS FOR FOLLOW-UP: Repeat CBC and BMP in 3 days. Your Aspirin has been stopped due to Anemia. Would recommend resuming aspirin once your hemoglobin has remained stable. This can be decided by your Primary Care Provider. Avoid medications that are harmful to your kidneys, especially anti inflammatories. Anti inflammatory medications include ibuprofen, motrin, aleve, naproxen, naprosyn or advil. You may use Tylenol for pain 500mg every 6 hours as needed. Recommend avoiding narcotic pain medications as much as possible. Daily weights. If you gain more than 2lb in one day or 5lb in one week contact your Primary Care Provider. Last A1C was 5.9 on 06/10/21. Recommend resuming your outpatient medication regimen as prescribed. Hemoglobin on day of discharge was 7.7. Recommend follow-up with primary care provider once discharged from acute rehab. On admission you were incidentally found to have a 2.5 cm right renal lesion. It is recommended you have further dedicated imaging of kidneys to further delineate what lesion is. Recommend follow-up with PCP as outpatient and establish with urology for further evaluation. Recommend follow-up with gastroenterology for endoscopy and colonoscopy in 8 weeks. Follow up with Nephrology at [facility] in 4 weeks of hospital discharge. OTHER INSTRUCTIONS: Seek medical attention if you have: * temperature above 101 * chest pain or trouble breathing * abdominal pain, nausea, vomiting * diarrhea, dark stools or bloody stools * any unanswered questions or concerns Call 911 if symptoms are severe. Please take good care of yourself. It has been a pleasure taking care of you. Please take care of yourself. If you have any questions regarding your recent hospitalization please contact [facility] and request [facility] @ [phone]. Leah Landry PA-C Addtl Patent [employer] Provider Instructions: ACTIVITY RECOMMENDATIONS: SELF CARE INSTRUCTIONS AFTER THORACIC/LUMBAR FUSIONS 1. You may walk to your tolerance. It is good exercise for your legs and back. Expect some back and intermittent leg aches and pains. 2. You may perform "counter-top" level activities (make a sandwich, rebecca with a project, etc.). 3. No bending or lifting of more than 10 pounds or back twisting of any nature (roll like a log when turning in bed). 4. You may ride in a car for 20-30 minutes at a time. No driving until after your first visit with your doctor. 5. Frequent changes of position and restricting sitting to 30 minutes at a time will help limit the amount of back spasms and stiffness you may experience. 6. You may discontinue the use of ambulatory aids (cane, crutches, etc.) once your strength and confidence allow. 7. You may sales and leasing agent the shower and let water strike your incision when you arrive home at least once daily. Do not take a tub bath, sit in a hot tub or go into a swimming pool until after your first recheck in the office. SPECIAL CARE INSTRUCTIONS: VERY IMPORTANT TO READ AND REVIEW A. Your surgical incision has been closed with a cosmetic suture under the skin that will dissolve in about 6 weeks. In 14 days, you can use a pair of clean scissors and cut the suture that is left outside of the skin at the ends of your incision. 1. The small skin tapes can be removed 7 days after surgery if they have not fallen off by that point. 2. You may keep the wound open to air as much as possible to promote healing after post-op day number 5 unless told otherwise by your doctor. 3. If you think the wound looks like it is becoming infected (redness or worsening drainage) and/or you are experiencing fever, chill or worsening back pain and muscle spasms, contact the office so that we may evaluate you as soon as possible. B. Complications are uncommon, but please contact us if you have any signs or symptoms of: 1. wound infection (fever higher than 102.5 degrees F, redness, separation of wound, drainage, or increasing pain from the incision) 2. blood clots in legs (pain, swelling, redness and warmth in legs) 3. urinary tract infection (fever higher than 102.5 degrees F, burning upon urination or increased frequency of urination) 4. nerve problems (inability to walk on your toes or heels, numbness, loss of bowel or bladder control) 5. any other symptoms that concern you C. Please call the office at if you have any concerns or questions about your operation or recovery. D. No smoking! Smoking drastically decreases the chance of a solid fusion. E. Do not take any anti-inflammatory medications (Indocin, Advil, Motrin, Aspirin, Naprosyn, etc.) as these may inhibit the chance of a solid fusion. Tylenol is okay to take for pain. MANAGING PAIN AFTER SPINAL SURGERY 1. Narcotic medication is intended for short-term use and will be provided for surgical pain. Surgical pain usually lasts for a period of 4-6 weeks. Narcotic medication includes Percocet, Vicodin, Darvocet, Tylenol #3 or Lortab. 2. Longer-term pain is more appropriately treated with non-narcotic medication such as Tylenol ES. 3. Muscle spasm is not appropriately treated with narcotics. Muscle relaxers such as Soma, Flexeril or Skelaxin can be used along with Tylenol ES. 4. Remember that we all live with some "aches and pains". This is not unusual or uncommon after an injury or as we get older. a. Back pain is expected and may include muscle spasms for 4 to 6 weeks after surgery. The pain should gradually improve. If the pain worsens for no apparent reason, please contact the office. b. Intermittent leg pain may also be experienced and should not be concerned about unless it worsens for no apparent reason. If so, please contact the office. 5. We will provide appropriate medication within the normal guidelines of their prescribed use. We will also be very cautious and aware of potential abuse and extended duration of patients' medication needs. a. Pain medications are for your comfort and to assist with sleep and rest so that the tissue can heal. They are not provided in order to return to normal activity and should not be used through the day. To do so or worsening pain at night can result from ongoing tissue damage and development of tolerance to the prescribed medicine. 6. Please allow 2-3 days to process refills. Prescriptions will not be mailed but must be picked up at the office. FOLLOW UP VISIT: Keep your scheduled follow-up appointment. Any questions, please call the office at . Pending Studies at Discharge: No Stand-Alone Forms: My [facility] Skilled Items Patient informed of condition?: Yes DNR: No Discharge Level of Care: Acute rehab Communicable Disease: No Discharge Prognosis: Improving Lines: None Urinary Catheter: No Medications and DC Order Prescriptions: New sennosides-docusate sodium [Senokot-S] 8.6-50 mg Tablet 2 tab PO HS Qty: 30 RF: 0 Desenex 2 % Powder 1 applic EXT BID Qty: 43 RF: 0 pantoprazole 40 mg Tablet,Delayed Release (Dr/Ec) 40 mg PO QAM Qty: 30 RF: 0 furosemide 20 mg Tablet 20 mg PO QAM Qty: 30 RF: 0 tramadol 50 mg Tablet 50 mg PO Q4H PRN (Reason: pain) Qty: 30 RF: 0 Continued finasteride 5 mg tablet 5 mg PO DAILY Qty: 90 RF: 3 tamsulosin 0.4 mg capsule 0.4 mg PO DAILY Qty: 90 RF: 0 gemfibrozil 600 mg tablet 600 mg PO BID RF: 0 gabapentin 300 mg capsule 300 mg PO BID RF: 0 glipizide 5 mg tablet 5 mg PO .DAILY@NOON RF: 0 levothyroxine 50 mcg capsule 50 mcg PO DAILYBB RF: 0 Lantus Solostar U-100 Insulin 100 unit/mL (3 mL) insulin pen 12 units SQ HS RF: 0 lisinopril 5 mg tablet 5 mg PO QDD RF: 0 PreserVision AREDS-2 [id number] tw-lxfk-[id number]-mg Capsule 1 tab PO BID RF: 0 metoprolol succinate 25 mg tablet extended release 24 hr 25 mg PO HS RF: 0 venlafaxine 150 mg capsule,extended release 24hr 150 mg PO .DAILY@NOON RF: 0 Discontinued aspirin [Adult Aspirin Regimen] 81 mg tablet,delayed release (DR/EC) 81 mg PO HS RF: 0 furosemide 20 mg tablet 20 mg PO 3XWK RF: 0 oxycodone 5 mg tablet 10 mg PO Q6H PRN (Reason: Pain) RF: 0 Discharge Orders: Discharge Order (Routine); Ordered 06/22/21 Ordered By: Leah Landry Admission Data Admit Date/Time: 06/03/21 18:16 Attending Provider: Wilber Higgins Admit Provider: Zachary Lara Primary Care Provider: Tru Callahan Other Providers: [facility] ; Zachary Lara ; Felix Castellanos ; Landry Au ; Ja Zimmerman ; Osiris Acharya ; Evi Camacho ; Debra Murry ; Leah Landry ; Mere Bazan
[2021-06-22] MEDS ORDERED: lisinopril 5 MG TAB PO SCH (16:30)
== END 2021-06-22 16:25 | DRG 454 ==
LOC: ED 13:32 → SUATTDRO 18:16 → 3E 18:16

== ENCOUNTER 2021-07-05 10:36 | Inpatient (IN) ==
--- NOTE | 2021-07-05 10:45 | Emergency Department Note ---
Impression & Plan Acute dehydration, Anemia, Hypoxemia, Acute confusion ED Provider Note NAME: SYLVIA FUENTES AGE: 81 SEX: M : 1940 ARRIVES VIA: Ambulance INFORMANT: Patient, ED PROVIDER(S): Tone Clemons MD Chief Complaint: Weakness, hypoxemia, AMS HPI: Patient was recently discharged on June 22. The patient had presented to the emergency department from home with back pain and weakness. The patient patient did have some hypoxia upon presentation at his last admission. Patient did have a lumbar burst fracture status postoperative repair on June 06. Patient did have heme positive stool. Colonoscopy in 2017 with prior polyp. No retroperitoneal hematoma on the patient's last CAT scan. Patient did have a posterior decompression fusion L4 kyphoplasty completed on June 06, 2021. Patient presents today due to concern for decreased responsiveness agitation not eating as well. Patient's BSG was in the 130s and was borderline hypoxic with an oxygen in the high 80s. Patient states he does have some mild pain in the right knee and does feel generally weak. ROS: See HPI for pertinent positives and negatives. A total of 10 systems were reviewed and otherwise negative. Past medical history: See below Surgical history: See below Social history: See below Physical Exam: GENERAL: Ill in appearance wearing a mask nasal cannula in place. EYE EXAM: Normal conjunctiva. PERRL, no anisocoria and EOM's grossly intact w/o pain. OROPHARYNX: Dry mucous membranes. Slightly poor dentition. NECK: Supple, no nuchal rigidity, no adenopathy, non-tender. No signs of meningismus. FROM of the neck with good chin to chest and neck extension. No stridor. LUNGS: Clear to auscultation. Normal chest wall mechanics. HEART: NSR, no MRG. ABDOMEN: Abdomen soft, non-tender, normo-active bowel sounds, no masses, no rebound or guarding. BACK: No CVA TTP. Midline lower lumbar incisional site is well-appearing. No surrounding erythema or crepitus. SKIN: No rashes and no bruising. No obvious breakdown to the sacral area. UPPER EXTREMITIES: Upper extremities are grossly normal. LOWER EXTREMITIES: Grossly normal, no edema. NEURO EXAM: Opens eyes to voice and follows basic commands oriented to person and date of , symmetrically weak extremities throughout. Differential diagnoses: Infection, dehydration, metabolic abnormality, hypo/hyperglycemia, electrolyte disturbance, anemia, hypoxia, cardiac sources, intracerebral event, toxicologic, neurologic, as well as other pathologies. Course: Patient was seen and evaluated the bedside. Full history physical exam was performed. EKG interpreted by me Normal sinus rhythm, rate of 88, motion artifact inferiorly, no obvious ST elevations. Normal axis. Imaging Studies: See Below Cardiac monitoring: An order was placed for continuous cardiac monitoring. The monitor shows a rate of 82 with sinus rhythm. MDM: Patient was seen due to concern for intermittent responsiveness as well as hypoxemia. The patient is arousable and did answer my brief questions appropriately. The patient is able to follow commands move all 4 extremities but is generalized weak. Patient was ordered IV fluids empiric antibiotics and blood work along with urinalysis urine culture and blood cultures. Patient is a normal white count with mild anemia at 9.1 and this is improved compared to prior. The patient's platelet count is unremarkable. The patient's kidney function is at virtual baseline with a creat of 1.4. The patient does have a borderline elevated high-sensitivity troponin at 23. Patient's Pro-Smith is not elevated. Patient's COVID is negative. Chest x-ray showed possibility of concern for pulmonary edema but the patient does not have signs of volume overload believe the patient is clinically dry. Given the patient's constellation of symptoms I did speak with the on-call hospitalist Lauren Velazquez PA-C and the patient was admitted by Dr. Lara. I did inform the patient's daughter of the findings and the patient was admitted to the medicine service. Patient's urinalysis was pending at the time of admission. Critical Care: I have personally spent 37 minutes of critical care time in direct management of this patient. This includes bedside care, interpretation of diagnostic studies, and testing, discussion with consultants, patient, and family members, and other require inpatient management activities. This 37 minutes is in excess of all separately billable procedures. Past Med/Surg History Medical History Acute on chronic renal failure Arthritis Depression Diabetes mellitus, type 2 IDDM Dysuria Hearing disorder right ear hearing loss History of kidney stones Hyperlipidemia Hypertension Hypothyroidism Macular degeneration, age related Morbid obesity Sleep apnea does not use CPAP Spinal stenosis of lumbar region Vertigo Surgical History Hx of colonoscopy Hx of non-cataract eye surgery Hx of right cataract extraction Hx of tonsillectomy Family History Son Family history of diabetes mellitus Social History Smoking Status: Never smoker Tobacco Type: Cigarettes Second Hand Exposure: No; Do You Dip or Chew Tobacco: No; Tobacco Cessation Education Requested by Patient: No Hx Alcohol Use: No Hx Substance Use: No Preferred Language: Montserratian Communication Ability: Effective Charter Representative Required: No Beliefs That Will Affect Care: None marital status: Current Living Situation: Rehab Current Living Situation Comment: [facility] Other Information That Helps Us Care for You: No Feels Safe at Home: Yes Safety Concerns: Feels Safe At This Time Assistive Devices: Walker Allergies Allergies Allergy/AdvReac Type Severity Reaction Status Date / Time No Known Allergies Allergy Verified 07/05/21 13:09 Home Meds Home Medications Medication Instructions Recorded Confirmed gabapentin 300 mg capsule 300 mg PO BID 12/04/18 07/05/21 gemfibrozil 600 mg tablet 600 mg PO BIDM 12/04/18 07/05/21 insulin glargine 100 unit/mL (3 8 units SQ HS ml 12/04/18 07/05/21 mL) subcutaneous pen (Lantus Solostar U-100 Insulin) levothyroxine 50 mcg capsule 50 mcg PO DAILYBB 12/04/18 07/05/21 vit C 250 mg-vit E 90 mg-zinc 40 1 tab PO BID 12/18/18 07/05/21 mg-copper 1 na-egaypz-jcayjn capsule (PreserVision AREDS-2) metoprolol succinate 25 mg 25 mg PO HS 04/09/19 07/05/21 tablet,extended release 24 hr venlafaxine 150 mg 150 mg PO QDL 05/22/21 07/05/21 capsule,extended release 24 hr acetaminophen 325 mg tablet 650 mg PO Q4H PRN 07/05/21 07/05/21 amlodipine 10 mg tablet 10 mg PO QAM 07/05/21 07/05/21 ceftriaxone 1 gram solution for 1 g IM QAM 07/05/21 07/05/21 injection docusate sodium 100 mg capsule 100 mg PO BID 07/05/21 07/05/21 (Colace) enoxaparin 40 mg/0.4 mL 40 mg SUBCUT HS 07/05/21 07/05/21 subcutaneous syringe (Lovenox) finasteride 5 mg tablet 5 mg PO QAM 07/05/21 07/05/21 hydralazine 25 mg tablet 25 mg PO TID PRN 07/05/21 07/05/21 magnesium hydroxide 400 mg/5 mL 30 ml PO DAILY PRN 07/05/21 07/05/21 oral suspension (Milk of Magnesia) mupirocin 2 % topical ointment 1 applic TOPICAL BID 07/05/21 07/05/21 nystatin 100,000 unit/gram topical 1 applic TOPICAL BID 07/05/21 07/05/21 powder ondansetron 4 mg disintegrating 4 mg PO Q6H PRN 07/05/21 07/05/21 tablet pantoprazole 40 mg tablet,delayed 40 mg PO DAILYBB 07/05/21 07/05/21 release polyethylene glycol 3350 17 17 g PO QDL PRN 07/05/21 07/05/21 gram/dose oral powder (Miralax) tamsulosin 0.4 mg capsule 0.4 mg PO QDD 07/05/21 07/05/21 Previous Rx's Medication Instructions Recorded sennosides 8.6 mg-docusate sodium 2 tab PO HS #30 tab 06/22/21 50 mg tablet (Senokot-S) tramadol 50 mg tablet 50 mg PO Q4H PRN #30 tab 06/22/21 Results & Data (ED) Vital Signs Vital Signs - 24 hr 07/05/21 10:58 07/05/21 11:07 07/05/21 11:13 Temperature 37.1 C 37.1 C Temperature Source Axillary Axillary Pulse Rate 87 Pulse Rate [Right Finger] 80 Pulse Rhythm Regular Pulse Rhythm [Right Finger] Regular Pulse Strength Normal Pulse Strength [Right Finger] Normal Respiratory Rate 18 19 Respiratory Effort / Characteristics Non-Labored Spontaneous Non-Labored Spontaneous Non-Labored Spontaneous Respiratory Depth Normal Normal Blood Pressure 142/113 H Blood Pressure [Right Arm] 143/113 H Blood Pressure Mean 122 Blood Pressure Mean [Right Arm] 123 Blood Pressure Position Lying Blood Pressure Position [Right Arm] Lying Pulse Oximetry 100 100 100 Oxygen Delivery Method Room Air Room Air Room Air Oxygen Flow Rate Sepsis Recent Fever Within 48 Hours No Sepsis New/Unexplained Change in Mental Status No Sepsis Action Taken by Nursing No Action Required 07/05/21 11:54 07/05/21 11:57 07/05/21 13:00 Temperature Temperature Source Pulse Rate 87 Pulse Rate [Right Finger] 81 81 Pulse Rhythm Regular Pulse Rhythm [Right Finger] Regular Pulse Strength Pulse Strength [Right Finger] Normal Respiratory Rate 24 25 H 24 Respiratory Effort / Characteristics Non-Labored Spontaneous Non-Labored Spontaneous Respiratory Depth Normal Normal Blood Pressure Blood Pressure [Right Arm] Blood Pressure Mean Blood Pressure Mean [Right Arm] Blood Pressure Position Blood Pressure Position [Right Arm] Lying Pulse Oximetry 99 92 97 Oxygen Delivery Method Room Air Room Air Nasal Cannula Oxygen Flow Rate 2 Sepsis Recent Fever Within 48 Hours Sepsis New/Unexplained Change in Mental Status Sepsis Action Taken by Correction Medications Current Medication List: was personally reviewed by me Laboratory Data Attestation: I reviewed the patient's lab results. Result diagrams: 07/05/21 11:20 07/05/21 11:20 Lab Results 07/05/21 07/05/21 07/05/21 Range/Units 10:58 11:10 11:20 WBC (4.8-10.8) K/uL RBC (4.7-6.1) M/uL Hgb (14.0-18.0) g/dL Hct (42-52) % MCV (80-100) fL MCH (25-34) pg MCHC (32-36) g/dL RDW Std Deviation (36.4-46.3) fL RDW Coeff of Sumaya (11.5-14.5) % Plt Count (130-400) K/uL MPV (7.4-10.4) fL Immature Gran % (Auto) % Neut % (Auto) % Lymph % (Auto) % Blanco % (Auto) % Eos % (Auto) % Baso % (Auto) % Neut # (Auto) (1.4-6.5) K/uL Lymph # (Auto) (1.2-3.4) K/uL Blanco # (Auto) (0.11-0.59) K/uL Eos # (Auto) (0-0.5) K/uL Baso # (Auto) (0-0.2) K/uL Immature Gran # (Auto) (0.00-0.02) K/uL PT (9.0-12.0) Seconds INR (0.9-1.1) APTT (21.0-31.0) Seconds PTT Ratio Sodium (136-145) mmol/L Potassium (3.5-5.1) mmol/L Chloride (98-107) mmol/L Carbon Dioxide (21-32) mmol/L Anion Gap (3-11) BUN (6-23) mg/dl Creatinine (0.6-1.4) mg/dl Est Cr Clr Drug Dosing ml/min Est GFR ( Amer) ml/min Est GFR (Non-Af Amer) ml/min BUN/Creatinine Ratio (10-20) Glucose (70-99(Fasting)) mg/dl POC Glucose 99 (70-99) mg/dl Lactate (0.4-2.0) mmol/L Calcium (8.5-10.1) mg/dl Magnesium (1.7-2.4) mg/dl Total Bilirubin (0.2-1.0) mg/dl AST (13-39) U/L ALT (7-52) U/L Alkaline Phosphatase (34-104) U/L Troponin I High Sens 23.1 H (0-20) pg/ml Total Protein (6.0-8.3) gm/dl Albumin (3.4-5.0) gm/dl Globulin (2.5-4.0) gm/dl Albumin/Globulin Ratio (0.9-2) Procalcitonin (0-0.5) ng/ml SARS-CoV-2, RNA, NAAT NEGATIVE (NEGATIVE) 07/05/21 07/05/21 07/05/21 Range/Units 11:20 11:20 11:20 WBC 4.98 (4.8-10.8) K/uL RBC 2.99 L (4.7-6.1) M/uL Hgb 9.1 L (14.0-18.0) g/dL Hct 29.2 L (42-52) % MCV 97.7 (80-100) fL MCH 30.4 (25-34) pg MCHC 31.2 L (32-36) g/dL RDW Std Deviation 60.4 H (36.4-46.3) fL RDW Coeff of Sumaya 16.9 H (11.5-14.5) % Plt Count 238 (130-400) K/uL MPV 9.3 (7.4-10.4) fL Immature Gran % (Auto) 0.4 % Neut % (Auto) 75.5 % Lymph % (Auto) 14.7 % Blanco % (Auto) 7.0 % Eos % (Auto) 2.2 % Baso % (Auto) 0.2 % Neut # (Auto) 3.76 (1.4-6.5) K/uL Lymph # (Auto) 0.73 L (1.2-3.4) K/uL Blanco # (Auto) 0.35 (0.11-0.59) K/uL Eos # (Auto) 0.11 (0-0.5) K/uL Baso # (Auto) 0.01 (0-0.2) K/uL Immature Gran # (Auto) 0.02 (0.00-0.02) K/uL PT 16.7 H (9.0-12.0) Seconds INR 1.6 H (0.9-1.1) APTT 35.9 H (21.0-31.0) Seconds PTT Ratio 1.3 Sodium 145 (136-145) mmol/L Potassium 3.7 (3.5-5.1) mmol/L Chloride 107 (98-107) mmol/L Carbon Dioxide 30 (21-32) mmol/L Anion Gap 8 (3-11) BUN 25 H (6-23) mg/dl Creatinine 1.42 H (0.6-1.4) mg/dl Est Cr Clr Drug Dosing 56.6 ml/min Est GFR ( Amer) 52.6 ml/min Est GFR (Non-Af Amer) 45.4 ml/min BUN/Creatinine Ratio 17.6 (10-20) Glucose 92 (70-99(Fasting)) mg/dl POC Glucose (70-99) mg/dl Lactate (0.4-2.0) mmol/L Calcium 9.0 (8.5-10.1) mg/dl Magnesium 2.2 (1.7-2.4) mg/dl Total Bilirubin 0.6 (0.2-1.0) mg/dl AST 39 (13-39) U/L ALT 11 (7-52) U/L Alkaline Phosphatase 254 H (34-104) U/L Troponin I High Sens (0-20) pg/ml Total Protein 6.7 (6.0-8.3) gm/dl Albumin 3.0 L (3.4-5.0) gm/dl Globulin 3.7 (2.5-4.0) gm/dl Albumin/Globulin Ratio 0.8 L (0.9-2) Procalcitonin (0-0.5) ng/ml SARS-CoV-2, RNA, NAAT (NEGATIVE) 07/05/21 07/05/21 Range/Units 11:20 11:20 WBC (4.8-10.8) K/uL RBC (4.7-6.1) M/uL Hgb (14.0-18.0) g/dL Hct (42-52) % MCV (80-100) fL MCH (25-34) pg MCHC (32-36) g/dL RDW Std Deviation (36.4-46.3) fL RDW Coeff of Sumaya (11.5-14.5) % Plt Count (130-400) K/uL MPV (7.4-10.4) fL Immature Gran % (Auto) % Neut % (Auto) % Lymph % (Auto) % Blanco % (Auto) % Eos % (Auto) % Baso % (Auto) % Neut # (Auto) (1.4-6.5) K/uL Lymph # (Auto) (1.2-3.4) K/uL Blanco # (Auto) (0.11-0.59) K/uL Eos # (Auto) (0-0.5) K/uL Baso # (Auto) (0-0.2) K/uL Immature Gran # (Auto) (0.00-0.02) K/uL PT (9.0-12.0) Seconds INR (0.9-1.1) APTT (21.0-31.0) Seconds PTT Ratio Sodium (136-145) mmol/L Potassium (3.5-5.1) mmol/L Chloride (98-107) mmol/L Carbon Dioxide (21-32) mmol/L Anion Gap (3-11) BUN (6-23) mg/dl Creatinine (0.6-1.4) mg/dl Est Cr Clr Drug Dosing ml/min Est GFR ( Amer) ml/min Est GFR (Non-Af Amer) ml/min BUN/Creatinine Ratio (10-20) Glucose (70-99(Fasting)) mg/dl POC Glucose (70-99) mg/dl Lactate 0.9 (0.4-2.0) mmol/L Calcium (8.5-10.1) mg/dl Magnesium (1.7-2.4) mg/dl Total Bilirubin (0.2-1.0) mg/dl AST (13-39) U/L ALT (7-52) U/L Alkaline Phosphatase (34-104) U/L Troponin I High Sens (0-20) pg/ml Total Protein (6.0-8.3) gm/dl Albumin (3.4-5.0) gm/dl Globulin (2.5-4.0) gm/dl Albumin/Globulin Ratio (0.9-2) Procalcitonin 0.16 (0-0.5) ng/ml SARS-CoV-2, RNA, NAAT (NEGATIVE) Administered Medications Acetaminophen (Acetaminophen 500 Mg Tab) 1,000 mg PO Q8H [facility] Stop: 08/04/21 14:59 Last Admin: 07/05/21 17:11 Dose: 1,000 mg Documented by: [id number] Sodium Chloride (Nss 1000ml) 1,000 mls @ 80 mls/hr IV .[id number] WILBER Stop: 07/06/21 16:36 Last Admin: 07/05/21 16:26 Dose: 80 mls/hr Documented by: [id number] Discontinued Medications Amlodipine Besylate (Amlodipine Besylate 5 Mg Tab) 10 mg PO NOW ONE Stop: 07/05/21 16:23 Last Admin: 07/05/21 17:11 Dose: 10 mg Documented by: [id number] Sodium Chloride (Nss 1000ml) 1,000 mls @ 999 mls/hr IV .[id number] [facility] Stop: 07/05/21 12:00 Last Infusion: 07/05/21 15:58 Dose: 0 mls/hr Documented by: [id number] Admin: 07/05/21 12:33 Dose: 999 mls/hr Documented by: [id number] Piperacillin Sod/Tazobactam Sod (Zosyn) 4.5 gm in 120 mls @ 240 mls/hr IV NOW ONE Stop: 07/05/21 11:26 Last Infusion: 07/05/21 12:33 Dose: 0 mls/hr Documented by: [id number] Admin: 07/05/21 11:55 Dose: 240 mls/hr Documented by: [id number] Ioversol (Optiray 320 100ml) 94 ml IV ONCE ONE Stop: 07/05/21 16:18 Last Admin: 07/05/21 16:17 Dose: 94 ml Documented by: [id number] Imaging Data Radiologist's Impression: Chest X-Ray 07/05/21 10:57 XR chest 1V portable CLINICAL HISTORY: SEPSIS TECHNIQUE: Single frontal radiograph of the chest was obtained. Comparison: Comparison is made to chest one view 06/18/2021 FINDINGS: No lines and tubes are seen. The cardiomediastinal silhouette is stable. Lungs are underinflated. There is prominence of the pulmonary vasculature. No evidence of pleural effusion or pneumothorax. IMPRESSION: Mild pulmonary edema. ACT 112: Negative or not required by law. Electronically signed by: Vitaly Crowder M.D. 07/05/2021 12:[address] 07/05/21 10:57 CT head/brain wo con CLINICAL HISTORY: agitation, intermittent confusion Technique: Contiguous axial CT images of the head were acquired from the base of the skull to the vertex without intravenous contrast administration. Images were viewed in brain, subdural and bone windows. Automated dose lowering techniques and/or adjustment according to patient size were utilized for this exam. Comparison: Comparison is made to CT head 09/24/2013 Findings: The ventricles, basal cisterns, and cerebral sulci are normal. There is no acute intracranial hemorrhage or evidence of acute territorial infarction. Neither mass effect, shift of the midline structures, nor abnormal extra-axial fluid collections are shown. Imaged portions of the paranasal sinuses and mastoid air cells are clear. The orbits appear normal. There are no acute fractures of the calvaria or scalp swelling. Impression: No acute intracranial hemorrhage, no evidence of acute territorial infarction or other acute intracranial disease process. ACT 112: Negative or not required by law. Electronically signed by: Vitaly Crowder M.D. 07/05/2021 12:35 PM Discharge Plan Visit Data Chief Complaint: Altered Mental Status Stated Complaint: AMS ED Provider: Tone Clemons Discharge Problem: Acute dehydration, Anemia, Hypoxemia, Acute confusion Patient Disposition: Admitted As Inpatient Discharge Instructions Interventions: ED Discharge Assessment Last Done: 07/05/21 14:08
[2021-07-05] MEDS ORDERED: PIPERACILL/TAZOBAC CONSULT ACTIVE PRN ×2 (10:57→19:04)
[2021-07-05] MEDS ORDERED: PIPERACILLIN/TAZOBACTAM 4.5 GM/120 ML BAG IV ONE (10:57)
[2021-07-05] MEDS ORDERED: SODIUM CHLORIDE 0.9% 1000ML 1,000 ML IV SCH (11:00)
[2021-07-05 11:35] LABS: Basophils # (auto) 0.01 K/uL (0-0.2); Basophils % (auto) 0.2 %; Eosinophils # (auto) 0.11 K/uL (0-0.5); Eosinophils % (auto) 2.2 %; Hematocrit (blood only) 29.2 % (42-52); Hemoglobin 9.1 g/dL (14.0-18.0); Immature Granulocytes # (auto) 0.02 K/uL (0.00-0.02); Immature Granulocytes % (auto) 0.4 %; Lymphocytes # (auto) 0.73 K/uL (1.2-3.4); Lymphocytes % (auto) 14.7 %; Mean Corpuscular Hemoglobin 30.4 pg (25-34); Mean Corpuscular Hgb Conc 31.2 g/dL (32-36); Mean Corpuscular Volume 97.7 fL (80-100); Mean Platelet Volume 9.3 fL (7.4-10.4); Monocytes # (auto) 0.35 K/uL (0.11-0.59); Neutrophils # (auto) 3.76 K/uL (1.4-6.5); Neutrophils % (auto) 75.5 %; Platelet Count 238 K/uL (130-400); RDW Coefficient of Variation 16.9 % (11.5-14.5); RDW Standard Deviation 60.4 fL (36.4-46.3); Red Blood Count 2.99 M/uL (4.7-6.1); White Blood Count 4.98 K/uL (4.8-10.8)
[2021-07-05 11:45] LABS: INR 1.6 (0.9-1.1); Partial Thromboplastin Ratio 1.3; Partial Thromboplastin Time 35.9 Seconds (21.0-31.0); Prothrombin Time 16.7 Seconds (9.0-12.0)
[2021-07-05 11:57] LABS: Albumin Globulin Ratio 0.8 (0.9-2); BUN Creatinine Ratio 17.6 (10-20); Bilirubin,Total 0.6 mg/dl (0.2-1.0); Creatinine Clr Calc Pharmacy 56.6 ml/min; Est GFR (African American) 52.6 ml/min; Est GFR (Non-African American) 45.4 ml/min; Globulin 3.7 gm/dl (2.5-4.0); Magnesium 2.2 mg/dl (1.7-2.4); Potassium 3.7 mmol/L (3.5-5.1); Total Protein 6.7 gm/dl (6.0-8.3)
--- NOTE | 2021-07-05 12:18 | XRay Report ---
XR chest 1V portable CLINICAL HISTORY: SEPSIS TECHNIQUE: Single frontal radiograph of the chest was obtained. Comparison: Comparison is made to chest one view 06/18/2021 FINDINGS: No lines and tubes are seen. The cardiomediastinal silhouette is stable. Lungs are underinflated. The re is prominence of the pulmonary vasculature. No evidence of pleural effusion or pneumothorax. IMPRESSION: Mild pulmonary edema. ACT 112: Negative or not required by law. Electronically signed by: Vitaly Crowder M.D. 07/05/2021 12:17 PM
--- NOTE | 2021-07-05 12:36 | CT Scan Report ---
CT head/brain wo con CLINICAL HISTORY: agitation, intermittent confusion Technique: Contiguous axial CT images of the head were acquired from the base of the skull to the marlene carl without intravenous contrast administration. Images were viewed in brain, subdural [facility]. Automated dose lowering techniques and/or adjustment according to patient size were utilized for this exam. Comparison: Comparison is made to CT head 09/24/2013 Findings: The ventricles, basal cisterns, and cerebral sulci are normal. There is no acute intracranial hemorrh age or evidence of acute territorial infarction. Neither mass effect, shift of the midline structures , nor abnormal extra-axial fluid collections are shown. Imaged portions of the paranasal sinuses and mastoid air cells are clear. The orbits appear normal. There are no acute fractures of the calvaria or scalp swelling. Impression: No acute intracranial hemorrhage, no evidence of acute territorial infarction or other acute intracra nial disease process. ACT 112: Negative or not required by law. Electronically signed by: Vitaly Crowder M.D. 07/05/2021 12:35 PM
--- NOTE | 2021-07-05 13:27 | History & Physical Report ---
Date of Service July 05, 2021 Assessment & Plan (1) AMS (altered mental status): Plan: This is a 81-year-old male who has significant past medical history of DM II, HTN, HLD, ALMA, hypothyroidism, morbid obesity, GERD, BPH, CKD III presents to ER for altered mental status for several days from [facility]. Reported possible UTI. Patient received dose of Rocephin at [facility] 07/04/21. In ER vitals stable. No leukocytosis, no significant electrolyte abnormality. Ammonia WNL. ABG unremarkable. Normal lactate CT Head: no acute changes DDX: metabolic encephalopathy. ?Underlying UTI vs medication side effect. R/O underlying infection - UTI, spinal infection In ER given Zosyn, 1L NSS UA pending Blood cultures pending CT lumbar spine pending to rule out infection Continue Zosyn Hold tramadol CBC, BMP in am Recent Lumbar Surgery History L4 burst fracture and had lumbosacral fusion on 06/06/[address] lumbar spine pending to r/o underlying infection Scheduled Tylenol for pain. Avoid narcotics at this time secondary to AMS CKD III Cr: 1.4. Baseline of 1.1-1.3. Recent HERMELINDO with Cr trending down to 1.3 on 06/21/21 HTN Previously on lisinopril and lasix at home, however is not on med rec from [facility] currently Continue amlodipine, metoprolol succinate Chronic anemia. Iron deficiency anemia. Recent acute on chronic anemia. Last admission received 6 units PRBCs, IV Venofer. Hgb 7.7 on 06/22/21. Has outpatient GI f/u for scope Hgb: 9.1 No reported melena, hematochezia. Is receiving Lovenox at [facility] Monitor H&H Nocturnal Hypoxia H/O ALMA Non complaint with CPAP 3L supplemental Oxygen at bedtime DM II A1c: 5.9 Previously was on glipizide at home Basal bolus insulin per protocol Adjustment disorder with mixed anxiety and depressed mood Continue Effexor Previously was on Vistaril 25 mg every 6 hours as needed for anxiety Hypothyroidism Continue Levothyroxine BPH on Proscar, Flomax DVT Prophylaxis Lovenox SQ Full Code as per discussion with pt's daughter Follows with Dr Callahan for routine care Pt was seen and care coordinated with Dr Lara. See addendum History of Present Illness Chief Complaint: Altered mental status Primary Care Provider: Tru Callahan MD This is a 81-year-old male who has significant past medical history of DM II, HTN, HLD, ALMA, hypothyroidism, morbid obesity, GERD, BPH, CKD III presents to ER for altered mental status from [facility] History obtained from patient's daughter and chart review. Patient with recent hospitalization 06/03/2021- 06/22/2021 for back pain, found to have L4 burst fracture and had lumbosacral fusion on 06/06/[address] Castellanos. During that hospitalization also had HERMELINDO on CKD III, acute on chronic anemia requiring 6 units PRBCs, IV Venofer x 3. Had positive fecal occult blood test and evaluated by GI and started on Protonix daily and outpatient EGD, colonoscopy is planned. Discharge Hgb of 7.7, and creatinine of 1.2. Lasix increased to daily and lisinopril was restarted. He was discharged to [facility]. Patient's daughter reports patient was doing well and was participating in physical therapy. Patient's daughter reports 5 days ago patient started with some confusion and was having visual hallucinations. Reports the past 3 days patient has been increasingly confused, lethargic, unable to get out of bed, unable to have conversation. Patient is on tramadol as needed for pain. Patient has been on Effexor since admission to [facility] per med rec list. Daughter states for past month patient has been having jerking movement of his body and feels no worsening has been noted. She reports flexeril was started secondary to leg cramps. She also thinks patient was started on Zyprexa on 07/03/21. She reports at rehab they suspected UTI and patient was given Rocephin 07/04/21 and 2L NSS. Today patient continues to be confused and was reported patient was swinging at staff and patient referred to ER. Denies any noted cough, vomiting, diarrhea, fevers, chills. Patient's daughter does report patient had decreased appetite and had not been eating or drinking well the past 5 days. Allergies Allergy/AdvReac Type Severity Reaction Status Date / Time No Known Allergies Allergy Verified 07/05/21 13:09 Home Medications Medication Instructions Recorded Confirmed Type gabapentin 300 mg capsule 300 mg PO BID 12/04/18 07/05/21 History gemfibrozil 600 mg tablet 600 mg PO BIDM 12/04/18 07/05/21 History insulin glargine 100 unit/mL (3 8 units SQ HS ml 12/04/18 07/05/21 History mL) subcutaneous pen (Lantus Solostar U-100 Insulin) levothyroxine 50 mcg capsule 50 mcg PO DAILYBB 12/04/18 07/05/21 History vit C 250 mg-vit E 90 mg-zinc 40 1 tab PO BID 12/18/18 07/05/21 History mg-copper 1 md-kpmftf-fmzjgl capsule (PreserVision AREDS-2) metoprolol succinate 25 mg 25 mg PO HS 04/09/19 07/05/21 History tablet,extended release 24 hr venlafaxine 150 mg 150 mg PO QDL 05/22/21 07/05/21 History capsule,extended release 24 hr sennosides 8.6 mg-docusate sodium 2 tab PO HS #30 tab 06/22/21 07/05/21 Rx 50 mg tablet (Senokot-S) tramadol 50 mg tablet 50 mg PO Q4H PRN #30 tab 06/22/21 07/05/21 Rx acetaminophen 325 mg tablet 650 mg PO Q4H PRN 07/05/21 07/05/21 History amlodipine 10 mg tablet 10 mg PO QAM 07/05/21 07/05/21 History ceftriaxone 1 gram solution for 1 g IM QAM 07/05/21 07/05/21 History injection docusate sodium 100 mg capsule 100 mg PO BID 07/05/21 07/05/21 History (Colace) enoxaparin 40 mg/0.4 mL 40 mg SUBCUT HS 07/05/21 07/05/21 History subcutaneous syringe (Lovenox) finasteride 5 mg tablet 5 mg PO QAM 07/05/21 07/05/21 History hydralazine 25 mg tablet 25 mg PO TID PRN 07/05/21 07/05/21 History magnesium hydroxide 400 mg/5 mL 30 ml PO DAILY PRN 07/05/21 07/05/21 History oral suspension (Milk of Magnesia) mupirocin 2 % topical ointment 1 applic TOPICAL BID 07/05/21 07/05/21 History nystatin 100,000 unit/gram topical 1 applic TOPICAL BID 07/05/21 07/05/21 History powder ondansetron 4 mg disintegrating 4 mg PO Q6H PRN 07/05/21 07/05/21 History tablet pantoprazole 40 mg tablet,delayed 40 mg PO DAILYBB 07/05/21 07/05/21 History release polyethylene glycol 3350 17 17 g PO QDL PRN 07/05/21 07/05/21 History gram/dose oral powder (Miralax) tamsulosin 0.4 mg capsule 0.4 mg PO QDD 07/05/21 07/05/21 History Past Med/Surg History Medical History Acute on chronic renal failure Arthritis Depression Diabetes mellitus, type 2 IDDM Dysuria Hearing disorder right ear hearing loss History of kidney stones Hyperlipidemia Hypertension Hypothyroidism Macular degeneration, age related Morbid obesity Sleep apnea does not use CPAP Spinal stenosis of lumbar region Vertigo Surgical History Hx of colonoscopy Hx of non-cataract eye surgery Hx of right cataract extraction Hx of tonsillectomy Family History Son Family history of diabetes mellitus Social History Smoking Status: Never smoker Tobacco Type: Cigarettes Second Hand Exposure: No; Do You Dip or Chew Tobacco: No; Tobacco Cessation Education Requested by Patient: No Hx Alcohol Use: No Hx Substance Use: No Preferred Language: Wolof Communication Ability: Effective 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: No Beliefs That Will Affect Care: None marital status: Current Living Situation: Rehab Current Living Situation Comment: [facility] re[facility] Other Information That Helps Us Care for You: No Feels Safe at Home: Yes Safety Concerns: Feels Safe At This Time Assistive Devices: Walker Review of Systems Review of Systems: Unobtainable due to cognitive status Physical Exam Physical Exam: General: no distress, overweight Head: normocephalic, atraumatic Eyes: PERRL, EOM's intact, conjunctiva non-injected, anicteric ENT: normal inspection external ears, nose, mucous membranes dry Neck: supple, trachea midline Lungs: no respiratory distress, diminished breath sounds throughout, no wheezing/rhonchi/rales CV: RRR, no murmur, no pretibial edema Abd: normal BS, soft, no apparent tenderness to palpation Back: incision appears to be healing, no erythema, discharge Ext: no cyanosis, no noted calf tenderness Neuro: Drowsy, awakens to voice, does not follow commands, mumbled speech, unable to test active ROM Skin: warm, dry Results & Data Results & Data ([facility]) Vital Signs (Past 12 Hours) Vital Signs Temp Pulse Pulse Resp BP BP Pulse Ox 07/05/21 13:00 81 24 97 07/05/21 11:57 81 25 H 92 07/05/21 11:54 87 24 99 07/05/21 11:13 100 07/05/21 11:07 37.1 C 80 19 143/113 H 100 07/05/21 10:58 37.1 C 87 18 142/113 H 100 Laboratory Results Short CBC 07/05/21 Range/Units 11:20 WBC 4.98 (4.8-10.8) K/uL Hgb 9.1 L (14.0-18.0) g/dL Hct 29.2 L (42-52) % Plt Count 238 (130-400) K/uL BMP 07/05/21 11:20 Sodium 145 Potassium 3.7 Chloride 107 Carbon Dioxide 30 BUN 25 H Creatinine 1.42 H Glucose 92 Calcium 9.0 Liver Function 07/05/21 Range/Units 11:20 Total Bilirubin 0.6 (0.2-1.0) mg/dl AST 39 (13-39) U/L ALT 11 (7-52) U/L Alkaline Phosphatase 254 H (34-104) U/L Albumin 3.0 L (3.4-5.0) gm/dl Diagnostic Findings Chest X-Ray 07/05/21 10:57 XR chest 1V portable CLINICAL HISTORY: SEPSIS TECHNIQUE: Single frontal radiograph of the chest was obtained. Comparison: Comparison is made to chest one view 06/18/2021 FINDINGS: No lines and tubes are seen. The cardiomediastinal silhouette is stable. Lungs are underinflated. There is prominence of the pulmonary vasculature. No evidence of pleural effusion or pneumothorax. IMPRESSION: Mild pulmonary edema. ACT 112: Negative or not required by law. Electronically signed by: Vitaly Crowder M.D. 07/05/2021 12:[address] 07/05/21 10:57 CT head/brain wo con CLINICAL HISTORY: agitation, intermittent confusion Technique: Contiguous axial CT images of the head were acquired from the base of the skull to the vertex without intravenous contrast administration. Images were viewed in brain, subdural and bone windows. Automated dose lowering techniques and/or adjustment according to patient size were utilized for this exam. Comparison: Comparison is made to CT head 09/24/2013 Findings: The ventricles, basal cisterns, and cerebral sulci are normal. There is no acute intracranial hemorrhage or evidence of acute territorial infarction. Neither mass effect, shift of the midline structures, nor abnormal extra-axial fluid collections are shown. Imaged portions of the paranasal sinuses and mastoid air cells are clear. The orbits appear normal. There are no acute fractures of the calvaria or scalp swelling. Impression: No acute intracranial hemorrhage, no evidence of acute territorial infarction or other acute intracranial disease process. ACT 112: Negative or not required by law. Electronically signed by: Vitaly Crowder M.D. 07/05/2021 12:35 PM Supervising Physician Co-Signing Physician Notes Patient was seen and examined independently by me at bedside, daughter present at bedside. I have reviewed the chart and discussed the case with Lauren DYER and agree with the documentation above. In summary, this is a 81 year old male who was recently admitted 06/03-06/22 to [facility] for L4 burst fracture with radiculopathy and s/p lumbosacral fusion by Dr Castellanos on 06/06 and discharged to [facility] rehab on 06/22 presented to the ED today from the rehab with altered mental status. Patient is AAOx2 during my encounter and answering questions appropriately, although speech is not entirely intelligible all the time and he keeps drowsing off in between the conversation. He is oriented to self. He knows that he is in ER of [facility] and that he came from the [facility] rehab for 'fainting' which per daughter meant dizziness. He thinks this is november 2020. He states he is not hallucinating today, but was yesterday. He currently denies any pain. He was observed to be having involuntary intermittent jerks throughout the encounter but Per daughter, this was ongoing even from the recent hospital stay and in the rehab too. Also states, he has been having good and bad days with delirium at recent hospital stay and in the rehab too, also having intermittent hallucinations seeing things. Also states he was on oxycodone during recent hospital stay but being managed with tramadol at the rehab. He was thought to have a panic attack at the rehab around 06/25 and was started on vistaril 25 mg q6hr prn. It seems vistaril was discontinued and started on zyprexa on 07/03. Also seems his effexor was resumed and flexeril prn was continued. Also thought to have UTI and started on rocephin around 07/03. He was sent to [facility] for encephalopathy for further work up. Denies any fever, chills, chest pain, shortness of breath, nausea, vomiting diarrhea. Stated he needed to have a bowel movement in the ED. Denied any issues or needs during my encounter and stated no pain but was noted to have severe pain in the back couple days back. Has ALMA but does not use CPAP. In the ED, he was afebrile, hemodynamically stable. He looks dry. 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 Has chronic skin abrasion of RLE but no cellulitis or edema. Abdomen benign, chest clear. Back incision healed, no overt signs of infection. Labs not significant, normal WBC, procal, ammonia. Electrolytes normal. Hb 9.1, improved from before (required 6 U PRBC during recent admission due to acute blood loss anemia from surgery). Cr 1.4 close to baseline of 1.3. LFTs with no transaminitis but elevated ALP as before. ABG with no hypoxia or hypercarbia. CT head with no acute abnormality. Trop minimally elevated but no chest pain, likely demand ischemia (repeat in am for completeness, get EKG, monitor on tele). Covid negative. CXR with mild pulm edema. Patient very claustrophobic and did not want any MRI at all. Unable to get MRI head or spine. Will get CT lumbar spine given recent worsening pain, if abnormal consult Dr Castellanos. Continue empiric antibiotics pending blood and urine clx. Gentle hydration but be cautious not to cause volume overload, as patient had issues with volume overload during recent admission. Very cautious use of narcotics, antipsychotics, sedatives etc and use only if absolutely necessary. Delirium precautions. PT/OT evaluation when able. Rest per the note above. Updated daughter at bedside and answered all her questions.
[2021-07-05] MEDS ORDERED: CONSULT PHARMACY STA (14:59)
[2021-07-05] MEDS ORDERED: GLUCOSE 10 TABS/TUBE PO PRN (15:37)
[2021-07-05] MEDS ORDERED: DEXTROSE 50% 50 ML SYRINGE IV PRN (15:37)
[2021-07-05] MEDS ORDERED: POLYETHYLENE (MIRALAX) 17 GM PACK PO PRN (15:37)
[2021-07-05] MEDS ORDERED: ONDANSETRON INJ 2 MG/ML 2 ML VIAL IV PRN (15:37)
[2021-07-05] MEDS ORDERED: CARBOHYDRATES FOR HYPOGLYCEMIA PO PRN (15:37)
[2021-07-05] MEDS ORDERED: GLUCOSE 40% GEL 15 GM TUBE PO PRN (15:37)
[2021-07-05] MEDS ORDERED: GLUCAGON FOR INJ 1 MG VIAL SQ PRN (15:37)
[2021-07-05] MEDS ORDERED: MAGNESIUM HYDROXIDE SUSP 30 ML UDC PO PRN (15:37)
[2021-07-05 15:45] LABS: Base Excess ABG 0.1 mEq/L (-9-1.8); HCO3 ABG 24 mmol/L (19-24); Oxygen Saturation ABG 94.5 % (90-95); PCO2 ABG 38 mmHg (35-46); PO2 ABG 96 mmHg (80-95); pH ABG 7.43 (7.35-7.45)
[2021-07-05 15:59] LABS: Allen Test Pos (Pos)
[2021-07-05] MEDS ORDERED: OPTIRAY 320 100ml IV ONE (16:17)
[2021-07-05] MEDS: SODIUM CHLORIDE 0.9% 1000ML 1,000 ML IV SCH (16:26)
--- NOTE | 2021-07-05 16:46 | CT Scan Report ---
CT lumbar spine w con HISTORY: 81 years-old Male recent surg. r/o infection acute severe low back pain COMPARISON: CT lumbar spine 06/17/2021, CT abdomen and pelvis 06/17/2021. TECHNIQUE: Multiple axial CT images of the lumbar spine were obtained following the intravenous admin istration of 94 mL Optiray 320. A dose lowering technique was used consistent with the principals of FRANCISCO. FINDINGS: Study is degraded by patient body habitus and motion artifact. There is atherosclerosis of the aorta. No acute intra-abdominal or intrapelvic abnormality identified. Hypodense left renal lesion redemons trated. Moderate L4 burst fracture with kyphoplasty and unchanged 5 mm retropulsion is redemonstrated . Prior laminectomy with posterior interbody fernando and screw fusion hardware is noted at the L3-S1 leve ls with L5-S1 discectomy. Fluid and edema within the posterior soft tissues are 2 postoperative gavin es. No discrete drainable fluid collection identified. Streak artifact from the hardware limits evalu ation of the adjacent tissues. Paravertebral edema at L4 redemonstrated. There is an acute fracture i nvolving the left L3 transverse process which is new from the prior study on image 45 of series 200. Moderate degree of lucency surrounds the bilateral L3 pedicle screws which is also new from the prior study. Paravertebral edema at L3. Multilevel bridging osteophytosis with moderate facet arthrosis. No additional acute fracture or subl uxation is identified. Partial bony fusion of the SI joints. Limited evaluation of the central canal and neural foramina secondary to the artifact as above. No definite high-grade central canal narrowin g identified. IMPRESSION: 1. Prior posterior decompression with interbody fernando and screw fusion at L3-L1 with L5-S1 discectomy. 2. There is new acute nondisplaced fracture of the left L3 transverse process. Prominent lucency surr ounds the bilateral L3 pedicle screws which is also new from the prior study and is suspicious for in fection. No evidence of discitis. 3. Unchanged appearance of the L4 burst fracture status post kyphoplasty. Unchanged 5 mm retropulsion . 4. Fluid and edema at the laminectomy site are likely expected postoperative changes. No postoperativ e fluid collection. ACT 112: Negative or not required by law. The above report was generated using voice recognition software. It may contain grammatical, syntax o r spelling errors. Electronically signed by: Mack Mead M.D. 07/05/2021 4:44 PM
[2021-07-05] MEDS: amLODIPine BESYLATE 5 MG TAB PO ONE ×2 (17:11→17:15)
[2021-07-05] MEDS: ACETAMINOPHEN 500 MG TAB PO SCH ×3 (17:11→23:30)
[2021-07-05] MEDS: INSULIN ASPART PER UNIT SC SCH ×2 (17:13→21:16)
[2021-07-05] MEDS: FINASTERIDE 5 MG TAB PO SCH (17:16)
[2021-07-05] MEDS: gemfibroziL 600 MG TAB PO SCH (17:16)
[2021-07-05] MEDS: TAMSULOSIN HCL 0.4 MG CAP PO SCH (17:16)
[2021-07-05] MEDS ORDERED: VANCOMYCIN CONSULT ACTIVE PRN (17:20)
[2021-07-05 17:25] LABS: Appearance Urine Clear (Clear); Bacteria Urine Automated Negative (Negative); Bilirubin Urine Negative (Negative); Blood Urine 1+ (Negative); Color Urine Yellow; Epithelial Cell Urine Auto >30 /lpf (0-5); Glucose Urine UA Negative (Negative); Ketones Urine Trace (Negative); Leukocyte Esterase Urine Negative (Negative); Nitrite Urine Negative (Negative); Protein Urine 1+ (Negative); Urobilinogen Urine Negative (Negative)
[2021-07-05] MEDS ORDERED: VANCOMYCIN HCL 1,000 MG in SODIUM CHLORIDE 0.9% 250 ML IV SCH (17:30)
[2021-07-05] MEDS ORDERED: VANCOMYCIN HCL 2,750 MG in SODIUM CHLORIDE 0.9% 500 ML IV ONE (17:30)
[2021-07-05 17:40] LABS: Renal Epithelial Cells Urine 0-5 /lpf (0-5)
[2021-07-05] MEDS: ENOXAPARIN INJ 40 MG/0.4 ML SYR SQ SCH (18:23)
--- NOTE | 2021-07-05 19:03 | Pharmacy Report ---
Pharmacy Vanc AUC Short Note - Date of Service July 05, 2021 - Assessment & Plan Assessment * 81 year old M receiving VANCOMYCIN + ZOSYN IV as empiric treatment for possible infection at site of recent spinal fusion surgery and also concern for possible UTI. * Relevant PMH: BMI > 35, CKD (baseline SCr ~1.2-1.3), T2DM, recent hospitalization for L4 burst fx s/p spinal fusion 06/06 * Pertinent microbiologic data includes: BLCX's and urine cx pending (of note, no pyuria present on UA) * CT lumbar spine report: " There is new acute nondisplaced fracture of the left L3 transverse process. Prominent lucency surrounds the bilateral L3 pedicle screws which is also new from the prior study and is suspicious for infection. No evidence of discitis" * Day # 1 of antimicrobial therapy. OF NOTE, ONLY 48 HRS OF EMPIRIC ABX THERAPY HAS BEEN ORDERED Plan Vancomycin * AUC/COLETTE is the preferred PK/PD target for vancomycin * AUC guided dosing is effective and associated with decreased risk of nephrotoxicity compared to traditional trough targets * Will provide 2750mg (~21mg/kg) IV loading dose x 1, then begin maint dose of 1500mg IV Q 24 hrs. This maint dose is expected to achieve a target AUC:COLETTE ratio of 400-600 with a predicted 11% risk of nephrotoxicity. First maint dose will be scheduled ~ 2 hrs early to achieve target sooner. * No drug level has been ordered as therapy is empiric for 48 hrs only. Zosyn: * eCrCl > 20, BMI > 35, 4.5gm EI Q 8 hrs indicated Pharmacy will continue to follow and will adjust dose/frequency as necessary. Thank you.
[2021-07-05] MEDS ORDERED: PIPERACILLIN/TAZOBACTAM 4.5 GM in DEXTROSE 5% 100 ML IV ONE (19:30)
[2021-07-05] MEDS: DOCUSATE SODIUM 100 MG CAP PO SCH (20:29)
[2021-07-05] MEDS: METOPROLOL SUCC 25MG EXT REL TAB PO SCH (20:29)
[2021-07-05] MEDS: DOCUSATE SODIUM/SENNA 50/8.6MG TAB PO SCH (20:30)
[2021-07-05] MEDS: GABAPENTIN 300 MG CAP PO SCH (20:30)
[2021-07-05] MEDS: MUPIROCIN 2% OINT 22 GM TUBE EXT SCH (20:32)
[2021-07-05] MEDS: INSULIN GLARGINE SOLOSTAR 100 UNITS/ML 3 ML PEN SC SCH (21:19)
[2021-07-06] MEDS: PIPERACILLIN/TAZOBACTAM 4.5 GM in DEXTROSE 5% 100 ML IV SCH ×3 (00:25→16:32)
[2021-07-06 00:51] LABS: Base Excess ABG 0.1 mEq/L (-9-1.8); HCO3 ABG 26 mmol/L (19-24); Oxygen Saturation ABG 97.5 % (90-95); PCO2 ABG 48 mmHg (35-46); PO2 ABG 101 mmHg (80-95); pH ABG 7.35 (7.35-7.45)
[2021-07-06 01:04] LABS: Allen Test Pos (Pos)
[2021-07-06] MEDS: SODIUM CHLORIDE 0.9% 1000ML 1,000 ML IV SCH (04:57)
[2021-07-06] MEDS: LEVOTHYROXINE SODIUM 50 MCG TABLET PO SCH (06:03)
[2021-07-06] MEDS: ACETAMINOPHEN 500 MG TAB PO SCH ×3 (06:03→21:03)
[2021-07-06] MEDS: PANTOprazole 40 MG TAB PO SCH (06:03)
[2021-07-06 08:02] LABS: Hematocrit (blood only) 28.1 % (42-52); Hemoglobin 8.7 g/dL (14.0-18.0); Mean Corpuscular Hemoglobin 30.7 pg (25-34); Mean Corpuscular Volume 99.3 fL (80-100); Mean Platelet Volume 9.3 fL (7.4-10.4); Platelet Count 226 K/uL (130-400); RDW Coefficient of Variation 16.8 % (11.5-14.5); RDW Standard Deviation 60.6 fL (36.4-46.3); Red Blood Count 2.83 M/uL (4.7-6.1); White Blood Count 4.56 K/uL (4.8-10.8)
[2021-07-06 08:36] LABS: Troponin I High Sensitivity 23.2 pg/ml (0-20)
[2021-07-06] MEDS: INSULIN ASPART PER UNIT SC SCH ×4 (08:55→20:53)
[2021-07-06] MEDS: FINASTERIDE 5 MG TAB PO SCH (09:03)
[2021-07-06] MEDS: DOCUSATE SODIUM 100 MG CAP PO SCH ×2 (09:03→20:47)
[2021-07-06] MEDS: amLODIPine BESYLATE 5 MG TAB PO SCH (09:03)
[2021-07-06] MEDS: gemfibroziL 600 MG TAB PO SCH ×2 (09:04→16:31)
[2021-07-06] MEDS: CEROVITE ADV FORMULA TAB PO SCH (09:04)
[2021-07-06] MEDS: MUPIROCIN 2% OINT 22 GM TUBE EXT SCH ×2 (09:05→20:50)
[2021-07-06] MEDS: GABAPENTIN 300 MG CAP PO SCH ×2 (09:06→20:48)
[2021-07-06] MEDS: VENLAFAXINE HCL XR 150 MG CAPXR PO SCH (11:55)
--- NOTE | 2021-07-06 13:39 | Hospitalist Progress Note ---
Date of Service July 06, 2021 Assessment & Plan (1) AMS (altered mental status): Plan: This is a 81-year-old male who has significant past medical history of DM II, HTN, HLD, ALMA, hypothyroidism, morbid obesity, GERD, BPH, CKD III presents to ER for altered mental status for several days from [facility]. Reported possible UTI. Patient received dose of Rocephin at [facility] 07/04/21. In ER vitals stable. No leukocytosis, no significant electrolyte abnormality. Ammonia WNL. ABG unremarkable. Normal lactate CT Head: no acute changes DDX: metabolic encephalopathy. ?Underlying UTI vs medication side effect. R/O underlying infection - UTI, spinal infection In ER given Zosyn, 1L NSS UA pending Blood cultures pending CT lumbar spine pending to rule out infection Continue Zosyn Hold tramadol CBC, BMP in am 07/06 patient is oriented x2-3 today, answers most questions appropriately Afebrile, blood cultures: Pending Urine culture: Pending Encephalopathy/delirium from Flexeril? Discussed with Dr. Castellanos, does not suspect lumbar spine infection at this point Recent Lumbar Surgery History L4 burst fracture and had lumbosacral fusion on 06/06/[address] lumbar spine: Noted Scheduled Tylenol for pain. Avoid narcotics at this time secondary to AMS CKD III Cr: 1.4. Baseline of 1.1-1.3. Recent HERMELINDO with Cr trending down to 1.3 on 06/21/21 At baseline HTN Previously on lisinopril and lasix at home, however is not on med rec from [facility] currently Continue amlodipine, metoprolol succinate Resume lisinopril Chronic anemia. Iron deficiency anemia. Recent acute on chronic anemia. Last admission received 6 units PRBCs, IV Venofer. Hgb 7.7 on 06/22/21. Has outpatient GI f/u for scope Hgb: 9.1 No reported melena, hematochezia. Is receiving Lovenox at [facility] 07/06: Hemoglobin 8.7 Nocturnal Hypoxia H/O ALMA Non complaint with CPAP 2L supplemental Oxygen at bedtime DM II A1c: 5.9 Previously was on glipizide at home Basal bolus insulin per protocol Adjustment disorder with mixed anxiety and depressed mood Continue Effexor Previously was on Vistaril 25 mg every 6 hours as needed for anxiety Hypothyroidism Continue Levothyroxine BPH on Proscar, Flomax DVT Prophylaxis Lovenox SQ Full Code as per discussion with pt's daughter Admission and Anticipated Discharge Date Admission Date: July 05, 2021 Subjective Follow-up for altered mental status, etc. Seen resting in bed, awake and alert, oriented x2 Answers most questions appropriately Aware that he was having confusion at rehab States he feels okay overall today No shortness of breath, cough, chest pain, abdominal pain, nausea vomiting, fevers or chills, dysuria Reports minimal low back pain Reports bilateral lower extremity pain when being moved to No other symptoms Review of Systems Review of Systems: all noted and negative except for above Physical Exam Physical Exam: General- oriented x 3, not in distress, speaks in sentences with no effort or accessory muscle use Appears somewhat weak Head- atraumatic Eyes- PERRL, EOMI, anicteric ENT- oropharynx clear Neck- supple, no JVD, no adenopathy, no thyromegaly; carotids +2/2, no bruits appreciated Lungs- clear to auscultation bilaterally, no rales/wheezes Heart- normal rate, regular rhythm; no murmur, no gallop, no rub appreciated Abdomen- normal bowel sounds, nondistended, soft, nontender, no masses or hepatosplenomegaly Extremities- no pretibial edema, no calf tenderness; peripheral pulses intact Neuro- alert, oriented x 3; CN 2-12 grossly intact; motor 5/5 bilaterally;sensation 100% on all extremities; no other gross focal neurologic deficits Skin- warm & dry Results & Data Results & Data ([facility]) Vital Signs (Past 12 Hours) Vital Signs Temp Pulse Pulse Resp BP BP Pulse Ox 07/06/21 11:24 37.3 C 79 18 182/50 H 95 07/06/21 07:16 79 07/06/21 07:14 36.4 C L 73 18 188/62 H 99 07/06/21 03:31 36.6 C 77 16 147/71 H 93 07/06/21 03:00 75 all noted and reviewed including below
[2021-07-06] MEDS ORDERED: lisinopril 5 MG TAB PO ONE (13:40)
[2021-07-06 13:49] LABS: BUN Creatinine Ratio 16.9 (10-20); Calcium 8.4 mg/dl (8.5-10.1); Creatinine Clr Calc Pharmacy 64.7 ml/min; Est GFR (African American) 61.9 ml/min; Est GFR (Non-African American) 53.4 ml/min; Potassium 3.6 mmol/L (3.5-5.1)
--- NOTE | 2021-07-06 15:46 | Orthopedic Consultation ---
Date of Consultation July 06, 2021 Assessment & Plan (1) Adjustment disorder with mixed anxiety and depressed mood: CAT scan lumbar spine available for review does demonstrate evidence of loosening of the L3 pedicle screws. I think this is a real result of poor bone quality and patient's body habitus. We will continue to monitor this. He may require extension of the fusion but not at this time. At this point will wait his culture results but I suspect he will be able to return [facility] in the next few days. Again I would strongly encourage him to go to an inpatient rehab as they would have the best ability to manage him. History of Present Illness Reason for Consultation: Confusion rule out infection Attending Physician: Wilber Higgins MD History of Present Illness This is a patient is alert and oriented. He has minimal back pain. He states his leg function is improving. Denies any radicular complaints. Denies any nausea vomiting. Allergies Allergy/AdvReac Type Severity Reaction Status Date / Time No Known Allergies Allergy Verified 07/05/21 13:09 Home Medications Medication Instructions Recorded Confirmed Type gabapentin 300 mg capsule 300 mg PO BID 12/04/18 07/05/21 History gemfibrozil 600 mg tablet 600 mg PO BIDM 12/04/18 07/05/21 History insulin glargine 100 unit/mL (3 8 units SQ HS ml 12/04/18 07/05/21 History mL) subcutaneous pen (Lantus Solostar U-100 Insulin) levothyroxine 50 mcg capsule 50 mcg PO DAILYBB 12/04/18 07/05/21 History vit C 250 mg-vit E 90 mg-zinc 40 1 tab PO BID 12/18/18 07/05/21 History mg-copper 1 [id number] capsule (PreserVision AREDS-2) metoprolol succinate 25 mg 25 mg PO HS 04/09/19 07/05/21 History tablet,extended release 24 hr venlafaxine 150 mg 150 mg PO QDL 05/22/21 07/05/21 History capsule,extended release 24 hr sennosides 8.6 mg-docusate sodium 2 tab PO HS #30 tab 06/22/21 07/05/21 Rx 50 mg tablet (Senokot-S) tramadol 50 mg tablet 50 mg PO Q4H PRN #30 tab 06/22/21 07/05/21 Rx acetaminophen 325 mg tablet 650 mg PO Q4H PRN 07/05/21 07/05/21 History amlodipine 10 mg tablet 10 mg PO QAM 07/05/21 07/05/21 History ceftriaxone 1 gram solution for 1 g IM QAM 07/05/21 07/05/21 History injection docusate sodium 100 mg capsule 100 mg PO BID 07/05/21 07/05/21 History (Colace) enoxaparin 40 mg/0.4 mL 40 mg SUBCUT HS 07/05/21 07/05/21 History subcutaneous syringe (Lovenox) finasteride 5 mg tablet 5 mg PO QAM 07/05/21 07/05/21 History hydralazine 25 mg tablet 25 mg PO TID PRN 07/05/21 07/05/21 History magnesium hydroxide 400 mg/5 mL 30 ml PO DAILY PRN 07/05/21 07/05/21 History oral suspension (Milk of Magnesia) mupirocin 2 % topical ointment 1 applic TOPICAL BID 07/05/21 07/05/21 History nystatin 100,000 unit/gram topical 1 applic TOPICAL BID 07/05/21 07/05/21 History powder ondansetron 4 mg disintegrating 4 mg PO Q6H PRN 07/05/21 07/05/21 History tablet pantoprazole 40 mg tablet,delayed 40 mg PO DAILYBB 07/05/21 07/05/21 History release polyethylene glycol 3350 17 17 g PO QDL PRN 07/05/21 07/05/21 History gram/dose oral powder (Miralax) tamsulosin 0.4 mg capsule 0.4 mg PO QDD 07/05/21 07/05/21 History Patient History Medical History Acute on chronic renal failure Arthritis Depression Diabetes mellitus, type 2 IDDM Dysuria Hearing disorder right ear hearing loss History of kidney stones Hyperlipidemia Hypertension Hypothyroidism Macular degeneration, age related Morbid obesity Sleep apnea does not use CPAP Spinal stenosis of lumbar region Vertigo Surgical History Hx of colonoscopy Hx of non-cataract eye surgery Hx of right cataract extraction Hx of tonsillectomy Family History Son Family history of diabetes mellitus Social History Smoking Status: Never smoker Tobacco Type: Cigarettes Second Hand Exposure: No; Do You Dip or Chew Tobacco: No; Tobacco Cessation Education Requested by Patient: No Hx Alcohol Use: No Hx Substance Use: No Preferred Language: Setswana Communication Ability: Effective 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 He demonstrates improved strength the right lower extremity. His lumbar spine demonstrates a well-healed lumbar incision. There is no erythema no drainage nontender. Results & Data ([facility]) Vital Signs (Past 12 Hours) Vital Signs Temp Pulse Pulse Resp BP Pulse Ox 07/06/21 15:13 37.0 C 87 18 170/60 H 95 07/06/21 11:24 37.3 C 79 18 182/50 H 95 07/06/21 07:16 79 07/06/21 07:14 36.4 C L 73 18 188/62 H 99
[2021-07-06] MEDS ORDERED: VANCOMYCIN HCL 1,500 MG in SODIUM CHLORIDE 0.9% 500 ML IV SCH (16:00)
[2021-07-06] MEDS: TAMSULOSIN HCL 0.4 MG CAP PO SCH (16:31)
[2021-07-06] MEDS: ENOXAPARIN INJ 40 MG/0.4 ML SYR SQ SCH (17:02)
[2021-07-06] MEDS ORDERED: cloNIDine HCL 0.1 MG TAB PO ONE (19:58)
[2021-07-06] MEDS: DOCUSATE SODIUM/SENNA 50/8.6MG TAB PO SCH (20:47)
[2021-07-06] MEDS: INSULIN GLARGINE SOLOSTAR 100 UNITS/ML 3 ML PEN SC SCH (20:48)
[2021-07-06] MEDS: METOPROLOL SUCC 25MG EXT REL TAB PO SCH (20:49)
--- NOTE | 2021-07-06 23:42 | Electrocardiogram Report ---
Test Reason : Blood Pressure : / mmHG Vent. Rate : 088 BPM Atrial Rate : 088 BPM P-R Int : 190 ms QRS Dur : 086 ms QT Int : 366 ms P-R-T Axes : 039 007 -55 degrees QTc Int : 442 ms Poor data quality, interpretation may be adversely affected Normal sinus rhythm Nonspecific ST and T wave abnormality Abnormal ECG When compared with ECG of 03-JUN-2021 13:55, Nonspecific T wave abnormality now evident in Anterolateral leads Confirmed by Fabio Hagen ([id number]) on 07/06/2021 11:41:44 PM Referred By: [facility] Confirmed By:Fabio Hagen
[2021-07-07] MEDS: PIPERACILLIN/TAZOBACTAM 4.5 GM in DEXTROSE 5% 100 ML IV SCH ×3 (00:42→15:25)
[2021-07-07] MEDS: PANTOprazole 40 MG TAB PO SCH (05:29)
[2021-07-07] MEDS: LEVOTHYROXINE SODIUM 50 MCG TABLET PO SCH (05:29)
[2021-07-07] MEDS: FINASTERIDE 5 MG TAB PO SCH (08:25)
[2021-07-07] MEDS: GABAPENTIN 300 MG CAP PO SCH ×2 (08:25→20:30)
[2021-07-07] MEDS: amLODIPine BESYLATE 5 MG TAB PO SCH (08:25)
[2021-07-07] MEDS: gemfibroziL 600 MG TAB PO SCH ×2 (08:27→17:04)
[2021-07-07] MEDS: lisinopril 5 MG TAB PO SCH (08:27)
[2021-07-07] MEDS: DOCUSATE SODIUM 100 MG CAP PO SCH ×2 (08:27→20:29)
[2021-07-07] MEDS: MUPIROCIN 2% OINT 22 GM TUBE EXT SCH ×2 (08:28→20:30)
[2021-07-07] MEDS: CEROVITE ADV FORMULA TAB PO SCH (08:29)
[2021-07-07] MEDS: INSULIN ASPART PER UNIT SC SCH ×4 (08:29→20:42)
[2021-07-07] MEDS: ACETAMINOPHEN 500 MG TAB PO SCH ×3 (08:34→23:28)
[2021-07-07 09:21] LABS: Basophils # (auto) 0.01 K/uL (0-0.2); Basophils % (auto) 0.3 %; Eosinophils # (auto) 0.18 K/uL (0-0.5); Eosinophils % (auto) 4.9 %; Hematocrit (blood only) 28.8 % (42-52); Hemoglobin 8.6 g/dL (14.0-18.0); Immature Granulocytes # (auto) 0.01 K/uL (0.00-0.02); Immature Granulocytes % (auto) 0.3 %; Lymphocytes # (auto) 0.77 K/uL (1.2-3.4); Mean Corpuscular Hemoglobin 29.9 pg (25-34); Mean Corpuscular Hgb Conc 29.9 g/dL (32-36); Mean Platelet Volume 8.9 fL (7.4-10.4); Monocytes # (auto) 0.31 K/uL (0.11-0.59); Monocytes % (auto) 8.5 %; Neutrophils # (auto) 2.38 K/uL (1.4-6.5); Platelet Count 216 K/uL (130-400); RDW Coefficient of Variation 17.1 % (11.5-14.5); RDW Standard Deviation 62.3 fL (36.4-46.3); Red Blood Count 2.88 M/uL (4.7-6.1); White Blood Count 3.66 K/uL (4.8-10.8)
[2021-07-07 09:29] LABS: BUN Creatinine Ratio 15.1 (10-20); Calcium 8.4 mg/dl (8.5-10.1); Creatinine Clr Calc Pharmacy 57.7 ml/min; Est GFR (African American) 53.9 ml/min; Est GFR (Non-African American) 46.5 ml/min; Potassium 3.3 mmol/L (3.5-5.1)
[2021-07-07] MEDS ORDERED: POTASSIUM CHLORIDE CRTAB 20 MEQ TABCR PO STA (11:42)
[2021-07-07] MEDS: oxyCODONE HCL IR 5 MG TAB (IMMEDIATE RELEASE) PO PRN (12:25)
[2021-07-07] MEDS: VENLAFAXINE HCL XR 150 MG CAPXR PO SCH (12:25)
--- NOTE | 2021-07-07 16:44 | Hospitalist Progress Note ---
Date of Service July 07, 2021 Assessment & Plan (1) AMS (altered mental status): Plan: Likely acute metabolic encephalopathy secondary to medications including tramadol, Vistaril, Flexeril, Zyprexa Rule out infection This is a 81-year-old male who has significant past medical history of DM II, HTN, HLD, ALMA, hypothyroidism, morbid obesity, GERD, BPH, CKD III presents to ER for altered mental status for several days from [facility]. Reported possible UTI. Patient received dose of Rocephin at [facility] 07/04/21. In ER vitals stable. No leukocytosis, no significant electrolyte abnormality. Ammonia WNL. ABG unremarkable. Normal lactate CT Head: no acute changes DDX: metabolic encephalopathy. ?Underlying UTI vs medication side effect. R/O underlying infection - UTI, spinal infection In ER given Zosyn, 1L NSS UA pending Blood cultures pending CT lumbar spine pending to rule out infection Continue Zosyn Hold tramadol CBC, BMP in am 5 Patient oriented x3 today, answers all questions appropriately Urine culture: Negative Blood cultures: Negative so far Patient is afebrile Discussed with Dr. Castellanos, does not suspect lumbar spine infection at this point On scheduled Tylenol for pain control As needed oxycodone for's moderate to severe pain, has received on previous admission and earlier during acute rehab stay with no side effects Will monitor closely Recent Lumbar Surgery History L4 burst fracture and had lumbosacral fusion on 06/06/[address] lumbar spine: Noted Scheduled Tylenol for pain. Discussed yesterday with Dr. Castellanos, does not suspect lumbar spine infection at this time CKD III Cr: 1.4. Baseline of 1.1-1.3. Recent HERMELINDO with Cr trending down to 1.3 on 06/21/21 At baseline HTN Previously on lisinopril and lasix at home, however is not on med rec from [facility] currently Continue amlodipine, metoprolol succinate Resumed lisinopril We will add as needed hydralazine Chronic anemia. Iron deficiency anemia. Recent acute on chronic anemia. Last admission received 6 units PRBCs, IV Venofer. Hgb 7.7 on 06/22/21. Has outpatient GI f/u for scope Hgb: 9.1 No reported melena, hematochezia. Is receiving Lovenox at [facility] 07/06: Hemoglobin 8.6 from 8.7 Nocturnal Hypoxia H/O ALMA Non complaint with CPAP 2L supplemental Oxygen at bedtime DM II A1c: 5.9 Previously was on glipizide at home Basal bolus insulin per protocol Adjustment disorder with mixed anxiety and depressed mood Continue Effexor Previously was on Vistaril 25 mg every 6 hours as needed for anxiety Hypothyroidism Continue Levothyroxine BPH on Proscar, Flomax DVT Prophylaxis Lovenox SQ Full Code as per discussion with pt's daughter plan of care discussed with patient and his daughter yesterday personally, and today over the phone in detail and at length all questions answered they are understanding, agreeable, comfortable with the plan of care Admission and Anticipated Discharge Date Admission Date: July 05, 2021 Subjective Follow-up for altered mental status, etc. Seen resting in bed, comfortable, not in distress On 2 L of oxygen In good spirits States he slept really well overnight Oriented x3, answers all questions appropriately Denies headache, dizziness, chest pain, cough, shortness of breath abdominal pain, nausea vomiting Lower extremity pain about 4 Appetite is good No other symptom Review of Systems Review of Systems: all noted and negative except for above Physical Exam Physical Exam: General- oriented x 3, not in distress, speaks in sentences with no effort or accessory muscle use Eyes- anicteric Neck- no JVD Lungs- clear breath sounds bilaterally, no crackles or wheezing noted Heart- normal rate, regular rhythm; no murmurs Abdomen- normal bowel sounds, nondistended, soft, nontender Extremities- no pretibial edema, no calf tenderness Neuro- alert, oriented x 3; no gross focal neurologic deficits Skin- warm & dry Results & Data Results & Data ([facility]) Vital Signs (Past 12 Hours) Vital Signs Temp Pulse Resp BP Pulse Ox 07/07/21 15:06 36.8 C 78 16 197/63 H 98 07/07/21 11:41 36.8 C 57 L 16 150/62 H 97 07/07/21 07:26 36.6 C 59 L 16 129/55 L 92 all noted and reviewed including below
--- NOTE | 2021-07-07 17:00 | Electrocardiogram Report ---
Test Reason : Blood Pressure : / mmHG Vent. Rate : 078 BPM Atrial Rate : 078 BPM P-R Int : 202 ms QRS Dur : 090 ms QT Int : 394 ms P-R-T Axes : 045 -05 -40 degrees QTc Int : 449 ms Normal sinus rhythm Cannot rule out Inferior infarct , age undetermined Nonspecific T wave abnormality Abnormal ECG When compared with ECG of 05-JUL-2021 10:45, No significant change Reconfirmed by Fabio Hagen ([id number]) on 07/07/2021 5:00:30 PM Referred By: [facility] Confirmed By:Fabio Hagen
[2021-07-07] MEDS: ENOXAPARIN INJ 40 MG/0.4 ML SYR SQ SCH (17:03)
[2021-07-07] MEDS: TAMSULOSIN HCL 0.4 MG CAP PO SCH (17:03)
[2021-07-07] MEDS: DOCUSATE SODIUM/SENNA 50/8.6MG TAB PO SCH (20:29)
[2021-07-07] MEDS: METOPROLOL SUCC 25MG EXT REL TAB PO SCH (20:30)
[2021-07-07] MEDS: INSULIN GLARGINE SOLOSTAR 100 UNITS/ML 3 ML PEN SC SCH (20:38)
[2021-07-08] MEDS: PIPERACILLIN/TAZOBACTAM 4.5 GM in DEXTROSE 5% 100 ML IV SCH (00:40)
[2021-07-08] MEDS: LEVOTHYROXINE SODIUM 50 MCG TABLET PO SCH (05:58)
[2021-07-08] MEDS: PANTOprazole 40 MG TAB PO SCH (05:58)
[2021-07-08] MEDS: ACETAMINOPHEN 500 MG TAB PO SCH ×3 (06:00→22:05)
[2021-07-08 06:22] LABS: Basophils # (auto) 0.01 K/uL (0-0.2); Basophils % (auto) 0.3 %; Eosinophils # (auto) 0.25 K/uL (0-0.5); Eosinophils % (auto) 6.3 %; Hematocrit (blood only) 28.6 % (42-52); Hemoglobin 8.5 g/dL (14.0-18.0); Immature Granulocytes # (auto) 0.01 K/uL (0.00-0.02); Immature Granulocytes % (auto) 0.3 %; Lymphocytes # (auto) 0.85 K/uL (1.2-3.4); Lymphocytes % (auto) 21.3 %; Mean Corpuscular Hemoglobin 29.9 pg (25-34); Mean Corpuscular Hgb Conc 29.7 g/dL (32-36); Mean Corpuscular Volume 100.7 fL (80-100); Mean Platelet Volume 9.3 fL (7.4-10.4); Monocytes # (auto) 0.42 K/uL (0.11-0.59); Monocytes % (auto) 10.5 %; Neutrophils # (auto) 2.46 K/uL (1.4-6.5); Neutrophils % (auto) 61.3 %; Platelet Count 222 K/uL (130-400); RDW Standard Deviation 62.4 fL (36.4-46.3); Red Blood Count 2.84 M/uL (4.7-6.1)
[2021-07-08 06:39] LABS: BUN Creatinine Ratio 13.9 (10-20); Calcium 8.3 mg/dl (8.5-10.1); Creatinine Clr Calc Pharmacy 55.7 ml/min; Est GFR (African American) 51.7 ml/min; Est GFR (Non-African American) 44.6 ml/min; Potassium 3.8 mmol/L (3.5-5.1)
[2021-07-08] MEDS: oxyCODONE HCL IR 5 MG TAB (IMMEDIATE RELEASE) PO PRN ×2 (08:16→18:21)
[2021-07-08] MEDS: lisinopril 5 MG TAB PO SCH (08:18)
[2021-07-08] MEDS: CEROVITE ADV FORMULA TAB PO SCH (08:18)
[2021-07-08] MEDS: GABAPENTIN 300 MG CAP PO SCH ×2 (08:18→20:23)
[2021-07-08] MEDS: DOCUSATE SODIUM 100 MG CAP PO SCH ×2 (08:18→20:22)
[2021-07-08] MEDS: FINASTERIDE 5 MG TAB PO SCH (08:19)
[2021-07-08] MEDS: gemfibroziL 600 MG TAB PO SCH ×2 (08:19→17:22)
[2021-07-08] MEDS: amLODIPine BESYLATE 5 MG TAB PO SCH (08:19)
[2021-07-08] MEDS: MUPIROCIN 2% OINT 22 GM TUBE EXT SCH ×2 (08:19→20:24)
[2021-07-08] MEDS: INSULIN ASPART PER UNIT SC SCH ×4 (08:23→20:21)
[2021-07-08] MEDS: VENLAFAXINE HCL XR 150 MG CAPXR PO SCH (12:17)
--- NOTE | 2021-07-08 13:46 | Hospitalist Progress Note ---
Date of Service July 08, 2021 Assessment & Plan (1) AMS (altered mental status): Plan: Likely acute metabolic encephalopathy secondary to medications including tramadol, Vistaril, Flexeril, Zyprexa Rule out infection This is a 81-year-old male who has significant past medical history of DM II, HTN, HLD, ALMA, hypothyroidism, morbid obesity, GERD, BPH, CKD III presents to ER for altered mental status for several days from [facility]. Reported possible UTI. Patient received dose of Rocephin at [facility] 07/04/21. In ER vitals stable. No leukocytosis, no significant electrolyte abnormality. Ammonia WNL. ABG unremarkable. Normal lactate CT Head: no acute changes DDX: metabolic encephalopathy. ?Underlying UTI vs medication side effect. R/O underlying infection - UTI, spinal infection In ER given Zosyn, 1L NSS UA pending Blood cultures pending CT lumbar spine pending to rule out infection Continue Zosyn Hold tramadol CBC, BMP in am 07/08 Patient oriented x3 today, answers all questions appropriately Urine culture: Negative Blood cultures: Negative Patient is afebrile Discussed with Dr. Castellanos, does not suspect lumbar spine infection at this point Discontinue Zosyn On scheduled Tylenol for pain control As needed oxycodone for's moderate to severe pain, has received on previous admission and earlier during acute rehab stay with no side effects Has received 2 doses of oxycodone since yesterday, recent 1 this morning No signs of confusion Recent Lumbar Surgery History L4 burst fracture and had lumbosacral fusion on 06/06/[address] lumbar spine: Noted Scheduled Tylenol for pain. Discussed yesterday with Dr. Castellanos, does not suspect lumbar spine infection at this time CKD III Cr: 1.4. Baseline of 1.1-1.3. Recent HERMELINDO with Cr trending down to 1.3 on 06/21/21 At baseline HTN Previously on lisinopril and lasix at home, however is not on med rec from [facility] currently Continue amlodipine, metoprolol succinate Resumed lisinopril We will add as needed hydralazine Chronic anemia. Iron deficiency anemia. Recent acute on chronic anemia. Last admission received 6 units PRBCs, IV Venofer. Hgb 7.7 on 06/22/21. Has outpatient GI f/u for scope Hgb: 9.1 No reported melena, hematochezia. Is receiving Lovenox at [facility] 07/06: Hemoglobin 8.6 from 8.5 Nocturnal Hypoxia H/O ALMA Non complaint with CPAP 2L supplemental Oxygen at bedtime DM II A1c: 5.9 Previously was on glipizide at home Basal bolus insulin per protocol Adjustment disorder with mixed anxiety and depressed mood Continue Effexor Previously was on Vistaril 25 mg every 6 hours as needed for anxiety Hypothyroidism Continue Levothyroxine BPH on Proscar, Flomax DVT Prophylaxis Lovenox SQ Full Code as per discussion with pt's daughter plan of care discussed with patient all questions answered he is understanding, agreeable, comfortable with the plan of care Admission and Anticipated Discharge Date Admission Date: July 05, 2021 Subjective Follow-up for encephalopathy, etc. Seen sitting up in bed, comfortable, in good spirits Smiling Oriented x3, answers all questions appropriately States he feels better overall today Lower extremity pain well controlled with oxycodone denies confusion Minimal back pain No shortness of breath, chest pain, palpitations, dizziness No other new symptom Review of Systems Review of Systems: all noted and negative except for above Physical Exam Physical Exam: General- oriented x 3, not in distress, speaks in sentences with no effort or accessory muscle use Eyes- anicteric Neck- no JVD Lungs- clear breath sounds, no crackles or wheezing bilaterally Heart- normal rate, regular rhythm; no murmurs Abdomen- normal bowel sounds, nondistended, soft, nontender Extremities-mild erythema right lower extremity, no tenderness or warmth, No pretibial edema, no calf tenderness Neuro- alert, oriented x 3; no gross focal neurologic deficits Skin- warm & dry Results & Data Results & Data ([facility]) Vital Signs (Past 12 Hours) Vital Signs Temp Pulse Pulse Resp BP Pulse Ox 07/08/21 11:30 37.0 C 73 20 151/67 H 98 07/08/21 07:43 61 07/08/21 06:47 36.5 C 61 18 174/63 H 99 07/08/21 02:42 36.7 C 70 18 167/65 H 98 all noted and reviewed including below
[2021-07-08] MEDS: TAMSULOSIN HCL 0.4 MG CAP PO SCH (17:22)
[2021-07-08] MEDS: ENOXAPARIN INJ 40 MG/0.4 ML SYR SQ SCH (17:22)
[2021-07-08] MEDS: INSULIN GLARGINE SOLOSTAR 100 UNITS/ML 3 ML PEN SC SCH (20:21)
[2021-07-08] MEDS: METOPROLOL SUCC 25MG EXT REL TAB PO SCH (20:21)
[2021-07-08] MEDS: DOCUSATE SODIUM/SENNA 50/8.6MG TAB PO SCH (20:22)
[2021-07-09] MEDS: LEVOTHYROXINE SODIUM 50 MCG TABLET PO SCH (05:50)
[2021-07-09] MEDS: ACETAMINOPHEN 500 MG TAB PO SCH ×3 (05:50→22:37)
[2021-07-09] MEDS: PANTOprazole 40 MG TAB PO SCH (05:50)
[2021-07-09 07:21] LABS: Basophils # (auto) 0.01 K/uL (0-0.2); Basophils % (auto) 0.3 %; Eosinophils # (auto) 0.26 K/uL (0-0.5); Eosinophils % (auto) 7.7 %; Hemoglobin 8.6 g/dL (14.0-18.0); Immature Granulocytes # (auto) 0.01 K/uL (0.00-0.02); Immature Granulocytes % (auto) 0.3 %; Lymphocytes # (auto) 0.86 K/uL (1.2-3.4); Lymphocytes % (auto) 25.4 %; Mean Corpuscular Hemoglobin 30.6 pg (25-34); Mean Corpuscular Hgb Conc 30.7 g/dL (32-36); Mean Corpuscular Volume 99.6 fL (80-100); Mean Platelet Volume 9.2 fL (7.4-10.4); Monocytes # (auto) 0.42 K/uL (0.11-0.59); Monocytes % (auto) 12.4 %; Neutrophils # (auto) 1.83 K/uL (1.4-6.5); Neutrophils % (auto) 53.9 %; Platelet Count 195 K/uL (130-400); RDW Coefficient of Variation 16.5 % (11.5-14.5); RDW Standard Deviation 60.3 fL (36.4-46.3); Red Blood Count 2.81 M/uL (4.7-6.1); White Blood Count 3.39 K/uL (4.8-10.8)
[2021-07-09 07:47] LABS: Calcium 8.3 mg/dl (8.5-10.1); Creatinine Clr Calc Pharmacy 71.5 ml/min; Est GFR (Non-African American) 60.4 ml/min; Potassium 3.9 mmol/L (3.5-5.1)
[2021-07-09] MEDS: gemfibroziL 600 MG TAB PO SCH ×2 (07:48→17:21)
[2021-07-09] MEDS: amLODIPine BESYLATE 5 MG TAB PO SCH (07:48)
[2021-07-09] MEDS: oxyCODONE HCL IR 5 MG TAB (IMMEDIATE RELEASE) PO PRN ×2 (07:48→17:20)
[2021-07-09] MEDS: DOCUSATE SODIUM 100 MG CAP PO SCH ×2 (07:48→21:02)
[2021-07-09] MEDS: GABAPENTIN 300 MG CAP PO SCH ×2 (07:48→21:01)
[2021-07-09] MEDS: lisinopril 5 MG TAB PO SCH (07:48)
[2021-07-09] MEDS: CEROVITE ADV FORMULA TAB PO SCH (07:48)
[2021-07-09] MEDS: MUPIROCIN 2% OINT 22 GM TUBE EXT SCH ×2 (07:49→21:03)
[2021-07-09] MEDS: FINASTERIDE 5 MG TAB PO SCH (07:49)
[2021-07-09] MEDS: INSULIN ASPART PER UNIT SC SCH ×4 (08:31→20:59)
[2021-07-09] MEDS: hydrALAZINE HCL 25 MG TAB PO SCH ×2 (09:22→21:03)
[2021-07-09] MEDS: VENLAFAXINE HCL XR 150 MG CAPXR PO SCH (12:35)
--- NOTE | 2021-07-09 15:04 | Hospitalist Progress Note ---
Date of Service July 09, 2021 Assessment & Plan (1) AMS (altered mental status): Plan: Likely acute metabolic encephalopathy secondary to medications including tramadol, Vistaril, Flexeril, Zyprexa Infection ruled out per admitting service notes: This is a 81-year-old male who has significant past medical history of DM II, HTN, HLD, ALMA, hypothyroidism, morbid obesity, GERD, BPH, CKD III presents to ER for altered mental status for several days from [facility]. Reported possible UTI. Patient received dose of Rocephin at [facility] 07/04/21. In ER vitals stable. No leukocytosis, no significant electrolyte abnormality. Ammonia WNL. ABG unremarkable. Normal lactate CT Head: no acute changes CT lumbar spine: 1. Prior posterior decompression with interbody fernando and screw fusion at L3-L1 with L5-S1 discectomy. 2. There is new acute nondisplaced fracture of the left L3 transverse process. Prominent lucency surrounds the bilateral L3 pedicle screws which is also new from the prior study and is suspicious for infection. No evidence of discitis. 3. Unchanged appearance of the L4 burst fracture status post kyphoplasty. Unchanged 5 mm retropulsion. 4. Fluid and edema at the laminectomy site are likely expected postoperative changes. No postoperative fluid collection. 07/09 Patient oriented x3 answers all questions appropriately x 2 days now Urine culture: Negative Blood cultures: Negative Patient is afebrile Discussed with Dr. Castellanos, does not suspect lumbar spine infection at this point Discontinued Zosyn after 2 days On scheduled Tylenol for pain control As needed oxycodone for's moderate to severe pain, has received on previous admission and earlier during acute rehab stay with no side effects Has received 4 doses of oxycodone since yesterday No signs of confusion, pain well controlled continue to monitor closely Recent Lumbar Surgery History L4 burst fracture and had lumbosacral fusion on 06/06/[address] lumbar spine: Noted Scheduled Tylenol for pain. Discussed yesterday with Dr. Castellanos, does not suspect lumbar spine infection at this time CKD III Cr: 1.4. Baseline of 1.1-1.3. Recent HERMELINDO with Cr trending down to 1.3 on 06/21/21 At baseline HTN Previously on lisinopril and lasix at home, however is not on med rec from [facility] currently Continue amlodipine, metoprolol succinate, lisinopril added Hydralazine 25mg BID for better BP control monitor closely Chronic anemia. Iron deficiency anemia. Recent acute on chronic anemia. Last admission received 6 units PRBCs, IV Venofer. Hgb 7.7 on 06/22/21. Has outpatient GI f/u for scope Hgb: 9.1 No reported melena, hematochezia. Is receiving Lovenox at [facility] 07/06: Hemoglobin 8.6 from 8.5 Nocturnal Hypoxia H/O ALMA Non complaint with CPAP 2L supplemental Oxygen at bedtime DM II A1c: 5.9 Previously was on glipizide at home Basal bolus insulin per protocol Adjustment disorder with mixed anxiety and depressed mood Continue Effexor Previously was on Vistaril 25 mg every 6 hours as needed for anxiety Hypothyroidism Continue Levothyroxine BPH on Proscar, Flomax DVT Prophylaxis Lovenox SQ Full Code as per discussion with pt's daughter plan of care discussed with patient all questions answered he is understanding, agreeable, comfortable with the plan of care Admission and Anticipated Discharge Date Admission Date: July 05, 2021 Subjective ff up for Altered mental status, etc seen resting in bed, comfortable on 2 L oxygen awake, alert , oriented x 3 answering questions appropriately animated states he is feeling better compared to admission pain is only mild, also better controlled no other symptoms Review of Systems Review of Systems: all noted and negative except for above Physical Exam Physical Exam: General- oriented x 3, not in distress, speaks in sentences with no effort or accessory muscle use Eyes- anicteric Neck- no JVD Lungs- clear BS bilaterally, no rales/wheezes Heart- normal rate, regular rhythm; no murmurs Abdomen- normal bowel sounds, nondistended, soft, no tenderness Extremities- no pretibial edema, no calf tenderness Neuro- alert, oriented x 3; no gross focal neurologic deficits Skin- warm & dry Results & Data Results & Data ([facility]) Vital Signs (Past 12 Hours) Vital Signs Temp Pulse Pulse Resp BP Pulse Ox 07/09/21 11:44 36.7 C 76 18 168/72 H 98 07/09/21 09:21 168/72 H 07/09/21 07:56 36.4 C L 66 16 192/62 H 100 07/09/21 07:36 64 07/09/21 03:55 36.7 C 60 16 113/49 L 97 all noted and reviewed including below
[2021-07-09] MEDS: TAMSULOSIN HCL 0.4 MG CAP PO SCH (17:21)
[2021-07-09] MEDS: ENOXAPARIN INJ 40 MG/0.4 ML SYR SQ SCH (17:22)
[2021-07-09] MEDS: INSULIN GLARGINE SOLOSTAR 100 UNITS/ML 3 ML PEN SC SCH (21:00)
[2021-07-09] MEDS: DOCUSATE SODIUM/SENNA 50/8.6MG TAB PO SCH (21:01)
[2021-07-09] MEDS: METOPROLOL SUCC 25MG EXT REL TAB PO SCH (21:02)
[2021-07-10] MEDS ORDERED: MICONAZOLE NITRATE POWDER 43 GM EXT PRN (00:24)
[2021-07-10] MEDS: ACETAMINOPHEN 500 MG TAB PO SCH (06:05)
[2021-07-10] MEDS: PANTOprazole 40 MG TAB PO SCH (06:05)
[2021-07-10] MEDS: LEVOTHYROXINE SODIUM 50 MCG TABLET PO SCH (06:05)
[2021-07-10] MEDS: oxyCODONE HCL IR 5 MG TAB (IMMEDIATE RELEASE) PO PRN (06:25)
[2021-07-10 08:04] LABS: Basophils # (auto) 0.02 K/uL (0-0.2); Basophils % (auto) 0.5 %; Eosinophils # (auto) 0.24 K/uL (0-0.5); Eosinophils % (auto) 6.1 %; Hematocrit (blood only) 28.5 % (42-52); Hemoglobin 8.9 g/dL (14.0-18.0); Immature Granulocytes # (auto) 0.01 K/uL (0.00-0.02); Immature Granulocytes % (auto) 0.3 %; Lymphocytes # (auto) 0.73 K/uL (1.2-3.4); Lymphocytes % (auto) 18.6 %; Mean Corpuscular Hemoglobin 30.7 pg (25-34); Mean Corpuscular Hgb Conc 31.2 g/dL (32-36); Mean Corpuscular Volume 98.3 fL (80-100); Mean Platelet Volume 9.5 fL (7.4-10.4); Monocytes # (auto) 0.37 K/uL (0.11-0.59); Monocytes % (auto) 9.4 %; Neutrophils # (auto) 2.55 K/uL (1.4-6.5); Neutrophils % (auto) 65.1 %; Platelet Count 192 K/uL (130-400); RDW Coefficient of Variation 16.2 % (11.5-14.5); RDW Standard Deviation 58.6 fL (36.4-46.3); White Blood Count 3.92 K/uL (4.8-10.8)
[2021-07-10 08:31] LABS: BUN Creatinine Ratio 16.8 (10-20); Calcium 8.4 mg/dl (8.5-10.1); Est GFR (Non-African American) 63.9 ml/min; Potassium 4.2 mmol/L (3.5-5.1)
[2021-07-10] MEDS: lisinopril 5 MG TAB PO SCH (09:01)
[2021-07-10] MEDS: CEROVITE ADV FORMULA TAB PO SCH (09:02)
[2021-07-10] MEDS: DOCUSATE SODIUM 100 MG CAP PO SCH (09:02)
[2021-07-10] MEDS: hydrALAZINE HCL 25 MG TAB PO SCH (09:02)
[2021-07-10] MEDS: FINASTERIDE 5 MG TAB PO SCH (09:02)
[2021-07-10] MEDS: amLODIPine BESYLATE 5 MG TAB PO SCH (09:02)
[2021-07-10] MEDS: GABAPENTIN 300 MG CAP PO SCH (09:02)
[2021-07-10] MEDS: gemfibroziL 600 MG TAB PO SCH (09:03)
[2021-07-10] MEDS: MUPIROCIN 2% OINT 22 GM TUBE EXT SCH (09:04)
[2021-07-10] MEDS: INSULIN ASPART PER UNIT SC SCH ×2 (09:11→13:07)
--- NOTE | 2021-07-10 12:49 | Hospitalist Progress Note ---
Date of Service July 10, 2021 Assessment & Plan (1) AMS (altered mental status): Plan: Likely acute metabolic encephalopathy secondary to medications including tramadol, Vistaril, Flexeril, Zyprexa Infection ruled out per admitting service notes: This is a 81-year-old male who has significant past medical history of DM II, HTN, HLD, ALMA, hypothyroidism, morbid obesity, GERD, BPH, CKD III presents to ER for altered mental status for several days from . Reported possible UTI. Patient received dose of Rocephin at [facility] 07/04/21. In ER vitals stable. No leukocytosis, no significant electrolyte abnormality. Ammonia WNL. ABG unremarkable. Normal lactate CT Head: no acute changes CT lumbar spine: 1. Prior posterior decompression with interbody fernando and screw fusion at L3-L1 with L5-S1 discectomy. 2. There is new acute nondisplaced fracture of the left L3 transverse process. Prominent lucency surrounds the bilateral L3 pedicle screws which is also new from the prior study and is suspicious for infection. No evidence of discitis. 3. Unchanged appearance of the L4 burst fracture status post kyphoplasty. Unchanged 5 mm retropulsion. 4. Fluid and edema at the laminectomy site are likely expected postoperative changes. No postoperative fluid collection. 07/10 Patient oriented x3 answers all questions appropriately x 3 days now Urine culture: Negative Blood cultures: Negative Patient is afebrile Discussed with Dr. Castellanos, patient does not have lumbar spine infection Discontinued Zosyn after 2 days On scheduled Tylenol for pain control- taper accordingly As needed oxycodone for's moderate to severe pain, has received on previous admission and earlier during acute rehab stay with no side effects No signs of confusion, pain well controlled while on Oxycodone PRN on Docusate continue to monitor closely Recent Lumbar Surgery History L4 burst fracture and had lumbosacral fusion on 06/06/[address] lumbar spine: Noted Scheduled Tylenol for pain. Discussed with Dr. Castellanos, does not suspect lumbar spine infection no procedures indicated CKD III Cr: 1.4. Baseline of 1.1-1.3. Recent HERMELINDO with Cr trending down to 1.3 on 06/21/21 At baseline HTN Previously on lisinopril and lasix at home, however is not on med rec from [facility] currently Continue amlodipine, metoprolol succinate, lisinopril added Hydralazine 25mg BID for better BP control monitor closely Chronic anemia. Iron deficiency anemia. Recent acute on chronic anemia. Last admission received 6 units PRBCs, IV Venof er. Hgb 7.7 on 06/22/21. Has outpatient GI f/u for scope Hgb: 9.1 No reported melena, hematochezia. Is receiving Lovenox at [facility] 07/06: Hemoglobin 8.6 from 8.5 Nocturnal Hypoxia H/O ALMA Non complaint with CPAP 2L supplemental Oxygen at bedtime DM II A1c: 5.9 Previously was on glipizide at home Basal bolus insulin per protocol Adjustment disorder with mixed anxiety and depressed mood Continue Effexor Previously was on Vistaril 25 mg every 6 hours as needed for anxiety Hypothyroidism Continue Levothyroxine BPH on Proscar, Flomax DVT Prophylaxis Lovenox SQ Full Code as per discussion with pt's daughter plan of care discussed with patient all questions answered he is understanding, agreeable, comfortable with the plan of care Admission and Anticipated Discharge Date Admission Date: July 05, 2021 Subjective ff up for encephalopathy, etc seen resting in bed, comfortable states he feels better overall in good spirits mild back pain, minimal leg pain no chest pain, dyspnea, palpitations, dizziness no fever/chills, abdominal pain, nausea/vomiting no other symptoms Review of Systems Review of Systems: all noted and negative except for above Physical Exam Physical Exam: General- oriented x 3, not in distress, speaks in sentences with no effort or accessory muscle use Eyes- anicteric Neck- no JVD Lungs- clear BS BL no rales/wheezing Heart- normal rate, regular rhythm; no murmurs Abdomen- normal bowel sounds, nondistended, soft, nontender Extremities- no pretibial edema, no calf tenderness Neuro- alert, oriented x 3; no gross focal neurologic deficits Skin- warm & dry Results & Data Results & Data ([facility]) Vital Signs (Past 12 Hours) Vital Signs Temp Pulse Pulse Resp BP Pulse Ox 07/10/21 07:54 37.0 C 68 16 185/64 H 92 07/10/21 07:48 83 07/10/21 02:22 37 C 67 18 176/66 H 95 all noted and reviewed including below
--- NOTE | 2021-07-10 12:59 | Discharge Summary ---
Date of Service July 10, 2021 Admission HPI Per Admitting Provider This is a 81-year-old male who has significant past medical history of DM II, HTN, HLD, ALMA, hypothyroidism, morbid obesity, GERD, BPH, CKD III presents to ER for altered mental status from [facility] History obtained from patient's daughter and chart review. Patient with recent hospitalization 06/03/2021- 06/22/2021 for back pain, found to have L4 burst fracture and had lumbosacral fusion on 06/06/[address] Castellanos. During that hospitalization also had HERMELINDO on CKD III, acute on chronic anemia requiring 6 units PRBCs, IV Venofer x 3. Had positive fecal occult blood test and evaluated by GI and started on Protonix daily and outpatient EGD, colonoscopy is planned. Discharge Hgb of 7.7, and creatinine of 1.2. Lasix increased to daily and lisinopril was restarted. He was discharged to [facility]. Patient's daughter reports patient was doing well and was participating in physical therapy. Patient's daughter reports 5 days ago patient started with some confusion and was having visual hallucinations. Reports the past 3 days patient has been increasingly confused, lethargic, unable to get out of bed, unable to have conversation. Patient is on tramadol as needed for pain. Patient has been on Effexor since admission to [facility] per med rec list. Daughter states for past month patient has been having jerking movement of his body and feels no worsening has been noted. She reports flexeril was started secondary to leg cramps. She also thinks patient was started on Zyprexa on 07/03/21. She reports at rehab they suspected UTI and patient was given Rocephin 07/04/21 and 2L NSS. Today patient continues to be confused and was reported patient was swinging at staff and patient referred to ER. Denies any noted cough, vomiting, diarrhea, fevers, chills. Patient's daughter does report patient had decreased appetite and had not been eating or drinking well the past 5 days. Admission Exam Per Admitting Provider General: no distress, overweight Head: normocephalic, atraumatic Eyes: PERRL, EOM's intact, conjunctiva non-injected, anicteric ENT: normal inspection external ears, nose, mucous membranes dry Neck: supple, trachea midline Lungs: no respiratory distress, diminished breath sounds throughout, no wheezing/rhonchi/rales CV: RRR, no murmur, no pretibial edema Abd: normal BS, soft, no apparent tenderness to palpation Back: incision appears to be healing, no erythema, discharge Ext: no cyanosis, no noted calf tenderness Neuro: Drowsy, awakens to voice, does not follow commands, mumbled speech, unable to test active ROM Skin: warm, dry Principal Diagnosis ACUTE ENCEPHALOPATHY LIKELY SECONDARY TO MEDICATIONS POSSIBLY TRAMADOL, VISTARIL, FLEXERIL, ZYPREXA INFECTION RULED OUT Discharge Exam General- oriented x 3, not in distress, speaks in sentences with no effort or accessory muscle use Eyes- anicteric Neck- no JVD Lungs- clear BS BL no rales/wheezing Heart- normal rate, regular rhythm; no murmurs Abdomen- normal bowel sounds, nondistended, soft, nontender Extremities- no pretibial edema, no calf tenderness Neuro- alert, oriented x 3; no gross focal neurologic deficits Skin- warm & dry Discharge Data Allergies Allergy/AdvReac Type Severity Reaction Status Date / Time No Known Allergies Allergy Verified 07/05/21 13:09 Consultations 07/05/21 13:21 ED Decision to Admit Stat 07/05/21 17:03 Consult Orthopedic Surgery Routine Ordered Studies 07/05/21 10:57 CT head/brain wo con Stat CLINICAL HISTORY: agitation, intermittent confusion Technique: Contiguous axial CT images of the head were acquired from the base of the skull to the vertex without intravenous contrast administration. Images were viewed in brain, subdural and bone windows. Automated dose lowering techniques and/or adjustment according to patient size were utilized for this exam. Comparison: Comparison is made to CT head 09/24/2013 Findings: The ventricles, basal cisterns, and cerebral sulci are normal. There is no acute intracranial hemorrhage or evidence of acute territorial infarction. Neither mass effect, shift of the midline structures, nor abnormal extra-axial fluid collections are shown. Imaged portions of the paranasal sinuses and mastoid air cells are clear. The orbits appear normal. There are no acute fractures of the calvaria or scalp swelling. Impression: No acute intracranial hemorrhage, no evidence of acute territorial infarction or other acute intracranial disease process. ACT 112: Negative or not required by law. 07/05/21 15:28 CT lumbar spine w con Urgent COMPARISON: CT lumbar spine 06/17/2021, CT abdomen and pelvis 06/17/2021. TECHNIQUE: Multiple axial CT images of the lumbar spine were obtained following the intravenous administration of 94 mL Optiray 320. A dose lowering technique was used consistent with the principals of FRANCISCO. FINDINGS: Study is degraded by patient body habitus and motion artifact. There is atherosclerosis of the aorta. No acute intra-abdominal or intrapelvic abnormality identified. Hypodense left renal lesion redemonstrated. Moderate L4 burst fracture with kyphoplasty and unchanged 5 mm retropulsion is redemonstrated. Prior laminectomy with posterior interbody fernando and screw fusion hardware is noted at the L3-S1 levels with L5-S1 discectomy. Fluid and edema within the posterior soft tissues are 2 postoperative changes. No discrete drainable fluid collection identified. Streak artifact from the hardware limits evaluation of the adjacent tissues. Paravertebral edema at L4 redemonstrated. There is an acute fracture involving the left L3 transverse process which is new from the prior study on image 45 of series 200. Moderate degree of lucency surrounds the bilateral L3 pedicle screws which is also new from the prior study. Paravertebral edema at L3. Multilevel bridging osteophytosis with moderate facet arthrosis. No additional acute fracture or subluxation is identified. Partial bony fusion of the SI joints. Limited evaluation of the central canal and neural foramina secondary to the artifact as above. No definite high-grade central canal narrowing identified. IMPRESSION: 1. Prior posterior decompression with interbody fernando and screw fusion at L3-L1 with L5-S1 discectomy. 2. There is new acute nondisplaced fracture of the left L3 transverse process. Prominent lucency surrounds the bilateral L3 pedicle screws which is also new from the prior study and is suspicious for infection. No evidence of discitis. 3. Unchanged appearance of the L4 burst fracture status post kyphoplasty. Unchanged 5 mm retropulsion. 4. Fluid and edema at the laminectomy site are likely expected postoperative changes. No postoperative fluid collection. ACT 112: Negative or not required by law. The above report was generated using voice recognition software. It may contain grammatical, syntax or spelling errors. CT head/brain wo con CLINICAL HISTORY: agitation, intermittent confusion Technique: Contiguous axial CT images of the head were acquired from the base of the skull to the vertex without intravenous contrast administration. Images were viewed in brain, subdural and bone windows. Automated dose lowering techniques and/or adjustment according to patient size were utilized for this exam. Comparison: Comparison is made to CT head 09/24/2013 Findings: The ventricles, basal cisterns, and cerebral sulci are normal. There is no acute intracranial hemorrhage or evidence of acute territorial infarction. Neither mass effect, shift of the midline structures, nor abnormal extra-axial fluid collections are shown. Imaged portions of the paranasal sinuses and mastoid air cells are clear. The orbits appear normal. There are no acute fractures of the calvaria or scalp swelling. Impression: No acute intracranial hemorrhage, no evidence of acute territorial infarction or other acute intracranial disease process. ACT 112: Negative or not required by law. XR chest 1V portable CLINICAL HISTORY: SEPSIS TECHNIQUE: Single frontal radiograph of the chest was obtained. Comparison: Comparison is made to chest one view 06/18/2021 FINDINGS: No lines and tubes are seen. The cardiomediastinal silhouette is stable. Lungs are underinflated. There is prominence of the pulmonary vasculature. No evidence of pleural effusion or pneumothorax. IMPRESSION: Mild pulmonary edema. ACT 112: Negative or not required by law. Hospital Course (1) AMS (altered mental status): Likely acute metabolic encephalopathy secondary to medications including tramadol, Vistaril, Flexeril, Zyprexa Infection ruled out per admitting service notes: This is a 81-year-old male who has significant past medical history of DM II, HTN, HLD, ALMA, hypothyroidism, morbid obesity, GERD, BPH, CKD III presents to ER for altered mental status for several days from [facility]. Reported possible UTI. Patient received dose of Rocephin at [facility] 07/04/21. In ER vitals stable. No leukocytosis, no significant electrolyte abnormality. Ammonia WNL. ABG unremarkable. Normal lactate CT Head: no acute changes CT lumbar spine: 1. Prior posterior decompression with interbody fernando and screw fusion at L3-L1 with L5-S1 discectomy. 2. There is new acute nondisplaced fracture of the left L3 transverse process. Prominent lucency surrounds the bilateral L3 pedicle screws which is also new from the prior study and is suspicious for infection. No evidence of discitis. 3. Unchanged appearance of the L4 burst fracture status post kyphoplasty. Uncha nged 5 mm retropulsion. 4. Fluid and edema at the laminectomy site are likely expected postoperative changes. No postoperative fluid collection. 07/10 Patient oriented x3 answers all questions appropriately x 3 days now Urine culture: Negative Blood cultures: Negative Patient is afebrile Discussed with Dr. Castellanos, patient does not have lumbar spine infection Discontinued Zosyn after 2 days On scheduled Tylenol for pain control- taper accordingly As needed oxycodone for's moderate to severe pain, has received on previous admission and earlier during acute rehab stay with no side effects No signs of confusion, pain well controlled while on Oxycodone PRN on Docusate continue to monitor closely Recent Lumbar Surgery History L4 burst fracture and had lumbosacral fusion on 06/06/[address] lumbar spine: Noted Scheduled Tylenol for pain Discussed with Dr. Castellanos, does not suspect lumbar spine infection no procedures indicated CKD III Cr: 1.4. Baseline of 1.1-1.3. Recent HERMELINDO with Cr trending down to 1.3 on 06/21/21 At baseline HTN Previously on lisinopril and lasix at home, however is not on med rec from [facility] currently Continue amlodipine, metoprolol succinate, lisinopril added Hydralazine 25mg BID for better BP control monitor closely Chronic anemia. Iron deficiency anemia. Recent acute on chronic anemia. Last admission received 6 units PRBCs, IV Venofer. Hgb 7.7 on 06/22/21. Has outpatient GI f/u for scope Hgb: 9.1 No reported melena, hematochezia. Is receiving Lovenox at [facility] 07/06: Hemoglobin 8.6 from 8.5 Nocturnal Hypoxia H/O ALMA Non complaint with CPAP 2L supplemental Oxygen at bedtime DM II A1c: 5.9 Previously was on glipizide at home Basal bolus insulin per protocol Adjustment disorder with mixed anxiety and depressed mood Continue Effexor Previously was on Vistaril 25 mg every 6 hours as needed for anxiety Hypothyroidism Continue Levothyroxine BPH on Proscar, Flomax DVT Prophylaxis Lovenox SQ Full Code as per discussion with pt's daughter plan of care discussed with patient all questions answered he is understanding, agreeable, comfortable with the plan of care Total Time Total Time Spent Total Time Spent (In Minutes): >30 minutes Discharge Plan Discharge Items Patient Disposition: Transfer Inpatient Rehab Fac Reason For Visit: AMS Discharge Diagnosis: ACUTE ENCEPHALOPATHY LIKELY SECONDARY TO MEDICATIONS, RESOLVED INFECTION RULED OUT Activity: Resume your previous activity Activity Comment: Continue PT/OT, always with assistance, fall precautions Non-emergency contact: Primary Care Provider Call non-emergency contact if: you have any medication questions, your symptoms worsen, your pain is not controlled, your pain is worsening, your pain is unusual for you, your pain is concerning for you and you have a fever Follow-up/Referrals: Tru Clalahan MD [Primary Care Provider] - Diet: Carb Consistent or DM2 and Heart Healthy Addtl Attending Provider Instructions: Please refer to accompanying hospital discharge summary for further details. Pending Studies at Discharge: No Stand-Alone Forms: My [facility] Skilled Items Patient informed of condition?: Yes DNR: No Discharge Level of Care: Acute rehab Communicable Disease: No Discharge Prognosis: Stable Lines: None Urinary Catheter: No Medications and DC Order Prescriptions: New hydralazine 25 mg Tablet 25 mg PO BID 30 Days Qty: 60 RF: 0 acetaminophen [Tylenol Extra Strength] 500 mg Tablet 1,000 mg PO Q8H 3 Days Qty: 18 RF: 0 lisinopril [Zestril] 5 mg Tablet 5 mg PO QAM 30 Days Qty: 30 RF: 0 oxycodone 5 mg Tablet 5 mg PO Q6H PRN (Reason: Moderate to severe pain) 5 Days Qty: 14 RF: 0 Continued gemfibrozil 600 mg tablet 600 mg PO BIDM RF: 0 gabapentin 300 mg capsule 300 mg PO BID RF: 0 levothyroxine 50 mcg capsule 50 mcg PO DAILYBB RF: 0 Lantus Solostar U-100 Insulin 100 unit/mL (3 mL) insulin pen 8 units SQ HS RF: 0 PreserVision AREDS-2 [id number] [id number] Capsule 1 tab PO BID RF: 0 metoprolol succinate 25 mg tablet extended release 24 hr 25 mg PO HS RF: 0 venlafaxine 150 mg capsule,extended release 24hr 150 mg PO QDL RF: 0 sennosides-docusate sodium [Senokot-S] 8.6-50 mg Tablet 2 tab PO HS Qty: 30 RF: 0 hydralazine 25 mg Tablet 25 mg PO TID PRN (Reason: elevated blood pressure) RF: 0 magnesium hydroxide [Milk of Magnesia] 400 mg/5 mL Suspension 30 ml PO DAILY PRN (Reason: Constipation) RF: 0 amlodipine 10 mg Tablet 10 mg PO QAM RF: 0 docusate sodium [Colace] 100 mg Capsule 100 mg PO BID RF: 0 mupirocin 2 % Ointment 1 applic TOPICAL BID RF: 0 nystatin 100,000 unit/gram Powder 1 applic TOPICAL BID RF: 0 polyethylene glycol 3350 [Miralax] 17 gram/dose Powder 17 g PO QDL PRN (Reason: Constipation) RF: 0 ondansetron 4 mg Tablet,Disintegrating 4 mg PO Q6H PRN (Reason: Nausea) RF: 0 enoxaparin [Lovenox] 40 mg/0.4 mL Syringe 40 mg SUBCUT HS RF: 0 tamsulosin 0.4 mg capsule 0.4 mg PO QDD RF: 0 pantoprazole 40 mg tablet,delayed release (DR/EC) 40 mg PO DAILYBB RF: 0 finasteride 5 mg tablet 5 mg PO QAM RF: 0 Discontinued tramadol 50 mg Tablet 50 mg PO Q4H PRN (Reason: pain) Qty: 30 RF: 0 acetaminophen 325 mg Tablet 650 mg PO Q4H PRN (Reason: Pain) RF: 0 ceftriaxone 1 gram Recon Soln 1 g IM QAM RF: 0 Discharge Orders: Discharge Order (Routine); Ordered 07/10/21 Ordered By: Wilber Higgins Admission Data Admit Date/Time: 07/05/21 13:38 Attending Provider: Wilber Higgins Admit Provider: Zachary Lara Primary Care Provider: Tru Callahan Other Providers: [facility] ; [facility] ; Zachary Lara ; Felix Castellanos
[2021-07-10] MEDS: VENLAFAXINE HCL XR 150 MG CAPXR PO SCH (13:07)
== END 2021-07-10 14:15 | DRG 93 ==
LOC: ED 10:36 → 2W 13:38 → SUATTDRO 13:38 → 2W 14:08

== ENCOUNTER 2021-10-07 13:40 | Inpatient (IN) ==
[2021-10-07] MEDS ORDERED: MoRPHine SULFATE 4 MG/ML 1 ML CARP\\VIAL IV STA (15:03)
[2021-10-07] MEDS ORDERED: ONDANSETRON INJ 2 MG/ML 2 ML VIAL IV STA (15:03)
--- NOTE | 2021-10-07 15:12 | Emergency Department Note ---
Impression & Plan Back pain, High serum chloride, Anemia, UTI (urinary tract infection) ED Provider Note NAME: SYLVIA FUENTES AGE: 81 SEX: M : 1940 ARRIVES VIA: Ambulance INFORMANT: Patient ED PROVIDER(S): Von Hay DO CHIEF COMPLAINT: fall HPI: The patient is an 81-year-old male with a past medical history diabetes, hypertension laminitis, altered mental status, lumbar fractures for mechanical fall. He was walking with his walker and his right knee brace on. His daughter who was helping him walk and holding him belt let go and he fell onto his left side. He did not hit his head or neck. He complains of abdominal pain and severe lower lumbar back pain after the fall. No tingling or numbness in the legs. Pain is an 8 out of 10. Worse with movement. He is unable to sit up. Denies any dysuria urgency or frequency. No other exacerbating or remitting factors. ROS: See above HPI for pertinent positives & negatives. A total of 10 systems reviewed and were otherwise negative. PAST MEDICAL HISTORY:See Below PAST SURGICAL HISTORY:See Below FAMILY HISTORY:See Below SOCIAL HISTORY:See Below HOME MEDICATIONS:See Below ALLERGIES:See Below VITALS:See Below PHYSICAL EXAMINATION: GENERAL: Sitting up in bed, alert, well appearing, well nourished, no distress, non-toxic EYE EXAM: normal conjunctiva. HEAD: NC/AT OROPHARYNX: no exudate, no erythema, lips, buccal mucosa, and tongue normal and mucous membranes are moist NECK: supple, no nuchal rigidity, no adenopathy, non-tender LUNGS: Clear to auscultation. Normal chest wall mechanics HEART: no murmurs, S1 normal and S2 normal ABDOMEN: abdomen soft, non-tender, normo-active bowel sounds, no masses, no rebound or guarding. BACK: Back is symmetrical on inspection and there is no deformity, and tenderness in the lower lumbar SKIN: Skin tear on the right forearm medial aspect. UPPER EXTREMITIES: upper extremities are grossly normal. LOWER EXTREMITIES: No pitting edema. NEURO EXAM: Normal sensorium, cranial nerves II-XII grossly intact, normal speech, no gross weakness of arms, no gross weakness of legs. MEDICAL DECISION MAKING: Is an 81-year-old male who presents the ER following mechanical fall. IV was established blood work was obtained. Labs show mild anemia 9.8. No significant leukocytosis. BMP with slightly elevated chloride. LFTs bilirubin were unremarkable. He does suggest a UTI. He was given IV Rocephin. CT head, chest, abdomen, lumbar, thoracic, pelvis was unremarkable. Given IV narcotics as well as fluids and Zofran. Unable to sit up or move secondary to the pain. Discussed with hospitalist for further evaluation Triage Nursing notes reviewed. Limited review of prior medical records performed Vital Signs: reviewed and remarkable for HTN Differential diagnosis: Differential diagnoses include major intracranial, cervical, spinal, thoracic, abdominal, pelvic and neurologic injury. Fracture, contusion, sprain, strain, laceration, abrasions included as well. ER treatment provided: See below Diagnostics interpreted by me: ECG: none Cardiac Monitoring: An order was placed for continuous cardiac monitoring. The monitor shows a rate of 70 with sinus rhythm. Laboratory studies: As stated above and show below. Imaging studies: CT llanos scan was negative Consultation(s): Discussed with [facility] hospitalist Maryse for further evaluation Procedures: none Critical Care: None Past Med/Surg History Medical History Acute renal insufficiency Anemia Arthritis Bilateral edema of lower extremity resolved BPH (benign prostatic hyperplasia) Depression Diabetes mellitus, type 2 IDDM Dysuria Hearing disorder right ear hearing loss History of anesthesia reaction has woken up during surgery different times in past History of COVID-July 19, 2021, > not hospitalized > still very weak, but does not eat or drink well prior to covid, and continues not to History of kidney stones passed on own History of Mohs micrographic surgery for skin cancer face Hyperlipidemia Hypertension Hypothyroidism Low back pain Macular degeneration, age related Morbid obesity Sleep apnea does not use CPAP Spinal stenosis of lumbar region Vertigo Surgical History History of lumbar fusion History of tooth extraction Hx of bilateral cataract extraction Hx of colonoscopy Hx of non-cataract eye surgery Hx of tonsillectomy Family History Son Family history of diabetes mellitus Social History Smoking Status: Never smoker Tobacco Type: Cigarettes Second Hand Exposure: No; Hx Alcohol Use: No Hx Substance Use: No Preferred Language: Danish Communication Ability: Effective 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 Beliefs That Will Affect Care: None marital status: Current Living Situation: Family Current Living Situation Comment: [facility] Feels Safe at Home: Yes Assistive Devices: Glasses and Wheelchair Allergies Allergies Allergy/AdvReac Type Severity Reaction Status Date / Time acetaminophen [From Percocet] Allergy Intermediate Unknown Verified 10/07/21 18:16 baclofen Allergy Intermediate Unknown Verified 10/07/21 18:16 diazepam [From Valium] Allergy Intermediate Unknown Verified 10/07/21 18:16 oxycodone [From Percocet] Allergy Intermediate Unknown Verified 10/07/21 18:16 ragweed pollen Allergy Intermediate Unknown Verified 10/07/21 18:16 Home Meds Home Medications Medication Instructions Recorded Confirmed gabapentin 300 mg capsule 300 mg PO AMHS 12/04/18 10/07/21 gemfibrozil 600 mg tablet 600 mg PO AMHS 12/04/18 10/07/21 insulin glargine 100 unit/mL (3 14 units subcut HS 12/04/18 10/07/21 mL) subcutaneous pen (Lantus Solostar U-100 Insulin) levothyroxine 50 mcg capsule 50 mcg PO DAILYBB 12/04/18 10/07/21 vit C 250 mg-vit E 90 mg-zinc 40 2 tab PO QAM 12/18/18 10/07/21 mg-copper 1 xd-kedmsw-pysyci capsule (PreserVision AREDS-2) metoprolol succinate 25 mg 50 mg PO HS 04/09/19 10/07/21 tablet,extended release 24 hr venlafaxine 150 mg 150 mg PO QDL 05/22/21 10/07/21 capsule,extended release 24 hr amlodipine 10 mg tablet 10 mg PO QAM 07/05/21 10/07/21 hydralazine 25 mg tablet 25 mg PO AMHS 07/05/21 10/07/21 mupirocin 2 % topical ointment 1 applic topical BID 07/05/21 10/07/21 nystatin 100,000 unit/gram topical 1 applic topical BID 07/05/21 10/07/21 powder ondansetron 4 mg disintegrating 4 mg PO Q6H PRN Nausea 07/05/21 10/07/21 tablet pantoprazole 40 mg tablet,delayed 40 mg PO DAILYBB 07/05/21 10/07/21 release polyethylene glycol 3350 17 17 g PO QAM 07/05/21 10/07/21 gram/dose oral powder (Miralax) acetaminophen 500 mg tablet 500 mg PO TID 08/25/21 10/07/21 finasteride 5 mg tablet 5 mg PO HS 08/25/21 10/07/21 insulin lispro 100 unit/mL 1 sliding scale dose subcut BID 08/25/21 10/07/21 subcutaneous pen (Humalog KwikPen (U-100) Insulin) oxycodone 5 mg capsule 5 mg PO Q6H PRN pain,moderate or 08/25/21 10/07/21 severe tamsulosin 0.4 mg capsule 0.4 mg PO PM 08/25/21 10/07/21 venlafaxine 37.5 mg tablet 37.5 mg PO QAM 08/25/21 10/07/21 miconazole nitrate 2 % topical 1 applic topical UD 10/07/21 10/07/21 powder (Anti-Fungal) multivitamin (Daily-Sowmya tablet) 1 tab PO DAILY 10/07/21 10/07/21 peg 400-propylene glycol 0.4 %-0.3 2 drp OPB AMHS 10/07/21 10/07/21 % eye drops (Systane (propylene glycol)) zinc oxide-cod liver oil 40 % 1 applic topical UD 10/07/21 10/07/21 topical paste (Desitin) Results & Data (ED) Vital Signs Vital Signs - 24 hr 10/07/21 13:56 10/07/21 15:26 10/07/21 15:28 Temperature 36.5 C Temperature Source Oral Pulse Rate 60 68 Pulse Rate [Apical] 69 Respiratory Rate 18 18 Respiratory Effort / Characteristics Non-Labored Non-Labored Respiratory Depth Normal Normal Respiratory Pattern Regular Regular Blood Pressure 146/92 H Blood Pressure [Right Arm] 168/61 H Blood Pressure Mean 110 Blood Pressure Mean [Right Arm] 96 Pulse Oximetry 97 97 97 Oxygen Delivery Method Room Air Room Air Room Air Sepsis Recent Fever Within 48 Hours No Sepsis New/Unexplained Change in Mental Status No Sepsis Action Taken by Nursing No Action Required 10/07/21 18:19 10/07/21 20:13 Temperature Temperature Source Pulse Rate Pulse Rate [Apical] 73 72 Respiratory Rate 18 20 Respiratory Effort / Characteristics Non-Labored Respiratory Depth Normal Respiratory Pattern Blood Pressure Blood Pressure [Right Arm] 150/56 H 155/74 H Blood Pressure Mean Blood Pressure Mean [Right Arm] 87 101 Pulse Oximetry 93 94 Oxygen Delivery Method Room Air Room Air Sepsis Recent Fever Within 48 Hours Sepsis New/Unexplained Change in Mental Status Sepsis Action Taken by Nursing Laboratory Data Result diagrams: 10/07/21 15:27 10/07/21 15:27 Lab Results 10/07/21 10/07/21 10/07/21 Range/Units 15:27 15:27 16:47 WBC 5.94 (4.8-10.8) K/ul RBC 3.29 L (4.63-6.08) M/uL Hgb 9.8 L (14.0-18.0) g/dl Hct 30.5 L (40.1-51.0) % MCV 92.7 (80.0-100.0) fL MCH 29.8 (25.0-34.0) pg MCHC 32.1 (32.0-36.0) g/dL RDW Std Deviation 55.3 H (36.4-46.3) fL RDW Coeff of Sumaya 16.3 H (11.5-14.5) % Plt Count 305 (130-400) K/uL MPV 9.9 (9.4-12.4) fL Immature Gran % (Auto) 0.5 % Neut % (Auto) 80.5 % Lymph % (Auto) 8.2 % Yates % (Auto) 7.6 % Eos % (Auto) 2.7 % Baso % (Auto) 0.5 % Neut # (Auto) 4.78 (1.4-6.5) K/uL Lymph # (Auto) 0.49 L (1.2-3.4) K/uL Yates # (Auto) 0.45 (0.24-0.82) K/uL Eos # (Auto) 0.16 (0-0.50) K/uL Baso # (Auto) 0.03 (0-0.2) K/uL Immature Gran # (Auto) 0.03 H (0.00-0.02) K/uL Sodium 142 (136-145) mmol/L Potassium 3.9 (3.5-5.1) mmol/L Chloride 109 H (98-107) mmol/L Carbon Dioxide 28 (21-32) mmol/L Anion Gap 5 (3-11) BUN 24 H (6-23) mg/dl Creatinine 1.28 (0.6-1.4) mg/dl Est Cr Clr Drug Dosing Not Reportable Est GFR ( Amer) 59.6 ml/min Est GFR (Non-Af Amer) 51.4 ml/min BUN/Creatinine Ratio 18.8 (10-20) Glucose 118 H (70-99(Fasting)) mg/dl Calcium 8.8 (8.5-10.1) mg/dl Total Bilirubin 0.4 (0.2-1.0) mg/dl AST 24 (13-39) U/L ALT 10 (7-52) U/L Alkaline Phosphatase 182 H (34-104) U/L Total Protein 6.0 (6.0-8.3) gm/dl Albumin 3.0 L (3.4-5.0) gm/dl Globulin 3.0 (2.5-4.0) gm/dl Albumin/Globulin Ratio 1.0 (0.9-2) Urine Color Yellow Urine Appearance Cloudy A (Clear) Urine pH 5.5 (4.5-7.5) Ur Specific [place] 1.017 (1.000-1.030) Urine Protein Trace H (Negative) Urine Glucose (UA) Negative (Negative) Urine Ketones Negative (Negative) Urine Blood Negative (Negative) Urine Nitrite Positive A (Negative) Urine Bilirubin Negative (Negative) Urine Urobilinogen Negative (Negative) Ur Leukocyte Esterase 3+ H (Negative) Urine WBC (Auto) >30 H (0-5) /hpf Urine RBC (Auto) 0-4 (0-4) /hpf U Hyaline Cast (Auto) 1-5 (0-5) /lpf U Epithel Cells (Auto) 10-20 H (0-5) /lpf Urine Bacteria (Auto) 4+ H (Negative) SARS-CoV-2, RNA, NAAT (NEGATIVE) 10/07/21 Range/Units 18:20 WBC (4.8-10.8) K/ul RBC (4.63-6.08) M/uL Hgb (14.0-18.0) g/dl Hct (40.1-51.0) % MCV (80.0-100.0) fL MCH (25.0-34.0) pg MCHC (32.0-36.0) g/dL RDW Std Deviation (36.4-46.3) fL RDW Coeff of Sumaya (11.5-14.5) % Plt Count (130-400) K/uL MPV (9.4-12.4) fL Immature Gran % (Auto) % Neut % (Auto) % Lymph % (Auto) % Yates % (Auto) % Eos % (Auto) % Baso % (Auto) % Neut # (Auto) (1.4-6.5) K/uL Lymph # (Auto) (1.2-3.4) K/uL Yates # (Auto) (0.24-0.82) K/uL Eos # (Auto) (0-0.50) K/uL Baso # (Auto) (0-0.2) K/uL Immature Gran # (Auto) (0.00-0.02) K/uL Sodium (136-145) mmol/L Potassium (3.5-5.1) mmol/L Chloride (98-107) mmol/L Carbon Dioxide (21-32) mmol/L Anion Gap (3-11) BUN (6-23) mg/dl Creatinine (0.6-1.4) mg/dl Est Cr Clr Drug Dosing Est GFR ( Amer) ml/min Est GFR (Non-Af Amer) ml/min BUN/Creatinine Ratio (10-20) Glucose (70-99(Fasting)) mg/dl Calcium (8.5-10.1) mg/dl Total Bilirubin (0.2-1.0) mg/dl AST (13-39) U/L ALT (7-52) U/L Alkaline Phosphatase (34-104) U/L Total Protein (6.0-8.3) gm/dl Albumin (3.4-5.0) gm/dl Globulin (2.5-4.0) gm/dl Albumin/Globulin Ratio (0.9-2) Urine Color Urine Appearance (Clear) Urine pH (4.5-7.5) Ur Specific [place] (1.000-1.030) Urine Protein (Negative) Urine Glucose (UA) (Negative) Urine Ketones (Negative) Urine Blood (Negative) Urine Nitrite (Negative) Urine Bilirubin (Negative) Urine Urobilinogen (Negative) Ur Leukocyte Esterase (Negative) Urine WBC (Auto) (0-5) /hpf Urine RBC (Auto) (0-4) /hpf U Hyaline Cast (Auto) (0-5) /lpf U Epithel Cells (Auto) (0-5) /lpf Urine Bacteria (Auto) (Negative) SARS-CoV-2, RNA, NAAT NEGATIVE (NEGATIVE) Administered Medications Discontinued Medications Ceftriaxone Sodium (Rocephin) 2,000 mg in 70 mls @ 140 mls/hr IV NOW STA Stop: 10/07/21 18:03 Last Infusion: 10/07/21 18:31 Dose: 0 mls/hr Documented By: Admin: 10/07/21 17:48 Dose: 140 mls/hr Documented By: Ioversol (Optiray 300 100ml) 88 ml IV ONCE ONE Stop: 10/07/21 16:36 Last Admin: 10/07/21 16:35 Dose: 88 ml Documented By: CURT Morphine Sulfate (Morphine Sulfate 4 Mg/Ml 1 Ml Carp\Vial) 4 mg IV NOW STA Stop: 10/07/21 15:04 Last Admin: 10/07/21 15:22 Dose: 4 mg Documented By: LOR Ondansetron HCl (Ondansetron Inj 2 Mg/Ml 2 Ml Vial) 4 mg IV NOW STA Stop: 10/07/21 15:04 Last Admin: 10/07/21 15:22 Dose: 4 mg Documented By: LOR Imaging Data Radiologist's Impression: Abdomen/Pelvis CT 10/07/21 15:04 CT abd pelvis IV con only, CT lumbar spine w con CLINICAL HISTORY: Trauma TECHNIQUE: Helical axial images of the abdomen and pelvis were obtained and displayed. Automated dose lowering techniques and/or adjustment according to patient size were utilized for this exam. Dedicated images of the lumbar spine were obtained. This exam was performed with intravenous contrast. COMPARISON: Comparison is made to CT abdomen pelvis 06/17/2021 FINDINGS: Lower chest: For findings above the diaphragm, please see CT chest performed same day. Liver: Unremarkable. No focal lesions are seen. Gallbladder and biliary tree: Cholelithiasis is seen without evidence of ch olecystitis. No intra- or extrahepatic biliary ductal dilation. Pancreas: Unremarkable, no focal lesions. Spleen: Unremarkable. Adrenals: Unremarkable. Kidneys and ureters: Previously noted renal cysts are stable. Bladder: Unremarkable. Reproductive organs: Unremarkable. Bowel: Unremarkable appearance of the bowel. The appendix is normal. A duodenal diverticulum is seen. Lymph nodes Retroperitoneal: Unremarkable. Pelvic: Unremarkable. Mesenteric: Unremarkable. Peritoneum: Normal. Vessels: Atherosclerotic calcifications are seen. Abdominal wall: Unremarkable. Bones: Posterior fixation hardware is seen spanning L3 S1. Cement arthroplasty is seen in L4 with loss of height. No evidence of acute fracture is seen. IMPRESSION: 1. No acute abnormalities and in particular no evidence of acute fracture. 2. Additional findings as above. ACT 112: Negative or not required by law. Electronically signed by: Vitaly Crowder M.D. 10/07/2021 5:[address] 10/07/21 15:04 CT cervical spine wo con CLINICAL HISTORY: Trauma TECHNIQUE: Multidetector row helical CT of the cervical spine was performed without administration of intravenous contrast. Coronal and sagittal refor mations were obtained. Automated dose lowering techniques and/or adjustment according to patient size were utilized for this exam. Comparison: None available at the time of this dictation. FINDINGS: No acute fractures or subluxations are identified. The vertebral body heights and disk spaces are well maintained. The alignment is normal. And azygos fissure is noted. IMPRESSION: Degenerative changes without evidence of acute bony injury. ACT 112: Negative or not required by law. Electronically signed by: Vitaly Crowder M.D. 10/07/2021 4:[address] 10/07/21 15:04 CT chest diagnostic w con, CT thoracic spine w con CLINICAL HISTORY: Trauma TECHNIQUE: Multidetector row helical CT of the chest was performed with intravenous contrast. Coronal and sagittal reformations were obtained. Automated dose lowering techniques and/or adjustment according to patient size were utilized for this exam. Dedicated images of the thoracic spine were obtained. CT DOSE: 4569.35 mGy.cm Comparison: None available at the time of this dictation. FINDINGS: Lungs and pleura: An azygos fissure is incidentally noted. There is a small right pleural effusion with associated atelectasis. Mosaic attenuation is noted. Prominence of the pulmonary vasculature is seen. Heart and pericardium: There is cardiomegaly without evidence of pericardial effusion. Vessels: Moderate atherosclerotic changes in the aorta and coronary arteries. Mediastinum and sandra: Unremarkable. Chest wall and lower neck: Unremarkable. Abdomen: Unremarkable. Bones: Degenerative changes in the thoracic spine. IMPRESSION: No evidence of acute fracture. Small right pleural effusion with associated atelectasis. Cardiomegaly with mild pulmonary edema. ACT 112: Negative or not required by law. Electronically signed by: Vitaly Crowder M.D. 10/07/2021 5:[address] 10/07/21 15:04 CT head/brain wo con CLINICAL HISTORY: Trauma Technique: Contiguous axial CT images of the head were acquired from the base of the skull to the vertex without intravenous contrast administration. Images were viewed in brain, subdural and bone windows. Automated dose lowering techniques and/or adjustment according to patient size were utilized for this exam. Comparison: Comparison is made to CT head 07/05/2021 Findings: Areas of decreased attenuation are present in the periventricular and subcortical white matter bilaterally consistent with small vessel ischemic disease. Generalized cerebral atrophy with commensurate enlargement of the ventricles, sulci, and cisterns is also present. There is no acute intracranial hemorrhage or evidence of acute territorial infarction. No shift of the midline structures, mass effect, or extra-axial abnormalities are shown. Atherosclerotic calcifications are present in the intracranial segments of the internal carotid arteries. Large mucous retention cyst is in the right maxillary sinus. The orbits appear normal. There are no acute fractures of the calvaria or scalp swelling. Impression: No acute intracranial hemorrhage, no evidence of acute territorial infarction or other acute intracranial disease process. ACT 112: Negative or not required by law. Electronically signed by: Vitaly Crowder M.D. 10/07/2021 4:[address] 10/07/21 15:04 CT abd pelvis IV con only, CT lumbar spine w con CLINICAL HISTORY: Trauma TECHNIQUE: Helical axial images of the abdomen and pelvis were obtained and displayed. Automated dose lowering techniques and/or adjustment according to patient size were utilized for this exam. Dedicated images of the lumbar spine were obtained. This exam was performed with intravenous contrast. COMPARISON: Comparison is made to CT abdomen pelvis 06/17/2021 FINDINGS: Lower chest: For findings above the diaphragm, please see CT chest performed same day. Liver: Unremarkable. No focal lesions are seen. Gallbladder and biliary tree: Cholelithiasis is seen without evidence of cholecystitis. No intra- or extrahepatic biliary ductal dilation. Pancreas: Unremarkable, no focal lesions. Spleen: Unremarkable. Adrenals: Unremarkable. Kidneys and ureters: Previously noted renal cysts are stable. Bladder: Unremarkable. Reproductive organs: Unremarkable. Bowel: Unremarkable appearance of the bowel. The appendix is normal. A duodenal diverticulum is seen. Lymph nodes Retroperitoneal: Unremarkable. Pelvic: Unremarkable. Mesenteric: Unremarkable. Peritoneum: Normal. Vessels: Atherosclerotic calcifications are seen. Abdominal wall: Unremarkable. Bones: Posterior fixation hardware is seen spanning L3 S1. Cement arthroplasty is seen in L4 with loss of height. No evidence of acute fracture is seen. IMPRESSION: 1. No acute abnormalities and in particular no evidence of acute fracture. 2. Additional findings as above. ACT 112: Negative or not required by law. Electronically signed by: Vitaly Crowder M.D. 10/07/2021 5:[address] 10/07/21 15:04 CT chest diagnostic w con, CT thoracic spine w con CLINICAL HISTORY: Trauma TECHNIQUE: Multidetector row helical CT of the chest was performed with int ravenous contrast. Coronal and sagittal reformations were obtained. Automated dose lowering techniques and/or adjustment according to patient size were utilized for this exam. Dedicated images of the thoracic spine were obtained. CT DOSE: 4569.35 mGy.cm Comparison: None available at the time of this dictation. FINDINGS: Lungs and pleura: An azygos fissure is incidentally noted. There is a small right pleural effusion with associated atelectasis. Mosaic attenuation is noted. Prominence of the pulmonary vasculature is seen. Heart and pericardium: There is cardiomegaly without evidence of pericardial effusion. Vessels: Moderate atherosclerotic changes in the aorta and coronary arteries. Mediastinum and sandra: Unremarkable. Chest wall and lower neck: Unremarkable. Abdomen: Unremarkable. Bones: Degenerative changes in the thoracic spine. IMPRESSION: No evidence of acute fracture. Small right pleural effusion with associated atelectasis. Cardiomegaly with mild pulmonary edema. ACT 112: Negative or not required by law. Electronically signed by: Vitaly Crowder M.D. 10/07/2021 5:12 PM Discharge Plan Visit Data Chief Complaint: Fall Stated Complaint: GLF, BACK PAIN, FOREARM LAC ED Provider: Von Hay Discharge Problem: Back pain, High serum chloride, Anemia, UTI (urinary tract infection) Forms Stand Alone Forms: DocuSpeak Prescriptions Prescriptions: No Action gemfibrozil 600 mg tablet 600 mg PO AMHS gabapentin 300 mg capsule 300 mg PO AMHS levothyroxine 50 mcg capsule 50 mcg PO DAILYBB Lantus Solostar U-100 Insulin 100 unit/mL (3 mL) insulin pen 14 units SQ HS PreserVision AREDS-2 [id number] Capsule 2 tab PO QAM metoprolol succinate 25 mg tablet extended release 24 hr 50 mg PO HS venlafaxine 150 mg capsule,extended release 24hr 150 mg PO QDL hydralazine 25 mg Tablet 25 mg PO AMHS amlodipine 10 mg Tablet 10 mg PO QAM mupirocin 2 % Ointment 1 applic TOPICAL BID nystatin 100,000 unit/gram Powder 1 applic TOPICAL BID polyethylene glycol 3350 [Miralax] 17 gram/dose Powder 17 g PO QAM ondansetron 4 mg Tablet,Disintegrating 4 mg PO Q6H PRN (Reason: Nausea) pantoprazole 40 mg tablet,delayed release (DR/EC) 40 mg PO DAILYBB acetaminophen 500 mg Tablet 500 mg PO TID Rx Instructions: take in morning,noon and bedtime venlafaxine 37.5 mg Tablet 37.5 mg PO QAM oxycodone 5 mg Capsule 5 mg PO Q6H PRN (Reason: pain,moderate or severe) insulin lispro [Humalog KwikPen Insulin] 100 unit/mL Insulin Pen 1 sliding scale dose SUBCUT BID tamsulosin 0.4 mg capsule 0.4 mg PO PM finasteride 5 mg tablet 5 mg PO HS multivitamin [Daily-Sowmya] Tablet 1 tab PO DAILY Systane (propylene glycol) 0.4-0.3 % drops 2 drp OPB AMHS Anti-Fungal 2 % powder 1 applic TOPICAL UD Desitin 40 % paste 1 applic TOPICAL UD Referrals Referrals: Tru Callahan MD [Primary Care Provider] -
[2021-10-07 15:40] LABS: Basophils # (auto) 0.03 K/uL (0-0.2); Basophils % (auto) 0.5 %; Eosinophils # (auto) 0.16 K/uL (0-0.50); Eosinophils % (auto) 2.7 %; Hematocrit (blood only) 30.5 % (40.1-51.0); Hemoglobin 9.8 g/dl (14.0-18.0); Immature Granulocytes # (auto) 0.03 K/uL (0.00-0.02); Immature Granulocytes % (auto) 0.5 %; Lymphocytes # (auto) 0.49 K/uL (1.2-3.4); Lymphocytes % (auto) 8.2 %; Mean Corpuscular Hemoglobin 29.8 pg (25.0-34.0); Mean Corpuscular Hgb Conc 32.1 g/dL (32.0-36.0); Mean Corpuscular Volume 92.7 fL (80.0-100.0); Mean Platelet Volume 9.9 fL (9.4-12.4); Monocytes # (auto) 0.45 K/uL (0.24-0.82); Monocytes % (auto) 7.6 %; Neutrophils # (auto) 4.78 K/uL (1.4-6.5); Neutrophils % (auto) 80.5 %; Platelet Count 305 K/uL (130-400); RDW Coefficient of Variation 16.3 % (11.5-14.5); RDW Standard Deviation 55.3 fL (36.4-46.3); Red Blood Count 3.29 M/uL (4.63-6.08); White Blood Count 5.94 K/ul (4.8-10.8)
[2021-10-07 16:02] LABS: Alanine Aminotransferase 10 U/L (7-52); Alkaline Phosphatase 182 U/L (34-104); Anion Gap 5 (3-11); Aspartate Aminotransferase 24 U/L (13-39); BUN Creatinine Ratio 18.8 (10-20); Bilirubin,Total 0.4 mg/dl (0.2-1.0); Blood Urea Nitrogen 24 mg/dl (6-23); Calcium 8.8 mg/dl (8.5-10.1); Carbon Dioxide 28 mmol/L (21-32); Chloride 109 mmol/L (98-107); Est GFR (African American) 59.6 ml/min; Est GFR (Non-African American) 51.4 ml/min; Glucose 118 mg/dl (70-99(Fasting)); Potassium 3.9 mmol/L (3.5-5.1); Sodium 142 mmol/L (136-145)
[2021-10-07] MEDS ORDERED: OPTIRAY 300 100mL IV ONE (16:35)
--- NOTE | 2021-10-07 16:46 | CT Scan Report ---
CT head/brain wo con CLINICAL HISTORY: Trauma Technique: Contiguous axial CT images of the head were acquired from the base of the skull to the marlene carl without intravenous contrast administration. Images were viewed in brain, subdural and [facility]. Automated dose lowering techniques and/or adjustment according to patient size were utilized for this exam. Comparison: Comparison is made to CT head 07/05/2021 Findings: Areas of decreased attenuation are present in the periventricular and subcortical white matter bilate rally consistent with small vessel ischemic disease. Generalized cerebral atrophy with commensurate e nlargement of the ventricles, sulci, and cisterns is also present. There is no acute intracranial hem orrhage or evidence of acute territorial infarction. No shift of the midline structures, mass effect, or extra-axial abnormalities are shown. Atherosclerotic calcifications are present in the intracran ial segments of the internal carotid arteries. Large mucous retention cyst is in the right maxillary sinus. The orbits appear normal. There are no acute fractures of the calvaria or scalp swelling. Impression: No acute intracranial hemorrhage, no evidence of acute territorial infarction or other acute intracra nial disease process. ACT 112: Negative or not required by law. Electronically signed by: Vitaly Crowder M.D. 10/07/2021 4:45 PM
--- NOTE | 2021-10-07 16:51 | CT Scan Report ---
CT cervical spine wo con CLINICAL HISTORY: Trauma TECHNIQUE: Multidetector row helical CT of the cervical spine was performed without administration of intravenous contrast. Coronal and sagittal reformations were obtained. Automated dose lowering techn iques and/or adjustment according to patient size were utilized for this exam. Comparison: None available at the time of this dictation. FINDINGS: No acute fractures or subluxations are identified. The vertebral body heights and disk spaces are wel l maintained. The alignment is normal. And azygos fissure is noted. IMPRESSION: Degenerative changes without evidence of acute bony injury. ACT 112: Negative or not required by law. Electronically signed by: Vitaly Crowder M.D. 10/07/2021 4:48 PM
[2021-10-07 17:07] LABS: Appearance Urine Cloudy (Clear); Bacteria Urine Automated 4+ (Negative); Bilirubin Urine Negative (Negative); Blood Urine Negative (Negative); Color Urine Yellow; Glucose Urine UA Negative (Negative); Ketones Urine Negative (Negative); Leukocyte Esterase Urine 3+ (Negative); Nitrite Urine Positive (Negative); Protein Urine Trace (Negative); RBC Urine Automated 0-4 /hpf (0-4); Specific Gravity Urine 1.017 (1.000-1.030); Urobilinogen Urine Negative (Negative); WBC Urine Automated >30 /hpf (0-5); pH Urine 5.5 (4.5-7.5)
--- NOTE | 2021-10-07 17:15 | CT Scan Report ---
CT chest diagnostic w con, CT thoracic spine w con CLINICAL HISTORY: Trauma TECHNIQUE: Multidetector row helical CT of the chest was performed with intravenous contrast. Coronal and sagittal reformations were obtained. Automated dose lowering techniques and/or adjustment accord ing to patient size were utilized for this exam. Dedicated images of the thoracic spine were obtained . CT DOSE: 4569.35 mGy.cm Comparison: None available at the time of this dictation. FINDINGS: Lungs and pleura: An azygos fissure is incidentally noted. There is a small right pleural effusion wi th associated atelectasis. Mosaic attenuation is noted. Prominence of the pulmonary vasculature is se en. Heart and pericardium: There is cardiomegaly without evidence of pericardial effusion. Vessels: Moderate atherosclerotic changes in the aorta and coronary arteries. Mediastinum and sandra: Unremarkable. Chest wall and lower neck: Unremarkable. Abdomen: Unremarkable. Bones: Degenerative changes in the thoracic spine. IMPRESSION: No evidence of acute fracture. Small right pleural effusion with associated atelectasis. Cardiomegaly with mild pulmonary edema. ACT 112: Negative or not required by law. Electronically signed by: Vitaly Crowder M.D. 10/07/2021 5:12 PM
--- NOTE | 2021-10-07 17:21 | CT Scan Report ---
CT abd pelvis IV con only, CT lumbar spine w con CLINICAL HISTORY: Trauma TECHNIQUE: Helical axial images of the abdomen and pelvis were obtained and displayed. Automated dose lowering techniques and/or adjustment according to patient size were utilized for this exam. Dedicat ed images of the lumbar spine were obtained. This exam was performed with intravenous contrast. COMPARISON: Comparison is made to CT abdomen pelvis 06/17/2021 FINDINGS: Lower chest: For findings above the diaphragm, please see CT chest performed same day. Liver: Unremarkable. No focal lesions are seen. Gallbladder and biliary tree: Cholelithiasis is seen without evidence of cholecystitis. No intra- or extrahepatic biliary ductal dilation. Pancreas: Unremarkable, no focal lesions. Spleen: Unremarkable. Adrenals: Unremarkable. Kidneys and ureters: Previously noted renal cysts are stable. Bladder: Unremarkable. Reproductive organs: Unremarkable. Bowel: Unremarkable appearance of the bowel. The appendix is normal. A duodenal diverticulum is seen. Lymph nodes Retroperitoneal: Unremarkable. Pelvic: Unremarkable. Mesenteric: Unremarkable. Peritoneum: Normal. Vessels: Atherosclerotic calcifications are seen. Abdominal wall: Unremarkable. Bones: Posterior fixation hardware is seen spanning L3 S1. Cement arthroplasty is seen in L4 with los s of height. No evidence of acute fracture is seen. IMPRESSION: 1. No acute abnormalities and in particular no evidence of acute fracture. 2. Additional findings as above. ACT 112: Negative or not required by law. Electronically signed by: Vitaly Crowder M.D. 10/07/2021 5:19 PM
[2021-10-07] MEDS ORDERED: cefTRIAXone SODIUM 2,000 MG/70 ML BAG IV STA (17:34)
--- NOTE | 2021-10-07 18:35 | History & Physical Report ---
Date of Service October 07, 2021 Assessment & Plan (1) Fall: (2) Back pain: (3) UTI (urinary tract infection): (4) Anemia: (5) Diabetes mellitus, type 2: (6) HTN (hypertension): (7) Benign localized prostatic hyperplasia with lower urinary tract symptoms (LUTS): (8) CKD (chronic kidney disease) stage 3, GFR 30-59 ml/min: (9) Adjustment disorder with mixed anxiety and depressed mood: Plan This is an 81-year-old male with PMH of controlled type 2 diabetes on insulin, severe ALMA, hypertension, hyperlipidemia, CKD 3, BPH, paresis of right lower extremity and other medical problems listed below who presents after fall at home and was found to have a UTI. UTI Afebrile, no leukocytosis. UA abnormal. Follow urine culture Continue Rocephin Recent Lumbar Surgery History of L4 burst fracture and had lumbosacral fusion on 06/06/[address] lumbar spine with hardware in place. No acute abnormalities and in particular no evidence of acute fracture Continue tylenol, PRN oxycodone for pain control Routine ortho spine consult given recent surgery and fall CKD III Cr: 1.28, at baseline. Monitor with daily BMP HTN Continue amlodipine, metoprolol succinate, hydralazine Chronic anemia. Iron deficiency anemia. History of GI bleed on prior admission requiring transfusion Tolerated SQ lovenox at [facility] Hgb improved to 9.8 Nocturnal Hypoxia H/O ALMA Non complaint with CPAP 3L supplemental Oxygen at bedtime DM II A1c: 5.9 Hold home agents Basal/bolus insulin per protocol while in-patient BSG AC HS Adjustment disorder with mixed anxiety and depressed mood Continue Effexor Hypothyroidism Continue Levothyroxine BPH Continue Proscar, Flomax DVT Ppx: SQ Lovenox Code status: FULL PCP: Sindy Dispo: Med/surg Patient seen in collaboration with Dr. Higgins. Please see addendum. History of Present Illness Chief Complaint: Fall Primary Care Provider: Tru Callahan MD This is an 81-year-old male with PMH of controlled type 2 diabetes on insulin, severe ALMA, hypertension, hyperlipidemia, CKD 3, BPH, paresis of right lower extremity and other medical problems listed below who presents after fall at home. Patient was ambulating with walker with daughter's help when he lost his balance and fell backwards onto his left side. Denies head trauma or loss of consciousness. No fever, chills, chest pain, SOB, N/V/D. No dysuria or hematuria. Patient has had a complicated medical course since an L4 burst fracture in May with surgical intervention followed by multiple rehab stays at [facility]. Has been living with his daughter who is significantly involved with his care. Of note, patient's 1 month ago. Allergies Allergy/AdvReac Type Severity Reaction Status Date / Time acetaminophen [From Percocet] Allergy Intermediate Unknown Verified 10/07/21 18:16 baclofen Allergy Intermediate Unknown Verified 10/07/21 18:16 diazepam [From Valium] Allergy Intermediate Unknown Verified 10/07/21 18:16 oxycodone [From Percocet] Allergy Intermediate Unknown Verified 10/07/21 18:16 ragweed pollen Allergy Intermediate Unknown Verified 10/07/21 18:16 Home Medications Medication Instructions Recorded Confirmed Type gabapentin 300 mg capsule 300 mg PO [facility] 12/04/18 10/07/21 History gemfibrozil 600 mg tablet 600 mg PO [facility] 12/04/18 10/07/21 History insulin glargine 100 unit/mL (3 14 units subcut HS 12/04/18 10/07/21 History mL) subcutaneous pen (Lantus Solostar U-100 Insulin) levothyroxine 50 mcg capsule 50 mcg PO DAILYBB 12/04/18 10/07/21 History vit C 250 mg-vit E 90 mg-zinc 40 2 tab PO QA 12/18/18 10/07/21 History mg-copper 1 [id number] capsule (PreserVision AREDS-2) metoprolol succinate 25 mg 50 mg PO HS 04/09/19 10/07/21 History tablet,extended release 24 hr venlafaxine 150 mg 150 mg PO QDL 05/22/21 10/07/21 History capsule,extended release 24 hr amlodipine 10 mg tablet 10 mg PO QA 07/05/21 10/07/21 History hydralazine 25 mg tablet 25 mg PO [facility] 07/05/21 10/07/21 History mupirocin 2 % topical ointment 1 applic topical BID 07/05/21 10/07/21 History nystatin 100,000 unit/gram topical 1 applic topical BID 07/05/21 10/07/21 History powder ondansetron 4 mg disintegrating 4 mg PO Q6H PRN Nausea 07/05/21 10/07/21 History tablet pantoprazole 40 mg tablet,delayed 40 mg PO DAILYBB 07/05/21 10/07/21 History release polyethylene glycol 3350 17 17 g PO QAM 07/05/21 10/07/21 History gram/dose oral powder (Miralax) acetaminophen 500 mg tablet 500 mg PO TID 08/25/21 10/07/21 History finasteride 5 mg tablet 5 mg PO HS 08/25/21 10/07/21 History insulin lispro 100 unit/mL 1 sliding scale dose subcut BID 08/25/21 10/07/21 History subcutaneous pen (Humalog KwikPen (U-100) Insulin) oxycodone 5 mg capsule 5 mg PO Q6H PRN pain,moderate or 08/25/21 10/07/21 History severe tamsulosin 0.4 mg capsule 0.4 mg PO PM 08/25/21 10/07/21 History venlafaxine 37.5 mg tablet 37.5 mg PO QAM 08/25/21 10/07/21 History miconazole nitrate 2 % topical 1 applic topical UD 10/07/21 10/07/21 History powder (Anti-Fungal) multivitamin (Daily-Sowmya tablet) 1 tab PO DAILY 10/07/21 10/07/21 History peg 400-propylene glycol 0.4 %-0.3 2 drp OPB [facility] 10/07/21 10/07/21 History % eye drops (Systane (propylene glycol)) zinc oxide-cod liver oil 40 % 1 applic topical UD 10/07/21 10/07/21 History topical paste (Desitin) Past Med/Surg History Medical History (Updated 10/07/21 @ 21:50 by Maryse Sagastume PA-C) Acute renal insufficiency Anemia Arthritis Bilateral edema of lower extremity resolved BPH (benign prostatic hyperplasia) Depression Diabetes mellitus, type 2 IDDM Dysuria Hearing disorder right ear hearing loss History of anesthesia reaction has woken up during surgery different times in past History of COVID-July 19, 2021, > not hospitalized > still very weak, but does not eat or drink well prior to covid, and continues not to History of kidney stones passed on own History of Mohs micrographic surgery for skin cancer face Hyperlipidemia Hypertension Hypothyroidism Low back pain Macular degeneration, age related Morbid obesity Sleep apnea does not use CPAP Spinal stenosis of lumbar region Vertigo Surgical History History of lumbar fusion History of tooth extraction Hx of bilateral cataract extraction Hx of colonoscopy Hx of non-cataract eye surgery Hx of tonsillectomy Family History Son Family history of diabetes mellitus Social History Smoking Status: Never smoker Tobacco Type: Cigarettes Second Hand Exposure: No; Do You Dip or Chew Tobacco: No; Hx Alcohol Use: No Hx Substance Use: No Preferred Language: Kiswahili Communication Ability: Effective Medical Researcher Required: No Beliefs That Will Affect Care: None marital status: Current Living Situation: Family Current Living Situation Comment: lives with daugther Doretha currently Other Information That Helps Us Care for You: No Feels Safe at Home: Yes Safety Concerns: Feels Safe At This Time Assistive Devices: Brace/Splint/Immobilizer, Glasses, Walker and Wheelchair Review of Systems Review of Systems: At least ten systems reviewed and negative except as noted in the HPI. Physical Exam Physical Exam: General Appearance: WD/WN, vitals as above, NAD, sitting up in bed, pleasant, conversing easily Head: normocephalic, atraumatic Eyes: normal inspection, PERRL, conjunctivae normal, anicteric sclerae ENT: external ear and nose normal, oropharynx normal Neck: normal visual inspection, trachea midline, no thyromegaly Respiratory: normal respiratory effort, rales R base, no wheeze or rhonchi. No accessory muscle use Cardiovascular: regular rate, rhythm, no murmur, normal peripheral pulses, no BLE edema. Vessels: no JVD Chest: normal inspection of chest Abdomen/GI: normal bowel sounds, soft, nontender, no hepatosplenomegaly Extremities/Musculoskeletal: no cyanosis or clubbing, extremities motor strength 5/5 Neurologic: PERRL, EOMI, accommodation nl, no face palsy, no dysarthria, CN's II-XI intact bilaterally and moves all extremities. RLE weakness (chronic) Psychiatric: A+Ox3, euthymic affect Skin: no rashes, pale, warm/dry Results & Data Results & Data ([facility]) Vital Signs (Past 12 Hours) Vital Signs Temp Pulse Pulse Resp BP BP Pulse Ox 10/07/21 18:19 73 18 150/56 H 93 10/07/21 15:28 69 18 168/61 H 97 10/07/21 15:26 68 97 10/07/21 13:56 36.5 C 60 18 146/92 H 97 O2 Del Method 10/07/21 18:19 Room Air 10/07/21 15:28 Room Air 10/07/21 15:26 Room Air 10/07/21 13:56 Room Air Laboratory Results Short CBC 10/07/21 Range/Units 15:27 WBC 5.94 (4.8-10.8) K/ul Hgb 9.8 L (14.0-18.0) g/dl Hct 30.5 L (40.1-51.0) % Plt Count 305 (130-400) K/uL BMP 10/07/21 15:27 Sodium 142 Potassium 3.9 Chloride 109 H Carbon Dioxide 28 BUN 24 H Creatinine 1.28 Glucose 118 H Calcium 8.8 Liver Function 10/07/21 Range/Units 15:27 Total Bilirubin 0.4 (0.2-1.0) mg/dl AST 24 (13-39) U/L ALT 10 (7-52) U/L Alkaline Phosphatase 182 H (34-104) U/L Albumin 3.0 L (3.4-5.0) gm/dl Urine 10/07/21 Range/Units 16:47 Urine Color Yellow Urine Appearance Cloudy A (Clear) Urine pH 5.5 (4.5-7.5) Ur Specific [place] 1.017 (1.000-1.030) Urine Protein Trace H (Negative) Urine Glucose (UA) Negative (Negative) Diagnostic Findings Abdomen/Pelvis CT 10/07/21 15:04 CT abd pelvis IV con only, CT lumbar spine w con CLINICAL HISTORY: Trauma TECHNIQUE: Helical axial images of the abdomen and pelvis were obtained and displayed. Automated dose lowering techniques and/or adjustment according to patient size were utilized for this exam. Dedicated images of the lumbar spine were obtained. This exam was performed with intravenous contrast. COMPARISON: Comparison is made to CT abdomen pelvis 06/17/2021 FINDINGS: Lower chest: For findings above the diaphragm, please see CT chest performed same day. Liver: Unremarkable. No focal lesions are seen. Gallbladder and biliary tree: Cholelithiasis is seen without evidence of cholecystitis. No intra- or extrahepatic biliary ductal dilation. Pancreas: Unremarkable, no focal lesions. Spleen: Unremarkable. Adrenals: Unremarkable. Kidneys and ureters: Previously noted renal cysts are stable. Bladder: Unremarkable. Reproductive organs: Unremarkable. Bowel: Unremarkable appearance of the bowel. The appendix is normal. A duodenal diverticulum is seen. Lymph nodes Retroperitoneal: Unremarkable. Pelvic: Unremarkable. Mesenteric: Unremarkable. Peritoneum: Normal. Vessels: Atherosclerotic calcifications are seen. Abdominal wall: Unremarkable. Bones: Posterior fixation hardware is seen spanning L3 S1. Cement arthroplasty is seen in L4 with loss of height. No evidence of acute fracture is seen. IMPRESSION: 1. No acute abnormalities and in particular no evidence of acute fracture. 2. Additional findings as above. ACT 112: Negative or not required by law. Electronically signed by: Vitaly Crowder M.D. 10/07/2021 5:[address] 10/07/21 15:04 CT cervical spine wo con CLINICAL HISTORY: Trauma TECHNIQUE: Multidetector row helical CT of the cervical spine was performed without administration of intravenous contrast. Coronal and sagittal reformations were obtained. Automated dose lowering techniques and/or adjustment according to patient size were utilized for this exam. Comparison: None available at the time of this dictation. FINDINGS: No acute fractures or subluxations are identified. The vertebral body heights and disk spaces are well maintained. The alignment is normal. And azygos fissure is noted. IMPRESSION: Degenerative changes without evidence of acute bony injury. ACT 112: Negative or not required by law. Electronically signed by: Vitaly Crowder M.D. 10/07/2021 4:[address] 10/07/21 15:04 CT chest diagnostic w con, CT thoracic spine w con CLINICAL HISTORY: Trauma TECHNIQUE: Multidetector row helical CT of the chest was performed with intravenous contrast. Coronal and sagittal reformations were obtained. Automated dose lowering techniques and/or adjustment according to patient size were utilized for this exam. Dedicated images of the thoracic spine were obtained. CT DOSE: 4569.35 mGy.cm Comparison: None available at the time of this dictation. FINDINGS: Lungs and pleura: An azygos fissure is incidentally noted. There is a small right pleural effusion with associated atelectasis. Mosaic attenuation is noted. Prominence of the pulmonary vasculature is seen. Heart and pericardium: There is cardiomegaly without evidence of pericardial effusion. Vessels: Moderate atherosclerotic changes in the aorta and coronary arteries. Mediastinum and sandra: Unremarkable. Chest wall and lower neck: Unremarkable. Abdomen: Unremarkable. Bones: Degenerative changes in the thoracic spine. IMPRESSION: No evidence of acute fracture. Small right pleural effusion with associated atelectasis. Cardiomegaly with mild pulmonary edema. ACT 112: Negative or not required by law. Electronically signed by: Vitaly Crowder M.D. 10/07/2021 5:[address] 10/07/21 15:04 CT head/brain wo con CLINICAL HISTORY: Trauma Technique: Contiguous axial CT images of the head were acquired from the base of the skull to the vertex without intravenous contrast administration. Images were viewed in brain, subdural and bone windows. Automated dose lowering techniques and/or adjustment according to patient size were utilized for this exam. Comparison: Comparison is made to CT head 07/05/2021 Findings: Areas of decreased attenuation are present in the periventricular and subcortical white matter bilaterally consistent with small vessel ischemic disease. Generalized cerebral atrophy with commensurate enlargement of the ventricles, sulci, and cisterns is also present. There is no acute intracranial hemorrhage or evidence of acute territorial infarction. No shift of the midline structures, mass effect, or extra-axial abnormalities are shown. Atherosclerotic calcifications are present in the intracranial segments of the internal carotid arteries. Large mucous retention cyst is in the right maxillary sinus. The orbits appear normal. There are no acute fractures of the calvaria or scalp swelling. Impression: No acute intracranial hemorrhage, no evidence of acute territorial infarction or other acute intracranial disease process. ACT 112: Negative or not required by law. Electronically signed by: Vitaly Crowder M.D. 10/07/2021 4:[address] 10/07/21 15:04 CT abd pelvis IV con only, CT lumbar spine w con CLINICAL HISTORY: Trauma TECHNIQUE: Helical axial images of the abdomen and pelvis were obtained and displayed. Automated dose lowering techniques and/or adjustment according to patient size were utilized for this exam. Dedicated images of the lumbar spine were obtained. This exam was performed with intravenous contrast. COMPARISON: Comparison is made to CT abdomen pelvis 06/17/2021 FINDINGS: Lower chest: For findings above the diaphragm, please see CT chest performed same day. Liver: Unremarkable. No focal lesions are seen. Gallbladder and biliary tree: Cholelithiasis is seen without evidence of cholecystitis. No intra- or extrahepatic biliary ductal dilation. Pancreas: Unremarkable, no focal lesions. Spleen: Unremarkable. Adrenals: Unremarkable. Kidneys and ureters: Previously noted renal cysts are stable. Bladder: Unremarkable. Reproductive organs: Unremarkable. Bowel: Unremarkable appearance of the bowel. The appendix is normal. A duodenal diverticulum is seen. Lymph nodes Retroperitoneal: Unremarkable. Pelvic: Unremarkable. Mesenteric: Unremarkable. Peritoneum: Normal. Vessels: Atherosclerotic calcifications are seen. Abdominal wall: Unremarkable. Bones: Posterior fixation hardware is seen spanning L3 S1. Cement arthroplasty i s seen in L4 with loss of height. No evidence of acute fracture is seen. IMPRESSION: 1. No acute abnormalities and in particular no evidence of acute fracture. 2. Additional findings as above. ACT 112: Negative or not required by law. Electronically signed by: Vitaly Crowder M.D. 10/07/2021 5:[address] 10/07/21 15:04 CT chest diagnostic w con, CT thoracic spine w con CLINICAL HISTORY: Trauma TECHNIQUE: Multidetector row helical CT of the chest was performed with intravenous contrast. Coronal and sagittal reformations were obtained. Automated dose lowering techniques and/or adjustment according to patient size were utilized for this exam. Dedicated images of the thoracic spine were obtained. CT DOSE: 4569.35 mGy.cm Comparison: None available at the time of this dictation. FINDINGS: Lungs and pleura: An azygos fissure is incidentally noted. There is a small right pleural effusion with associated atelectasis. Mosaic attenuation is noted. Prominence of the pulmonary vasculature is seen. Heart and pericardium: There is cardiomegaly without evidence of pericardial effusion. Vessels: Moderate atherosclerotic changes in the aorta and coronary arteries. Mediastinum and sandra: Unremarkable. Chest wall and lower neck: Unremarkable. Abdomen: Unremarkable. Bones: Degenerative changes in the thoracic spine. IMPRESSION: No evidence of acute fracture. Small right pleural effusion with associated atelectasis. Cardiomegaly with mild pulmonary edema. ACT 112: Negative or not required by law. Electronically signed by: Vitaly Crowder M.D. 10/07/2021 5:12 PM Code Status & VTE Plan VTE Prophylaxis Plan VTE Prophylaxis will be ordered: Yes Supervising Physician Co-Signing Physician Notes .del Attending Addendum: care coordinated with HATTIE Sagastume please refer to her notes for full details, I agree with her notes patient seen and examined, records reviewed by myself as well on exam, patient seen resting in bed, not in distress, comfortable, oriented x 3 has some lower back pain no bladder pain, abdominal pain, urinary symptoms, fever S/P MECHANICAL FALL HISTORY OF RECENT LUMBAR SPINE SURGERY CT spine not showing acute fracture will still consult Ortho Spine PT/OT POSSIBLE UTI Urine culture Ceftri other diagnoses and plan of care as per HATTIE Sagastume's notes Wilber Higgins MD
--- NOTE | 2021-10-07 21:47 | XRay Report ---
XR knee RT 1 or 2V routine CLINICAL HISTORY: pain, r/o fracture TECHNIQUE: 2 views of the right knee were obtained. Comparison: None available at the time of this dictation. FINDINGS: There is no evidence of an acute fracture. Joint spaces are well-preserved. No joint effusion is seen . No soft tissue abnormality is seen. IMPRESSION: No evidence of acute osseous injury. ACT 112: Negative or not required by law. Electronically signed by: Vitaly Crowder M.D. 10/07/2021 9:45 PM
[2021-10-07] MEDS ORDERED: CARBOHYDRATES FOR HYPOGLYCEMIA PO PRN (22:03)
[2021-10-07] MEDS ORDERED: DEXTROSE 50% 50 ML SYRINGE IV PRN (22:03)
[2021-10-07] MEDS ORDERED: POLYETHYLENE (MIRALAX) 17 GM PACK PO PRN (22:03)
[2021-10-07] MEDS ORDERED: ONDANSETRON INJ 2 MG/ML 2 ML VIAL IV PRN (22:03)
[2021-10-07] MEDS ORDERED: GLUCOSE 10 TAB/TUBE PO PRN (22:03)
[2021-10-07] MEDS ORDERED: GLUCAGON FOR INJ 1 MG VIAL SQ PRN (22:03)
[2021-10-07] MEDS ORDERED: oxyCODONE HCL IR 5 MG TAB (IMMEDIATE RELEASE) PO PRN (22:03)
[2021-10-07] MEDS ORDERED: ENOXAPARIN INJ 40 MG/0.4 ML SYR SQ SCH (22:03)
[2021-10-07] MEDS ORDERED: GLUCOSE 40% GEL 15 GM TUBE PO PRN (22:03)
[2021-10-07] MEDS: LANTUS PER UNIT CHARGE SQ SCH (23:45)
[2021-10-07] MEDS: INSULIN ASPART PER UNIT SC SCH (23:46)
[2021-10-07] MEDS: FINASTERIDE 5 MG TAB PO SCH (23:47)
[2021-10-07] MEDS: ACETAMINOPHEN 500 MG TAB PO SCH (23:47)
[2021-10-07] MEDS: hydrALAZINE HCL 25 MG TAB PO SCH (23:48)
[2021-10-07] MEDS: gemfibroziL 600 MG TAB PO SCH (23:48)
[2021-10-07] MEDS: METOPROLOL SUCC 50MG EXT REL TAB PO SCH (23:48)
[2021-10-07] MEDS: GABAPENTIN 300 MG CAP PO SCH (23:48)
[2021-10-07] MEDS: TAMSULOSIN HCL 0.4 MG CAP PO SCH (23:48)
[2021-10-07] MEDS: MUPIROCIN 2% OINT 22 GM TUBE TOP SCH (23:49)
[2021-10-07] MEDS: NYSTATIN POWDER 15GM BTL EXT SCH (23:49)
[2021-10-08] MEDS: PANTOprazole 40 MG TAB PO SCH (06:01)
[2021-10-08] MEDS: LEVOTHYROXINE SODIUM 50 MCG TABLET PO SCH (06:01)
[2021-10-08 06:57] LABS: Hematocrit (blood only) 28.9 % (40.1-51.0); Mean Corpuscular Hemoglobin 28.8 pg (25.0-34.0); Mean Corpuscular Hgb Conc 31.1 g/dL (32.0-36.0); Mean Corpuscular Volume 92.3 fL (80.0-100.0); Mean Platelet Volume 9.9 fL (9.4-12.4); Platelet Count 284 K/uL (130-400); RDW Coefficient of Variation 16.5 % (11.5-14.5); RDW Standard Deviation 55.8 fL (36.4-46.3); Red Blood Count 3.13 M/uL (4.63-6.08); White Blood Count 6.05 K/ul (4.8-10.8)
[2021-10-08 07:22] LABS: BUN Creatinine Ratio 18.7 (10-20); Calcium 8.5 mg/dl (8.5-10.1); Creatinine Clr Calc Pharmacy 64.7 ml/min; Est GFR (African American) 62.5 ml/min; Potassium 4.1 mmol/L (3.5-5.1)
[2021-10-08] MEDS: CEROVITE ADV FORMULA TAB PO SCH (07:47)
[2021-10-08] MEDS: GABAPENTIN 300 MG CAP PO SCH ×2 (07:48→22:22)
[2021-10-08] MEDS: VENLAFAXINE HCL XR 37.5 MG CAPXR PO SCH (07:48)
[2021-10-08] MEDS: amLODIPine BESYLATE 5 MG TAB PO SCH (07:48)
[2021-10-08] MEDS: MULTIVITAMIN TAB PO SCH (07:48)
[2021-10-08] MEDS: hydrALAZINE HCL 25 MG TAB PO SCH ×2 (07:48→22:23)
[2021-10-08] MEDS: ACETAMINOPHEN 500 MG TAB PO SCH ×3 (07:49→22:16)
[2021-10-08] MEDS: gemfibroziL 600 MG TAB PO SCH ×2 (07:49→22:21)
[2021-10-08] MEDS: NYSTATIN POWDER 15GM BTL EXT SCH ×2 (07:50→22:24)
[2021-10-08] MEDS: MUPIROCIN 2% OINT 22 GM TUBE TOP SCH ×2 (07:51→22:24)
[2021-10-08] MEDS: ARTIFICIAL TEARS OP SCH ×2 (07:54→22:18)
[2021-10-08] MEDS: INSULIN ASPART PER UNIT SC SCH ×4 (09:23→22:51)
[2021-10-08] MEDS: LANTUS PER UNIT CHARGE SQ SCH ×2 (09:24→22:55)
--- NOTE | 2021-10-08 11:29 | Orthopedic Consultation ---
Date of Consultation October 08, 2021 Assessment & Plan (1) Fall: Assessment status post fall with back pain. CAT scan does demonstrate evidence of some loosening the proximal screws. This is not a surprise considering his age and bone health. Would like to obtain some x-rays. I am ordering a new knee brace as the current brace is destroyed from the fall. Hopefully will initiate therapy in the rehab and return home soon as possible. History of Present Illness Reason for Consultation: Back pain Attending Physician: Glenn Best MD History of Present Illness Patient had a fall yesterday at his home. He is currently living with his daughter. He has been doing quite well otherwise. He uses a hinged knee brace and a specialized chair to help him get out of bed. He is however ambulating which is marked improvement. This morning he states his back pain is controlled denies any leg pain. He is anxious to begin therapy again. Allergies Allergy/AdvReac Type Severity Reaction Status Date / Time acetaminophen [From Percocet] Allergy Intermediate Unknown Verified 10/07/21 18:16 baclofen Allergy Intermediate Unknown Verified 10/07/21 18:16 diazepam [From Valium] Allergy Intermediate Unknown Verified 10/07/21 18:16 oxycodone [From Percocet] Allergy Intermediate Unknown Verified 10/07/21 18:16 ragweed pollen Allergy Intermediate Unknown Verified 10/07/21 18:16 Home Medications Medication Instructions Recorded Confirmed Type gabapentin 300 mg capsule 300 mg PO [facility] 12/04/18 10/07/21 History gemfibrozil 600 mg tablet 600 mg PO [facility] 12/04/18 10/07/21 History insulin glargine 100 unit/mL (3 14 units subcut HS 12/04/18 10/07/21 History mL) subcutaneous pen (Lantus Solostar U-100 Insulin) levothyroxine 50 mcg capsule 50 mcg PO DAILYBB 12/04/18 10/07/21 History vit C 250 mg-vit E 90 mg-zinc 40 2 tab PO QAM 12/18/18 10/07/21 History mg-copper 1 [id number] capsule (PreserVision AREDS-2) metoprolol succinate 25 mg 50 mg PO HS 04/09/19 10/07/21 History tablet,extended release 24 hr venlafaxine 150 mg 150 mg PO QDL 05/22/21 10/07/21 History capsule,extended release 24 hr amlodipine 10 mg tablet 10 mg PO QAM 07/05/21 10/07/21 History hydralazine 25 mg tablet 25 mg PO AMHS 07/05/21 10/07/21 History mupirocin 2 % topical ointment 1 applic topical BID 07/05/21 10/07/21 History nystatin 100,000 unit/gram topical 1 applic topical BID 07/05/21 10/07/21 History powder ondansetron 4 mg disintegrating 4 mg PO Q6H PRN Nausea 07/05/21 10/07/21 History tablet pantoprazole 40 mg tablet,delayed 40 mg PO DAILYBB 07/05/21 10/07/21 History release polyethylene glycol 3350 17 17 g PO QAM 07/05/21 10/07/21 History gram/dose oral powder (Miralax) acetaminophen 500 mg tablet 500 mg PO TID 08/25/21 10/07/21 History finasteride 5 mg tablet 5 mg PO HS 08/25/21 10/07/21 History insulin lispro 100 unit/mL 1 sliding scale dose subcut BID 08/25/21 10/07/21 History subcutaneous pen (Humalog KwikPen (U-100) Insulin) oxycodone 5 mg capsule 5 mg PO Q6H PRN pain,moderate or 08/25/21 10/07/21 History severe tamsulosin 0.4 mg capsule 0.4 mg PO PM 08/25/21 10/07/21 History venlafaxine 37.5 mg tablet 37.5 mg PO QAM 08/25/21 10/07/21 History miconazole nitrate 2 % topical 1 applic topical UD 10/07/21 10/07/21 History powder (Anti-Fungal) multivitamin (Daily-Sowmya tablet) 1 tab PO DAILY 10/07/21 10/07/21 History peg 400-propylene glycol 0.4 %-0.3 2 drp OPB [facility] 10/07/21 10/07/21 History % eye drops (Systane (propylene glycol)) zinc oxide-cod liver oil 40 % 1 applic topical UD 10/07/21 10/07/21 History topical paste (Desitin) Patient History Medical History (Updated 10/07/21 @ 21:50 by Maryse Sagastume PA-C) Acute renal insufficiency Anemia Arthritis Bilateral edema of lower extremity resolved BPH (benign prostatic hyperplasia) Depression Diabetes mellitus, type 2 IDDM Dysuria Hearing disorder right ear hearing loss History of anesthesia reaction has woken up during surgery different times in past History of COVID-July 19, 2021, > not hospitalized > still very weak, but does not eat or drink well prior to covid, and continues not to History of kidney stones passed on own History of Mohs micrographic surgery for skin cancer face Hyperlipidemia Hypertension Hypothyroidism Low back pain Macular degeneration, age related Morbid obesity Sleep apnea does not use CPAP Spinal stenosis of lumbar region Vertigo Surgical History History of lumbar fusion History of tooth extraction Hx of bilateral cataract extraction Hx of colonoscopy Hx of non-cataract eye surgery Hx of tonsillectomy Family History Son Family history of diabetes mellitus Social History Smoking Status: Never smoker Tobacco Type: Cigarettes Second Hand Exposure: No; Do You Dip or Chew Tobacco: No; Hx Alcohol Use: No Hx Substance Use: No Preferred Language: Welsh Communication Ability: Effective Care Professionals Required: No Beliefs That Will Affect Care: None marital status: Current Living Situation: Family Current Living Situation Comment: lives with daugther Doretha currently Other Information That Helps Us Care for You: No Feels Safe at Home: Yes Safety Concerns: Feels Safe At This Time Assistive Devices: Brace/Splint/Immobilizer, Glasses, Walker and Wheelchair Physical Exam Physical Exam: On exam he appears comfortable. Extremely talkative. He has no evidence of weakness to testing lower extremities. Results & Data ([facility]) Vital Signs (Past 12 Hours) Vital Signs Temp Pulse Resp BP Pulse Ox O2 Del Method 10/08/21 07:38 36.5 C 57 L 20 125/58 L 90 Room Air
[2021-10-08] MEDS: VENLAFAXINE HCL XR 150 MG CAPXR PO SCH (12:18)
--- NOTE | 2021-10-08 13:33 | Electrocardiogram Report ---
Test Reason : Blood Pressure : / mmHG Vent. Rate : 067 BPM Atrial Rate : 067 BPM P-R Int : 192 ms QRS Dur : 090 ms QT Int : 404 ms P-R-T Axes : 057 000 -06 degrees QTc Int : 426 ms Poor data quality, interpretation may be adversely affected Normal sinus rhythm Normal ECG When compared with ECG of 06-JUL-2021 05:38, No significant change was found Confirmed by Chuck Mcgrath ([id number]) on 10/08/2021 1:33:14 PM Referred By: REFERRED SELF Confirmed By:Chuck Mcgrath
--- NOTE | 2021-10-08 14:05 | XRay Report ---
XR lumbar spine 2-3V CLINICAL HISTORY: Ongoing low back pain. Previous surgery. COMPARISON STUDY: CT of the lumbar spine. 1322 TECHNIQUE: 3 Views of the lumbar spine FINDINGS: Bones: The patient is again status post interpedicular screw and fernando fixation from L3 through S1. The patient is again status post vertebroplasty at L4 with marked loss of height of the L4 vertebral bod y again seen. There is no evidence for an acute fracture or malalignment. The heights of the remainin g lumbar vertebral bodies are maintained. There are no lytic or blastic lesions present. Disc spaces: Disc spacers in place at L5-S1. Mild to moderate disc space narrowing is seen throughout the remainder the lumbar spine with vacuum disc phenomena at L3-4 and L4-5. Facet joints: Degenerative facet joint disease is also present throughout the lumbar spine Soft tissues: The paraspinal soft tissues are within normal limits. IMPRESSION: 1. No acute abnormality. 2. Stable internal fixation with old L4 compression fracture. 3. Degenerative disc and degenerative facet joint disease. ACT 112: Negative or not required by law. Electronically signed by: Hesham Rubio M.D. 10/08/2021 2:02 PM
[2021-10-08] MEDS: cefTRIAXone SODIUM 2,000 MG in DEXTROSE 5% 50 ML IV SCH (15:54)
[2021-10-08] MEDS: METOPROLOL SUCC 50MG EXT REL TAB PO SCH (22:20)
[2021-10-08] MEDS: TAMSULOSIN HCL 0.4 MG CAP PO SCH (22:21)
[2021-10-08] MEDS: FINASTERIDE 5 MG TAB PO SCH (22:22)
--- NOTE | 2021-10-08 23:48 | Hospitalist Progress Note ---
Date of Service October 08, 2021 Assessment & Plan (1) Fall: (2) Back pain: (3) UTI (urinary tract infection): (4) Anemia: (5) Diabetes mellitus, type 2: (6) HTN (hypertension): (7) Benign localized prostatic hyperplasia with lower urinary tract symptoms (LUTS): (8) CKD (chronic kidney disease) stage 3, GFR 30-59 ml/min: (9) Adjustment disorder with mixed anxiety and depressed mood: Plan This is an 81-year-old male with PMH of controlled type 2 diabetes on insulin, severe ALMA, hypertension, hyperlipidemia, CKD 3, BPH, paresis of right lower extremity and other medical problems listed below who presents after fall at home and was found to have a UTI. Fall S/P Lumbar Surgery Present on admission with Fall History of L4 burst fracture and had lumbosacral fusion on 06/06/[address] lumbar spine with hardware in place. No acute abnormalities and in particular no evidence of acute fracture Thoracic spine showed no evidence of acute fracture CT Cervical spine showed degenerative changes without evidence of acute bony i njury. Right knee xray showed No evidence of acute osseous injury. Ortho on board Continue pain control New knee brace order by ortho PT/OT eval UTI Urine cx grew gram negative bacilli Continue Rocephin Urine cx grew Klebesiella CKD III Creatinine 1.23 today, at baseline. Continue monitor BMP HTN Continue amlodipine, metoprolol succinate, hydralazine Chronic anemia. Iron deficiency anemia. History of GI bleed on prior admission requiring transfusion Tolerated SQ lovenox at [facility] Hgb improved to 9.8 Nocturnal Hypoxia H/O ALMA Non complaint with CPAP 3L supplemental Oxygen at bedtime DM II A1c: 5.9 Hold home agents Basal/bolus insulin per protocol while in-patient BSG AC HS Adjustment disorder with mixed anxiety and depressed mood Continue Effexor Hypothyroidism Continue Levothyroxine BPH Continue Proscar, Flomax DVT Ppx: SQ Lovenox Code status: FULL PCP: Sindy Dispo: Med/surg Admission and Anticipated Discharge Date Admission Date: October 07, 2021 Subjective Pt was seen and evaluated for follow up of fall Lying in bed with no acute distress Pt said that he felt sore from the fall Denies any chest pain, palpitation, dizziness and SOB Review of Systems Review of Systems: All systems reviewed & are unremarkable except as noted in Subjective Physical Exam Physical Exam: General- No acute distress Head- atraumatic Eyes- PERRL, EOMI, ENT- oropharynx clear Neck- supple, no JVD Lungs- clear to auscultation Heart- regular rhythm; no murmur Abdomen- normal bowel sounds, soft, nontender Extremities- no calf tenderness, +Right knee tenderness, +mild knee swelling Neuro- alert, oriented x 3; PERRL, EOMI; no facial palsy; no dysarthria Skin- warm & dry Results & Data Results & Data ([facility]) Vital Signs (Past 12 Hours) Vital Signs Temp Pulse Resp BP Pulse Ox O2 Del Method 10/08/21 23:26 36.8 C 57 L 18 142/59 H 93 Room Air 10/08/21 22:19 55 L 150/61 H 10/08/21 15:04 36.5 C 59 L 18 127/63 90 Room Air
[2021-10-09] MEDS: PANTOprazole 40 MG TAB PO SCH (05:52)
[2021-10-09] MEDS: LEVOTHYROXINE SODIUM 50 MCG TABLET PO SCH (05:52)
[2021-10-09 08:22] LABS: Hematocrit (blood only) 25.7 % (40.1-51.0); Hemoglobin 8.1 g/dl (14.0-18.0); Mean Corpuscular Hgb Conc 31.5 g/dL (32.0-36.0); Mean Corpuscular Volume 92.1 fL (80.0-100.0); Mean Platelet Volume 10.5 fL (9.4-12.4); Platelet Count 267 K/uL (130-400); RDW Coefficient of Variation 16.6 % (11.5-14.5); RDW Standard Deviation 56.6 fL (36.4-46.3); Red Blood Count 2.79 M/uL (4.63-6.08); White Blood Count 4.61 K/ul (4.8-10.8)
[2021-10-09 08:43] LABS: BUN Creatinine Ratio 16.8 (10-20); Calcium 8.2 mg/dl (8.5-10.1); Creatinine Clr Calc Pharmacy 51.3 ml/min; Est GFR (African American) 47.3 ml/min; Est GFR (Non-African American) 40.8 ml/min; Potassium 3.9 mmol/L (3.5-5.1)
[2021-10-09 09:19] LABS: Estimated Average Glucose 103 mg/dl; Hemoglobin A1C 5.2 % (4.5-5.6)
[2021-10-09] MEDS: LANTUS PER UNIT CHARGE SQ SCH ×2 (09:54→21:33)
[2021-10-09] MEDS: INSULIN ASPART PER UNIT SC SCH ×4 (10:00→21:33)
[2021-10-09] MEDS: ACETAMINOPHEN 500 MG TAB PO SCH ×3 (10:06→20:17)
[2021-10-09] MEDS: GABAPENTIN 300 MG CAP PO SCH ×2 (10:07→20:20)
[2021-10-09] MEDS: amLODIPine BESYLATE 5 MG TAB PO SCH (10:07)
[2021-10-09] MEDS: gemfibroziL 600 MG TAB PO SCH ×2 (10:08→20:19)
[2021-10-09] MEDS: hydrALAZINE HCL 25 MG TAB PO SCH ×2 (10:09→20:18)
[2021-10-09] MEDS: CEROVITE ADV FORMULA TAB PO SCH (10:10)
[2021-10-09] MEDS: MULTIVITAMIN TAB PO SCH (10:10)
[2021-10-09] MEDS: NYSTATIN POWDER 15GM BTL EXT SCH ×2 (10:11→20:21)
[2021-10-09] MEDS: MUPIROCIN 2% OINT 22 GM TUBE TOP SCH ×2 (10:12→20:22)
[2021-10-09] MEDS: VENLAFAXINE HCL XR 37.5 MG CAPXR PO SCH (10:13)
--- NOTE | 2021-10-09 10:39 | Orthopedic Progress Note ---
Date of Service October 09, 2021 Assessment & Plan (1) Fall: Plan: X-rays performed yesterday available for review demonstrate marked maturation of the bone graft in the posterior lateral gutters. These are very positive findings. I recommend that he undergo physical therapy occupational therapy once the Knee brace is fitted. I will await their input regarding recommendations for rehab versus return to home. He does have a very positive home situation as his daughter is active in his rehab. Admission and Anticipated Discharge Date Admission Date: October 07, 2021 Subjective Patient in therapy Results & Data ([facility]) Vital Signs (Past 12 Hours) Vital Signs Temp Pulse Resp BP Pulse Ox O2 Del Method 10/09/21 07:35 36.6 C 64 20 138/65 94 Room Air 10/08/21 23:26 36.8 C 57 L 18 142/59 H 93 Room Air
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
[2021-10-09] MEDS: VENLAFAXINE HCL XR 150 MG CAPXR PO SCH (13:04)
[2021-10-09] MEDS: ARTIFICIAL TEARS OP SCH ×2 (13:54→20:18)
[2021-10-09] MEDS: POLYETHYLENE (MIRALAX) 17 GM PACK PO SCH (15:25)
[2021-10-09] MEDS: cefTRIAXone SODIUM 2,000 MG in DEXTROSE 5% 50 ML IV SCH (16:27)
[2021-10-09] MEDS: METOPROLOL SUCC 50MG EXT REL TAB PO SCH (20:18)
[2021-10-09] MEDS: FINASTERIDE 5 MG TAB PO SCH (20:20)
[2021-10-09] MEDS: TAMSULOSIN HCL 0.4 MG CAP PO SCH (20:21)
[2021-10-10] MEDS: PANTOprazole 40 MG TAB PO SCH (05:34)
[2021-10-10] MEDS: LEVOTHYROXINE SODIUM 50 MCG TABLET PO SCH (05:34)
[2021-10-10] MEDS: ACETAMINOPHEN 500 MG TAB PO SCH ×3 (07:59→21:14)
[2021-10-10] MEDS: CEROVITE ADV FORMULA TAB PO SCH (08:00)
[2021-10-10] MEDS: GABAPENTIN 300 MG CAP PO SCH ×2 (08:00→21:16)
[2021-10-10] MEDS: amLODIPine BESYLATE 5 MG TAB PO SCH (08:00)
[2021-10-10] MEDS: POLYETHYLENE (MIRALAX) 17 GM PACK PO SCH (08:00)
[2021-10-10] MEDS: MULTIVITAMIN TAB PO SCH (08:00)
[2021-10-10] MEDS: VENLAFAXINE HCL XR 37.5 MG CAPXR PO SCH (08:00)
[2021-10-10] MEDS: gemfibroziL 600 MG TAB PO SCH ×2 (08:00→21:15)
[2021-10-10] MEDS: hydrALAZINE HCL 25 MG TAB PO SCH ×2 (08:00→21:14)
[2021-10-10] MEDS: ARTIFICIAL TEARS OP SCH ×2 (08:01→21:16)
[2021-10-10] MEDS: NYSTATIN POWDER 15GM BTL EXT SCH ×2 (08:01→21:13)
[2021-10-10] MEDS: MUPIROCIN 2% OINT 22 GM TUBE TOP SCH ×2 (08:01→21:13)
[2021-10-10 08:31] LABS: Hematocrit (blood only) 28.9 % (40.1-51.0); Hemoglobin 9.2 g/dl (14.0-18.0); Mean Corpuscular Hemoglobin 29.2 pg (25.0-34.0); Mean Corpuscular Hgb Conc 31.8 g/dL (32.0-36.0); Mean Corpuscular Volume 91.7 fL (80.0-100.0); Mean Platelet Volume 9.9 fL (9.4-12.4); Platelet Count 282 K/uL (130-400); RDW Coefficient of Variation 16.6 % (11.5-14.5); RDW Standard Deviation 55.2 fL (36.4-46.3); Red Blood Count 3.15 M/uL (4.63-6.08)
[2021-10-10] MEDS: INSULIN ASPART PER UNIT SC SCH ×4 (08:46→21:10)
[2021-10-10] MEDS: LANTUS PER UNIT CHARGE SQ SCH ×2 (08:47→21:10)
[2021-10-10 09:08] LABS: BUN Creatinine Ratio 17.9 (10-20); Calcium 8.4 mg/dl (8.5-10.1); Creatinine Clr Calc Pharmacy 54.8 ml/min; Est GFR (African American) 51.2 ml/min; Est GFR (Non-African American) 44.2 ml/min; Potassium 3.9 mmol/L (3.5-5.1)
[2021-10-10 09:26] LABS: Ferritin 80.8 ng/ml (8-388)
[2021-10-10 09:32] LABS: Folate (Folic Acid) 15.19 ng/ml (>5.38)
--- NOTE | 2021-10-10 11:22 | Hospitalist Progress Note ---
Date of Service October 10, 2021 Assessment & Plan (1) Fall: (2) Back pain: (3) UTI (urinary tract infection): (4) Anemia: (5) Diabetes mellitus, type 2: (6) HTN (hypertension): (7) Benign localized prostatic hyperplasia with lower urinary tract symptoms (LUTS): (8) CKD (chronic kidney disease) stage 3, GFR 30-59 ml/min: (9) Adjustment disorder with mixed anxiety and depressed mood: Plan This is an 81-year-old male with PMH of controlled type 2 diabetes on insulin, severe ALMA, hypertension, hyperlipidemia, CKD 3, BPH, paresis of right lower extremity and other medical problems listed below who presents after fall at home and was found to have a UTI. Fall S/P Lumbar Surgery Present on admission with Fall History of L4 burst fracture and had lumbosacral fusion on 06/06/[address] lumbar spine with hardware in place. No acute abnormalities and in particular no evidence of acute fracture Thoracic spine showed no evidence of acute fracture CT Cervical spine showed degenerative changes without evidence of acute bony i njury. Right knee xray showed No evidence of acute osseous injury. Ortho on board Continue pain control Orthotics fit new brace, will await further pt/ot to assess dispo UTI Urine cx grew gram negative bacilli, > 100k Klebsiella Continue Rocephin, Day #3 CKD III Creatinine improved to 1.45 Continue monitor BMP avoid nephrotoxic agents, currently not on any nephro toxic agents will monitor closely HTN Continue amlodipine, metoprolol succinate, hydralazine bp controlled Chronic anemia. Iron deficiency anemia. History of GI bleed on prior admission requiring transfusion hgb improved to 9.2 today, no s/sx of bleeding lovenox d/c will follow closely and avoid freq phlebotomy if able pt is scheduled to have a OP colonoscopy due to concern for possible GI Nocturnal Hypoxia H/O ALMA Non complaint with CPAP 3L supplemental Oxygen at bedtime DM II A1c: 5.2 Hold home agents Basal/bolus insulin per protocol while in-patient, will decrease basal/bolus regimen decreased 10/09, bsg 167, 124 BSG AC HS Adjustment disorder with mixed anxiety and depressed mood Continue Effexor Hypothyroidism Continue Levothyroxine BPH Continue Proscar, Flomax DVT Ppx: SCDS for now given recent fall, and anemia Code status: FULL PCP: Sindy Dispo: Med/surg, pt medically stable for discharge, awaiting dispo from PT/OT Admission and Anticipated Discharge Date Admission Date: October 07, 2021 Subjective Pt was seen and examined in room 385-1. Follow up fall and back pain. States he slept well last night after he fell asleep at 3 a.m. Currentl denies any pain, f/c/s, chest pain, sob, cough, uri sx, n/v/d, abd pain. +BM last night. Appetite is good. Review of Systems Review of Systems: All systems reviewed & are unremarkable except as noted in HPI & below Physical Exam Physical Exam: Gen: WD/WN, M, lying in bed, NAD, A&O x3 HEENT: Normocephalic, atraumatic, conjunctivae moist, sclerae anicteric, mucous membranes moist. Lung: Clear to Auscultation bilaterally, no wheezes/rales/rhonchi Heart: Regular rate, regular rhythm, no murmurs, rubs, or gallops Abdomen: Soft, NT, ND +BS x 4 Extremities: No edema, venous stasis changes, arom x 4 Skin: Warm, no rash, negative turgor. Results & Data Results & Data ([facility]) Vital Signs (Past 12 Hours) Vital Signs Temp Pulse Resp BP Pulse Ox 10/10/21 07:55 36.8 C 58 L 16 128/61 94 Laboratory Results Short CBC 10/10/21 Range/Units 08:16 WBC 4.20 L (4.8-10.8) K/ul Hgb 9.2 L (14.0-18.0) g/dl Hct 28.9 L (40.1-51.0) % Plt Count 282 (130-400) K/uL BMP 10/10/21 08:16 Sodium 142 Potassium 3.9 Chloride 108 H Carbon Dioxide 29 BUN 26 H Creatinine 1.45 H Glucose 117 H Calcium 8.4 L Medications Administered Current Inpatient Medications Acetaminophen (Acetaminophen 500 Mg Tab) 500 mg PO TID [facility] Stop: 11/06/21 22:02 Last Admin: 10/10/21 07:59 Dose: 500 mg Amlodipine Besylate (Amlodipine Besylate 5 Mg Tab) 10 mg PO QAM [facility] Stop: 11/07/21 08:59 Last Admin: 10/10/21 08:00 Dose: 10 mg Artificial Tears (Artificial Tears) 2 drops OP BID [facility] Stop: 11/07/21 08:59 Last Admin: 10/10/21 08:01 Dose: Not Given Dextrose (Dextrose 50% 50 Ml Syringe) 25 - 50 ml IV UD PRN; Protocol PRN Reason: Hypoglycemia Protocol Stop: 11/06/21 22:02 Finasteride (Finasteride 5 Mg Tab) 5 mg PO [facility] Stop: 11/06/21 22:02 Last Admin: 10/09/21 20:20 Dose: 5 mg Gabapentin (Gabapentin 300 Mg Cap) 300 mg PO [facility] [address] Stop: 11/06/21 22:02 Last Admin: 10/10/21 08:00 Dose: 300 mg Gemfibrozil (Gemfibrozil 600 Mg Tab) 600 mg PO [facility] [address] Stop: 11/06/21 22:02 Last Admin: 10/10/21 08:00 Dose: 600 mg Glucagon (Glucagon For Inj 1 Mg Vial) 1 mg SQ UD PRN; Protocol PRN Reason: Hypoglycemia Protocol Stop: 11/06/21 22:02 Glucose (Glucose 40% Gel 15 Gm Tube) 15 - 30 gm PO UD PRN; Protocol PRN Reason: Hypoglycemia Protocol Stop: 11/06/21 22:02 Glucose (Glucose 10 Tab/Tube) 4 - 8 tab PO UD PRN; Protocol PRN Reason: Hypoglycemia Treatment Stop: 11/06/21 22:02 Hydralazine HCl (Hydralazine Hcl 25 Mg Tab) 25 mg PO [facility] [address] Stop: 11/06/21 22:02 Last Admin: 10/10/21 08:00 Dose: 25 mg Ceftriaxone Sodium 2,000 mg/ (Dextrose) 70 mls @ 140 mls/hr IV Q24H [facility]; Protocol Stop: 10/18/21 15:59 Last Infusion: 10/09/21 17:16 Dose: Infused Insulin Aspart (Insulin Aspart Per Unit) 0 units SC [facility] Stop: 11/06/21 22:02 Last Admin: 10/10/21 08:46 Dose: Not Given Insulin Glargine (Lantus Per Unit Charge) 0 units SQ BID [facility]; Protocol Stop: 11/08/21 20:59 Last Admin: 10/10/21 08:47 Dose: 4 units Levothyroxine Sodium (Levothyroxine Sodium 50 Mcg Tablet) 50 mcg PO DAILYBB [facility] Stop: 11/07/21 06:29 Last Admin: 10/10/21 05:34 Dose: 50 mcg Metoprolol Succinate (Metoprolol Succ 50mg Ext Rel Tab) 50 mg PO HS [facility] Stop: 11/06/21 22:02 Last Admin: 10/09/21 20:18 Dose: 50 mg Miscellaneous (Carbohydrates For Hypoglycemia ) 15 - 30 gm PO UD PRN PRN Reason: Hypoglycemia Protocol Stop: 11/06/21 22:02 Multivitamins (Multivitamin Tab) 1 tab PO DAILY [facility] Stop: 11/07/21 08:59 Last Admin: 10/10/21 08:00 Dose: 1 tab Multivitamins/Minerals (Cerovite Adv Formula Tab) 1 tab PO QAM [facility] Stop: 11/07/21 08:59 Last Admin: 10/10/21 08:00 Dose: 1 tab Mupirocin (Mupirocin 2% Oint 22 Gm Tube) 1 appln TOP BID [facility] Stop: 11/06/21 22:02 Last Admin: 10/10/21 08:01 Dose: 1 appln Non-Formulary Medication (Zinc Oxide-Cod Liver Oil [Desitin]) 1 appln TOP UD [facility] Stop: 11/06/21 22:02 Nystatin (Nystatin Powder 15gm Btl) 1 appln EXT BID [facility] Stop: 11/06/21 22:02 Last Admin: 10/10/21 08:01 Dose: 1 appln Ondansetron HCl (Ondansetron Inj 2 Mg/Ml 2 Ml Vial) 4 mg IV Q6H PRN PRN Reason: Nausea Stop: 11/06/21 22:02 Oxycodone HCl (Oxycodone Hcl Ir 5 Mg Tab (Immediate Release)) 5 mg PO Q6H PRN PRN Reason: pain,moderate or severe 4-10 Stop: 10/21/21 22:02 Last Admin: 10/09/21 20:17 Dose: 5 mg Pantoprazole Sodium (Pantoprazole 40 Mg Tab) 40 mg PO DAILYBB [facility] Stop: 11/07/21 06:29 Last Admin: 10/10/21 05:34 Dose: 40 mg Polyethylene Glycol (Polyethylene (Miralax) 17 Gm Pack) 17 gm PO DAILY [facility] Stop: 11/08/21 13:14 Last Admin: 10/10/21 08:00 Dose: 17 gm Tamsulosin HCl (Tamsulosin Hcl 0.4 Mg Cap) 0.4 mg PO PM [facility] Stop: 11/06/21 22:02 Last Admin: 10/09/21 20:21 Dose: 0.4 mg Venlafaxine HCl (Venlafaxine Hcl Xr 37.5 Mg Capxr) 37.5 mg PO QAM [facility] Stop: 11/07/21 08:59 Last Admin: 10/10/21 08:00 Dose: 37.5 mg Venlafaxine HCl (Venlafaxine Hcl Xr 150 Mg Capxr) 150 mg PO QDL [facility] Stop: 11/07/21 11:29 Last Admin: 10/09/21 13:04 Dose: 150 mg
[2021-10-10] MEDS: VENLAFAXINE HCL XR 150 MG CAPXR PO SCH (13:22)
[2021-10-10] MEDS ORDERED: bisacodyL 10 MG SUPP PR STA ×2 (14:28→20:59)
[2021-10-10] MEDS: cefTRIAXone SODIUM 2,000 MG in DEXTROSE 5% 50 ML IV SCH (16:34)
[2021-10-10] MEDS: METOPROLOL SUCC 50MG EXT REL TAB PO SCH (21:14)
[2021-10-10] MEDS: TAMSULOSIN HCL 0.4 MG CAP PO SCH (21:16)
[2021-10-10] MEDS: FINASTERIDE 5 MG TAB PO SCH (21:17)
[2021-10-10] MEDS ORDERED: SOD PHOSPHATE/SOD BIPHOSPHATE ENEMA 132 ML BTL PR PRN (23:33)
[2021-10-11] MEDS: DOCUSATE SODIUM/SENNA 50/8.6MG TAB PO SCH ×2 (00:05→10:09)
[2021-10-11] MEDS ORDERED: LACTULOSE SYRUP 30 GM/45 ML UDP PO STA (00:16)
[2021-10-11] MEDS: PANTOprazole 40 MG TAB PO SCH (06:28)
[2021-10-11] MEDS: LEVOTHYROXINE SODIUM 50 MCG TABLET PO SCH (06:28)
[2021-10-11] MEDS: INSULIN ASPART PER UNIT SC SCH ×2 (08:23→12:24)
[2021-10-11] MEDS: ARTIFICIAL TEARS OP SCH (10:07)
[2021-10-11] MEDS: ACETAMINOPHEN 500 MG TAB PO SCH (10:08)
[2021-10-11] MEDS: POLYETHYLENE (MIRALAX) 17 GM PACK PO SCH (10:08)
[2021-10-11] MEDS: hydrALAZINE HCL 25 MG TAB PO SCH (10:09)
[2021-10-11] MEDS: gemfibroziL 600 MG TAB PO SCH (10:09)
[2021-10-11] MEDS: VENLAFAXINE HCL XR 37.5 MG CAPXR PO SCH (10:09)
[2021-10-11] MEDS: amLODIPine BESYLATE 5 MG TAB PO SCH (10:09)
[2021-10-11] MEDS: GABAPENTIN 300 MG CAP PO SCH (10:09)
[2021-10-11] MEDS: MUPIROCIN 2% OINT 22 GM TUBE TOP SCH (10:10)
[2021-10-11] MEDS: CEROVITE ADV FORMULA TAB PO SCH (10:10)
[2021-10-11] MEDS: NYSTATIN POWDER 15GM BTL EXT SCH (10:10)
[2021-10-11] MEDS: LANTUS PER UNIT CHARGE SQ SCH (10:10)
[2021-10-11] MEDS: VENLAFAXINE HCL XR 150 MG CAPXR PO SCH (12:24)
--- NOTE | 2021-10-11 13:31 | Discharge Summary ---
Date of Service October 11, 2021 Admission HPI Per Admitting Provider This is an 81-year-old male with PMH of controlled type 2 diabetes on insulin, severe ALMA, hypertension, hyperlipidemia, CKD 3, BPH, paresis of right lower extremity and other medical problems listed below who presents after fall at home. Patient was ambulating with walker with daughter's help when he lost his balance and fell backwards onto his left side. Denies head trauma or loss of consciousness. No fever, chills, chest pain, SOB, N/V/D. No dysuria or hematuria. Patient has had a complicated medical course since an L4 burst fracture in May with surgical intervention followed by multiple rehab stays at [facility]. Has been living with his daughter who is significantly involved with his care. Of note, patient's 1 month ago. Admission Exam Per Admitting Provider General Appearance:WD/WN, vitals as above, NAD, sitting up in bed, pleasant, conversing easily Head: normocephalic, atraumatic Eyes:normal inspection, PERRL, conjunctivae normal, anicteric sclerae ENT: external ear and nose normal, oropharynx normal Neck: normal visual inspection, trachea midline, no thyromegaly Respiratory:normal respiratory effort, rales R base, no wheeze or rhonchi. No accessory muscle use Cardiovascular: regular rate, rhythm, no murmur, normal peripheral pulses, no BLE edema. Vessels: no JVD Chest: normal inspection of chest Abdomen/GI: normal bowel sounds, soft, nontender, no hepatosplenomegaly Extremities/Musculoskeletal: no cyanosis or clubbing, extremities motor strength 5/5 Neurologic: PERRL, EOMI, accommodation nl, no face palsy, no dysarthria, CN's II-XI intact bilaterally and moves all extremities. RLE weakness (chronic) Psychiatric:A+Ox3, euthymic affect Skin: no rashes, pale, warm/dry Principal Diagnosis Fall Back Pain UTI Anemia T2DM Discharge Exam Gen: WD/WN, M, lying in bed, NAD, A&O x3 HEENT: Normocephalic, atraumatic, conjunctivae moist, sclerae anicteric, mucous membranes moist. Lung: Clear to Auscultation bilaterally, no wheezes/rales/rhonchi Heart: Regular rate, regular rhythm, no murmurs, rubs, or gallops Abdomen: Soft, NT, ND +BS x 4 Extremities: No edema, venous stasis changes, arom x 4 Skin: Warm, no rash, negative turgor. Discharge Data Allergies Allergy/AdvReac Type Severity Reaction Status Date / Time acetaminophen [From Percocet] Allergy Intermediate Unknown Verified 10/07/21 18:16 baclofen Allergy Intermediate Unknown Verified 10/07/21 18:16 diazepam [From Valium] Allergy Intermediate Unknown Verified 10/07/21 18:16 oxycodone [From Percocet] Allergy Intermediate Unknown Verified 10/07/21 18:16 ragweed pollen Allergy Intermediate Unknown Verified 10/07/21 18:16 Consultations 10/07/21 17:35 ED Decision to Admit Stat 10/07/21 22:08 Consult Orthopedic Surgery Routine Ordered Studies Abdomen/Pelvis CT 10/07/21 15:04 CT abd pelvis IV con only, CT lumbar spine w con CLINICAL HISTORY: Trauma TECHNIQUE: Helical axial images of the abdomen and pelvis were obtained and displayed. Automated dose lowering techniques and/or adjustment according to patient size were utilized for this exam. Dedicated images of the lumbar spine were obtained. This exam was performed with intravenous contrast. COMPARISON: Comparison is made to CT abdomen pelvis 06/17/2021 FINDINGS: Lower chest: For findings above the diaphragm, please see CT chest performed same day. Liver: Unremarkable. No focal lesions are seen. Gallbladder and biliary tree: Cholelithiasis is seen without evidence of cholecystitis. No intra- or extrahepatic biliary ductal dilation. Pancreas: Unremarkable, no focal lesions. Spleen: Unremarkable. Adrenals: Unremarkable. Kidneys and ureters: Previously noted renal cysts are stable. Bladder: Unremarkable. Reproductive organs: Unremarkable. Bowel: Unremarkable appearance of the bowel. The appendix is normal. A duodenal diverticulum is seen. Lymph nodes Retroperitoneal: Unremarkable. Pelvic: Unremarkable. Mesenteric: Unremarkable. Peritoneum: Normal. Vessels: Atherosclerotic calcifications are seen. Abdominal wall: Unremarkable. Bones: Posterior fixation hardware is seen spanning L3 S1. Cement arthroplasty is seen in L4 with loss of height. No evidence of acute fracture is seen. IMPRESSION: 1. No acute abnormalities and in particular no evidence of acute fracture. 2. Additional findings as above. ACT 112: Negative or not required by law. Electronically signed by: Vitaly Crowder M.D. 10/07/2021 5:[address] 10/07/21 15:04 CT cervical spine wo con CLINICAL HISTORY: Trauma TECHNIQUE: Multidetector row helical CT of the cervical spine was performed without administration of intravenous contrast. Coronal and sagittal reformations were obtained. Automated dose lowering techniques and/or adjustment according to patient size were utilized for this exam. Comparison: None available at the time of this dictation. FINDINGS: No acute fractures or subluxations are identified. The vertebral body heights and disk spaces are well maintained. The alignment is normal. And azygos fissure is noted. IMPRESSION: Degenerative changes without evidence of acute bony injury. ACT 112: Negative or not required by law. Electronically signed by: Vitaly Crowder M.D. 10/07/2021 4:[address] 10/07/21 15:04 CT chest diagnostic w con, CT thoracic spine w con CLINICAL HISTORY: Trauma TECHNIQUE: Multidetector row helical CT of the chest was performed with intravenous contrast. Coronal and sagittal reformations were obtained. Automated dose lowering techniques and/or adjustment according to patient size were utilized for this exam. Dedicated images of the thoracic spine were obtained. CT DOSE: 4569.35 mGy.cm Comparison: None available at the time of this dictation. FINDINGS: Lungs and pleura: An azygos fissure is incidentally noted. There is a small right pleural effusion with associated atelectasis. Mosaic attenuation is noted. Prominence of the pulmonary vasculature is seen. Heart and pericardium: There is cardiomegaly without evidence of pericardial effusion. Vessels: Moderate atherosclerotic changes in the aorta and coronary arteries. Mediastinum and sandra: Unremarkable. Chest wall and lower neck: Unremarkable. Abdomen: Unremarkable. Bones: Degenerative changes in the thoracic spine. IMPRESSION: No evidence of acute fracture. Small right pleural effusion with associated atelectasis. Cardiomegaly with mild pulmonary edema. ACT 112: Negative or not required by law. Electronically signed by: Vitaly Crowder M.D. 10/07/2021 5:[address] 10/07/21 15:04 CT head/brain wo con CLINICAL HISTORY: Trauma Technique: Contiguous axial CT images of the head were acquired from the base of the skull to the vertex without intravenous contrast administration. Images were viewed in brain, subdural and bone windows. Automated dose lowering techniques and/or adjustment according to patient size were utilized for this exam. Comparison: Comparison is made to CT head 07/05/2021 Findings: Areas of decreased attenuation are present in the periventricular and subcortical white matter bilaterally consistent with small vessel ischemic disease. Generalized cerebral atrophy with commensurate enlargement of the ventricles, sulci, and cisterns is also present. There is no acute intracranial hemorrhage or evidence of acute territorial infarction. No shift of the midline structures, mass effect, or extra-axial abnormalities are shown. Atherosclerotic calcifications are present in the intracranial segments of the internal carotid arteries. Large mucous retention cyst is in the right maxillary sinus. The orbits appear normal. There are no acute fractures of the calvaria or scalp swelling. Impression: No acute intracranial hemorrhage, no evidence of acute territorial infarction or other acute intracranial disease process. ACT 112: Negative or not required by law. Electronically signed by: Vitaly Crowder M.D. 10/07/2021 4:[address] 10/07/21 15:04 CT abd pelvis IV con only, CT lumbar spine w con CLINICAL HISTORY: Trauma TECHNIQUE: Helical axial images of the abdomen and pelvis were obtained and displayed. Automated dose lowering techniques and/or adjustment according to patient size were utilized for this exam. Dedicated images of the lumbar spine were obtained. This exam was performed with intravenous contrast. COMPARISON: Comparison is made to CT abdomen pelvis 06/17/2021 FINDINGS: Lower chest: For findings above the diaphragm, please see CT chest performed same day. Liver: Unremarkable. No focal lesions are seen. Gallbladder and biliary tree: Cholelithiasis is seen without evidence of cholecystitis. No intra- or extrahepatic biliary ductal dilation. Pancreas: Unremarkable, no focal lesions. Spleen: Unremarkable. Adrenals: Unremarkable. Kidneys and ureters: Previously noted renal cysts are stable. Bladder: Unremarkable. Reproductive organs: Unremarkable. Bowel: Unremarkable appearance of the bowel. The appendix is normal. A duodenal diverticulum is seen. Lymph nodes Retroperitoneal: Unremarkable. Pelvic: Unremarkable. Mesenteric: Unremarkable. Peritoneum: Normal. Vessels: Atherosclerotic calcifications are seen. Abdominal wall: Unremarkable. Bones: Posterior fixation hardware is seen spanning L3 S1. Cement arthroplasty is seen in L4 with loss of height. No evidence of acute fracture is seen. IMPRESSION: 1. No acute abnormalities and in particular no evidence of acute fracture. 2. Additional findings as above. ACT 112: Negative or not required by law. Electronically signed by: Vitaly Crowder M.D. 10/07/2021 5:[address] 10/07/21 15:04 CT chest diagnostic w con, CT thoracic spine w con CLINICAL HISTORY: Trauma TECHNIQUE: Multidetector row helical CT of the chest was performed with intravenous contrast. Coronal and sagittal reformations were obtained. Automated dose lowering techniques and/or adjustment according to patient size were utilized for this exam. Dedicated images of the thoracic spine were obtained. CT DOSE: 4569.35 mGy.cm Comparison: None available at the time of this dictation. FINDINGS: Lungs and pleura: An azygos fissure is incidentally noted. There is a small right pleural effusion with associated atelectasis. Mosaic attenuation is noted. Prominence of the pulmonary vasculature is seen. Heart and pericardium: There is cardiomegaly without evidence of pericardial effusion. Vessels: Moderate atherosclerotic changes in the aorta and coronary arteries. Mediastinum and sandra: Unremarkable. Chest wall and lower neck: Unremarkable. Abdomen: Unremarkable. Bones: Degenerative changes in the thoracic spine. IMPRESSION: No evidence of acute fracture. Small right pleural effusion with associated atelectasis. Cardiomegaly with mild pulmonary edema. ACT 112: Negative or not required by law. Electronically signed by: Vitaly Crowder M.D. 10/07/2021 5:12 PM Knee X-Ray 10/07/21 21:15 XR knee RT 1 or 2V routine CLINICAL HISTORY: pain, r/o fracture TECHNIQUE: 2 views of the right knee were obtained. Comparison: None available at the time of this dictation. FINDINGS: There is no evidence of an acute fracture. Joint spaces are well-preserved. No joint effusion is seen. No soft tissue abnormality is seen. IMPRESSION: No evidence of acute osseous injury. ACT 112: Negative or not required by law. Electronically signed by: Vitaly Crowder M.D. 10/07/2021 9:45 PM Lumbar Spine X-Ray 10/08/21 11:29 XR lumbar spine 2-3V CLINICAL HISTORY: Ongoing low back pain. Previous surgery. COMPARISON STUDY: CT of the lumbar spine. 1322 TECHNIQUE: 3 Views of the lumbar spine FINDINGS: Bones: The patient is again status post interpedicular screw and fernando fixation from L3 through S1. The patient is again status post vertebroplasty at L4 with marked loss of height of the L4 vertebral body again seen. There is no evidence for an acute fracture or malalignment. The heights of the remaining lumbar vertebral bodies are maintained. There are no lytic or blastic lesions present. Disc spaces: Disc spacers in place at L5-S1. Mild to moderate disc space narrowing is seen throughout the remainder the lumbar spine with vacuum disc phenomena at L3-4 and L4-5. Facet joints: Degenerative facet joint disease is also present throughout the lumbar spine Soft tissues: The paraspinal soft tissues are within normal limits. IMPRESSION: 1. No acute abnormality. 2. Stable internal fixation with old L4 compression fracture. 3. Degenerative disc and degenerative facet joint disease. ACT 112: Negative or not required by law. Electronically signed by: Hesham Rubio M.D. 10/08/2021 2:02 PM Diabetes Follow up A1C 5.2 Hospital Course (1) Fall: (2) Back pain: (3) UTI (urinary tract infection): (4) Anemia: (5) Diabetes mellitus, type 2: (6) HTN (hypertension): (7) Benign localized prostatic hyperplasia with lower urinary tract symptoms (LUTS): (8) CKD (chronic kidney disease) stage 3, GFR 30-59 ml/min: (9) Adjustment disorder with mixed anxiety and depressed mood: Plan This is an 81-year-old male with PMH of controlled type 2 diabetes on insulin, severe ALMA, hypertension, hyperlipidemia, CKD 3, BPH, paresis of right lower extremity and other medical problems listed below who presents after fall at home and was found to have a UTI. Fall S/P Lumbar Surgery Present on admission with Fall History of L4 burst fracture and had lumbosacral fusion on 06/06/[address] lumbar spine with hardware in place. No acute abnormalities and in particular no evidence of acute fracture Thoracic spine showed no evidence of acute fracture CT Cervical spine showed degenerative changes without evidence of acute bony injury. Right knee xray showed No evidence of acute osseous injury. Ortho on board Continue pain control Orthotics fit new brace, patient to [place] home today with home health services UTI Urine cx grew gram negative bacilli, > 100k Klebsiella will de escalate to oral keflex to complete 7 day course CKD III Creatinine improved to 1.45 avoid nephrotoxic agents, currently not on any nephro toxic agents will monitor closely HTN Continue amlodipine, metoprolol succinate, hydralazine bp controlled Chronic anemia. Hx of Iron deficiency anemia. History of GI bleed on prior admission requiring transfusion hgb improved to 9.2, no s/sx of bleeding lovenox d/c will follow closely and avoid freq phlebotomy if able pt is scheduled to have a OP colonoscopy due to concern for possible GI source anemia panel un revealing, GI contacted to try to move up c scope, currently scheduled for December 01, and he was placed on wait list Transferrin 163, ferritin 80.8, Iron 59, b12 483 and folate 15.19 Nocturnal Hypoxia H/O ALMA Non complaint with CPAP 3L supplemental Oxygen at bedtime DM II A1c: 5.2 Hold home agents Basal/bolus insulin per protocol while in-patient, will decrease basal/bolus regimen decreased 10/09, bsg 159 BSG AC HS Adjustment disorder with mixed anxiety and depressed mood Continue Effexor Hypothyroidism Continue Levothyroxine BPH Continue Proscar, Flomax Pt being discharged to home with daughter and therapy services. Pt will follow up with PCP as scheduled. Recommend repeat CBC and BMP at this visit. B GOMEZ Landry Total Time Total Time Spent Total Time Spent (In Minutes): 60 minutes Discharge Plan Discharge Items Patient Disposition: Home - Home Health Services Reason For Visit: FALL,BACK PAIN,UTI Discharge Diagnosis: Fall Back Pain UTI Anemia T2DM Activity: Resume your previous activity Bathing: No limitations Weightbearing: Full weightbearing Non-emergency contact: Primary Care Provider Call non-emergency contact if: you have any medication questions, your symptoms worsen, your pain is not controlled, your pain is worsening, you have a fever and your temperature is above 101 Follow-up/Referrals: Tru Callahan MD [Primary Care Provider] - (Date & Time 10/16/2021 9:20 AM Provider Syed Holly MD Department [facility] ) Diet: Carb Consistent or DM2 and Heart Healthy Addtl Attending Provider Instructions: MEDICATION CHANGES: Cephalexin 500mg by mouth twice daily for 3 more days for UTI. Recommend daily probiotic while on antibiotic therapy. Continue all other medications. SUMMARY OF TEST RESULTS: You were admitted to hospital secondary to fall. There were no fractures identified on imaging. You were found to have a UTI and treated with IV antibiotics. You will complete oral antibiotics at home. Please complete entire course. You were seen by Physical and Occupational therapy. You were prescribed a new knee brace due to the damage of your previous brace. PENDING TEST RESULTS: none RECOMMENDATIONS FOR FOLLOW-UP: Please follow up with Primary Care Provider as scheduled. Complete antibiotic course for UTI. Continue to participate in PT/OT. Take all medications as prescribed. Recommend to stay well hydrated. Recommend repeat cbc and bmp with in 1 week when following up with PCP. OTHER INSTRUCTIONS: Seek medical attention if you have: * temperature above 101 * chest pain or trouble breathing * abdominal pain, nausea, vomiting * diarrhea, dark stools or bloody stools * any unanswered questions or concerns Call 911 if symptoms are severe. Please take good care of yourself. It has been a pleasure taking care of you. Please take care of yourself. If you have any questions regarding your recent hospitalization please contact [facility] and request [facility] @ [phone]. Leah Landry PA-C Pending Studies at Discharge: Yes Stand-Alone Forms: My [facility], Smoking Cessation Medications and DC Order Prescriptions: New cephalexin 500 mg capsule 500 mg PO BID 3 Days Qty: 6 0RF Continued gemfibrozil 600 mg tablet 600 mg PO AMHS gabapentin 300 mg capsule 300 mg PO AMHS levothyroxine 50 mcg capsule 50 mcg PO DAILYBB Lantus Solostar U-100 Insulin 100 unit/mL (3 mL) insulin pen 14 units SQ HS PreserVision AREDS-2 [id number] Capsule 2 tab PO QAM metoprolol succinate 25 mg tablet extended release 24 hr 50 mg PO HS venlafaxine 150 mg capsule,extended release 24hr 150 mg PO QDL hydralazine 25 mg Tablet 25 mg PO AMHS amlodipine 10 mg Tablet 10 mg PO QAM mupirocin 2 % Ointment 1 applic TOPICAL BID nystatin 100,000 unit/gram Powder 1 applic TOPICAL BID polyethylene glycol 3350 [Miralax] 17 gram/dose Powder 17 g PO QAM ondansetron 4 mg Tablet,Disintegrating 4 mg PO Q6H PRN (Reason: Nausea) pantoprazole 40 mg tablet,delayed release (DR/EC) 40 mg PO DAILYBB acetaminophen 500 mg Tablet 500 mg PO TID Rx Instructions: take in morning,noon and bedtime venlafaxine 37.5 mg Tablet 37.5 mg PO QAM oxycodone 5 mg Capsule 5 mg PO Q6H PRN (Reason: pain,moderate or severe) insulin lispro [Humalog KwikPen Insulin] 100 unit/mL Insulin Pen 1 sliding scale dose SUBCUT BID tamsulosin 0.4 mg capsule 0.4 mg PO PM finasteride 5 mg tablet 5 mg PO HS multivitamin [Daily-Sowmya] Tablet 1 tab PO DAILY Systane (propylene glycol) 0.4-0.3 % drops 2 drp OPB AMHS Anti-Fungal 2 % powder 1 applic TOPICAL UD Desitin 40 % paste 1 applic TOPICAL UD Discharge Orders: Discharge Order (Routine); Ordered 10/11/21 Ordered By: Leah Pennington/Other Patient Handouts: Managing Type 2 Diabetes Admission Data Admit Date/Time: 10/07/21 18:23 Attending Provider: Lizet Garrett Admit Provider: Wilber Higgins Primary Care Provider: Tru Callahan Other Providers: Wilber Higgins ; Felix Castellanos ; Leah Landry ; Glenn Best Other Interventions: Discharge Summary Assessment (RN) Last Done: 10/11/21 13:05 Supervising Physician Co-Signing Physician Notes 10/11/2021 Attending addendum: The patient was seen and examined in medical floor He denies any symptoms except some discomfort in the left knee Following bowel movement he has been feeling a lot better He is very much well-known to me On examination Lying in bed comfortably Hemodynamically stable without any apparent distress Chest-clear to auscultate bilaterally Heart-S1, S2 Abdomen-benign Extremities-trace edema bilaterally His labs, imaging studies and medications reviewed Agree with assessment and plan as outlined above by Leah Herrera PA-C
[2021-10-13 16:21] LABS: CK Total 21 U/L (44-196); CK-MB 0 % (<5); CK-MM 100 % (95-100)
== END 2021-10-11 14:34 | disposition home health service (06) | DRG 560 ==
LOC: ED 13:40 → 3N 18:23 → SUATTDRO 18:23 → 3N 21:26
DX: N18.30 Chronic kidney disease, stage 3 unspecified; N39.0 Urinary tract infection, site not specified; Z86.16 Personal history of COVID-19; Z88.5 Allergy status to narcotic agent; Y82.8 Other medical devices associated with adverse incidents; Z79.4 Long term (current) use of insulin; M48.061 Spinal stenosis, lumbar region without neurogenic claudication; W19.XXXA Unspecified fall, initial encounter; T84.296A Other mechanical complication of internal fixation device of vertebrae, initial encounter; N40.1 Benign prostatic hyperplasia with lower urinary tract symptoms; E11.22 Type 2 diabetes mellitus with diabetic chronic kidney disease; D64.9 Anemia, unspecified; E03.9 Hypothyroidism, unspecified; I12.9 Hypertensive chronic kidney disease with stage 1 through stage 4 chronic kidney disease, or unspecified chronic kidney disease